=== PATIENT | female | born 1950 | race Caucasian/White ===

== ENCOUNTER 2017-07-12 10:33 | Inpatient (IN) | payer MEDICARE ==
[2017-07-12] MEDS ORDERED: Ondansetron INJ* 2 MG/ML VIAL IV ONE (11:09)
--- OUTSIDE RECORDS SUMMARY | 2017-07-12 11:32 | XMS REPORT ---
:1950 External Reference #:[id number] Author Organization [facility] Address [address] [place] [address] Phone [phone] Care Team Providers Name Role Phone Jake Dey MD Care Team Information Program Project Manager Unavailable Jake Dey MD Primary Care Physician Unavailable Payers Type Date Identification Numbers Payment Provider Subscriber Medicare Primary Effective: Policy Number: Medicare [place] 2013 [id number] Group Name: [facility] [address] PayID: [id number] [place] [address] Problems Date Description Provider Status Onset: 03/18/2017 Depressive disorder Jake Dey M.D. Active Onset: 03/29/2017 Anemia Jake Dey M.D. Active Onset: 05/04/2017 Arthralgia of the pelvic region Jake Dey M.D. Active and thigh Onset: 06/15/2017 Aortic valve disorder Jake Dey M.D. Active Onset: 06/29/2011 Acute conjunctivitis Flavio Box M.D. Inactive Inactive: 06/15/2017 Onset: 03/07/2012 Acute sinusitis Haider Poe M.D. Inactive Inactive: 06/15/2017 Onset: 03/07/2012 Acute upper respiratory infection Haider Poe M.D. Inactive Inactive: 06/15/2017 Onset: 08/13/2014 Allergic rhinitis Jake Dey M.D. Inactive Inactive: 06/15/2017 Onset: 08/13/2014 Cervical syndrome Jake Dey M.D. Inactive Inactive: 06/15/2017 Onset: 08/13/2014 Chest pain Jake Dey M.D. Inactive Inactive: 06/15/2017 Onset: 03/18/2017 Malaise and fatigue Jake Dey M.D. Inactive Inactive: 06/15/2017 Onset: 03/29/2017 Abnormal glucose level Jake Dey M.D. Inactive Inactive: 06/15/2017 Onset: 06/15/2017 Adult health examination Jake Dey M.D. Inactive Inactive: 06/15/2017 Family History Date Family Member(s) Problem(s) Comments Father Diabetes Mellitus, II Mother Gallstones Social History Type Date Description Comments Occupation Teacher [employer] Cigarette Use Former Cigarette Smoker quit 20 yrs ago Smoking Patient is a former smoker quit 20 yrs ago, 1ppd Allergies, Adverse Reactions, Alerts Date Description Reaction Status Severity Comments 03/18/2017 NKDA active Medications Medication Date Status Form Strength Qnty SIG Indications Ordering Provider Alendronate 06/15 Active Tablets 70mg 12tab 1 by mouth Jake F. Sodium s every week Agustín Dey Naproxen 04/15 Active Tablets 500mg 60tab 1 by mouth M25.552 Silvia s twice a Andrea, day with [employer] food Cyclobenzaprine 04/15 Active Tablets 10mg 60tab take 1 M25.552 Silvia HCL /2016 s tablet by Andrea, mouth two [employer] times daily as needed for pain Diphenhydramine 04/06 Active Capsules 25mg 2 by mouth Jake F. HCL at bedtime Yissel, as needed M.DFuentes Omeprazole 04/[address] 20mg 30cap 1 by mouth Jake F. /2016 s every day Agustín Dey Iron 04/06 Active Tablets 325(65Fe) 60tab 1 by mouth Jake F. /2016 mg s qd-bid Agustín Dey Proair HFA 11/14 Active Aerosol 108(90Bas 1unit 2 puffs J06.9 Carmella e) s every 4 Katie, mcg/Act hours as [employer] needed Alprazolam 12/19 Active Tablets 0.25mg 40tab 1/2-1 tabs Jake F. s by mouth Yissel, three M.D. times a day as needed anxiety Pseudoephedrine 04/06 Hx Tablets 30mg 14tab use twice Jake F. HCL /2016 s a day as Shallzeyad, - needed M.D. 06/15 congestion Escitalopram 03/18 Hx Tablets 10mg 30tab 1/2 by Jake F. Oxalate s mouth Shallish, - every day M.D. 06/15 Amoxicillin 03/13 Hx Tablets 875mg 20tab 1 by mouth J06.9 Flavio JFuentes /2016 s twice a Isauro, - day x 10 M.D. Doxycycline 01/20 Hx Tablets 100mg 2tabs take 2 Ricki A. Hyclate /2016 pills x 1 Darlow, - dose M.D. 01/21 Amoxicillin 11/14 Hx Tablets 875mg 20tab 1 by mouth J06.9 s twice a Katie, - day x 10 [employer] Doxycycline 01/23 Hx Capsules 100mg 14cap take 1 Marcia Hyclate s capsule Mauri [employer] - twice 01/30 daily by mouth for 7 days Alendronate 11/27 Hx Tablets 70mg 12tab 1 by mouth Jake F. Sodium /2014 s every week Yissel, - M.D. 02/07 Nitro-bid 11/27 Hx Ointment 2% 30gm apply to Jake F. /2014 [facility] 04/10 hours needed Anusol-HC 11/27 Hx Cream 2.5% 28.35 apply to Jake F. /2014 units affected Yissel, - area(s) M.D. 01/20 four times a day as needed Albuterol 11/14 Hx Inhaler 2 puffs Unknown Sulfate every 4 - hours as 03/13 needed Azithromycin 10/22 Hx Tablets 250mg 6tabs take 2 465.9 Carmella tablets by Katie, - mouth [employer] 11/27 today take 1 tablet daily for next 4 days Alendronate 09/01 Hx Tablets 70mg 12tab 1 by mouth Jake F. Sodium /2014 s every week Yissel, - M.D. 11/27 Zostavax 08/13 Hx Solution [id number]/ 1dose inject Jake F. /2014 Rec 0.65ML [facility], - M.D. 08/13 Fluticasone 08/13 Hx Suspension 50mcg/Act 16gm inhale 2 Jake F. sprays in [facility], - each M.D. 11/27 nostril /2014 daily Azithromycin 07/25 Hx Tablets 250mg 6tabs 2 by mouth 786.2 Marcia /2014 today and Mauri [employer] - 1 tab x 4 Amoxicillin 05/29 Hx Tablets 500mg 30tab 1 three 461.9 Lizbeth s times a Matteo, - day x 10 Afnp-C 06/08 days Azithromycin 10/18 Hx Tablets 250mg 6tabs 2 tabs 466.0 Lizbeth today; Matteo, - then one Afnp-C 10/23 tab qd x more days Ciprofloxacin 07/20 Hx Solution 0.3% 1bott two drops 372.00 Silvia HCL le in [facility], - affected [employer] 10/18 eye every three hours wa until symptoms resolve, then add'l 24 hrs Albenza 05/29 Hx Tablets 200mg 4tabs 2 po x 1 , 698.0 repeat in [facility], - 2 weeks Afnp-C 06/12 Azithromycin 05/17 Hx Tablets 250mg 6tabs 2 tabs Lizbeth today; Matteo, - then one Afnp-C 03/27 tab qd x more days Azithromycin 03/07 Hx Tablets 250mg 6tabs 2 po today Haider T. /2011 and 1 po x Midura, - 4 days M.D. 04/02 Tobrex 06/29 Hx Solution 0.3% 15cc 2 gtts Flavio J. /2010 affected Melydavidn, - eye(s) tid M.D. 12/25 x days Ciprofloxacin 04/21 Hx Tablets 250mg 14tab 1 po bid Haider T. HCL s Midura, - M.D. 06/29 Macrobid 04/10 Hx Capsules 100mg 14cap 1 po bid x Carmella /2010 s 7d Katie, - [employer] 06/29 Bactrim DS 04/08 Hx Tablets 800-160mg 20tab 1 po bid 599.0 Carmella s for 10 Katie, - days [employer] 04/10 Doxycycline 01/[address] 100mg 42cap 1 po bid 919.4 Carmella cl Part s x 21d Katie, - [employer] 04/08 Xanax 08/15 Hx Tablets 0.25mg 30tab 1 tab po 300.00 David Magana, /2010 s qd prn M.DFuentes - 08/13 Bactrim DS 05/14 Hx Tablets 800-160mg 10tab 1 po bid [facility]. /2009 s for 5 days Bia Rosado M.D. 08/25 Cyclobenzaprine 10/22 Hx Tablets 10mg 30tab 1 po tid [facility] s as needed Katie, - [employer] 08/13 Amoxicillin 08/13 Hx Tablets 500mg 21tab 1 po tid 381.4 [facility]. /2008 s for 7 days Bia Rosado M.D. 05/09 Auralgan 08/13 Hx Solution 1bott 2 to 4 381.4 Renée M. /[facility] [place].DFuentes 08/25 ears qid Doxycycline 05/[address] 100mg 2caps 2 tabs po E906.4 Goodwin A. Hyclate /2007 Part times one Bia Melissa M.D. 07/02 Flexeril 09/28 Hx Tablets 10mg 30tab 1 PO tid Lizbeth s prn Muscle Matteo, - Spasm Afnp-C 08/13 Skelaxin 09/27 Hx Tablets 800mg 8tabs One Tab PO 728.89 Lizbeth tid prn Matteo, - Afnp-C 09/28 Xanax 02/07 Hx Tablets 0.25mg 20tab 1 tab po 300.00 s qd prn Ita, - Afnp-C 05/09 Amoxicillin 10/17 Hx Tablets 500mg 30tab 1 tid x 10 s days Ita, - Afnp-C 07/08 Robitussin ac 07/25 Hx 2Oz 1-2 tsp po q4h prn Ita, - Afnp-C 10/17 Use At hs Pen VK 03/23 Hx Tablets 500mg 40tab 1 qid s Katie, - [employer] 10/17 Doxycycline 08/02 Hx 100mg 20uni 1 po bid ts [facility], - Afnp-C 07/12 Naproxen 10/09 Hx 375mg Tab 50uni 1 tid For Sampson One Week [place], - Then tid M.DFuentes 08/02 prn Multivitamins 00/00 Hx Tablets 1 po qd Unknown /0000 - 04/10 Sudafed D 00 Hx Tablets prn Unknown /0000 - 07/19 Loratadine 00/ Hx Tablets 10mg 1 po qd Unknown /0000 prn - 08/13 Calcium 600 High 00 Hx Tablets 600mg 1 by mouth Unknown Potency /0000 daily - 11/27 Calcium + D3 00/ Hx Unknown /0000 - 04/10 Raw Calcium 00/ Hx Unknown /0000 - 01/02 Coenzyme B 00/ Hx Unknown Complex / - 01/02 Vitamin K2 00/00 Hx Capsules 100mcg 1 po qod Unknown / - 11/14 Vitamin D3 00/00 Hx Capsules 5000Unit 1 by mouth Unknown Maximum Strength /0000 every - other day 11/14 Acp Beta 00 Hx Unknown Supplement / - 01/02 Women's Libido 00/ Hx Unknown /0000 - 01/02 Oomega 3 00/ Hx Unknown /0000 - 01/02 Loratadine 00/00 Hx Tablets 10mg 1 by mouth Unknown /0000 every day - prn 04/06 Young Jevity 00 Hx Powder 2 tbsps in Unknown /0000 water qd - 11/14 Drexel 3-6-9 Hx Capsules 400mg 2 po qd Unknown Complex /0000 - 11/14 Caltottie 00 Hx Liquid 1200mg qd Unknown /0000 - 11/14 Estrogen Cream 00/ Hx apply dime Unknown /0000 sized amt - to skin 11/14 and rub in Glucosamine 00 Hx Gel Caps 2 po qd Unknown /0000 - 10/15 Estragelis Hx 1 po qd Unknown /0000 - 04/06 Cordy Seps Hx 1 po qd Unknown /0000 - 04/06 Immunizations CPT Code Status Date Vaccine Lot # [id number] Given 04/15/2017 High-Dose, Influenza Virus Vacccine-fluzone 65 and [id number] older 90127 Given 04/08/2016 Tdap Tetanus, W Pertussis [id number] 59515 Given 04/08/2016 Pneumococcal Conjugate Vacc-13 [id number] 21576 Given 04/08/2016 High-Dose, Influenza Virus Vacccine-fluzone 65 and [id number] older 11845 Given 03/26/2015 High-Dose, Influenza Virus Vacccine-fluzone 65 and [id number] older 03749 Given 08/13/2014 Pneumococcal Immunization [id number] 00030 Given 08/13/2014 High-Dose, Influenza Virus Vacccine-fluzone 65 and [id number] older 28386 Given 04/27/2013 High-Dose, Influenza Virus Vacccine-fluzone 65 and [id number] older Vital Signs Date Vital Result Comment 06/15/2017 BP Systolic 128 mmHg BP Diastolic 72 mmHg Heart Rate 76 /min Body Temperature 97.9 F Respiratory Rate 16 /min Height 67.25 inches 5'7.25" Weight 170.50 lb BMI (Body Mass Index) 26.5 kg/m2 05/04/2017 BP Systolic 124 mmHg BP Diastolic 64 mmHg Heart Rate 72 /min Respiratory Rate 16 /min Height 67.25 inches 5'7.25" 04/15/2017 BP Systolic 126 mmHg BP Diastolic 64 mmHg Heart Rate 70 /min Body Temperature 98.1 F Height 67.25 inches 5'7.25" 04/06/2017 BP Systolic 128 mmHg BP Diastolic 72 mmHg Heart Rate 72 /min Body Temperature 98.2 F Respiratory Rate 16 /min Height 67.25 inches 5'7.25" Weight 168.38 lb BMI (Body Mass Index) 26.2 kg/m2 03/18/2017 BP Systolic 120 mmHg BP Diastolic 64 mmHg Heart Rate 78 /min Body Temperature 98.4 F Height 67.25 inches 5'7.25" Weight 172.25 lb BMI (Body Mass Index) 26.8 kg/m2 03/13/2017 BP Systolic 144 mmHg BP Diastolic 60 mmHg Heart Rate 78 /min Body Temperature 99.0 F Respiratory Rate 16 /min Weight 171.12 lb 01/20/2017 BP Systolic 120 mmHg BP Diastolic 70 mmHg Heart Rate 76 /min Body Temperature 98.2 F Respiratory Rate 16 /min Weight 172.00 lb 11/14/2016 BP Systolic 120 mmHg BP Diastolic 72 mmHg Heart Rate 66 /min Body Temperature 98.1 F Respiratory Rate 16 /min Weight 173.00 lb 01/03/2016 BP Systolic 118 mmHg BP Diastolic 66 mmHg Heart Rate 60 /min Body Temperature 97.9 F Respiratory Rate 16 /min Weight 183.50 lb 04/29/2015 BP Systolic 118 mmHg BP Diastolic 64 mmHg Heart Rate 60 /min Body Temperature 97.6 F Respiratory Rate 16 /min Weight 199.38 lb 04/10/2015 BP Systolic 110 mmHg BP Diastolic 60 mmHg Heart Rate 70 /min Body Temperature 97.9 F Respiratory Rate 16 /min Height 67.25 inches 5'7.25" Weight 167.00 lb BMI (Body Mass Index) 26.0 kg/m2 02/07/2015 BP Systolic 140 mmHg BP Diastolic 70 mmHg Heart Rate 76 /min Body Temperature 98.0 F Respiratory Rate 16 /min Height 67.25 inches 5'7.25" Weight 194.00 lb BMI (Body Mass Index) 30.2 kg/m2 11/27/2014 BP Systolic 108 mmHg BP Diastolic 64 mmHg Heart Rate 66 /min Body Temperature 97.5 F Respiratory Rate 16 /min Height 67.25 inches 5'7.25" Weight 198.00 lb BMI (Body Mass Index) 30.8 kg/m2 10/22/2014 BP Systolic 110 mmHg BP Diastolic 70 mmHg Heart Rate 68 /min Body Temperature 98.8 F Respiratory Rate 18 /min Height 67.25 inches 5'7.25" Weight 195.00 lb BMI (Body Mass Index) 30.3 kg/m2 09/20/2014 BP Systolic 138 mmHg BP Diastolic 78 mmHg Heart Rate 64 /min Body Temperature 98.3 F Respiratory Rate 16 /min Height 67.25 inches 5'7.25" Weight 195.00 lb BMI (Body Mass Index) 30.3 kg/m2 08/13/2014 BP Systolic 124 mmHg BP Diastolic 72 mmHg Heart Rate 68 /min Body Temperature 97.5 F Respiratory Rate 16 /min Height 67.25 inches 5'7.25" Weight 194.00 lb BMI (Body Mass Index) 30.2 kg/m2 07/25/2014 BP Systolic 120 mmHg BP Diastolic 72 mmHg Heart Rate 66 /min Body Temperature 97.7 F Respiratory Rate 16 /min Height 67.25 inches 5'7.25" Weight 193.50 lb BMI (Body Mass Index) 30.1 kg/m2 07/09/2014 BP Systolic 120 mmHg BP Diastolic 70 mmHg Heart Rate 60 /min Body Temperature 98.0 F Respiratory Rate 18 /min Height 67.25 inches 5'7.25" Weight 194.00 lb BMI (Body Mass Index) 30.2 kg/m2 05/29/2014 BP Systolic 166 mmHg BP Diastolic 92 mmHg Heart Rate 70 /min Body Temperature 99.0 F Respiratory Rate 18 /min O2 % BldC Oximetry 98 % Height 67.25 inches 5'7.25" Weight 191.50 lb BMI (Body Mass Index) 29.8 kg/m2 12/13/2013 BP Systolic 132 mmHg BP Diastolic 76 mmHg Heart Rate 60 /min Body Temperature 98.0 F Respiratory Rate 16 /min Height 67.25 inches 5'7.25" Weight 191.38 lb BMI (Body Mass Index) 29.7 kg/m2 10/18/2013 BP Systolic 120 mmHg BP Diastolic 72 mmHg Heart Rate 66 /min Body Temperature 99.5 F Respiratory Rate 16 /min O2 % BldC Oximetry 98 % Height 67.25 inches 5'7.25" Weight 190.38 lb BMI (Body Mass Index) 29.6 kg/m2 08/01/2013 BP Systolic 124 mmHg BP Diastolic 60 mmHg Heart Rate 60 /min Body Temperature 97.1 F Respiratory Rate 16 /min Height 67.25 inches 5'7.25" 07/20/2013 BP Systolic 130 mmHg BP Diastolic 80 mmHg Heart Rate 78 /min Body Temperature 97.3 F Height 67.25 inches 5'7.25" Weight 190.25 lb BMI (Body Mass Index) 29.6 kg/m2 05/29/2013 BP Systolic 120 mmHg BP Diastolic 76 mmHg Heart Rate 80 /min Body Temperature 98.7 F Respiratory Rate 16 /min Height 67.25 inches 5'7.25" Weight 186.00 lb BMI (Body Mass Index) 28.9 kg/m2 04/27/2013 BP Systolic 120 mmHg BP Diastolic 60 mmHg Heart Rate 60 /min Body Temperature 97.7 F Respiratory Rate 16 /min Height 67.25 inches 5'7.25" Weight 186.00 lb BMI (Body Mass Index) 28.9 kg/m2 03/27/2013 BP Systolic 110 mmHg BP Diastolic 64 mmHg Heart Rate 60 /min Body Temperature 97.7 F Respiratory Rate 16 /min Height 67.25 inches 5'7.25" Weight 185.00 lb BMI (Body Mass Index) 28.8 kg/m2 05/12/2012 BP Systolic 138 mmHg BP Diastolic 88 mmHg Heart Rate 88 /min Body Temperature 100.2 F Height 67.25 inches 5'7.25" Weight 180.00 lb BMI (Body Mass Index) 28.0 kg/m2 04/02/2012 BP Systolic 122 mmHg BP Diastolic 80 mmHg Heart Rate 60 /min Body Temperature 97.4 F Height 67.25 inches 5'7.25" Weight 180.00 lb BMI (Body Mass Index) 28.0 kg/m2 03/07/2012 BP Systolic 104 mmHg BP Diastolic 70 mmHg Heart Rate 64 /min Body Temperature 97.8 F Respiratory Rate 20 /min Height 67.25 inches 5'7.25" Weight 180.00 lb BMI (Body Mass Index) 28.0 kg/m2 12/26/2011 BP Systolic 106 mmHg BP Diastolic 70 mmHg Heart Rate 64 /min Body Temperature 97.7 F Height 67.25 inches 5'7.25" Weight 182.00 lb BMI (Body Mass Index) 28.3 kg/m2 06/29/2011 BP Systolic 106 mmHg BP Diastolic 70 mmHg Heart Rate 60 /min Body Temperature 96.4 F Height 67.25 inches 5'7.25" Weight 177.00 lb BMI (Body Mass Index) 27.5 kg/m2 04/08/2011 BP Systolic 100 mmHg BP Diastolic 64 mmHg Heart Rate 60 /min Body Temperature 98.0 F Respiratory Rate 20 /min Height 67.25 inches 5'7.25" Weight 168.00 lb BMI (Body Mass Index) 26.1 kg/m2 01/17/2011 BP Systolic 90 mmHg BP Diastolic 60 mmHg Heart Rate 60 /min Body Temperature 97.2 F Height 67.25 inches 5'7.25" Weight 169.00 lb BMI (Body Mass Index) 26.3 kg/m2 08/25/2010 BP Systolic 112 mmHg BP Diastolic 70 mmHg Heart Rate 68 /min Body Temperature 97.5 F Height 67.25 inches 5'7.25" Weight 167.00 lb BMI (Body Mass Index) 26.0 kg/m2 05/09/2010 BP Systolic 130 mmHg BP Diastolic 80 mmHg Heart Rate 64 /min Body Temperature 98.2 F Respiratory Rate 16 /min Height 68.5 inches 5'8.50" Weight 170.00 lb BMI (Body Mass Index) 25.5 kg/m2 08/13/2008 BP Systolic 118 mmHg BP Diastolic 70 mmHg Heart Rate 80 /min Body Temperature 99.5 F Weight 174.00 lb 07/02/2008 BP Systolic 120 mmHg BP Diastolic 62 mmHg Heart Rate 72 /min Body Temperature 98.4 F Height 68.5 inches 5'8.50" 05/03/2008 BP Systolic 104 mmHg BP Diastolic 60 mmHg Heart Rate 72 /min Height 68.5 inches 5'8.50" Weight 174.00 lb BMI (Body Mass Index) 26.1 kg/m2 09/28/2007 BP Systolic 100 mmHg BP Diastolic 60 mmHg Heart Rate 60 /min Body Temperature 98.3 F Height 68.5 inches 5'8.50" Weight 177.00 lb BMI (Body Mass Index) 26.5 kg/m2 06/28/2007 BP Systolic 120 mmHg BP Diastolic 80 mmHg Heart Rate 66 /min Body Temperature 98.4 F Respiratory Rate 14 /min Height 68.5 inches 5'8.50" 06/08/2007 BP Systolic 112 mmHg BP Diastolic 70 mmHg Body Temperature 98.1 F Height 68.5 inches 5'8.50" 02/07/2007 BP Systolic 104 mmHg BP Diastolic 60 mmHg Heart Rate 64 /min Body Temperature 98.0 F Height 68.5 inches 5'8.50" Weight 173.00 lb BMI (Body Mass Index) 25.9 kg/m2 10/17/2005 BP Systolic 112 mmHg BP Diastolic 70 mmHg Body Temperature 97.8 F Height 68.5 inches 5'8.50" Weight 176.00 lb BMI (Body Mass Index) 26.4 kg/m2 07/25/2003 BP Systolic 124 mmHg BP Diastolic 82 mmHg Heart Rate 78 /min Body Temperature 99.0 F Height 68.5 inches 5'8.50" Weight 158.00 lb BMI (Body Mass Index) 23.7 kg/m2 03/23/2002 BP Systolic 124 mmHg BP Diastolic 70 mmHg Heart Rate 64 /min Body Temperature 97.5 F Height 68.5 inches 5'8.50" Weight 179.00 lb BMI (Body Mass Index) 27.2 kg/m2 08/02/2000 BP Systolic 110 mmHg BP Diastolic 70 mmHg Heart Rate 88 /min Body Temperature 100.6 F Height 68.5 inches 5'8.50" Weight 181.00 lb BMI (Body Mass Index) 27.5 kg/m2 10/10/1999 BP Systolic 90 mmHg LA SM Cuff BP Diastolic 68 mmHg LA SM Cuff Height 68.5 inches 5'8.50" 08/15/1999 Body Temperature 98.0 F Height 68.5 inches 5'8.50" Weight 170.00 lb BMI (Body Mass Index) 25.8 kg/m2 Results Test Date Test Result H/L Range Note Laboratory test 06/15/2017 Cytology Thinprep <pending> finding w/rfx([facility]) CBC Electronic ([facility]) 06/15/2017 WBC 5.4 3.6-9.6 RBC 2.62 Low 3.90-5.70 Hemoglobin ([facility]/CMC/CTX) 9.4 g/dL Low 12.1 - 17.2 1 Hematocrit (Fma/CMC/CTX) 26.7 % Low 36.1 - 50.3 Platelets 178 10^3/ul 150-400 Lymph% 44.4 % 17.0-48.0 Mixed% 8.9 Neutrophils % 46.7 Mean Corpuscular Vol 102 High 82.2-97.4 Mean Corpuscular Hemoglobin 35.8 High 27.6-33.3 Mean Corpuscular Hemo Concen 35.2 32.0-36.0 RDW 13.3 11.6-13.7 Mean Platelet Volume 7.1 5.5-11.0 Ua - Micro (a) 06/15/2017 Appearance clear Color yellow Glucose, Urine (Fma/CMC/CTX) neg Bilirubin neg Ketones neg SP Grav 1.025 Blood trace-intact PH 5.5 Protein ssa 3+ Urobil 0.2 Nitrite neg Leukocytes (Fma/CMC/Centrex) neg Hyaline - /Lpf Granular - /Lpf WBC (Fma,Centrex) 0-1 RBC 0-1 Mucus (Fma/CBC/Centrex) - /Lpf Epith rare /Lpf Bacteria rare /Hpf Amorphous (Fma/CMC/Centrex) - /Lpf Crystals, Fluid (Fma/CMC/CTX) - Z#Comments - Laboratory test finding 06/15/2017 Iron <pending> 60-150 Laboratory test finding 06/15/2017 TSH <pending> 0.5-5.0 B12 <pending> 230-1050 Folate <pending> 3.00-16.00 Laboratory test finding 05/06/2017 Surgical Pathology SEE RESULT BELOW 2 Basic Metabolic Profile 05/04/2017 Sodium 138 mEq/L 134-149 Potassium 4.7 mEq/L 3.6-5.5 Chloride 105 mEq/L 94-112 Carbon Dioxide 25 mEq/L 21-32 Glucose 103 mg/dL 70-105 BUN 13 mg/dL 6-26 Creatinine 0.8 mg/dL 0.6-1.4 BUN/Creat Ratio 16.3 CALC 8.0-36.0 Calcium 9.1 mg/dL 8.6-10.2 GFR Non- >60 ml/min/1.73m^ >=60 GFR >60 ml/min/1.73m^ >=60 CBC Electronic ([facility]ma) 05/04/2017 WBC 5.5 3.6-9.6 RBC 2.69 Low 3.90-5.70 Hemoglobin (Fma/CMC/CTX) 9.6 g/dL Low 12.1 - 17.2 3 Hematocrit (Fma/CMC/CTX) 27.7 % Low 36.1 - 50.3 Platelets 194 10^3/ul 150-400 Lymph% 47.7 % 17.0-48.0 Mixed% 8.7 Neutrophils % 43.6 Mean Corpuscular Vol 103 High 82.2-97.4 4 Mean Corpuscular Hemoglobin 35.8 High 27.6-33.3 Mean Corpuscular Hemo Concen 34.8 32.0-36.0 RDW 13.9 High 11.6-13.7 Mean Platelet Volume 6.5 5.5-11.0 Comprehensive Metabolic Prof 04/20/2017 Sodium 134 mEq/L 134-149 Potassium 3.9 mEq/L 3.6-5.5 Chloride 100 mEq/L 94-112 Carbon Dioxide 21 mEq/L 21-32 Glucose 139 mg/dL High 70-105 BUN 16 mg/dL 6-26 Creatinine 0.7 mg/dL 0.6-1.4 BUN/Creat Ratio 22.9 CALC 8.0-36.0 Calcium 8.7 mg/dL 8.6-10.2 Total Protein 7.4 g/dL 6.4-8.3 Albumin 4.3 g/dL 3.8-5.5 Globulin 3.1 g/dL 2.0-4.8 A/G Ratio 1.4 CALC 0.6-2.3 Alk. Phosphatase 59 U/L 30-110 Alt (SGPT) 19 U/L 7-35 Ast (Sgot) 30 U/L 5-34 Total Bilirubin 0.6 mg/dL 0.2-1.3 GFR Non- >60 ml/min/1.73m^ >=60 GFR >60 ml/min/1.73m^ >=60 Laboratory test finding 04/20/2017 Ferritin 119 ng/mL 15-200 CBC Electronic (a) 04/20/2017 WBC 4.9 3.6-9.6 RBC 2.54 Low 3.90-5.70 Hemoglobin (Fma/CMC/CTX) 9.2 g/dL Low 12.1 - 17.2 Hematocrit (Fma/CMC/CTX) 25.8 % Low 36.1 - 50.3 Platelets 198 10^3/ul 150-400 Lymph% 39.2 % 17.0-48.0 Mixed% 7.2 Neutrophils % 53.6 Mean Corpuscular Vol 101 High 82.2-97.4 Mean Corpuscular Hemoglobin 36.2 High 27.6-33.3 Mean Corpuscular Hemo Concen 35.8 32.0-36.0 RDW 13.2 11.6-13.7 Mean Platelet Volume 6.8 5.5-11.0 Iron & Iron Binding Capacity 04/20/2017 Iron 111 g/dL 50-212 Unsaturated Iron Binding 233 g/dL Total Iron Binding Capacity 344 g/dL 250-450 % Iron Saturation 32 % 15-55 Ict Hemoccult ([facility]ma) 04/07/2017 Ict Hemoccult (1) 04/01/17 neg Ict Hemoccult-(2) 04/02/17 neg Ict-Hemoccult (3) 04/03/17 neg Laboratory test finding 03/30/2017 Hemoglobin A1c ([facility]ma) 5.5 % 4.1-5.7 Retic Count 03/30/2017 Retic Count 1.2 % 0.5-1.5 Corrected Retic Count 0.7 % 0.5-1.5 Maturation Factor Retic 2.0 Retic Index 0.40 Mean Retic Volume 127.3 Immature Retic Fraction 0.51 RBC Retic Count 2.77 10^6/uL Low 4.6-6.2 Hematocrit for Retic CNT 28 % Low 35-47 Complete Blood Count 03/30/2017 WBC 4.6 x10^3/UL 3.6-9.6 RBC 2.81 x10^6/UL Low 3.90-5.70 HGB 9.9 g/dL Low 12.1-17.2 5 HCT 28 % Low 36-50 6 MCV 101.0 fL High 82.2-97.4 MCH 35.4 pg High 27.6-33.3 MCHC 35.0 g/dL 33.0-35.5 RDW 13.1 % 11.6-13.7 PLT 259 x10^3/UL 150-400 MPV 6.9 fL Low 7.4-10.4 Gran # 2.3 x10^3/UL 1.5-7.2 Lymph# 2.0 x10^3/UL 0.7-4.9 [place]# 0.3 x10^3/UL 0.1-0.9 Gran % 46.1 % 42.2-75.2 Lymph % 45.7 % 20.5-51.1 [place]% 8.2 % 1.7-9.3 Laboratory test finding 03/30/2017 Serum Iron 95 g/dL 60-150 Vitamin B-12 930 pg/mL 230-1050 Folate Level >20.00 ng/mL High 3.00-16.00 Basic Metabolic Profile 03/30/2017 Sodium 139 mEq/L 134-149 Potassium 4.0 mEq/L 3.6-5.5 Chloride 106 mEq/L 94-112 Carbon Dioxide 21 mEq/L 21-32 Glucose 181 mg/dL High 70-105 7 BUN 14 mg/dL 6-26 Creatinine 0.7 mg/dL 0.6-1.4 BUN/Creat Ratio 20.0 CALC 8.0-36.0 Calcium 9.3 mg/dL 8.6-10.2 GFR Non- >60 ml/min/1.73m^ >=60 GFR >60 ml/min/1.73m^ >=60 CBC Electronic (a) 03/18/2017 WBC 5.4 3.6-9.6 RBC 2.91 Low 3.90-5.70 Hemoglobin (Fma/CMC/CTX) 10.2 g/dL Low 12.1 - 17.2 Hematocrit (Fma/CMC/CTX) 29.3 % Low 36.1 - 50.3 Platelets 231 10^3/ul 150-400 Lymph% 39.3 % 17.0-48.0 Mixed% 6.6 Neutrophils % 54.1 Mean Corpuscular Vol 101 High 82.2-97.4 Mean Corpuscular Hemoglobin 34.9 High 27.6-33.3 Mean Corpuscular Hemo Concen 34.7 32.0-36.0 RDW 13.5 11.6-13.7 Mean Platelet Volume 6.8 5.5-11.0 Ua - Non Micro (a) 03/18/2017 Appearance clear Color yellow Glucose, Urine (Fma/CMC/CTX) neg Bilirubin neg Ketones neg SP Grav 1.015 Blood neg PH 7.0 Protein ssa neg Urobil 0.2 Nitrite neg Leukocytes (a/CMC/Centrex) neg Lyme, Western Blot, Serum 03/18/2017 IgG P93 Ab. Absent 8 IgG P66 Ab. Absent 8 IgG P58 Ab. Absent 8 IgG P45 Ab. Absent 8 IgG P41 Ab. Absent 8 IgG P39 Ab. Absent 8 IgG P30 Ab. Absent 8 IgG P28 Ab. Absent 8 IgG P23 Ab. Absent 8 IgG P18 Ab. Absent 8 Lyme IgG WB Interp. Negative 8, 9 IgM P41 Ab. Absent 8 IgM P39 Ab. Absent 8 IgM P23 Ab. Absent 8 Lyme IgM WB Interp. Negative 8, 10 Laboratory test finding 03/18/2017 C-Reactive Protein, Quant 1.4 mg/L 0.0 -4.9 8 Laboratory test finding 03/18/2017 Free T4 0.95 ng/dL 0.75-1.54 TSH 2.37 mIU/L 0.50-6.00 Comprehensive Metabolic Prof 03/18/2017 Sodium 137 mEq/L 134-149 Potassium 4.3 mEq/L 3.6-5.5 Chloride 102 mEq/L 94-112 Carbon Dioxide 24 mEq/L 21-32 Glucose 169 mg/dL High 70-105 BUN 17 mg/dL 6-26 Creatinine 0.7 mg/dL 0.6-1.4 BUN/Creat Ratio 24.3 CALC 8.0-36.0 Calcium 9.0 mg/dL 8.6-10.2 Total Protein 7.3 g/dL 6.4-8.3 Albumin 4.4 g/dL 3.8-5.5 Globulin 2.9 g/dL 2.0-4.8 A/G Ratio 1.5 CALC 0.6-2.3 Alk. Phosphatase 63 U/L 30-110 Alt (SGPT) 20 U/L 7-35 Ast (Sgot) 28 U/L 5-34 Total Bilirubin 0.4 mg/dL 0.2-1.3 GFR Non- >60 ml/min/1.73m^ >=60 GFR >60 ml/min/1.73m^ >=60 Laboratory test finding 03/13/2017 Quickstrep negative Negative Laboratory test finding 04/10/2015 Vitamin B-12 1595 pg/mL 230-1050 11 TSH 3.59 mIU/L 0.50-6.00 Serum Iron 81 g/dL 60-150 Comprehensive Metabolic Prof 04/10/2015 Sodium 137 mEq/L 134-149 Potassium 3.7 mEq/L 3.6-5.5 Chloride 100 mEq/L 94-112 Carbon Dioxide 28 mEq/L 21-32 Glucose 118 mg/dL High 70-105 BUN 14 mg/dL 6-26 Creatinine 0.7 mg/dL 0.6-1.4 BUN/Creat Ratio 20.0 CALC 8.0-36.0 Calcium 10.0 mg/dL 8.6-10.2 Total Protein 7.9 g/dL 6.4-8.3 Albumin 5.2 g/dL 3.8-5.5 Globulin 2.7 g/dL 2.0-4.8 A/G Ratio 1.9 CALC 0.6-2.3 Alk. Phosphatase 53 U/L 30-110 Alt (SGPT) 43 U/L High 7-35 Ast (Sgot) 38 U/L High 5-34 Total Bilirubin 0.4 mg/dL 0.2-1.3 GFR Non- >60 ml/min/1.73m^ >=60 GFR >60 ml/min/1.73m^ >=60 Laboratory test finding 04/10/2015 Free T4 0.88 ng/dL 0.75-1.54 Free T3 2.69 pg/mL 2.00-4.90 CBC Electronic (Fma) 04/10/2015 WBC 5.7 3.6-9.6 RBC 4.10 3.90-5.70 Hemoglobin (Fma/CMC/CTX) 13.8 g/dL 12.1 - 17.2 Hematocrit (Fma/CMC/CTX) 39.9 % 36.1 - 50.3 Platelets 287 10^3/ul 150-400 Lymph% 43.8 % 17.0-48.0 Mixed% 6.8 Neutrophils % 49.4 Mean Corpuscular Vol 97 82.2-97.4 Mean Corpuscular Hemoglobin 33.5 High 27.6-33.3 Mean Corpuscular Hemo Concen 34.4 32.0-36.0 RDW 13.6 11.6-13.7 Mean Platelet Volume 6.4 5.5-11.0 Ehrlichiosis Panel 04/10/2015 E. chaffeensis (HME) IgG Negative Neg:<1 :64 12 Titer E. chaffeensis (HME) IgM Titer Negative Neg:<1:20 12, 13 Hge IgG Titer Negative Neg:<1:64 12, 14 Hge IgM Titer Negative Neg:<1:20 12, 15 Lyme, Western Blot, Serum 04/10/2015 IgG P93 Ab. Comment: 12, 16 IgG P66 Ab. DNR 12 IgG P58 Ab. DNR 12 IgG P45 Ab. DNR 12 IgG P41 Ab. DNR 12 IgG P39 Ab. DNR 12 IgG P30 Ab. DNR 12 IgG P28 Ab. DNR 12 IgG P23 Ab. DNR 12 IgG P18 Ab. DNR 12 Lyme IgG WB Interp. TNP 12, 17 IgM P41 Ab. DNR 12 IgM P39 Ab. DNR 12 IgM P23 Ab. DNR 12 Lyme IgM WB Interp. TNP 12, 18 Surgical Pathology 09/14/2014 S RUN DATE: 09/17/ <SEE NOTE> 19 Complete Blood Count 08/13/2014 WBC 8.1 x10^3/UL 3.6-9.6 RBC 4.32 x10^6/UL 3.90-5.70 HGB 14.2 g/dL 12.1-17.2 HCT 41 % 36-50 MCV 95.0 fL 82.2-97.4 MCH 32.9 pg 27.6-33.3 MCHC 34.8 g/dL 33.0-35.5 RDW 12.2 % 11.6-13.7 PLT 324 x10^3/UL 150-400 MPV 6.8 fL Low 7.4-10.4 Gran # 5.0 x10^3/UL 1.5-7.2 Lymph# 2.6 x10^3/UL 0.7-4.9 [place]# 0.5 x10^3/UL 0.1-0.9 Gran % 60.1 % 42.2-75.2 Lymph % 32.7 % 20.5-51.1 [place]% 7.2 % 1.7-9.3 Comprehensive Metabolic Prof 08/13/2014 Sodium 133 mEq/L Low 134-149 20 Potassium 4.1 mEq/L 3.6-5.5 Chloride 102 mEq/L 94-112 Carbon Dioxide 26 mEq/L 21-32 Glucose 107 mg/dL High 70-105 21 BUN 17 mg/dL 6-26 Creatinine 0.7 mg/dL 0.6-1.4 BUN/Creat Ratio 24.3 CALC 8.0-36.0 Calcium 9.6 mg/dL 8.6-10.2 Total Protein 8.2 g/dL 6.4-8.3 Albumin 4.5 g/dL 3.8-5.5 Globulin 4.0 g/dL 2.0-4.8 A/G Ratio 1.2 CALC 0.6-2.3 Alk. Phosphatase 69 U/L 30-110 Alt (SGPT) 45 U/L High 7-35 22 Ast (Sgot) 41 U/L High 5-34 23 Total Bilirubin 0.3 mg/dL 0.2-1.3 Lipid Profile 08/13/2014 Cholesterol 244 mg/dL High 120-200 Triglycerides 294 mg/dL High 30-200 HDL Cholesterol 54 mg/dL 30-85 LDL (Calculated) 131 CALC High 0-129 24 VLDL Cholesterol 59 mg/dL High 0-50 HDL Risk Factor 4.5 CALC High 0.0-4.4 Laboratory test finding 08/13/2014 TSH 3.68 mIU/L 0.50-6.00 LDL, Direct 145 mg/dL High 0-130 Ua - Micro (Fma) 08/13/2014 Appearance CLEAR Color YELLOW Glucose, Urine (Fma/CMC/CTX) NEG Bilirubin NEG Ketones NEG SP Grav 1.020 Blood NEG PH 5.5 Protein NEG Urobil 0.2 Nitrite NEG Leukocytes (Fma/CMC/Centrex) SMALL Hyaline - /Lpf Granular - /Lpf WBC (Fma,Centrex) 2-3 RBC - Mucus - /Lpf Epith RARE /Lpf Bacteria RARE /Hpf Amorphous - /Lpf Crystals, Fluid (Fma/CMC/CTX) - Z#Comments - Laboratory test finding 12/08/2013 Potassium Redraw 4.1 mmol/L 3.7-5.6 Ast Redraw 30 U/L 13-39 CBC Auto Diff 12/08/2013 White Blood Count 7.1 10^3/uL 4.8-10.8 Red Blood Count 4.24 10^6/uL 4.0-5.4 Hemoglobin 13.9 g/dL 12.0-16.0 Hematocrit 39 % 35-47 Mean Corpuscular Volume 93 fL 80-97 Mean Corpuscular Hemoglobin 33 pg High 27-31 Mean Corpuscular HGB Conc 35 g/dL 31-36 Red Cell Distribution Width 13 % 10.5-15 Platelet Count 272 10^3/uL 150-450 Mean Platelet Volume 8 um3 7.4-10.4 Abs Neutrophils 3.4 10^3/uL 1.5-7.7 Abs Lymphocytes 2.5 10^3/uL 1.0-4.8 Abs Monocytes 0.4 10^3/uL 0-0.8 Abs Eosinophils 0.7 10^3/uL High 0-0.6 Abs Basophils 0.1 10^3/uL 0-0.2 Abs Nucleated RBC 0.01 10^3/uL Granulocyte % 47.3 % 38-83 Lymphocyte % 35.7 % 25-47 Monocyte % 6.2 % 1-9 Eosinophil % 9.4 % High 0-6 Basophil % 1.4 % 0-2 Nucleated Red Blood Cells % 0.1 Laboratory test 12/08/2013 D Dimer Quantitative < 200 ng/mL Less Than 230 25 finding B Type Natriuretic Peptide 18 pg/mL 26 Comp Metabolic Panel 12/08/2013 Sodium 133 mmol/L 133-145 Potassium TNP mmol/L 3.7-5.6 27 Chloride 103 mmol/L 101-111 Co2 Carbon Dioxide 25 mmol/L 22-32 Anion Gap TNP mmol/L 2-11 Glucose 107 mg/dL High 70-100 Blood Urea Nitrogen 14 mg/dL 6-24 Creatinine 0.76 mg/dL 0.51-0.95 BUN/Creatinine Ratio 18.4 8-20 Calcium 10.0 mg/dL 8.6-10.3 Total Protein 7.7 g/dL 6.4-8.9 Albumin 4.6 g/dL 3.2-5.2 Globulin 3.1 g/dL 2-4 Albumin/Globulin Ratio 1.5 1-3 Total Bilirubin 0.40 mg/dL 0.2-1.0 Alkaline Phosphatase 64 U/L 34-104 Alt 26 U/L 7-52 Ast TNP U/L 13-39 28 Egfr Non- 76.4 >60 Egfr 98.2 >60 29 Laboratory test finding 12/08/2013 Troponin I 0.00 ng/mL <0.03 30 TSH (Thyroid Stimulating Horm) 2.71 IU/mL 0.34-5.60 C Reactive Protein < 1.00 mg/L < 5.00 31 Ua - Micro (Fma) 05/12/2012 Appearance clear Color yellow Glucose neg Bilirubin neg Ketones trace SP Grav 1.015 Blood trace-lysed PH 7.5 Protein neg Urobil 0.2 Nitrite neg Leukocytes (Fma/CMC/Centrex) neg Hyaline - /Lpf Granular - /Lpf WBC (Fma,Centrex) 0-1 RBC 2-3 Mucus - /Lpf Epith rare /Lpf Bacteria rare /Hpf Amorphous - /Lpf Crystals, Fluid (Fma/CMC/CTX) - Z#Comments - Influenza A&B 05/12/2012 Influenza A neg Influenza B neg Ua - Micro (Fma) 04/21/2011 Appearance clear Color yellow Glucose - Bilirubin - Ketones trace SP Grav 1.020 Blood - PH 5.5 Protein - Urobil 0.2 Nitrite - Leukocytes (a/CMC/Centrex) moderate Hyaline - /Lpf Granular - /Lpf WBC ([facility],Centrex) 15-20 RBC 0-1 Mucus sm amt /Lpf Epith few /Lpf Bacteria trace /Hpf Amorphous - /Lpf Crystals, Fluid (Fma/CMC/CTX) - Ua - Micro ([facility]) 04/08/2011 Appearance CLOUDY Color YELLOW Glucose NEG Bilirubin NEG Ketones TRACE SP Grav 1.015 Blood TRACE-LYSED PH 5.5 Protein NEG Urobil 0.2 Nitrite NEG Leukocytes (Fma/CMC/Centrex) LARGE Hyaline - /Lpf Granular - /Lpf WBC ([facility]rex) >100 RBC 2-3 Mucus - /Lpf Epith RARE /Lpf Bacteria 2+ /Hpf Amorphous - /Lpf Crystals, Fluid (a/CMC/CTX) - Z#Comments - Comprehensive Metabolic Prof 09/04/2010 Albumin 4.6 g/dL 3.8-5.5 Alk. Phos. 71 U/L 30-110 Alt (SGPT) 32 U/L 7-35 Ast (Sgot) 36 U/L High 5-34 32 BUN 16 mg/dL 6-26 Calcium 10.2 mg/dL 8.6-10.2 Chloride 101 mEq/L 94-112 Creatinine 0.8 mg/dL 0.6-1.4 Carbon Dioxide 28 mEq/L 21-32 Glucose 99 mg/dL 70-105 Sodium 138 mEq/L 134-149 Total Bilirubin 0.9 mg/dL 0.2-1.3 Total Protein 7.3 g/dL 6.3-8.1 Potassium 4.7 mEq/L 3.6-5.5 Globulin 2.7 g/dL 2.0-4.8 A/G Ratio 1.7 Calc 0.6-2.2 BUN/Creat Ratio 20.7 Calc 8.0-36.0 Laboratory test finding 09/04/2010 TSH 1.45 mIU/L 0.50-6.00 CBC Electronic ([facility]) 09/04/2010 WBC 5.3 3.6-9.6 RBC 4.37 3.90-5.70 Hemoglobin (Fma/CMC/CTX) 13.8 g/dL 12.1 - 17.2 Hematocrit (Fma/CMC/CTX) 40.1 % 36.1 - 50.3 Platelets 377 10^3/ul 150-400 Lymph% 35.7 20.5-51.1 Mixed% 7.9 Neutrophils % 56.4 Mean Corpuscular Vol 92 82.2-97.4 Mean Corpuscular Hemoglobin 31.6 27.6-33.3 Mean Corpuscular Hemo Concen 34.5 32.0-36.0 RDW 11.1 Low 11.6-13.7 Mean Platelet Volume 7.7 6.5-11.0 Ua - Micro (Fma) 08/25/2010 Appearance clear Color yellow Glucose neg Bilirubin neg Ketones trace SP Grav 1.020 Blood trace PH 5.5 Protein neg Urobil 0.2 Nitrite neg Leukocytes (Fma/CMC/Centrex) neg Hyaline - /Lpf Granular - /Lpf WBC (Fma,Centrex) 0-1 RBC 0-1 Mucus - /Lpf Epith rare /Lpf Bacteria rare /Hpf Amorphous - /Lpf Crystals, Fluid (Fma/CMC/CTX) - Z#Comments - Laboratory test 08/25/2010 Thin Prep SEE NOTE 33 finding W/HPV(Lsil/ANNA/Asc) Laboratory test 05/09/2010 Nasal Culture Corynebacterium 34 finding <SEE NOTE> 1 results trever'd 2 SEE RESULT BELOW Name: NONA NICOLE : [address]: Gabriel Farrar MD Acct: [id number] Unit: [id number] AGE: 67 Location: ENDO Re05/06/17 SEX: F Status: REG REF SPEC: [id number] PRESTON: 05/06/[address] [facility] [address]: Gabriel Farrar MD REQ: [id number] RECD: 05/06/17 STATUS: SHAWANDA HUTCHINSON DR: Jake Dey MD _ ORDERED: LEVEL 4 FINAL DIAGNOSIS Small bowel, duodenum, biopsy: -- Small bowel mucosa with normal villous architecture and no significant pathologic abnormality. CLINICAL HISTORY Anemia PRE-OPERATIVE DIAGNOSIS Rule out celiac POST-OPERATIVE DIAGNOSIS Normal EGD; random duodenal biopsies. Conclusions/Plan: Avoid NSAIDs if possible, check biopsy results; follow-up with primary medical doctor GROSS DESCRIPTION The specimen is received in formalin labeled, Biopsy Duodenum, and consists of a 0.5 x 0.4 x 0.1 cm aggregate of garcía-pink irregular soft tissue fragments which is submitted entirely in one cassette. Signed (signature on file) Sampson Bender MD 1244 END OF REPORT * ML=Testing performed at Main Lab DEPARTMENT OF PATHOLOGY, [address] [place] [address] Sampson Bender M.D. Director [facility] # [id number] 3 consistent 4 consistent 5 RESULTS VERIFIED BY REPEAT ANALYSIS 6 RESULTS VERIFIED BY REPEAT ANALYSIS 7 consistent w/ previous results 8 1 sst 9 Positive: 5 of the following Borrelia-specific bands: 18,23,28,30,39,41,45,58, 66, and 93. Negative: No bands or banding patterns which do not meet positive criteria. 10 Note: An equivocal or positive EIA result followed by a negative Western Blot result is considered NEGATIVE. An equivocal or positive EIA result followed by a positive Western Blot is considered POSITIVE by the CDC. Positive: 2 of the following bands: 23,39 or 41 Negative: No bands or banding patterns which do not meet positive criteria. Criteria for positivity are those recommended by CDC/ASTPHLD. p23=Osp C, v32=qakupsgqd Note: Sera from individuals with the following may cross react in the Lyme Western Blot assays: other spirochetal diseases (periodontal disease, leptospirosis, relapsing fever, yaws, and pinta); connective autoimmune (Rheumatoid Arthritis and Systemic Lupus Erythematosus and also individuals with Antinuclear Antibody); other infections ([place] Spotted Fever; Shabbir-Estrada Virus, and Cytomegalovirus). 11 PT TAKES B SUPPLEMENTS 12 2 sst 13 IgG titers if 1:64 or greater indicate exposure or acute and convalescent samples showing a four-fold increase, and/or the presence of IgM indicate recent or current infection. 14 HGE IgG levels are detectable 7 to 10 days post infection and persist approximately one year. 15 IgM levels usually rise 3 to 5 days post infection and fall to normal levels in approximately 30 to 60 days. 16 UNABLE TO OBTAIN VALID TEST RESULTS. PLEASE RESUBMIT. 17 Test not performed 18 Test not performed 19 RUN DATE: 09/17/14 [facility] LAB LIVE PAGE 1 RUN TIME: [address] [place] [address] Specimen Inquiry Name: NONA NICOLE : [address]: Zoran Vieyra MD Acct: [id number] Unit: [id number] AGE: 64 Location: [facility] Re09/14/14 SEX: F Status: REG REF SPEC: [id number] PRESTON: 09/14/[address] [facility] [address]: Zoran Vieyra MD REQ: [id number] RECD: 09/14/14 STATUS: SHAWANDA HUTCHINSON DR: Jake Dey MD _ ORDERED: LEVEL IV FINAL DIAGNOSIS Colon, rectal polyps, biopsies: -- Hyperplastic polyps. CLINICAL HISTORY Screening colonoscopy POST-OPERATIVE DIAGNOSIS Screening colonoscopy to terminal ileum, very good prep - mild pancolonic diverticulosis, 2 small distal rectal polyps snare cautery excised, otherwise negative colonoscopy. Rectal polypectomies, diverticulosis; recheck 5 years GROSS DESCRIPTION The specimen is received in formalin labeled, Rectal Polyps (2), and consists of two garcía-pink polypoid soft tissue fragments averaging 0.4 x 0.3 x 0.3 cm, which are submitted entirely in one cassette. Signed (signature on file) Sampson Bender MD 1306 END OF REPORT * ML=Testing performed at Main Lab DEPARTMENT OF PATHOLOGY, [address] [place] [address] Sampson Bender M.D. Director [facility] # [id number] 20 RESULTS VERIFIED BY REPEAT ANALYSIS 21 RESULTS VERIFIED BY REPEAT ANALYSIS 22 RESULTS VERIFIED BY REPEAT ANALYSIS 23 RESULTS VERIFIED BY REPEAT ANALYSIS 24 INVALID 25 Please note: The following may produce a false positive D Dimer test: - Rheumatoid factor greater than 60 IU/ml - Plasma hemoglobin greater than 0.05 gm/dl - Bilirubin greater than 50 mg/dl - Lipids greater than 1000 mg/dl - FDP greater than 20 ug/ml 26 >100 to <200 pg/mL: likely compensated congestive heart failure (CHF) 200 to 400 pg/mL: likely moderate CHF >400 pg/mL: likely moderate to severe CHF [place] [facility] 27 Unable to report test result due to hemolysis. 28 Unable to report test result due to hemolysis. 29 Because ethnic data is not always readily available, this report includes an eGFR for both -Americans and non- Americans. The National Kidney Disease Education Program (NKDEP) does not endorse the use of the MDRD equation for patients that are not between the ages of 18 and 70, are , have extremes of body size, muscle mass, or nutritional status, or are non- or non-. According to the National Kidney Foundation, irrespective of diagnosis, the stage of the disease is based on the level of kidney function: Stage Description GFR(mL/min/1.73 m(2)) 1 Kidney damage with normal or decreased GFR 90 2 Kidney damage with mild decrease in GFR 60-89 3 Moderate decrease in GFR 30-59 4 Severe decrease in GFR 15-29 5 Kidney failure <15 (or dialysis) 30 Reference Range and Interpretation: TnI (ng/mL) Interpretation Less Than 0.03 ng/mL Not supportive of diagnosis of HI 0.03 - 0.50 ng/mL Indeterminate: suggest serial studies if clinically indicated. Greater than 0.5 ng/mL Consistent with diagnosis of HI 31 Acute inflammation: >10.00 32 RESULT TREVER'D 33 [employer] DEPARTMENT OF PATHOLOGY or Extension 0302 [facility] REPORT PATIENT: NONA NICOLE : 1950 AGE: 60 Y SEX: F ACCT: [id number] PROCEDURE DATE: 08/25/2010 DATE RECEIVED: 08/27/2010 REQUESTING PHYSICIAN: JOANNE CHRISTIEF [place] [facility] [place] No. [id number] PATIENT DATA: [id number] SPECIMEN SUBMITTED: * * (HPVII) THIN PREP W/HPV (LSIL/ASC/ANNA) * * ENDOCERVICAL RELEVANT HISTORY: Prev.normal: 10 YEARS AGO SPECIMEN ADEQUACY SATISFACTORY FOR EVALUATION. THE PRESENCE OF TRANSFORMATION ZONE COMPONENT CANNOT BE DETERMINED DUE TO ATROPHIC CHANGES. GENERAL CATEGORIZATION NEGATIVE FOR INTRAEPITHELIAL LESIONS OR MALIGNANCY ADDITIONAL COPIES SENT TO: Screened/Rescreened Electronically Signed Sign Out Date/Time: by: by: Bertha WALSH, 08/28/2010 10:40 CT(ASCP) Thin Prep Pap tests are examined with an FDA-approved location-guidance system (93917). Performed @ [facility], [facility] [address] [place] [id number] 34 Corynebacterium species Predominating With mixed respiratory julio . NASAL CULTURE organism 1 Corynebacterium species Predominating Procedures Date CPT Code Description Status 06/15/2017 62321 Electrocardiogram Complete Completed 05/21/2017 Mammogram Completed 03/12/2017 Mammogram Completed 11/01/2015 46896 Dxa Bone Density Study One Or More Sites Axial Skeleton Completed 09/14/2014 Colonoscopy Completed 09/05/2014 Mammogram Completed 08/24/2014 97204 Dxa Bone Density Study One Or More Sites Axial Skeleton Completed 08/13/2014 68724 Electrocardiogram Complete Completed 08/12/2014 Bone Mineral Density Test Completed 05/29/2014 28015 Pulse Oximetry Completed 10/18/2013 53457 Pulse Oximetry Completed 03/27/2013 12175 Electrocardiogram Complete Completed Encounters Type Date Location Provider CPT E/M Dx Office Visit 05/04/2017 2:40p Main Office Jake Dey M.D. 33637 D64.9 R53.83 M25.552 Office Visit 04/15/2017 2:15p Main Office AB Escamilla 41407 M25.552 Z23 Office Visit 04/06/2017 2:40p Main Office Jake Dey M.D. 92687 D64.9 R53.83 F32.89 Office Visit 03/18/2017 2:00p Main Office Jake Dey M.D. 60761 R53.83 F32.89 Office Visit 03/13/2017 11:00a Main Office Flavio Box, 95088 R50.9 M.DFuentes Office Visit 01/20/2017 3:40p [facility] Office Ricki Luu M.D. 24777 S40.261A W57.xxxA Office Visit 11/14/2016 9:30a Main Office Carmella Wilson, [facility] 63982 J06.9 Office Visit 01/03/2016 2:45p [place] [address] K13.29 Office Visit 04/29/2015 7:15p Main Office Carmella Wilson, [facility] 43269 R20.8 Office Visit 04/10/2015 2:15p Main Office Carmella Wilson, [facility] 45102 780.79 R53.81 r53.81 Office Visit 02/07/2015 2:15p [place] [address] 729.5 Office Visit 11/27/2014 1:50p Main Office Jake Dey M.D. 25682 733.99 V72.83 366.9 Office Visit 10/22/2014 6:45p Main Office Carmella Wilson [employer] 14080 465.9 Office Visit 09/20/2014 3:00p Main Office Esteban Crzu-C 56898 719.47 Office Visit 08/13/2014 2:00p [facility] Office Jake Dey M.D. 22937 477.9 v03.82 723.8 v04.81 786.50 V70.0 791.7 272.1 V15.82 Office Visit 07/25/2014 10:45a [place] [address] 786.2 Office Visit 07/09/2014 9:30a Main Office Haven HilEsteban pham-C 73002 465.9 786.2 Office Visit 05/29/2014 5:00p Main Office Lizbeth Felipe Afnp-C 26810 461.9 Office Visit 12/13/2013 1:20p Main Office David Magana M.D. 61645 300.00 Office Visit 10/18/2013 3:45p [facility] Office Lizbeth Felipe Afnp-C 05179 466.0 Office Visit 08/01/2013 6:00p Main Office Silvia Mendez, [facility] 31263 379.90 Office Visit 07/20/2013 2:30p Main Office Silvia Mendez, [facility] 13210 372.00 Office Visit 05/29/2013 7:15p Main Office Haven Jean Baptiste, Montezgabriela-C 90281 698.0 Office Visit 04/27/2013 10:45a Main Office Ashrafnp-C 80412 v04.81 912.4 E906.4 Office Visit 03/27/2013 10:20a [facility] Office Jake Dey M.D. 31733 V72.83 V70.0 366.9 Office Visit 05/12/2012 11:00a Main Office Ashrafgabriela-C 05720 465.8 724.8 Office Visit 04/02/2012 9:30a Main Office Ashrafgabriela-C 71953 782.0 Office Visit 03/07/2012 11:10a Main Office Haider Poe M.D. 47594 461.8 465.9 Office Visit 12/26/2011 1:00p Main Office Jake Dey M.D. 90638 850.9 Office Visit 06/29/2011 9:10a Main Office Flavio Box M.D. 14081 372.00 Office Visit 04/08/2011 3:15p [facility] Office Carmella Katie, [facility] 62399 599.0 Office Visit 01/17/2011 11:15a Main Office Carmella Katie, [facility] 69656 919.4 E906.4 Office Visit 08/25/2010 4:15p Main Office Carmella Weinbergfabio [facility] 65771 V72.31 599.72 Office Visit 05/09/2010 10:40a Main Office Renée Rosado M.D. 49558 478.11 733.99 Office Visit 08/13/2008 2:00p [facility] Office Renée Rosado M.D. 52615 381.4 Office Visit 07/02/2008 9:45a Main Office Haven NoahEsteban molina-C 25032 466.0 Office Visit 05/03/2008 11:40a Main Office Buddy Melissa M.D. 16106 E906.4 Office Visit 09/28/2007 10:30a [facility] Office Esteban Cruz-C 19356 728.89 Office Visit 06/28/2007 1:30p [facility] Office Esteban Guerrero-C 36586 465.9 Office Visit 06/08/2007 7:15p Main Office Esteban Guerrero-C 90035 465.9 300.00 Office Visit 02/07/2007 11:30a Main Office Esteban Guerrero-C 42139 461.9 530.81 564.1 300.00 Office Visit 10/17/2005 10:30a Main Office Esteban Cruz-C 66557 461.9 Office Visit 07/25/2003 4:15p Main Office Esteban Guerrero-C 43701 462 490 Office Visit 03/23/2002 4:15p [facility] Office Carmella Katie [facility] 58456 Office Visit 08/02/2000 4:15p Main Office Haven Jean Baptiste, Esteban-C 52551 Plan of Care Future Appointment(s):10/14/2017 2:20 pm - Jake Dey M.D. at Main Cweolz5506/15/2017 - Jake Dey M.D.D64.9 Anemia, unspecifiedNew Labs:Ict Hemoccult (Fma)Comments:repeat lab work, await Dr Ford dqganziA58.8 Other nonrheumatic aortic valve disordersComments:get echo for systolic neeplnM44.89 Oth disrd of bone density and structure, multiple sitesComments:to restart alendronate and will recheck DEXA in one yearZ00.00 Encntr for general adult medical exam w/o abnormal findingsNew Labs:Ict Hemoccult (Fma)Comments:to return to office in 3 monthsFollow up:Followup:. (Follow up)R80.9 Proteinuria, unspecifiedComments:A urine dipstick was abnormal, and a urine microscopy was performed.AllNew Medication:Alendronate Sodium 70 mgComments:~B_~U_Medication Management~b_~u_ Patient Understands medications she's taking? Yes No Are there Barriers to Adherence? Yes No Has the patient been asked about herbal supplements and therapies, and OTC meds? Yes NoFollow up:3 months
[2017-07-12] MEDS: NS 0.9% 1000 ML* 2,000 ML IV ONE (12:09)
--- NOTE | 2017-07-12 12:18 | RAD ---
Indication: Pain and dizziness. Fall. Febrile illness. Comparison: No relevant prior exams available on the [facility] PACS for comparison. Technique: Noncontrast CT vertex of skull through foramen magnum. Report: The sulci, ventricles, and basal cisterns are normal for age with mild involutional change. Decreased density in the periventricular and subcortical white matter while non-specific is most likely due to chronic microangiopathy. Abbasi matter white matter differentiation is preserved without evidence for edema. No intra or extra axial hemorrhage, mass, or fluid collection detected. Unremarkable visualized orbital contents. Unremarkable calvarium and skull base. Unremarkable scalp. Clear paranasal sinuses and LEFT mastoid air spaces. RIGHT mastoid and middle ear effusions. No RIGHT temporal osteolysis evident. IMPRESSION: 1. No acute CT abnormality of the brain. Mild involutional change and stigmata of chronic small vessel ischemic disease. 2. RIGHT mastoid and middle ear effusions. No RIGHT temporal bone osteolysis evident.
--- NOTE | 2017-07-12 12:25 | RAD ---
Indication: RIGHT shoulder pain post fall. Weakness. Comparison: No relevant prior exams available on the [facility] PACS for comparison. Technique: Internal rotation AP, external rotation Grashey, scapular Y, axillary / or valpeaux views RIGHT shoulder Report: Normal acromioclavicular and glenohumeral joint alignment. Mild osteophytosis at the acromioclavicular and glenohumeral joints. Negative for fracture. Unremarkable soft tissue contours. IMPRESSION: 1. Negative for fracture or malalignment at the acromioclavicular or glenohumeral joints. 2. Mild osteoarthritis.
--- NOTE | 2017-07-12 12:32 | RAD ---
INDICATION: RIGHT neck pain post fall. COMPARISON: No relevant prior exams available on the [facility] PACS for comparison. TECHNIQUE: Multidetector CT images foramen magnum to lung apices without contrast. Multiplanar reformation. REPORT: Normal vertebral alignment accounting for exam positioning without spondylolisthesis or subluxation at any level. Negative for cervical vertebral body or posterior element fracture. Negative for paravertebral hematoma. Multilevel degenerative spondylosis and facet joint osteoarthritis. At C2-C3 there is severe disc space narrowing. Uncinate process spurring and facet joint osteoarthritis results in severe LEFT foraminal stenosis. At C4-C5 there is mild dorsal spondylitic ridging disc bulge complex without resulting spinal stenosis. At C5-C6 there is mild dorsal spondylitic ridging disc bulge complex without resulting central canal stenosis. Uncinate process spurring and facet joint osteoarthritis results in mild bilateral foraminal stenosis. At C6-C7 there is mild dorsal disc osteophyte complex. Uncinate process spurring and facet joint osteoarthritis results in only slight bilateral foraminal stenosis. IMPRESSION: No CT evidence for traumatic cervical spine injury.
--- NOTE | 2017-07-12 12:35 | RAD ---
Indication: RIGHT shoulder pain and generalized weakness post fall. Comparison: August 17, 2014 Technique: Upright AP 1140 hours Report: Elevated lung volumes and both diffuse mild prominence of the interstitial markings and patchy rarefaction of the mid to upper lung zone interstitial markings. No focal pulmonary lesion, compelling alveolar consolidation, pleural effusion, pneumothorax. The heart, pulmonary vasculature, and mediastinal contours are unremarkable. IMPRESSION: Stigmata of probable obstructive lung disease. No acute pulmonary or cardiac process evident. No radiographic evidence for traumatic injury.
[2017-07-12 12:37] LABS: EGFR Non-African American 9.4 (>60)
[2017-07-12 12:39] LABS: ABS Basophils 0 10^3/ul (0-0.2); ABS Eosinophils 0.1 10^3/ul (0-0.6); ABS Lymphocytes 0.5 10^3/ul (1.0-4.8); ABS Monocytes 0.4 10^3/ul (0-0.8); ABS Neutrophils 5.2 10^3/ul (1.5-7.7); ABS Nucleated RBC 0 10^3/ul; Eosinophil % 0.8 % (0-6); Hematocrit 26 % (35-47); Lymphocyte % 8.7 % (25-47); Mean Corpuscular HGB Conc 35 g/dl (31-36); Mean Corpuscular Hemoglobin 35 pg (27-31); Mean Corpuscular Volume 102 fL (80-97); Mean Platelet Volume 8 um3 (7.4-10.4); Nucleated Red Blood Cells % 0; Platelet Count 113 10^3/ul (150-450); Red Blood Count 2.55 10^6/ul (4.0-5.4); Red Cell Distribution Width 14 % (10.5-15); White Blood Count 6.2 10^3/ul (3.5-10.8)
[2017-07-12 12:44] LABS: INR 1.06 (0.77-1.02)
--- NOTE | 2017-07-12 13:23 | ED ---
Nicky Duran Julia, scribed for Pierre Elliott MD on 07/12/17 at 1123 . Syncope/Near Syncope - HPI Summary HPI Summary: This patient is a 67 year old F presenting to [facility] with a chief complaint of RUE pain since 07/10/17 when she fell due to dizziness, but did not lose consciousness. The patient rates the pain 8/10 in severity. Symptoms aggravated by movement. Symptoms alleviated by nothing. Patient reports cerumen build up in R ear, rib pain, decreased appetite, multiple sick contacts, dry mouth, body aches, L black eye (unrelated to fall), and a L knee abrasion due to fall. Patient denies difficulty moving R elbow or hand, denies bloody or dark stool, double vision, or eye pain. Patient has been ill with influenza related symptoms for the past 5 days, but reports that she has been feeling better. - History Of Current Complaint Chief Complaint: EDSyncope Time Seen by Provider: 07/12/17 10:54 Hx Obtained From: Patient Context: Unwitnessed Activity At Onset: Other Associated Head Trauma: No Aggravating Factor(s): Position Change - movement Alleviating Factor(s): Nothing Associated Signs And Symptoms: Other - cerumen build up in R ear, rib pain, decreased appetite, multiple sick contacts, dry mouth, body aches, L black eye (unrelated to fall), and a L knee abrasion due to fall - Allergies/Home Medications Allergies/Adverse Reactions: Allergies Allergy/AdvReac Type Severity Reaction Status Date / Time ENVIRONMENTAL Allergy RED EYES, Uncoded 12/05/14 10:07 SNEEZING MILK Allergy GI Upset Uncoded 12/05/14 10:07 WHEAT Allergy BLOATING Uncoded 12/05/14 10:07 PMH/Surg Hx/FS Hx/Imm Hx Cardiovascular History: Denies: Other Cardiovascular Problems/Disorders Respiratory History: Denies: Other Respiratory Problems/Disorders GI History: Reports: Hx Irritable Bowel - MILD FOR YEARS Denies: Other GI Disorders Musculoskeletal History: Reports: Other Musculoskeletal History - OSTEOPOROSIS Sensory History: Reports: Hx Cataracts - ANTHONY, RIGHT WORSE, Hx Contacts or Glasses - GLASSES AND CONTACTS Denies: Hx Hearing Aid Opthamlomology History: Reports: Hx Cataracts - ANTHONY, RIGHT WORSE, Hx Contacts or Glasses - GLASSES AND CONTACTS Neurological History: Denies: Other Neuro Impairments/Disorders Psychiatric History: Reports: Hx Anxiety - ON MEDS PRN, Hx Depression - YEARS AGO - Cancer History Hx Chemotherapy: No Hx Radiation Therapy: No - Surgical History Surgery Procedure, Year, and Place: Tonsilectomy, AGE 3, [facility]. endometriosis removal, 1985, [facility]. 09/28/14, D/C , [facility] Hx Anesthesia Reactions: No Infectious Disease History: No Infectious Disease History: Denies: Traveled Outside the [place] in Last 30 Days - Social History Alcohol Use: Daily Alcohol Amount: 1 PER DAY Hx Substance Use: No Substance Use Type: Reports: None Hx Tobacco Use: Yes Smoking Status (MU): Former Smoker Type: Cigarettes Amount Used/How Often: PACK A DAY Have You Smoked in the Last Year: No Review of Systems ENT: Other - L black eye Positive: Ear Ache - R cereumen build up, Other - dry mouth Positive: Other - decreased appetite Positive: Other - RUE pain, rib pain, L knee abrasion, and general body aches Positive: Syncope - near syncope secondary to dizziness All Other Systems Reviewed And Are Negative: Yes Physical Exam - Summary Physical Exam Summary: General: mild ill-appearing, no pain distress Skin: warm, color reflects adequate perfusion, dry Head: normal Eyes: EOMI, KENDY ENT: R TM erythema and debris in canal, oral mucosa dry Neck: supple, nontender Respiratory: CTA, breath sounds present Cardiovascular: RRR Abdomen: soft, mildly tender Bowel: present Musculoskeletal: strength/ROM intact, R shoulder tenderness with palpation. Neck is non-tender in midline but is tender to R lateral aspect. Neurological: normal, sensory/motor intact, A&O x3 Psychological: affect/mood appropriate Triage Information Reviewed: Yes Vital Signs On Initial Exam: Initial Vitals Temp Pulse Resp BP Pulse Ox 98.1 F 81 17 100/59 96 07/12/17 10:41 07/12/17 10:41 07/12/17 10:41 07/12/17 10:41 07/12/17 10:41 Vital Signs Reviewed: Yes Diagnostics - Vital Signs Vital Signs Temp Pulse Resp BP Pulse Ox 07/12/17 10:41 98.1 F 81 17 100/59 96 - Laboratory Lab Results: Lab Results 07/12/17 07/12/17 07/12/17 Range/Units 12:09 12:09 12:09 WBC 6.2 (3.5-10.8) 10^3/ul RBC 2.55 L (4.0-5.4) 10^6/ul Hgb 9.0 L (12.0-16.0) g/dl Hct 26 L (35-47) % MCV 102 H (80-97) fL MCH 35 H (27-31) pg MCHC 35 (31-36) g/dl RDW 14 (10.5-15) % Plt Count 113 L (150-450) 10^3/ul MPV 8 (7.4-10.4) um3 Neut % (Auto) 84.5 H (38-83) % Lymph % (Auto) 8.7 L (25-47) % Merrick % (Auto) 5.7 (1-9) % Eos % (Auto) 0.8 (0-6) % Baso % (Auto) 0.3 (0-2) % Absolute Neuts (auto) 5.2 (1.5-7.7) 10^3/ul Absolute Lymphs (auto) 0.5 L (1.0-4.8) 10^3/ul Absolute Monos (auto) 0.4 (0-0.8) 10^3/ul Absolute Eos (auto) 0.1 (0-0.6) 10^3/ul Absolute Basos (auto) 0 (0-0.2) 10^3/ul Absolute Nucleated RBC 0 10^3/ul Nucleated RBC % 0 INR (Anticoag Therapy) (0.77-1.02) Sodium 123 L (133-145) mmol/L Potassium 4.3 (3.5-5.0) mmol/L Chloride 90 L (101-111) mmol/L Carbon Dioxide 21 L (22-32) mmol/L Anion Gap 12 H (2-11) mmol/L BUN 67 H (6-24) mg/dL Creatinine 4.61 H (0.51-0.95) mg/dL Est GFR ( Amer) 12.1 (>60) Est GFR (Non-Af Amer) 9.4 (>60) BUN/Creatinine Ratio 14.5 (8-20) Glucose 136 H (70-100) mg/dL Lactic Acid (0.5-2.0) mmol/L Calcium 9.3 (8.6-10.3) mg/dL Magnesium 2.0 (1.9-2.7) mg/dL Total Bilirubin 0.30 (0.2-1.0) mg/dL AST 26 (13-39) U/L ALT 33 (7-52) U/L Alkaline Phosphatase 100 (34-104) U/L Troponin I 0.01 (<0.04) ng/mL C-Reactive Protein 248.46 H (< 5.00) mg/L B-Natriuretic Peptide 245 H ( - 100) pg/mL Total Protein 7.6 (6.4-8.9) g/dL Albumin 3.5 (3.2-5.2) g/dL Globulin 4.1 H (2-4) g/dL Albumin/Globulin Ratio 0.9 L (1-3) Lipase 51 (11.0-82.0) U/L TSH 1.68 (0.34-5.60) mcIU/mL 07/12/17 07/12/17 Range/Units 12:09 12:09 WBC (3.5-10.8) 10^3/ul RBC (4.0-5.4) 10^6/ul Hgb (12.0-16.0) g/dl Hct (35-47) % MCV (80-97) fL MCH (27-31) pg MCHC (31-36) g/dl RDW (10.5-15) % Plt Count (150-450) 10^3/ul MPV (7.4-10.4) um3 Neut % (Auto) (38-83) % Lymph % (Auto) (25-47) % Merrick % (Auto) (1-9) % Eos % (Auto) (0-6) % Baso % (Auto) (0-2) % Absolute Neuts (auto) (1.5-7.7) 10^3/ul Absolute Lymphs (auto) (1.0-4.8) 10^3/ul Absolute Monos (auto) (0-0.8) 10^3/ul Absolute Eos (auto) (0-0.6) 10^3/ul Absolute Basos (auto) (0-0.2) 10^3/ul Absolute Nucleated RBC 10^3/ul Nucleated RBC % INR (Anticoag Therapy) 1.06 H (0.77-1.02) Sodium (133-145) mmol/L Potassium (3.5-5.0) mmol/L Chloride (101-111) mmol/L Carbon Dioxide (22-32) mmol/L Anion Gap (2-11) mmol/L BUN (6-24) mg/dL Creatinine (0.51-0.95) mg/dL Est GFR ( Amer) (>60) Est GFR (Non-Af Amer) (>60) BUN/Creatinine Ratio (8-20) Glucose (70-100) mg/dL Lactic Acid 1.2 (0.5-2.0) mmol/L Calcium (8.6-10.3) mg/dL Magnesium (1.9-2.7) mg/dL Total Bilirubin (0.2-1.0) mg/dL AST (13-39) U/L ALT (7-52) U/L Alkaline Phosphatase (34-104) U/L Troponin I (<0.04) ng/mL C-Reactive Protein (< 5.00) mg/L B-Natriuretic Peptide ( - 100) pg/mL Total Protein (6.4-8.9) g/dL Albumin (3.2-5.2) g/dL Globulin (2-4) g/dL Albumin/Globulin Ratio (1-3) Lipase (11.0-82.0) U/L TSH (0.34-5.60) mcIU/mL Result Diagrams: 07/12/17 12:09 07/12/17 12:09 Lab Statement: Any lab studies that have been ordered have been reviewed, and results considered in the medical decision making process. - Radiology R Shoulder XR Radiology Interpretation Completed By: Radiologist - 1. Negative for fracture or malalignment at the acromioclavicular or glenohumeral joints. 2. Mild osteoarthritis. ED Physician has reviewed this report. CXR Radiology Interpretation Completed By: Radiologist - Stigmata of probable obstructive lung disease. No acute pulmonary or cardiac process evident. No radiographic evidence for traumatic injury. ED Physician has reviewed this report. - CT Cervical Spine CT Interpretation Completed By: Radiologist - No CT evidence for traumatic cervical spine injury. ED Physician has reviewed this report. Brain CT CT Interpretation Completed By: Radiologist - 1. No acute CT abnormality of the brain. Mild involutional change and stigmata of chronic small vessel ischemic disease. 2. RIGHT mastoid and middle ear effusions. No RIGHT temporal bone osteolysis evident. ED Physician has reviewed this report. - EKG 1348 Cardiac Rate: NL EKG Rhythm: Sinus Rhythm - At 85 BPM Ectopy: None EKG Interpretation: reveals ST depression in inferior leads Course/Dx Course Of Treatment: DISCUSSED RESULTS WITH PATIENT. ADMIT HOSPITALIST. CRITICAL CARE TIME LESS THAN 30 MINUTES. - Diagnoses Provider Diagnoses: Near syncope, Weakness, Hyponatremia, Dehydration, Shoulder pain, right, Neck pain, Acute renal failure - Physician Notifications Discussed Care of Patient With: Mindy Bowles - Patient care with Dr. Bolwes , hospitalist, who agreed to admit. Time Discussed With Above Provider: 13:44 Discharge - Discharge Plan Condition: Stable Disposition: ADMITTED TO [facility] Referrals: Jake Dey MD [Primary Care Provider] - The documentation as recorded by the Nicky zarate Julia accurately reflects the service I personally performed and the decisions made by , Pierre Elliott MD.
[2017-07-12] MEDS: NS 0.9% 1000 ML* 1,000 ML IV SCH (15:25)
[2017-07-12] MEDS: Lidocaine PATCH 5%* 1 PATCH TRANSDERM SCH (15:51)
[2017-07-12] MEDS ORDERED: ALPRAZolam TAB* 0.25 MG PO PRN (16:00)
[2017-07-12] MEDS: cefTRIAXone(*) 1 GM in NS 0.9% 50 ML* 50 ML IVPB SCH (18:47)
[2017-07-12] MEDS: Acetaminophen TAB* 325 MG PO PRN (20:38)
[2017-07-12] MEDS: Cyclobenzaprine TAB* 10 MG PO PRN (20:39)
[2017-07-12] MEDS ORDERED: traMADol TAB* 50 MG PO PRN (21:27)
--- NOTE | 2017-07-12 21:35 | HP ---
CC: Jake Dey MD * HISTORY AND PHYSICAL: DATE OF ADMISSION: 07/12/17 PRIMARY CARE PROVIDER: Jake Dey MD ATTENDING PHYSICIAN: Mindy Bowles DO * (dictated by Florencia Vallejo NP). CHIEF COMPLAINT: Generalized illness. HISTORY OF PRESENT ILLNESS: Ms. Kenney is a 67-year-old female with past medical history significant for IBS, osteoporosis, anxiety, depression, and COPD, who presents to the emergency room with complaints of influenza symptoms for the last 5 days. The patient reports cerumen build up in her right ear in addition to rib pain and right shoulder pain after a fall a few days ago when she felt as though she was going to pass out and tried to get out of her bed prior to passing out and fell. She denies any loss of consciousness during that episode. Just states that her arm pain is worse with movement. She reports a decreased appetite, a dry mouth, feeling thirsty in addition to body aches. She has a left knee abrasion from her fall. She reports fever, chills, cough, diarrhea. She denies any chest pain, shortness of breath, nausea, vomiting or urinary symptoms. It is to be noted that the patient had recently been traveling on an airplane where she reported drinking only coffee and not taking in much water. Due to her symptoms, she presented to the emergency room for further evaluation. While in the emergency room, the patient has labs significant for a mild anemia , but close to her baseline in addition to hyponatremia with a sodium of 123. Has acute renal failure with a creatinine of 4.61, CRP of 248.46. Due to her recent falls, she had imaging completed showing a negative brain CT, but it did show right mastoid and middle ear effusions. She had a C-spine CT showing no acute injury. Chest x-ray showing COPD, no active cardiopulmonary disease. She also had a right shoulder x-ray showing mild osteoarthritis. Due to her acute renal failure, the hospitalists were asked to evaluate the patient for admission. PAST MEDICAL HISTORY: 1. IBS. 2. Osteoporosis. 3. Anxiety. 4. Depression. 5. COPD. PAST SURGICAL HISTORY: Status post tonsillectomy. HOME MEDICATIONS: Include: 1. Treichlers-3, 1000 units oral daily. 2. Flonase nasal spray 2 sprays to both nares daily. 3. Vitamin B complex 1 capsule oral daily. 4. Flexeril 5 mg oral 3 times daily as needed for muscle spasms. 5. Albuterol inhaler 2 puffs inhalation every 4 hours as needed for shortness of breath or wheeze. 6. Xanax 0.125 to 0.25 mg 3 times daily as needed for anxiety. 7. Vitamin C 1 capsule oral daily. ALLERGIES: ENVIRONMENTAL, MILK and WHEAT. FAMILY HISTORY: The patient reports her father had a history of CAD and diabetes mellitus. The patient's brother had a history of lung cancer with metastasis to the brain and her sister has a history of breast cancer. SOCIAL HISTORY: The patient is a former smoker smoking a pack a day for 20 years. She occasionally drinks alcohol. Denies recreational drug use. The patient's friend, Huma Cortes, will be her surrogate decision maker in the event that she is unable to make decisions for herself. Huma can be reached at [phone]. REVIEW OF SYSTEMS: I performed a 14-point review of systems. All the pertinent positives and negatives are mentioned in the history of present illness. The remaining review of systems are negative. PHYSICAL EXAMINATION GENERAL APPEARANCE: The patient is alert, pleasant, appears to be in no acute distress. VITAL SIGNS: Temperature 97.9, heart rate 86, respiratory rate 16, O2 sat 96% on room air, blood pressure 131/69. HEENT: Normocephalic, atraumatic. Pupils are equal and reactive to light. Extraocular movements are intact. Dry mucous membranes. NECK: Supple. RESPIRATORY: There is no accessory muscle use. The lungs are clear to auscultation bilaterally. CARDIOVASCULAR: Regular rate and rhythm. S1, S2 present. There are no murmurs , rubs, or gallops. ABDOMEN: Soft, nontender, nondistended. There are bowel sounds present x4. EXTREMITIES: There is no lower extremity edema. DP and PT pulses are 2+ and symmetric. MUSCULOSKELETAL: There is no clubbing or cyanosis noted. NEUROLOGIC: The patient is alert and oriented x4. Cranial nerves II through XII are grossly intact. PSYCHOLOGICAL: The patient is calm and cooperative. SKIN: There are no rashes or abnormalities seen. DIAGNOSTIC STUDIES/LAB DATA: Sodium 123, potassium 4.3, chloride 90, CO2 of 21 , BUN 67, creatinine 4.61, glucose 136. White blood cell count 6.2, hemoglobin 9.0, hematocrit 26, platelet count 113,000. CRP 248.46. EKG from today shows a sinus rhythm and a rate of 85. There are no acute signs of ischemia. This EKG is similar to previous EKG from 12/08/13. 1. Brain CT from today. Radiologist's impression: No acute CT abnormality of the brain. Mild involutional change and stigmata of chronic small vessel ischemic disease. Right mastoid and middle ear effusions. No right temporal bone osteolysis evident. 2. Cervical spine CT from today. Radiologist's impression: No CT evidence for traumatic cervical spine injury. 3. Chest x-ray from today. Radiologist's impression: Stigmata of probable obstructive lung disease. No acute pulmonary or cardiac process evident. No radiographic evidence for traumatic injury. 4. Right shoulder x-ray from today. Radiologist's impression: Negative for fracture or malalignment at the acromioclavicular or glenohumeral joints. Mild osteoarthritis. IMPRESSION: Ms. Kenney is a 67-year-old female with past medical history significant for anxiety, depression, irritable bowel syndrome, osteoporosis, and chronic obstructive pulmonary disease who presents to the hospital with complaints of flu- like symptoms for approximately the last 5 days. She will be admitted as an inpatient for acute renal failure. ASSESSMENT/PLAN: 1. Acute renal failure: Unclear cause at this time. I suspect this maybe secondary to dehydration. We are going to give the patient IV hydration. Also check a renal ultrasound and get urinalysis and get urine sodium and creatinine to check FENa score. If the patient's creatinine function does not start improving, we will consider calling Dr. Bowen with Nephrology for a consultation. She will also be empirically started on IV ceftriaxone to cover a possible UTI. 2. Hyponatremia. Again, I suspect this is secondary to hypovolemia. We will give the patient IV fluids and recheck her labs in the morning. 3. Right ear and mastoid effusion. CT scan shows "Right mastoid and middle ear effusions. No right temporal bone osteolysis evident." Will place the patient on IV ceftriaxone for possible Alejandro Media and mastoiditis. Afebrile at this time , no leukocytosis but CRP is 248.46. 4. Anxiety and depression: The patient will be continued on her home Xanax. 5. Right shoulder pain: I suspect this is muscular. She had no evidence of a fracture on her x-ray. We will give her supportive care. Try lidocaine patches. I would like to avoid narcotic pain medication if possible. She can also have Tylenol as needed. 6. Fluids, electrolytes and nutrition: The patient will be on a regular diet. 7. Code status: Full code. 8. DVT prophylaxis: The patient is at high risk, and will have subcu heparin. 9. Disposition: Observation. TIME SPENT: Time for this admission was approximately 60 minutes, greater than half of that was spent with the patient discussing medications, past medical history, and the events leading up to her arrival today, performing a physical examination. The case has been reviewed with the attending, Dr. Bowles, who agrees with the plan of care. Reviewed by DARIUS ELMORE 07/13/172011 [id number]/CPS #: [id number] MTDD
[2017-07-12] MEDS ORDERED: traMADol TAB* 50 MG ONE (21:53)
[2017-07-12] MEDS: Heparin VIAL(*) 5000 UNITS/ML VIAL (FIVE THOUSAND) SUBCUT SCH (22:01)
[2017-07-12] MEDS: Lidocaine Patch REMOVE* 1 NOTE MISC SCH (22:03)
[2017-07-12 22:15] LABS: Urine Appearance Cloudy; Urine Blood Negative (Negative); Urine Color Yellow; Urine Ketones Negative (Negative); Urine Protein 2+(100 mg/dL) (Negative); Urine Specific Gravity 1.012 (1.010-1.030); Urine Urobilinogen Negative (Negative)
[2017-07-13] MEDS: NS 0.9% 1000 ML* 1,000 ML IV SCH ×2 (00:39→08:46)
[2017-07-13] MEDS: Heparin VIAL(*) 5000 UNITS/ML VIAL (FIVE THOUSAND) SUBCUT SCH ×3 (05:48→20:06)
[2017-07-13 06:58] LABS: ABS Basophils 0 10^3/ul (0-0.2); ABS Eosinophils 0 10^3/ul (0-0.6); ABS Lymphocytes 0.5 10^3/ul (1.0-4.8); ABS Monocytes 0.4 10^3/ul (0-0.8); ABS Neutrophils 5.4 10^3/ul (1.5-7.7); ABS Nucleated RBC 0.01 10^3/ul; Eosinophil % 0.7 % (0-6); Hematocrit 22 % (35-47); Hemoglobin 7.9 g/dl (12.0-16.0); Lymphocyte % 7.8 % (25-47); Mean Corpuscular HGB Conc 36 g/dl (31-36); Mean Corpuscular Hemoglobin 36 pg (27-31); Mean Corpuscular Volume 101 fL (80-97); Mean Platelet Volume 9 um3 (7.4-10.4); Nucleated Red Blood Cells % 0.1; Platelet Count 90 10^3/ul (150-450); Red Blood Count 2.18 10^6/ul (4.0-5.4); Red Cell Distribution Width 14 % (10.5-15); White Blood Count 6.4 10^3/ul (3.5-10.8)
[2017-07-13 07:25] LABS: EGFR Non-African American 7.6 (>60)
[2017-07-13] MEDS: Lidocaine PATCH 5%* 1 PATCH TRANSDERM SCH (08:48)
[2017-07-13] MEDS: traMADol TAB* 50 MG PO PRN ×2 (08:54→20:34)
--- NOTE | 2017-07-13 09:38 | RAD ---
HISTORY: Acute renal failure COMPARISONS: None relevant TECHNIQUE: Multiple transverse and longitudinal ultrasound images were obtained of the kidneys using grayscale and color Doppler imaging. FINDINGS: RIGHT KIDNEY: The right kidney is normal in shape, size, contour, and echogenicity. There is no hydronephrosis or nephrolithiasis. The right kidney measures 13.2 x 5 x 5.2 cm. LEFT KIDNEY: The left kidney is normal in shape, size, contour, and echogenicity. There is no hydronephrosis or nephrolithiasis. The left kidney measures 13.2 x 6.2 x 5.6 cm. BLADDER: No images are submitted of the bladder. AORTA AND IVC: No images are submitted of the vasculature. RETROPERITONEUM: Unremarkable. OTHER: There is a trace amount of free fluid along the lower pole of the right kidney. IMPRESSION: NO HYDRONEPHROSIS OR NEPHROLITHIASIS. TRACE ASCITES.
[2017-07-13] MEDS ORDERED: Loperamide CAP* 2 MG PO PRN (11:32)
--- NOTE | 2017-07-13 14:30 | RAD ---
Indication: Fall to RIGHT shoulder. Question multiple myeloma. Renal failure. Comparison: RIGHT shoulder and chest radiographs of the same date. Technique: AP and lateral axial skeleton skull through pelvis, supine chest, and AP humerus, forearms, femurs, and tibia/fibula obtained. Report: Diffuse degenerative spondylosis and facet joint osteoarthritis of the spine most prominent at the cervical spine and L4-L5 and L5-S1 levels of the lumbar sacral spine. Minimal anterior compression deformity of the superior endplate of the approximate T6 vertebral body without suggestion of acute fracture. Mild bilateral hip joint axial joint space narrowing and marginal osteophytic lipping. No suspicious lytic or blastic osseous lesions at the visualized axial or appendicular skeleton. Clear lungs and pleural spaces. Upper normal heart size. Unremarkable central pulmonary vasculature and mediastinal contours accounting for supine technique. IMPRESSION: Complete bone survey without findings suspicious for multiple myeloma lesions.
[2017-07-13] MEDS: cefTRIAXone(*) 1 GM in NS 0.9% 50 ML* 50 ML IVPB SCH (17:11)
--- NOTE | 2017-07-13 17:51 | PN ---
Subjective Date of Service: 07/13/17 Interval History: Patient complains of diffuse pain and malaise. Patient states her pain is worst in her shoulder but is diffuse. Patient states that she has not urinated much at all. Patient states that she has been having chills and loose bowel movements , but denies N/V, abdominal pain, dysuria, BARNARD, Changes in vision, numbness or tingling, or weakness. Family History: Unchanged from Admission Social History: Unchanged from Admission Past Medical History: Unchanged from Admission Objective Active Medications: Acetaminophen (Tylenol Tab*) 650 mg PO Q4H PRN PRN Reason: FEVER/PAIN Last Admin: 07/12/17 20:38 Dose: 650 mg Alprazolam (Xanax Tab*) 0.25 mg PO TID PRN PRN Reason: ANXIETY Cyclobenzaprine HCl (Flexeril Tab*) 5 mg PO TID PRN PRN Reason: PAIN Last Admin: 07/12/17 20:39 Dose: 5 mg Heparin Sodium (Porcine) (Heparin Vial(*)) 5,000 units SUBCUT Q8HR [facility] Last Admin: 07/13/17 14:53 Dose: 5,000 units Ceftriaxone Sodium 1 gm/ (Sodium Chloride) 50 mls @ 200 mls/hr IVPB Q24H [facility] Last Admin: 07/13/17 17:11 Dose: 200 mls/hr Lidocaine (Lidoderm 5% Patch*) 1 patch TRANSDERM DAILY [facility] Last Admin: 07/13/17 08:48 Dose: 1 patch Loperamide HCl (Imodium Cap*) 2 mg PO .SEE DIRECTIONS PRN PRN Reason: DIARRHEA Pharmacy Profile Note (Lidocaine Patch Remove*) 1 note N/A 2100 [facility] Last Admin: 07/12/17 22:03 Dose: 1 note Tramadol HCl (Ultram*) 50 mg PO Q12H PRN PRN Reason: PAIN - SEVERE Last Admin: 07/13/17 08:54 Dose: 50 mg Vital Signs - 8 hr 07/13/17 15:14 Temperature 97.4 F Pulse Rate 90 Respiratory 20 Rate Blood Pressure 148/62 (mmHg) O2 Sat by Pulse 99 Oximetry Oxygen Devices in Use Now: None Appearance: Patient is a 67yo pale female who appears stated age and is sitting in the bed in moderate distress. Eyes: No Scleral Icterus, PERRLA Ears/Nose/Mouth/Throat: NL Teeth, Lips, Gums, Clear Oropharnyx, Mucous Membranes Moist Neck: NL Appearance and Movements; NL JVP, Trachea Midline Respiratory: Symmetrical Chest Expansion and Respiratory Effort, Clear to Auscultation Cardiovascular: NL Sounds; No Murmurs; No JVD, RRR, No Edema Abdominal: NL Sounds; No Tenderness; No Distention, No Hepatosplenomegaly Lymphatic: No Cervical Adenopathy Extremities: No Edema, No Clubbing, Cyanosis, - - ROM limited in R shoulder. Patient is severely limited with any movement due to pain. Skin: No Rash or Ulcers, No Nodules or Sclerosis Neurological: Alert and Oriented x 3, NL Sensation, NL Muscle Strength and Tone Result Diagrams: 07/13/17 06:39 07/13/17 06:39 Additional Lab and Data: Lab Results Assess/Plan/Problems-Billing Assessment: Patient is a 67yo female with a PMH significant for anemia, osteoporosis, and COPD who presents with fall and JOSEPH with an increase in her M protein and probable Multiple Myeloma. - Patient Problems (1) JOSEPH (acute kidney injury) Current Visit: Yes Status: Acute Code(s): N17.9 - ACUTE KIDNEY FAILURE, UNSPECIFIED SNOMED Code(s): 93665958 Comment: Cret increase from 4.61 to 5.55. Appreciate Nephrology Consult. FeNa show intrinsic process. Patient had poor oral intake and diarrhea before presentation. Patient positive 4L and producing little urine. Likely due to Multiple Myeloma. Will stop fluids to avoid overload and monitor urine output. (2) Multiple myeloma Current Visit: Yes Status: Acute Code(s): C90.00 - MULTIPLE MYELOMA NOT HAVING ACHIEVED REMISSION SNOMED Code(s): 727017088 Comment: Appreciate Nephrology input. Patient recently had a workup for anemia which showed a spike in her kappa chain M protein. Was scheduled for bone marrow biopsy but patient states she wanted to postpone until after [place]. Will consult Heme/Oncology again and try to have this completed while in the hospital. Osseous survery negative for lytic lesions. (3) Anemia Current Visit: Yes Status: Acute Code(s): D64.9 - ANEMIA, UNSPECIFIED SNOMED Code(s): 073933799 Comment: Worsening, down to 7.9. Possibly partially dilutional. Also possibly due to pancytopenia from multiple myeloma. Patient asymptomatic at this time. Will monitor and transfuse as needed. (4) Thrombocytopenia Current Visit: Yes Status: Acute Code(s): D69.6 - THROMBOCYTOPENIA, UNSPECIFIED SNOMED Code(s): 421071064 Comment: Platelets at 90. Possibly due to pancytopenia from Multiple Myeloma. Will stop heparin and monitor. (5) COPD (chronic obstructive pulmonary disease) Current Visit: Yes Status: Acute Code(s): J44.9 - CHRONIC OBSTRUCTIVE PULMONARY DISEASE, UNSPECIFIED SNOMED Code(s): 97613291 Comment: No signs of exacerbation. Inhalers available PRN. (6) Osteoporosis Current Visit: Yes Status: Acute Code(s): M81.0 - AGE-RELATED OSTEOPOROSIS W /O CURRENT PATHOLOGICAL FRACTURE SNOMED Code(s): 85433095 Comment: Patient has osteoporosis with unknown T-score and is at high risk for pathologic fractures due to MM. Osseous survery negative. Will monitor. (7) Full code status Current Visit: Yes Status: Acute Code(s): Z78.9 - OTHER SPECIFIED HEALTH STATUS SNOMED Code(s): 585364257 (8) DVT prophylaxis Current Visit: Yes Status: Acute Code(s): OON4021 - SNOMED Code(s): 414481984 Comment: Heparin Held due to thrombocytopenia. Status and Disposition: Patient is admitted inpatient, will discharge when medically stable.
[2017-07-13] MEDS ORDERED: Albuterol 2.5 MG/3 ML NEB.SOL* (0.083%) INH PRN (18:00)
[2017-07-13] MEDS: Lidocaine Patch REMOVE* 1 NOTE MISC SCH (20:06)
--- NOTE | 2017-07-13 20:31 | CONS ---
CC: Dr. Dey * NEPHROLOGY CONSULTATION REPORT: DATE OF CONSULT: HISTORY OF PRESENT ILLNESS: Ms. Kenney is a 67-year-old female, who was having an episode of generalized malaise and arthralgias and myalgias along with nasal congestion for few days prior to admission. She felt that she had influenza. She had fallen and injured her right shoulder. She had orthostatic dizziness. She has had some anorexia. Her fluid and food intake has been down significantly. She felt quite thirsty. She denied fever, chills, nausea, vomiting, diarrhea, dysuria, frequency, or urgency. PAST MEDICAL HISTORY: Significant for irritable bowel syndrome, osteoporosis, anxiety, depression, and COPD. Of significance, she began anemia evaluation approximately 2 weeks ago. MEDICATIONS: Her medications at the time of admission included: 1. Aurora-3 1000 units daily. 2. Flonase 2 sprays each nostril daily. 3. Vitamin B complex 1 daily. 4. Flexeril 5 mg 3 times a day. 5. Albuterol metered dose inhaler 2 puffs every 4 hours p.r.n. 6. Xanax 0.125 mg 1 or 2 three times a day p.r.n. 7. Vitamin C 1 daily. ALLERGIES: She is allergic to MILK and WHEAT and ENVIRONMENTAL ALLERGENS. FAMILY HISTORY: Significant for her father having diabetes mellitus and coronary artery disease. She had a brother with lung cancer and a sister with breast cancer. SOCIAL HISTORY: She quit smoking a number of years ago. She does not use significant doses of alcohol. She does not use recreational drug. REVIEW OF SYSTEMS: Other than the previous and present medical illness, was negative on physical examination. PHYSICAL EXAM: She is a weak-appearing white female, who appears to be uncomfortable. Her temperature is 98.2, blood pressure 152/65, respiratory rate of 18. She has had 3.5 L of fluid in since yesterday and had only 300 cc of urine out. HEENT: She is normocephalic. There is no evidence of trauma, although there was an ecchymosis below her left eye. There is no jugular venous distention. Her mucous membranes are moist. The chest is clear. The heart revealed a regular rhythm without murmurs. The abdomen is soft and nontender. Bones, joints, and extremities: She is very uncomfortable trying to move her right shoulder. She has some nail bed discoloration suggestive of Orville's nails. LABORATORY DATA: A review of her laboratory studies reveals a white count of 6.4; hemoglobin of 7.9, her hemoglobin was 13.9 in September of 2014 and 9.6 on ; platelet count has been falling as well now 90,000 having been 168,000 in June of this year. Sodium of 123, potassium 4.5, total CO2 16, chloride 95, BUN 69, creatinine of 5.5 up from 4.6 on admission and 0.82 in June and calcium was 8.9. Erythropoietin level was 30 in June. Her iron studies are within normal limits. She had evidence of acute hepatic injury in June while her AST and ALT are normal now, they were in the mid 300 range then. Her LDH was elevated then at 556. She does have an M-spike in the gamma region on her serum protein electrophoresis and her immunofixation reveals IgG kappa plus small monoclonal kappa in the gamma region. IMPRESSION AND PLAN: Acute renal failure. This is likely to be on the basis of dehydration which can cause acute tubular necrosis. However, I am very suspicious that she has multiple myeloma. She had been scheduled for bone marrow biopsy, which was not accomplished as she wanted to travel. There are at least 7 different mechanisms that are producing acute renal failure. For multiple myeloma, a couple of them are clearly not operative at this time. She has not been hypercalcemic. She could have amyloidosis. She clearly had orthostatic changes associated with falls. Certainly the free light chains can be directly toxic to the kidneys. We do not have a uric acid level back, which probably should be looked at. Her kidneys were slightly on the large size being 13.2 cm bilaterally, so there is possibility of myeloma kidney. At the present time, in order just to be complete, we should see some antineutrophil cytoplasmic antibodies in the blood. I think the bone marrow should be accomplished. Because of her history of osteoporosis and her history of falls, I think a myeloma bone survey is in order to look for the potential __ ___ and might require radiation to prophylax against fracture. I would buffer her metabolic acidosis. That could be done orally either with Bicitra 30 cc t.i.d. or sodium bicarbonate tablets 650 mg 2 p.o. t.i.d. I have discussed the case with RON Blanco. [id number]/[facility] #: [id number] DALE
[2017-07-13] MEDS ORDERED: Sodium Bicarbonate (ANTACID)* 650 MG TAB ONE (22:45)
[2017-07-13] MEDS: Sodium Bicarbonate (ANTACID)* 650 MG TAB PO SCH (22:50)
[2017-07-13] MEDS: Cyclobenzaprine TAB* 10 MG PO PRN (22:50)
[2017-07-14] MEDS: Heparin VIAL(*) 5000 UNITS/ML VIAL (FIVE THOUSAND) SUBCUT SCH ×3 (04:11→22:10)
[2017-07-14] MEDS: Acetaminophen TAB* 325 MG PO PRN ×2 (05:28→22:07)
[2017-07-14] MEDS: Lidocaine PATCH 5%* 1 PATCH TRANSDERM SCH (08:47)
[2017-07-14] MEDS: Sodium Bicarbonate (ANTACID)* 650 MG TAB PO SCH ×3 (08:48→22:07)
[2017-07-14] MEDS: traMADol TAB* 50 MG PO PRN ×2 (08:55→22:07)
--- NOTE | 2017-07-14 10:57 | PN ---
Progress Note - Progress Note Date of Service: 07/14/17 SOAP: Subjective: []Stable today. She has fall and fatigue, was not eating. Seen by Dr. Francis several weeks ago and recommendation for bone marrow biopsy but she deferred at that time. She is not having focal bone pain. Has not been urinating. Feels very weak. Acetaminophen (Tylenol Tab*) 650 mg PO Q4H PRN PRN Reason: FEVER/PAIN Last Admin: 07/14/17 05:28 Dose: 650 mg Albuterol (Ventolin 2.5 Mg/3 Ml Neb.Dolores*) 2.5 mg INH Q4H PRN PRN Reason: SOB/WHEEZING Alprazolam (Xanax Tab*) 0.25 mg PO TID PRN PRN Reason: ANXIETY Cyclobenzaprine HCl (Flexeril Tab*) 5 mg PO TID PRN PRN Reason: PAIN Last Admin: 07/13/17 22:50 Dose: 5 mg Heparin Sodium (Porcine) (Heparin Vial(*)) 5,000 units SUBCUT Q8HR [facility] Last Admin: 07/14/17 04:11 Dose: Not Given Ceftriaxone Sodium 1 gm/ (Sodium Chloride) 50 mls @ 200 mls/hr IVPB Q24H [facility] Last Admin: 07/13/17 17:11 Dose: 200 mls/hr Lidocaine (Lidoderm 5% Patch*) 1 patch TRANSDERM DAILY [facility] Last Admin: 07/14/17 08:47 Dose: 1 patch Loperamide HCl (Imodium Cap*) 2 mg PO .SEE DIRECTIONS PRN PRN Reason: DIARRHEA Pharmacy Profile Note (Lidocaine Patch Remove*) 1 note N/A 2100 [facility] Last Admin: 07/13/17 20:06 Dose: 1 note Sodium Bicarbonate (Sodium Bicarbonate (Antacid)*) 1,300 mg PO TID [facility] Last Admin: 07/14/17 08:48 Dose: 1,300 mg Tramadol HCl (Ultram*) 50 mg PO Q12H PRN PRN Reason: PAIN - SEVERE Last Admin: 07/14/17 08:55 Dose: 50 mg Objective: [] Vital Signs Temp Pulse Resp BP Pulse Ox 97.4 F 88 18 138/61 95 07/14/17 07:44 07/14/17 07:44 07/14/17 08:55 07/14/17 07:44 07/14/17 07:44 HEENT - pale, echymosis. CTA, decreased BS RRR S1S2 Abd distended, BS, no spleen Ext with +1 edema Assessment: []67 year old who presents with monoclonal protein, lytic bone lesions and ARF. Very suspicions for progressive MM, possible overlay of acute dehydration. Plan: []1. Bone marrow bisopy today, send for FISH panel Myeloma 2. Send SFLC, Beta-2 microglobulin 3. Will start Dex 40 IV daily x 4 if aspirate with plasma cells. 4. Continue hydration, appreciate input from Dr. Bowen.
[2017-07-14 11:25] LABS: ABS Basophils 0.1 10^3/ul (0-0.2); ABS Eosinophils 0.1 10^3/ul (0-0.6); ABS Lymphocytes 0.6 10^3/ul (1.0-4.8); ABS Monocytes 0.7 10^3/ul (0-0.8); ABS Neutrophils 8.2 10^3/ul (1.5-7.7); ABS Nucleated RBC 0 10^3/ul; Eosinophil % 0.8 % (0-6); Hematocrit 26 % (35-47); Lymphocyte % 5.9 % (25-47); Mean Corpuscular HGB Conc 34 g/dl (31-36); Mean Corpuscular Hemoglobin 35 pg (27-31); Mean Corpuscular Volume 101 fL (80-97); Mean Platelet Volume 9 um3 (7.4-10.4); Nucleated Red Blood Cells % 0; Platelet Count 129 10^3/ul (150-450); Red Blood Count 2.61 10^6/ul (4.0-5.4); Red Cell Distribution Width 14 % (10.5-15); White Blood Count 9.6 10^3/ul (3.5-10.8)
[2017-07-14 12:04] LABS: Monocytes % 6 % (0-13)
--- NOTE | 2017-07-14 13:14 | PROCNOTE ---
Hematology/Oncology Procedure Hematology/Oncology Procedure Note: Bone marrow biopsy, usual technique. Aspirate and 5 cc sent for FISH panel. 3 mm core. No complications and she tolerated procedure well.
[2017-07-14 13:46] LABS: EGFR Non-African American 6.3 (>60)
[2017-07-14] MEDS ORDERED: NS 0.9% 1000 ML* 1,000 ML IV SCH (14:00)
--- NOTE | 2017-07-14 15:50 | PN ---
Subjective Date of Service: 07/14/17 Interval History: Patient much more alert and ambulatory today. Patient complains of continued pain, but decreased and responsive to medications. Patient continues to not make much urine, but denies dysuria. Patient states she feels like she needs to have a bowel movement. Patient denies F/C, N/V, abdominal pain, Chest Pain, SOB , Back pain, weakness, or other abnormality. Family History: Unchanged from Admission Social History: Unchanged from Admission Past Medical History: Unchanged from Admission Objective Active Medications: Acetaminophen (Tylenol Tab*) 650 mg PO Q4H PRN PRN Reason: FEVER/PAIN Last Admin: 07/14/17 05:28 Dose: 650 mg Albuterol (Ventolin 2.5 Mg/3 Ml Neb.Dolores*) 2.5 mg INH Q4H PRN PRN Reason: SOB/WHEEZING Alprazolam (Xanax Tab*) 0.25 mg PO TID PRN PRN Reason: ANXIETY Cyclobenzaprine HCl (Flexeril Tab*) 5 mg PO TID PRN PRN Reason: PAIN Last Admin: 07/13/17 22:50 Dose: 5 mg Heparin Sodium (Porcine) (Heparin Vial(*)) 5,000 units SUBCUT Q8HR [facility] Last Admin: 07/14/17 14:17 Dose: 5,000 units Ceftriaxone Sodium 1 gm/ (Sodium Chloride) 50 mls @ 200 mls/hr IVPB Q24H [facility] Last Admin: 07/13/17 17:11 Dose: 200 mls/hr Lidocaine (Lidoderm 5% Patch*) 1 patch TRANSDERM DAILY [facility] Last Admin: 07/14/17 08:47 Dose: 1 patch Loperamide HCl (Imodium Cap*) 2 mg PO .SEE DIRECTIONS PRN PRN Reason: DIARRHEA Pharmacy Profile Note (Lidocaine Patch Remove*) 1 note N/A 2100 [facility] Last Admin: 07/13/17 20:06 Dose: 1 note Sodium Bicarbonate (Sodium Bicarbonate (Antacid)*) 1,300 mg PO TID [facility] Last Admin: 07/14/17 14:13 Dose: 1,300 mg Tramadol HCl (Ultram*) 50 mg PO Q12H PRN PRN Reason: PAIN - SEVERE Last Admin: 07/14/17 08:55 Dose: 50 mg Vital Signs - 8 hr 07/14/17 07/14/17 07/14/17 08:00 08:55 14:46 Respiratory 18 Rate Oxygen Devices in Use Now: None Appearance: Patient is a 67yo female who appears stated age and is sitting in the chair in NAD. Eyes: No Scleral Icterus, PERRLA Ears/Nose/Mouth/Throat: NL Teeth, Lips, Gums, Clear Oropharnyx, - - Dry Mucous membranes. Neck: NL Appearance and Movements; NL JVP, Trachea Midline Respiratory: Symmetrical Chest Expansion and Respiratory Effort, Clear to Auscultation Cardiovascular: NL Sounds; No Murmurs; No JVD, RRR, No Edema Abdominal: NL Sounds; No Tenderness; No Distention, No Hepatosplenomegaly, - - Unable to palpate kidneys. Lymphatic: No Cervical Adenopathy Extremities: No Edema, No Clubbing, Cyanosis, - - Decreased ROM in right UE due to pain. Skin: No Rash or Ulcers, No Nodules or Sclerosis Neurological: Alert and Oriented x 3, NL Sensation, NL Muscle Strength and Tone , - - CN II-XII intact. No peripheral neuropathy. Result Diagrams: 07/14/17 10:59 07/14/17 10:59 Additional Lab and Data: Lab Results Assess/Plan/Problems-Billing Assessment: Patient is a 67yo female with a PMH significant for anemia, osteoporosis, and COPD who presents with fall and JOSEPH with an increase in her M protein and probable Multiple Myeloma. - Patient Problems (1) JOSEPH (acute kidney injury) Current Visit: Yes Status: Acute Code(s): N17.9 - ACUTE KIDNEY FAILURE, UNSPECIFIED SNOMED Code(s): 96709941 Comment: Cret increase from 5.55 to 6.54. Appreciate Nephrology Consult. FeNa show intrinsic process. Patient had poor oral intake and diarrhea before presentation. Patient positive 4L and producing little urine. Likely due to Multiple Myeloma. Will stop fluids to avoid overload and monitor urine output and weight. Surgery consulted for tunneled dialysis catheter. Plan for dialysis on Wednesday. (2) Multiple myeloma Current Visit: Yes Status: Acute Code(s): C90.00 - MULTIPLE MYELOMA NOT HAVING ACHIEVED REMISSION SNOMED Code(s): 679240794 Comment: Appreciate Nephrology input. Patient recently had a workup for anemia which showed a spike in her kappa chain M protein. Was scheduled for bone marrow biopsy but patient states she wanted to postpone until after [place]. Appreciate Heme/Onc consult, Bone Marrow Biposy performed and pending. Osseous survery negative for lytic lesions. (3) Hyponatremia Current Visit: Yes Status: Acute Code(s): E87.1 - HYPO-OSMOLALITY AND HYPONATREMIA SNOMED Code(s): 47935541 Comment: Critically low sodium at 118. Likely due to fluid overload from JOSEPH. 1L fluid restriction ordered. Patient educated. Asymptomatic. (4) Anemia Current Visit: Yes Status: Acute Code(s): D64.9 - ANEMIA, UNSPECIFIED SNOMED Code(s): 399989820 Comment: Improved, up to 9.0. Likely due to pancytopenia from multiple myeloma. Patient asymptomatic at this time. Will monitor and transfuse as needed. (5) Thrombocytopenia Current Visit: Yes Status: Acute Code(s): D69.6 - THROMBOCYTOPENIA, UNSPECIFIED SNOMED Code(s): 234646185 Comment: Platelets at 129. Possibly due to pancytopenia from Multiple Myeloma. Will stop heparin and monitor. (6) COPD (chronic obstructive pulmonary disease) Current Visit: Yes Status: Acute Code(s): J44.9 - CHRONIC OBSTRUCTIVE PULMONARY DISEASE, UNSPECIFIED SNOMED Code(s): 95163315 Comment: No signs of exacerbation. Inhalers available PRN. (7) Osteoporosis Current Visit: Yes Status: Acute Code(s): M81.0 - AGE-RELATED OSTEOPOROSIS W /O CURRENT PATHOLOGICAL FRACTURE SNOMED Code(s): 75233705 Comment: Patient has osteoporosis with unknown T-score and is at high risk for pathologic fractures due to MM. Osseous survery negative. Will monitor. (8) Full code status Current Visit: Yes Status: Acute Code(s): Z78.9 - OTHER SPECIFIED HEALTH STATUS SNOMED Code(s): 820590044 (9) DVT prophylaxis Current Visit: Yes Status: Acute Code(s): CCY3398 - SNOMED Code(s): 227844241 Comment: Heparin Held due to thrombocytopenia. Status and Disposition: Patient is admitted inpatient, will discharge when medically stable.
[2017-07-14] MEDS: cefTRIAXone(*) 1 GM in NS 0.9% 50 ML* 50 ML IVPB SCH (17:48)
[2017-07-14] MEDS: Lidocaine Patch REMOVE* 1 NOTE MISC SCH (22:10)
[2017-07-15] MEDS: Cyclobenzaprine TAB* 10 MG PO PRN (01:06)
[2017-07-15] MEDS ORDERED: oxyCODONE TAB* 5 MG TAB ONE (03:26)
[2017-07-15] MEDS: oxyCODONE TAB* 5 MG TAB PO PRN ×2 (03:30→08:37)
[2017-07-15] MEDS: Acetaminophen TAB* 325 MG PO PRN (04:53)
[2017-07-15] MEDS: Heparin VIAL(*) 5000 UNITS/ML VIAL (FIVE THOUSAND) SUBCUT SCH ×3 (04:55→23:28)
[2017-07-15] MEDS: Sodium Bicarbonate (ANTACID)* 650 MG TAB PO SCH ×4 (08:38→23:27)
[2017-07-15] MEDS: Lidocaine PATCH 5%* 1 PATCH TRANSDERM SCH (08:39)
[2017-07-15 09:36] LABS: Hematocrit 28 % (35-47); Hemoglobin 9.7 g/dl (12.0-16.0); Mean Corpuscular HGB Conc 35 g/dl (31-36); Mean Corpuscular Hemoglobin 35 pg (27-31); Mean Corpuscular Volume 101 fL (80-97); Mean Platelet Volume 9 um3 (7.4-10.4); Platelet Count 143 10^3/ul (150-450); Red Blood Count 2.78 10^6/ul (4.0-5.4); Red Cell Distribution Width 15 % (10.5-15); White Blood Count 12.6 10^3/ul (3.5-10.8)
[2017-07-15 09:56] LABS: EGFR Non-African American 5.3 (>60)
[2017-07-15] MEDS: Dexamethasone IV* 40 MG in NS 0.9% 50 ML* 50 ML IVPB SCH (09:59)
--- NOTE | 2017-07-15 10:07 | PN ---
Progress Note - Progress Note Date of Service: 07/15/17 SOAP: Subjective: sleepy now but got oxycodone 1.5 hrs ago. did not sleep last night well. pending dialysis catheter later today. +pain in right arm/swelling. very thirsty. admits that she did not follow up with me because she was afraid. Objective: Vital Signs Temp Pulse Resp BP Pulse Ox 97.6 F 98 16 148/72 94 07/15/17 03:33 07/15/17 08:33 07/15/17 08:37 07/15/17 03:33 07/15/17 08:33 lying flat, tired appearing but arousable perr eomi op very dry cta bl s1 s2 nl soft nt +bs no le edema right arm, mild erythema, +larger than left, tender on movement Laboratory Results - last 24 hr 07/13/17 07/13/17 07/14/17 15:55 15:55 10:59 WBC 9.6 RBC 2.61 L Hgb 9.0 L Hct 26 L MCV 101 H MCH 35 H MCHC 34 RDW 14 Plt Count 129 L MPV 9 Neut % (Auto) 85.2 H Lymph % (Auto) 5.9 L [place] % (Auto) 7.4 Eos % (Auto) 0.8 Baso % (Auto) 0.7 Absolute Neuts (auto) 8.2 H Absolute Lymphs (auto) 0.6 L Absolute Monos (auto) 0.7 Absolute Eos (auto) 0.1 Absolute Basos (auto) 0.1 Absolute Nucleated RBC 0 Immature Gran % 2 Neutrophils % 80 Band Neutrophils % 1 Lymphocytes % 10 L Monocytes % 6 Eosinophils % 2 Myelocytes % 1 Nucleated RBC % 0 Abs Neuts (Manual) 7.7 Normal RBC Morphology Not Reportable Hypochromasia 1+ Macrocytosis 1+ Sodium Potassium Chloride Carbon Dioxide Anion Gap BUN Creatinine Est GFR ( Amer) Est GFR (Non-Af Amer) BUN/Creatinine Ratio Glucose Uric Acid Calcium Magnesium Total Bilirubin AST ALT Alkaline Phosphatase Total Protein Albumin Globulin Albumin/Globulin Ratio IgG 1380 IgA 10 L IgM <5 L [place] Light Chain 314 H Lambda Light Chain 0.9410 [place]/Lambda Ratio 334 H Proteinase 3 (PR3) < 0.2 Myeloperoxidase Ab < 0.2 Complement C3 114 Complement C4 26 Tot Complement (CH50) 57 Flow Intrp 2-8 Markers Flow Intrp 16+ Markers 07/14/17 07/14/17 07/15/17 10:59 12:10 08:44 WBC 12.6 H RBC 2.78 L Hgb 9.7 L Hct 28 L MCV 101 H MCH 35 H MCHC 35 RDW 15 Plt Count 143 L MPV 9 Neut % (Auto) Lymph % (Auto) [place] % (Auto) Eos % (Auto) Baso % (Auto) Absolute Neuts (auto) Absolute Lymphs (auto) Absolute Monos (auto) Absolute Eos (auto) Absolute Basos (auto) Absolute Nucleated RBC Immature Gran % Neutrophils % Band Neutrophils % Lymphocytes % Monocytes % Eosinophils % Myelocytes % Nucleated RBC % Abs Neuts (Manual) Normal RBC Morphology Hypochromasia Macrocytosis Sodium 118 L* Potassium 4.8 Chloride 89 L Carbon Dioxide 15 L Anion Gap 14 H BUN 79 H Creatinine 6.54 H Est GFR ( Amer) 8.1 Est GFR (Non-Af Amer) 6.3 BUN/Creatinine Ratio 12.1 Glucose 155 H Uric Acid 9.9 H Calcium 9.8 Magnesium 1.9 Total Bilirubin AST ALT Alkaline Phosphatase Total Protein Albumin Globulin Albumin/Globulin Ratio IgG IgA IgM [place] Light Chain Lambda Light Chain [place]/Lambda Ratio Proteinase 3 (PR3) Myeloperoxidase Ab Complement C3 Complement C4 Tot Complement (CH50) Flow Intrp 2-8 Markers TNP Flow Intrp 16+ Markers TNP 07/15/17 08:44 WBC RBC Hgb Hct MCV MCH MCHC RDW Plt Count MPV Neut % (Auto) Lymph % (Auto) [place] % (Auto) Eos % (Auto) Baso % (Auto) Absolute Neuts (auto) Absolute Lymphs (auto) Absolute Monos (auto) Absolute Eos (auto) Absolute Basos (auto) Absolute Nucleated RBC Immature Gran % Neutrophils % Band Neutrophils % Lymphocytes % Monocytes % Eosinophils % Myelocytes % Nucleated RBC % Abs Neuts (Manual) Normal RBC Morphology Hypochromasia Macrocytosis Sodium 120 L Potassium 5.7 H Chloride 90 L Carbon Dioxide 16 L Anion Gap 14 H BUN 94 H Creatinine 7.61 H Est GFR ( Amer) 6.8 Est GFR (Non-Af Amer) 5.3 BUN/Creatinine Ratio 12.4 Glucose 109 H Uric Acid Calcium 10.0 Magnesium 2.4 Total Bilirubin 0.40 AST 29 ALT 46 Alkaline Phosphatase 270 H Total Protein 7.0 Albumin 2.8 L Globulin 4.2 H Albumin/Globulin Ratio 0.7 L IgG IgA IgM [place] Light Chain Lambda Light Chain [place]/Lambda Ratio Proteinase 3 (PR3) Myeloperoxidase Ab Complement C3 Complement C4 Tot Complement (CH50) Flow Intrp 2-8 Markers Flow Intrp 16+ Markers Assessment: 67 yo F initially seen by me 1 mth ago for progressive anemia and osteoporosis very concerning for multiple myeloma. serologic work up concerning for this as well but then she was lost to follow up. 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 marrow pending but with 2g monoclonal protein and elevated kappa light chains will start dexamethasone 40 mg iv daily x 4 days. she is pending a dialysis catheter but I am concerned about her enlarged RUE that she may need a clot. given this I would get a stat doppler. I have discussed this with her primary team. We will likely start her on velcade in the near future, though am awaiting final pathology. We will continue to follow with you.
[2017-07-15] MEDS ORDERED: Insulin REGULAR(*) 1 UNITS UNIT IV PUSH ONE (10:17)
[2017-07-15] MEDS ORDERED: Dextrose 50% Syringe 50 ML* 25 GM/50 ML SYRINGE IV PUSH ONE (10:19)
[2017-07-15 12:26] LABS: ABS Basophils 0 10^3/ul (0-0.2); ABS Eosinophils 0.3 10^3/ul (0-0.6); ABS Lymphocytes 0.9 10^3/ul (1.0-4.8); ABS Monocytes 1.3 10^3/ul (0-0.8); ABS Neutrophils 10.2 10^3/ul (1.5-7.7); ABS Nucleated RBC 0 10^3/ul; Eosinophil % 2.2 % (0-6); Nucleated Red Blood Cells % 0
--- NOTE | 2017-07-15 12:39 | RAD ---
HISTORY: Right arm swelling COMPARISONS: None relevant TECHNIQUE: Multiple transverse and longitudinal ultrasound images were obtained of the right upper extremity from the level of the internal jugular vein inferiorly through to the infra-cubital veins using grayscale, color Doppler, and spectral Doppler imaging with and without compression and with augmentation. Comparison images were obtained of the contralateral internal jugular vein and subclavian vein. FINDINGS: VEINS: The venous system of the right upper extremity is compressible throughout its course, with normal flow on color Doppler imaging and normal response to augmentation on spectral Doppler imaging. SOFT TISSUES: Unremarkable. OTHER FINDINGS: None. IMPRESSION: NO RIGHT UPPER EXTREMITY DEEP VEIN THROMBOSIS
[2017-07-15] MEDS ORDERED: HYDROmorphone INJ* 2 MG/ML CARPUJECT SYRINGE IV SLOW PU ONE (15:19)
--- NOTE | 2017-07-15 16:45 | RAD ---
INDICATION: Severe abdominal pain. COMPARISON: There are no prior studies available for comparison. TECHNIQUE: A CT scan of the abdomen and pelvis was performed without intravenous or oral contrast. Contiguous axial sections were obtained from the lung bases through the symphysis pubis. Images were reconstructed in the coronal and sagittal planes. FINDINGS: Images through the lung bases demonstrate small bilateral pleural effusions and dependent bilateral lower lobe infiltrates. The liver appears mildly enlarged without significant focal abnormality on this noncontrast study. No calcified gallstones are seen. The spleen and pancreas appear within normal limits on this noncontrast study. The adrenal glands and kidneys are normal in size. No renal calculi or hydronephrosis is seen. The aorta is normal in caliber with moderate calcific plaque present. There is a retroaortic left renal vein. No significant enlarged retroperitoneal lymph nodes are seen. The stomach, small and large bowel appear nondistended. The appendix is not well visualized. There are scattered diverticuli within the colon. There is no evidence for diverticulitis or colitis. The uterus is anteverted and normal in size. No free intraperitoneal air is seen. There is a small amount of free intraperitoneal fluid present dependently within the pelvis. No significant focal osseous abnormality is seen. IMPRESSION: 1. SMALL BILATERAL PLEURAL EFFUSIONS AND DEPENDENT BILATERAL LOWER LOBE INFILTRATES. 2. SMALL AMOUNT OF FREE INTRAPERITONEAL FLUID. 3. LIMITED NONCONTRAST STUDY.
[2017-07-15] MEDS ORDERED: Lidocaine 1% INJ* 10 MG/ML 30 ML SDV ONE (17:39)
[2017-07-15] MEDS ORDERED: Heparin VIAL(*) 5000 UNITS/ML VIAL (FIVE THOUSAND) ONE (17:40)
--- NOTE | 2017-07-15 17:43 | PN ---
Subjective Date of Service: 07/15/17 Interval History: Patient's pain well controlled when examined in early afternoon. Patient up to the bathroom and walking. Minimal urine today. Patient had sharp pain in her epigastric area yesterday evening which responds well to lidocaine patch on her abdomen and pain medication. Patient believes she hit this area when she fell. This pain became worse later in the day and patient was NPO and able to get PO pain medication. Response to IV dilaudid. Patient also had hyperkalemia at 5.7. Insulin and dextrose given. Now getting dialysis catheter in surgery. Family History: Unchanged from Admission Social History: Unchanged from Admission Past Medical History: Unchanged from Admission Objective Active Medications: Acetaminophen (Tylenol Tab*) 650 mg PO Q4H PRN PRN Reason: FEVER/PAIN Last Admin: 07/15/17 04:53 Dose: 650 mg Albuterol (Ventolin 2.5 Mg/3 Ml Neb.Dolores*) 2.5 mg INH Q4H PRN PRN Reason: SOB/WHEEZING Alprazolam (Xanax Tab*) 0.25 mg PO TID PRN PRN Reason: ANXIETY Cyclobenzaprine HCl (Flexeril Tab*) 5 mg PO TID PRN PRN Reason: PAIN Last Admin: 07/15/17 01:06 Dose: 5 mg Heparin Sodium (Porcine) (Heparin Vial(*)) 5,000 units SUBCUT Q8HR [facility] Last Admin: 07/15/17 12:27 Dose: Not Given Dexamethasone Sodium Phosphate (40 mg/ Sodium Chloride) 60 mls @ 208 mls/hr IVPB Q24H [facility] Stop: 07/19/17 08:59 Last Admin: 07/15/17 09:59 Dose: 208 mls/hr Lidocaine (Lidoderm 5% Patch*) 1 patch TRANSDERM DAILY [facility] Last Admin: 07/15/17 08:39 Dose: 1 patch Loperamide HCl (Imodium Cap*) 2 mg PO .SEE DIRECTIONS PRN PRN Reason: DIARRHEA Oxycodone HCl (Roxycodone Tab*) 2.5 mg PO Q4H PRN PRN Reason: PAIN Last Admin: 07/15/17 08:37 Dose: 2.5 mg Pharmacy Profile Note (Lidocaine Patch Remove*) 1 note N/A [facility]100 [facility] Last Admin: 07/14/17 22:10 Dose: 1 note Sodium Bicarbonate (Sodium Bicarbonate (Antacid)*) 1,300 mg PO TID GURMEET Last Admin: 07/15/17 13:00 Dose: Not Given Tramadol HCl (Ultram*) 50 mg PO Q12H PRN PRN Reason: PAIN - SEVERE Last Admin: 07/14/17 22:07 Dose: 50 mg Vital Signs - 8 hr 07/15/17 07/15/17 07/15/17 10:20 12:26 15:23 Temperature 98.2 F Pulse Rate 105 Respiratory 16 16 18 Rate Blood Pressure 187/72 (mmHg) O2 Sat by Pulse 92 Oximetry 07/15/17 07/15/17 15:25 16:33 Temperature Pulse Rate 91 Respiratory 30 Rate Blood Pressure 113/53 (mmHg) O2 Sat by Pulse 91 Oximetry Oxygen Devices in Use Now: None Appearance: Patient is a 67yo female who appears stated age and is sitting in the bed in NAD. Eyes: No Scleral Icterus, PERRLA Ears/Nose/Mouth/Throat: NL Teeth, Lips, Gums, Clear Oropharnyx, Mucous Membranes Moist Neck: NL Appearance and Movements; NL JVP, Trachea Midline Respiratory: Clear to Auscultation Cardiovascular: NL Sounds; No Murmurs; No JVD, RRR, No Edema Abdominal: No Hepatosplenomegaly, - - Significant epigatric tenderness without rebound or guarding. Negative Miller's sign. Lymphatic: No Cervical Adenopathy Extremities: No Edema, No Clubbing, Cyanosis, - - Redness and swelling of right arm. Tender to palpation. No palpable cords. Skin: No Rash or Ulcers, No Nodules or Sclerosis, - Neurological: Alert and Oriented x 3, NL Sensation Result Diagrams: 07/15/17 08:44 07/15/17 08:44 Additional Lab and Data: Lab Results Assess/Plan/Problems-Billing Assessment: Patient is a 67yo female with a PMH significant for anemia, osteoporosis, and COPD who presents with fall and JOSEPH with an increase in her M protein and probable Multiple Myeloma. - Patient Problems (1) JOSEPH (acute kidney injury) Current Visit: Yes Status: Acute Code(s): N17.9 - ACUTE KIDNEY FAILURE, UNSPECIFIED SNOMED Code(s): 87164905 Comment: Cret increase from 6.54 to 7.61. Appreciate Nephrology Consult. FeNa show intrinsic process. Patient had poor oral intake and diarrhea before presentation. Patient positive 4L and producing little urine. Likely due to Multiple Myeloma with superimposed dehydration. Will stop fluids to avoid overload and monitor urine output and weight. Currently getting tunneled dialysis catheter. Plan for dialysis on Wednesday. (2) Multiple myeloma Current Visit: Yes Status: Acute Code(s): C90.00 - MULTIPLE MYELOMA NOT HAVING ACHIEVED REMISSION SNOMED Code(s): 505938919 Comment: Appreciate Nephrology input. Patient recently had a workup for anemia which showed a spike in her kappa chain M protein. Was scheduled for bone marrow biopsy but patient states she wanted to postpone until after [place]. Appreciate Heme/Onc consult, Bone Marrow Biposy performed and pending. Osseous survery negative for lytic lesions. Started on Dexamethazone, plan for more specific treatment when diagnosis confirmed by biopsy. (3) Hyponatremia Current Visit: Yes Status: Acute Code(s): E87.1 - HYPO-OSMOLALITY AND HYPONATREMIA SNOMED Code(s): 68012449 Comment: Up to 120. Likely due to fluid overload from JOSEPH. 1L fluid restriction ordered. Patient educated. Asymptomatic. (4) Hyperkalemia Current Visit: Yes Status: Acute Code(s): E87.5 - HYPERKALEMIA SNOMED Code (s): 40649268 Comment: At 5.7 in AM. Given Insulin and dextrose. Repeat BMP after surgery. (5) Anemia Current Visit: Yes Status: Acute Code(s): D64.9 - ANEMIA, UNSPECIFIED SNOMED Code(s): 755172242 Comment: Improved, up to 9.7. Likely due to pancytopenia from multiple myeloma. Patient asymptomatic at this time. Will monitor and transfuse as needed. (6) Thrombocytopenia Current Visit: Yes Status: Acute Code(s): D69.6 - THROMBOCYTOPENIA, UNSPECIFIED SNOMED Code(s): 950105322 Comment: Platelets at 143. Possibly due to pancytopenia from Multiple Myeloma. Will stop heparin and monitor. (7) COPD (chronic obstructive pulmonary disease) Current Visit: Yes Status: Acute Code(s): J44.9 - CHRONIC OBSTRUCTIVE PULMONARY DISEASE, UNSPECIFIED SNOMED Code(s): 88554192 Comment: No signs of exacerbation. Inhalers available PRN. (8) Osteoporosis Current Visit: Yes Status: Acute Code(s): M81.0 - AGE-RELATED OSTEOPOROSIS W /O CURRENT PATHOLOGICAL FRACTURE SNOMED Code(s): 60153920 Comment: Patient has osteoporosis with unknown T-score and is at high risk for pathologic fractures due to MM. Osseous survery negative. Will monitor. (9) Full code status Current Visit: Yes Status: Acute Code(s): Z78.9 - OTHER SPECIFIED HEALTH STATUS SNOMED Code(s): 645019737 (10) DVT prophylaxis Current Visit: Yes Status: Acute Code(s): XPE2377 - SNOMED Code(s): 173953096 Comment: Heparin Held due to thrombocytopenia. Status and Disposition: Patient is admitted inpatient, will discharge when medically stable.
[2017-07-15] MEDS ORDERED: Midazolam* 1 MG/ML 2 ML VIAL (2 MG) ONE (17:55)
[2017-07-15] MEDS ORDERED: cefTRIAXone(*) 1 GM ADVAN/BAG ONE (18:09)
[2017-07-15] MEDS ORDERED: Naloxone* 0.4 MG/ML 1 ML VIAL IV PRN (18:37)
--- NOTE | 2017-07-15 20:17 | RAD ---
INDICATION: Tesio catheter placement. COMPARISON: No relevant prior exams available on the [facility] PACS for comparison. TECHNIQUE: 15.5 seconds fluoroscopy. FINDINGS: Spot images document the tips of the LEFT side dual-lumen tunneled central venous catheter at level of the superior vena cava RIGHT atrial junction. IMPRESSION: Procedural fluoroscopy. CPT II Codes: 6045F
--- NOTE | 2017-07-15 20:20 | RAD ---
Indication: Acute renal failure. Tesio catheter placement. Comparison: Intraoperative spot images of the same date, abdomen CT of the same date, July 13, 2017 chest radiograph. Technique: Upright AP 1933 hours Report: Tips of the LEFT side tunnel central venous catheter at level of the superior vena cava RIGHT atrial junction. Negative for pneumothorax. LEFT larger than RIGHT dependent pleural effusions with proportional basilar atelectasis. Negative for cardiomegaly. Unremarkable central pulmonary vasculature and mediastinal contours. IMPRESSION: Negative for pneumothorax post tunneled central venous catheter placement.
--- NOTE | 2017-07-15 21:28 | PN ---
PROGRESS NOTE: DATE OF SERVICE: 07/15/16 HISTORY: Ms. Kenney is feeling quite weak today. She continues to have pain to her right shoulder. She has some left upper quadrant abdominal discomfort on eating and drinking. PHYSICAL EXAMINATION: She is afebrile. Blood pressure is 148/72. Heart rate of 98. Her mucous membranes are moist. There is no jugular venous distention. Chest is clear. The heart revealed a regular rhythm without murmurs. The abdomen is soft and nontender. There is trace edema. LABORATORY DATA: White count is 9.6, hemoglobin 9, platelet count 129,000. Sodium 118, potassium 4.8, chloride 98, total CO2 of 15, BUN 79, creatinine 6.54. Her kappa light chains are back at 314 with a reference value of 0.3 to 0.19. DISCUSSION: This is likely kappa light chain myeloma as a cause for her renal injury. Ordinarily, the renal function will not recover until there is a good response to treatment for multiple myeloma. Her bone marrow is still pending. She is going to need to proceed on to dialysis at this point. I have reviewed the indications and the risks with her including bleeding, infection, cardiac rhythm disturbances, hypotension, etc. She is willing to proceed. I have discussed the case with Pierre Batres and Dr. Francis. [id number]/[facility] #: [id number] [place]
[2017-07-15] MEDS: Lidocaine Patch REMOVE* 1 NOTE MISC SCH (23:00)
[2017-07-15 23:50] LABS: EGFR Non-African American 4.9 (>60)
[2017-07-16] MEDS ORDERED: Calcium Gluconate INJ* 1 GM in NS 0.9% 50 ML* 50 ML IVPB ONE (00:05)
[2017-07-16] MEDS: traMADol TAB* 50 MG PO PRN ×2 (06:42→19:13)
[2017-07-16] MEDS: Acetaminophen TAB* 325 MG PO PRN (06:43)
[2017-07-16] MEDS: Heparin VIAL(*) 5000 UNITS/ML VIAL (FIVE THOUSAND) SUBCUT SCH ×3 (06:45→21:46)
[2017-07-16] MEDS: Sodium Bicarbonate (ANTACID)* 650 MG TAB PO SCH ×3 (08:09→21:46)
[2017-07-16] MEDS: Lidocaine PATCH 5%* 1 PATCH TRANSDERM SCH (08:10)
[2017-07-16] MEDS: oxyCODONE TAB* 5 MG TAB PO PRN ×3 (08:11→21:55)
[2017-07-16 08:47] LABS: EGFR Non-African American 4.7 (>60)
--- NOTE | 2017-07-16 09:41 | PN ---
Progress Note - Progress Note Date of Service: 07/16/17 SOAP: Subjective: []About to go to dialysis. States understanding of process and denies specific questions. Right arm still swollen, doppler yesterday negative. C/o LUQ pain when she moves, "It stretches." Pain meds help some. Medications: Acetaminophen (Tylenol Tab*) 650 mg PO Q4H PRN PRN Reason: FEVER/PAIN Last Admin: 07/16/17 06:43 Dose: 650 mg Albuterol (Ventolin 2.5 Mg/3 Ml Neb.Dolores*) 2.5 mg INH Q4H PRN PRN Reason: SOB/WHEEZING Alprazolam (Xanax Tab*) 0.25 mg PO TID PRN PRN Reason: ANXIETY Cyclobenzaprine HCl (Flexeril Tab*) 5 mg PO TID PRN PRN Reason: PAIN Last Admin: 07/15/17 01:06 Dose: 5 mg Heparin Sodium (Porcine) (Heparin Vial(*)) 5,000 units SUBCUT Q8HR [facility] Last Admin: 07/16/17 06:45 Dose: 5,000 units Dexamethasone Sodium Phosphate (40 mg/ Sodium Chloride) 60 mls @ 208 mls/hr IVPB Q24H [facility] Stop: 07/19/17 08:59 Last Admin: 07/15/17 09:59 Dose: 208 mls/hr Lidocaine (Lidoderm 5% Patch*) 1 patch TRANSDERM DAILY [facility] Last Admin: 07/16/17 08:10 Dose: 1 patch Loperamide HCl (Imodium Cap*) 2 mg PO .SEE DIRECTIONS PRN PRN Reason: DIARRHEA Naloxone HCl (Narcan*) 0.08 mg IV Q2M PRN PRN Reason: severe induced resp depression Stop: 07/16/17 11:00 Oxycodone HCl (Roxycodone Tab*) 2.5 mg PO Q4H PRN PRN Reason: PAIN Last Admin: 07/16/17 08:11 Dose: 2.5 mg Pharmacy Profile Note (Lidocaine Patch Remove*) 1 note N/A 2100 [facility] Last Admin: 07/15/17 23:00 Dose: 1 note Sodium Bicarbonate (Sodium Bicarbonate (Antacid)*) 1,300 mg PO TID [facility] Last Admin: 07/16/17 08:09 Dose: 1,300 mg Tramadol HCl (Ultram*) 50 mg PO Q12H PRN PRN Reason: PAIN - SEVERE Last Admin: 07/16/17 06:42 Dose: 50 mg Objective: [] Vital Signs Temp Pulse Resp BP Pulse Ox 97.5 F 95 22 139/71 93 07/16/17 07:24 07/16/17 07:24 07/16/17 08:11 07/16/17 07:24 07/16/17 07:24 A&Ox3, EOMI, neuro grossly non-focal HRR, S1S2, no murmur noted LS dim. bilat., tachypnea with accessory muscle use [place], Right arm +1 non-pitting edema Point tenderness elicited to left anterior lower rib -- CT A/P personally reviewed and lower ribs appear to have lytic lesions, though no mention in report -- multiple lytic lesions on bone survey, ribs are not mentioned in report however Laboratory Results - last 24 hr 07/14/17 07/15/17 07/15/17 10:59 08:44 08:44 WBC 12.6 H RBC 2.78 L Hgb 9.7 L Hct 28 L MCV 101 H MCH 35 H MCHC 35 RDW 15 Plt Count 143 L MPV 9 Neut % (Auto) 80.5 Lymph % (Auto) 7.0 L Bath % (Auto) 10.3 H Eos % (Auto) 2.2 Baso % (Auto) 0 Absolute Neuts (auto) 10.2 H Absolute Lymphs (auto) 0.9 L Absolute Monos (auto) 1.3 H Absolute Eos (auto) 0.3 Absolute Basos (auto) 0 Absolute Nucleated RBC 0 Nucleated RBC % 0 Sodium 120 L Potassium 5.7 H Chloride 90 L Carbon Dioxide 16 L Anion Gap 14 H BUN 94 H Creatinine 7.61 H Est GFR ( Amer) 6.8 Est GFR (Non-Af Amer) 5.3 BUN/Creatinine Ratio 12.4 Glucose 109 H POC Glucose (mg/dL) Calcium 10.0 Magnesium 2.4 Total Bilirubin 0.40 AST 29 ALT 46 Alkaline Phosphatase 270 H Total Protein 7.0 Albumin 2.8 L Globulin 4.2 H Albumin/Globulin Ratio 0.7 L IgG 1710 H IgA 15 L IgM <5 L [employer] Light Chain 298 H Lambda Light Chain 0.8130 [employer]/Lambda Ratio 367 H Hepatitis B Antibody Hep Bs Antigen Hep Bs Antibody, Quant HIV 1&2 Antibody 07/15/17 07/15/17 07/15/17 13:49 14:05 15:01 WBC RBC Hgb Hct MCV MCH MCHC RDW Plt Count MPV Neut % (Auto) Lymph % (Auto) Bath % (Auto) Eos % (Auto) Baso % (Auto) Absolute Neuts (auto) Absolute Lymphs (auto) Absolute Monos (auto) Absolute Eos (auto) Absolute Basos (auto) Absolute Nucleated RBC Nucleated RBC % Sodium Potassium Chloride Carbon Dioxide Anion Gap BUN Creatinine Est GFR ( Amer) Est GFR (Non-Af Amer) BUN/Creatinine Ratio Glucose POC Glucose (mg/dL) 258 H 219 H Calcium Magnesium Total Bilirubin AST ALT Alkaline Phosphatase Total Protein Albumin Globulin Albumin/Globulin Ratio IgG IgA IgM [employer] Light Chain Lambda Light Chain [employer]/Lambda Ratio Hepatitis B Antibody Nonreactive Hep Bs Antigen Nonreactive Hep Bs Antibody, Quant < 3.10 HIV 1&2 Antibody Nonreactive 07/15/17 07/15/17 07/15/17 15:54 16:48 21:42 WBC RBC Hgb Hct MCV MCH MCHC RDW Plt Count MPV Neut % (Auto) Lymph % (Auto) Bath % (Auto) Eos % (Auto) Baso % (Auto) Absolute Neuts (auto) Absolute Lymphs (auto) Absolute Monos (auto) Absolute Eos (auto) Absolute Basos (auto) Absolute Nucleated RBC Nucleated RBC % Sodium 119 L* Potassium 6.1 H* Chloride 92 L Carbon Dioxide 9 L* Anion Gap 18 H BUN 105 H Creatinine 8.02 H Est GFR ( Amer) 6.4 Est GFR (Non-Af Amer) 5.0 BUN/Creatinine Ratio 13.1 Glucose 166 H POC Glucose (mg/dL) 203 H 202 H Calcium 9.9 Magnesium Total Bilirubin AST ALT Alkaline Phosphatase Total Protein Albumin Globulin Albumin/Globulin Ratio IgG IgA IgM [employer] Light Chain Lambda Light Chain [employer]/Lambda Ratio Hepatitis B Antibody Hep Bs Antigen Hep Bs Antibody, Quant HIV 1&2 Antibody 07/15/17 07/16/17 23:30 07:52 WBC RBC Hgb Hct MCV MCH MCHC RDW Plt Count MPV Neut % (Auto) Lymph % (Auto) Bath % (Auto) Eos % (Auto) Baso % (Auto) Absolute Neuts (auto) Absolute Lymphs (auto) Absolute Monos (auto) Absolute Eos (auto) Absolute Basos (auto) Absolute Nucleated RBC Nucleated RBC % Sodium 119 L* 122 L Potassium 6.3 H* 6.5 H* Chloride 91 L 90 L Carbon Dioxide 12 L* 12 L* Anion Gap 16 H 20 H BUN 108 H 117 H Creatinine 8.19 H 8.38 H Est GFR ( Amer) 6.2 6.1 Est GFR (Non-Af Amer) 4.9 4.7 BUN/Creatinine Ratio 13.2 14.0 Glucose 156 H 142 H POC Glucose (mg/dL) Calcium 9.9 9.6 Magnesium 2.8 H Total Bilirubin 0.40 AST 26 ALT 41 Alkaline Phosphatase 252 H Total Protein 6.8 Albumin 2.9 L Globulin 3.9 Albumin/Globulin Ratio 0.7 L IgG IgA IgM [employer] Light Chain Lambda Light Chain [employer]/Lambda Ratio Hepatitis B Antibody Hep Bs Antigen Hep Bs Antibody, Quant HIV 1&2 Antibody Assessment: []67 yo female with acute renal failure felt secondary to presumed newly diagnosed multiple myeloma based on elevated IgG and kappa light chains, with bone marrow biopsy final path pending. Beta-2 microglobulin pending, though ultimately is more prognostic and at presentation she is already high risk. Plan: []1. Management as per Hospitalist team, Dialysis as per Dr. Bowen 2. Increased resp. effort likely r/t effusions and compensation for renal dysfunction, though with atelectasis high risk for pneumonia, will need to follow closely 4. High dose dex x4 days started yesterday 3. PRN pain meds encouraged, though with extensive lytic lesions may benefit from long acting meds to help improve ability to move 4. Follow labs, no transfusion at this time Hem/Onc to cont. to follow closely
[2017-07-16] MEDS: Dexamethasone IV* 40 MG in NS 0.9% 50 ML* 50 ML IVPB SCH (10:48)
[2017-07-16 11:20] LABS: Hematocrit 27 % (35-47); Hemoglobin 9.5 g/dl (12.0-16.0); Mean Corpuscular HGB Conc 35 g/dl (31-36); Mean Corpuscular Hemoglobin 35 pg (27-31); Mean Corpuscular Volume 99 fL (80-97); Mean Platelet Volume 9 um3 (7.4-10.4); Platelet Count 204 10^3/ul (150-450); Red Blood Count 2.74 10^6/ul (4.0-5.4); Red Cell Distribution Width 14 % (10.5-15)
[2017-07-16 12:00] LABS: ABS Basophils 0.1 10^3/ul (0-0.2); ABS Eosinophils 0 10^3/ul (0-0.6); ABS Lymphocytes 1.5 10^3/ul (1.0-4.8); ABS Monocytes 1.3 10^3/ul (0-0.8); ABS Neutrophils 16.1 10^3/ul (1.5-7.7); ABS Nucleated RBC 0 10^3/ul; Eosinophil % 0 % (0-6); Lymphocyte % 7.9 % (25-47); Nucleated Red Blood Cells % 0
[2017-07-16] MEDS ORDERED: Heparin DIALYSIS ONLY(*) 1,000 UNITS/ML VIAL DIALYSIS ONE (12:00)
--- NOTE | 2017-07-16 12:27 | OP ---
CC: Dr. Russell Forde; Dr. Jake Dey; Dr. Flavio Bowen OPERATIVE REPORT: DATE OF OPERATION: 07/15/17 DATE OF : 46 SURGEON: Russell Forde MD OUTSIDE SALES: None. ANESTHESIOLOGIST: Kade Dumont MD ANESTHESIA: LMAC anesthesia. PRE-OP DIAGNOSIS: Renal failure. POST-OP DIAGNOSIS: Renal failure. OPERATIVE PROCEDURE: Placement of left internal jugular Tesio hemodialysis catheter. DESCRIPTION OF PROCEDURE: The patient was supine on the operative table. After adequate intravenous sedation, compression stockings, and intravenous antibiotics, the left neck and chest region were pr epped with antiseptic and draped in a sterile fashion. Local infiltrative anesthesia was administere d in the neck and internal jugular venipuncture was carried out. Guidewire was passed under fluorosc opic guidance. Double wire technique was utilized and both catheters were passed through peel-away i ntroducer. These were then tunneled over the clavicle and out into the anterior chest. The position on fluoroscopy showed the tips of the catheters to be well situated in the distal SVC. There was ex cellent blood return. They were flushed with saline solution. The neck site was closed with 5-0 Vicr yl in layers and 4-0 Prolene was used to secure the catheters at the exit site. Steri- Strips at the neck and Tegaderm over the chest were placed. She tolerated this well, was brought to Recovery in g ood condition. No complications, no drains, no pathologic specimens. Estimated blood loss 100 mL. [id number]/[facility] #: [id number]
--- NOTE | 2017-07-16 13:32 | PN ---
Subjective Date of Service: 07/16/17 Interval History: Patient complains mainly of pain in upper abdomen which is stabbing, intense, got significantly worse with movement of her left arm, and is worse with movement and breathing. Patient denies N/V, diarrhea, constipation or other abdominal complaint. Patient had a K+ of 6.3, patient stated she felt weak, but denied palpitations or dizziness. Patient complains of continued but diminished pain in right arm. Patient takes small breaths which are aborted due to pain, but otherwise denies SOB. Family History: Unchanged from Admission Social History: Unchanged from Admission Past Medical History: Unchanged from Admission Objective Active Medications: Acetaminophen (Tylenol Tab*) 650 mg PO Q4H PRN PRN Reason: FEVER/PAIN Last Admin: 07/16/17 06:43 Dose: 650 mg Albuterol (Ventolin 2.5 Mg/3 Ml Neb.Dolores*) 2.5 mg INH Q4H PRN PRN Reason: SOB/WHEEZING Alprazolam (Xanax Tab*) 0.25 mg PO TID PRN PRN Reason: ANXIETY Cyclobenzaprine HCl (Flexeril Tab*) 5 mg PO TID PRN PRN Reason: PAIN Last Admin: 07/15/17 01:06 Dose: 5 mg Heparin Sodium (Porcine) (Heparin Vial(*)) 5,000 units SUBCUT Q8HR [facility] Last Admin: 07/16/17 06:45 Dose: 5,000 units Dexamethasone Sodium Phosphate (40 mg/ Sodium Chloride) 60 mls @ 208 mls/hr IVPB Q24H [facility] Stop: 07/19/17 08:59 Last Admin: 07/16/17 10:48 Dose: Not Given Lidocaine (Lidoderm 5% Patch*) 1 patch TRANSDERM DAILY [facility] Last Admin: 07/16/17 08:10 Dose: 1 patch Loperamide HCl (Imodium Cap*) 2 mg PO .SEE DIRECTIONS PRN PRN Reason: DIARRHEA Oxycodone HCl (Roxycodone Tab*) 2.5 mg PO Q4H PRN PRN Reason: PAIN Last Admin: 07/16/17 08:11 Dose: 2.5 mg Pharmacy Profile Note (Lidocaine Patch Remove*) 1 note N/A 2100 [facility] Last Admin: 07/15/17 23:00 Dose: 1 note Sodium Bicarbonate (Sodium Bicarbonate (Antacid)*) 1,300 mg PO TID [facility] Last Admin: 07/16/17 08:09 Dose: 1,300 mg Tramadol HCl (Ultram*) 50 mg PO Q12H PRN PRN Reason: PAIN - SEVERE Last Admin: 07/16/17 06:42 Dose: 50 mg Vital Signs - 8 hr 07/16/17 07/16/17 07/16/17 06:42 07:24 08:11 Temperature 97.5 F Pulse Rate 95 Respiratory 20 17 22 Rate Blood Pressure 139/71 (mmHg) O2 Sat by Pulse 93 Oximetry 07/16/17 11:20 Temperature Pulse Rate Respiratory 20 Rate Blood Pressure (mmHg) O2 Sat by Pulse Oximetry Oxygen Devices in Use Now: Nasal Cannula - 2L Appearance: Patient is a 67yo female who appears stated age and is sitting ni the bed in mild distress from pain and taking numerous shallow breaths. Eyes: No Scleral Icterus, PERRLA Ears/Nose/Mouth/Throat: NL Teeth, Lips, Gums, Clear Oropharnyx, Mucous Membranes Moist Neck: NL Appearance and Movements; NL JVP, Trachea Midline Respiratory: Symmetrical Chest Expansion and Respiratory Effort, Clear to Auscultation Cardiovascular: NL Sounds; No Murmurs; No JVD, RRR, No Edema Abdominal: NL Sounds; No Tenderness; No Distention, No Hepatosplenomegaly Lymphatic: No Cervical Adenopathy Extremities: No Edema, No Clubbing, Cyanosis Skin: No Rash or Ulcers, No Nodules or Sclerosis, - - CDI dressing above left clavicle and on left chest with dialysis catheter protruding. Neurological: Alert and Oriented x 3, NL Sensation, NL Muscle Strength and Tone , - - CN II-XII intact. AxOx3 Result Diagrams: 07/16/17 10:50 07/16/17 07:52 Additional Lab and Data: Lab Results Assess/Plan/Problems-Billing Assessment: Patient is a 67yo female with a PMH significant for anemia, osteoporosis, and COPD who presents with fall and JOSEPH with an increase in her M protein and probable Multiple Myeloma. - Patient Problems (1) JOSEPH (acute kidney injury) Current Visit: Yes Status: Acute Code(s): N17.9 - ACUTE KIDNEY FAILURE, UNSPECIFIED SNOMED Code(s): 81159283 Comment: Cret increase from 7.61 to 8.38. Appreciate Nephrology Consult. FeNa showed intrinsic process. Patient had poor oral intake and diarrhea before presentation. Patient positive 4L and producing little urine. Patient has gained several pounds likely from fluid. Likely due to Multiple Myeloma with superimposed dehydration. Patient was dialyzed today. Patient is acidotic, continue Sodium Bicarbonate. (2) Multiple myeloma Current Visit: Yes Status: Acute Code(s): C90.00 - MULTIPLE MYELOMA NOT HAVING ACHIEVED REMISSION SNOMED Code(s): 983784289 Comment: Appreciate Nephrology input. Patient recently had a workup for anemia which showed a spike in her kappa chain M protein. Was scheduled for bone marrow biopsy but patient states she wanted to postpone until after [place]. Appreciate Heme/Onc consult, Bone Marrow Biposy performed and pending. Osseous survery negative for lytic lesions. Started on Dexamethazone, plan for more specific treatment when diagnosis confirmed by biopsy. (3) Hyponatremia Current Visit: Yes Status: Acute Code(s): E87.1 - HYPO-OSMOLALITY AND HYPONATREMIA SNOMED Code(s): 31456291 Comment: Down to 119. Likely due to fluid overload from JOSEPH. 1L fluid restriction ordered. Patient educated. Asymptomatic. (4) Hyperkalemia Current Visit: Yes Status: Acute Code(s): E87.5 - HYPERKALEMIA SNOMED Code (s): 72502222 Comment: At 6.5 in AM. Patient gone for dialysis. Will repeat afterwards. (5) Anemia Current Visit: Yes Status: Acute Code(s): D64.9 - ANEMIA, UNSPECIFIED SNOMED Code(s): 473122121 Comment: Stable at 9.5. Likely due to pancytopenia from multiple myeloma. Patient asymptomatic at this time. Will monitor and transfuse as needed. (6) Thrombocytopenia Current Visit: Yes Status: Acute Code(s): D69.6 - THROMBOCYTOPENIA, UNSPECIFIED SNOMED Code(s): 360342606 Comment: Platelets at 204. Possibly due to pancytopenia from Multiple Myeloma. Will continue to hold heparin and monitor. (7) COPD (chronic obstructive pulmonary disease) Current Visit: Yes Status: Acute Code(s): J44.9 - CHRONIC OBSTRUCTIVE PULMONARY DISEASE, UNSPECIFIED SNOMED Code(s): 65401606 Comment: No signs of exacerbation. Inhalers available PRN. (8) Osteoporosis Current Visit: Yes Status: Acute Code(s): M81.0 - AGE-RELATED OSTEOPOROSIS W /O CURRENT PATHOLOGICAL FRACTURE SNOMED Code(s): 30770763 Comment: Patient has osteoporosis with unknown T-score and is at high risk for pathologic fractures due to MM. Osseous survery negative. Will monitor. (9) Full code status Current Visit: Yes Status: Acute Code(s): Z78.9 - OTHER SPECIFIED HEALTH STATUS SNOMED Code(s): 205921444 (10) DVT prophylaxis Current Visit: Yes Status: Acute Code(s): AJQ7867 - SNOMED Code(s): 779305974 Comment: Heparin Held due to thrombocytopenia. Status and Disposition: Patient is admitted inpatient, will discharge when medically stable.
[2017-07-16] MEDS: Lidocaine Patch REMOVE* 1 NOTE MISC SCH (22:00)
[2017-07-17] MEDS: Heparin VIAL(*) 5000 UNITS/ML VIAL (FIVE THOUSAND) SUBCUT SCH ×3 (06:19→21:30)
[2017-07-17] MEDS: Sodium Bicarbonate (ANTACID)* 650 MG TAB PO SCH ×3 (09:15→21:02)
[2017-07-17] MEDS: Lidocaine PATCH 5%* 1 PATCH TRANSDERM SCH (09:15)
[2017-07-17] MEDS: Dexamethasone IV* 40 MG in NS 0.9% 50 ML* 50 ML IVPB SCH (09:16)
--- NOTE | 2017-07-17 09:27 | PN ---
Subjective Date of Service: 07/17/17 Interval History: Patient seen and examined, no acute overnight events, pain is improved, SOB is improved since dialysis. Denies chest pain, no headache, some fatigue, no n/v. States she does have constipation. Otherwise feeling OK and slept well last night. Family History: Unchanged from Admission Social History: Unchanged from Admission Past Medical History: Unchanged from Admission Objective Active Medications: Acetaminophen (Tylenol Tab*) 650 mg PO Q4H PRN PRN Reason: FEVER/PAIN Last Admin: 07/16/17 06:43 Dose: 650 mg Albuterol (Ventolin 2.5 Mg/3 Ml Neb.Dolores*) 2.5 mg INH Q4H PRN PRN Reason: SOB/WHEEZING Alprazolam (Xanax Tab*) 0.25 mg PO TID PRN PRN Reason: ANXIETY Cyclobenzaprine HCl (Flexeril Tab*) 5 mg PO TID PRN PRN Reason: PAIN Last Admin: 07/15/17 01:06 Dose: 5 mg Heparin Sodium (Porcine) (Heparin Vial(*)) 5,000 units SUBCUT Q8HR [facility] Last Admin: 07/17/17 06:19 Dose: 5,000 units Dexamethasone Sodium Phosphate (40 mg/ Sodium Chloride) 60 mls @ 208 mls/hr IVPB Q24H [facility] Stop: 07/19/17 08:59 Last Admin: 07/17/17 09:16 Dose: 208 mls/hr Lidocaine (Lidoderm 5% Patch*) 1 patch TRANSDERM DAILY [facility] Last Admin: 07/17/17 09:15 Dose: Not Given Loperamide HCl (Imodium Cap*) 2 mg PO .SEE DIRECTIONS PRN PRN Reason: DIARRHEA Oxycodone HCl (Roxycodone Tab*) 2.5 mg PO Q4H PRN PRN Reason: PAIN Last Admin: 07/16/17 21:55 Dose: 2.5 mg Pharmacy Profile Note (Lidocaine Patch Remove*) 1 note N/A 2100 [facility] Last Admin: 07/16/17 22:00 Dose: 1 note Sodium Bicarbonate (Sodium Bicarbonate (Antacid)*) 1,300 mg PO TID [facility] Last Admin: 07/17/17 09:15 Dose: 1,300 mg Tramadol HCl (Ultram*) 50 mg PO Q12H PRN PRN Reason: PAIN - SEVERE Last Admin: 07/16/17 19:13 Dose: 50 mg Vital Signs - 8 hr 07/17/17 03:21 Temperature 97.4 F Pulse Rate 81 Respiratory 20 Rate Blood Pressure 142/66 (mmHg) O2 Sat by Pulse 91 Oximetry Oxygen Devices in Use Now: Nasal Cannula Appearance: Alert, NAD Eyes: No Scleral Icterus, PERRLA Ears/Nose/Mouth/Throat: NL Teeth, Lips, Gums, Mucous Membranes Moist Neck: NL Appearance and Movements; NL JVP, Trachea Midline Respiratory: Symmetrical Chest Expansion and Respiratory Effort, Clear to Auscultation Cardiovascular: NL Sounds; No Murmurs; No JVD, RRR Abdominal: - - diffuse tenderness Extremities: No Edema, No Clubbing, Cyanosis Skin: No Rash or Ulcers Neurological: Alert and Oriented x 3, NL Sensation, NL Muscle Strength and Tone Lines/Tubes/Other Access: Clean, Dry and Intact Other Access - Dialysis Port, dressing CDI Nutrition: Taking PO's Result Diagrams: 07/17/17 09:41 07/17/17 09:41 Additional Lab and Data: Lab Results Microbiology and Other Data: NICK NICOLE 1950 NICK NICOLE Page: 2 of 2 [place] [address] Ph.#: [phone] Fax#: [phone] IA # [id number] Sampson Bender M.D. Director of Laboratory SURGICAL PATHOLOGY REPORT NICK NICOLE Page: 1 of 2 Patient Name: BONNIENICK Rea Pathology Number: [id number] Med.Rec. #: [id number] Collection Date: 07/14/17 Acct. Number#: [id number] Received Date: 07/14/17 : 1950 Location: [facility] Gender: F Status: SOUT Submitting Physician: Rod Frias MD Other Physician: Mindy Bowles DO FINAL DIAGNOSIS 1. Bone marrow, left posterior iliac crest, aspirate smears and clot section: -- Hypercellular bone marrow (90%) involved by plasma cell myeloma (73% of total marrow cellularity). 2. Bone marrow, left posterior iliac crest, core needle biopsy: -- Hypercellular bone marrow (90%) involved by plasma cell myeloma (73% of total marrow cellularity). Electronically Signed by: Silvia Ordoñez MD Reported on: 07/16/17 1412 PRE-OPERATIVE DIAGNOSIS GROSS DESCRIPTION 2. The specimen is received in formalin labeled, LPIC, and consists of a 0.4 x 0.3 x 0.1 cm aggregate of garcía irregular bone fragments which is submitted entirely in one cassette following decalcification. MICROSCOPIC DESCRIPTION The aspirate smears are spicular and cellular. A 200 cell count aspirate smear differential is as follows: blasts 0%, promyelocytes 0%, myelocytes 1%, metamyelocytes 1%, neutrophils 17%, monocytes 0%, eosinophils 1%, basophils 0%, erythroid elements 3%, lymphocytes 4%, plasma cells 73%. Blasts are not increased. Plasma cells are markedly increased and demonstrate predominantly mature morphology. Erythroid maturation is hypoplastic. Myelocytic maturation is hypoplastic. The clot section demonstrates approximately 90% cellularity. There is diffuse infiltration by sheets of plasma cells. The iron-stained clot section, with appropriately reacting controls, shows increased storage iron. The core needle biopsy specimen demonstrates similar features to the clot section. Diagnostic Imaging: Patient Name: NICK NICOLE Medical Record#: [id number] Ordering Physician: Pierre VELASQUEZ Acct.#: [id number] : 1950 Age: 67 Sex: F Location: [address] [place] [address] MEDICAL Exam Date: 07/15/17 1525 ADM Status: ADM IN Order Information: CT ABD/PEL W/O Accession Number: [id number] CPT: 89321 INDICATION: Severe abdominal pain. COMPARISON: There are no prior studies available for comparison. TECHNIQUE: A CT scan of the abdomen and pelvis was performed without intravenous or oral contrast. Contiguous axial sections were obtained from the lung bases through the symphysis pubis. Images were reconstructed in the coronal and sagittal planes. FINDINGS: Images through the lung bases demonstrate small bilateral pleural effusions and dependent bilateral lower lobe infiltrates. The liver appears mildly enlarged without significant focal abnormality on this noncontrast study. No calcified gallstones are seen. The spleen and pancreas appear within normal limits on this noncontrast study. The adrenal glands and kidneys are normal in size. No renal calculi or hydronephrosis is seen. The aorta is normal in caliber with moderate calcific plaque present. There is a retroaortic left renal vein. No significant enlarged retroperitoneal lymph nodes are seen. The stomach, small and large bowel appear nondistended. The appendix is not well visualized. There are scattered diverticuli within the colon. There is no evidence for diverticulitis or colitis. The uterus is anteverted and normal in size. No free intraperitoneal air is seen. There is a small amount of free intraperitoneal fluid present dependently within the pelvis. No significant focal osseous abnormality is seen. IMPRESSION: 1. SMALL BILATERAL PLEURAL EFFUSIONS AND DEPENDENT BILATERAL LOWER LOBE INFILTRATES. 2. SMALL AMOUNT OF FREE INTRAPERITONEAL FLUID. 3. LIMITED NONCONTRAST STUDY. <Electronically signed by Kade Porter MD in [place]> 07/15/17 1642 Dictated By: Kade Porter MD Dictated Date/Time: 07/15/17 1642 Transcribed Date/Time: 07/15/17 1628 Copy to: CC:Mindy Bowles DO; Martin Humphreys MD; Alvaro Barrera MD; Norris Pino MD; Jake Dey MD; Flavio Bowen MD; Pierre VELASQUEZ 1 of 2 Assess/Plan/Problems-Billing Assessment: This is a 67 year old female with acute renal failure now on HD and new diagnosis of multiple myeloma. - Patient Problems (1) JOSEPH (acute kidney injury) Code(s): N17.9 - ACUTE KIDNEY FAILURE, UNSPECIFIED SNOMED Code(s): 69738582 Comment: - Likely 2/2 to multiple etiologies with intrinsic process; dehydration, newly diagnosed MM - Nephrology consult appreciated - HD started - Monitor I&O and daily weights - Creat 6.14 today (2) COPD (chronic obstructive pulmonary disease) Current Visit: Yes Status: Acute Code(s): J44.9 - CHRONIC OBSTRUCTIVE PULMONARY DISEASE, UNSPECIFIED SNOMED Code(s): 72835694 Comment: - At baseline, stable (3) DVT prophylaxis Current Visit: Yes Status: Acute Code(s): IKT3482 - SNOMED Code(s): 985481062 Comment: - SCDs while in bed - NO HEPARIN, high risk for bleeding 2/2 thrombocytopenia (4) Full code status Code(s): Z78.9 - OTHER SPECIFIED HEALTH STATUS SNOMED Code(s): 489085215 (5) Hyperkalemia Current Visit: Yes Status: Acute Code(s): E87.5 - HYPERKALEMIA SNOMED Code (s): 69117215 Comment: - K=5.0 today - dialysis as per nephrology (6) Hyponatremia Code(s): E87.1 - HYPO-OSMOLALITY AND HYPONATREMIA SNOMED Code(s): 84766828 Comment: - Likely 2/2 fluid overload - Na 127 today - Continue fluid restriction (7) Multiple myeloma Code(s): C90.00 - MULTIPLE MYELOMA NOT HAVING ACHIEVED REMISSION SNOMED Code(s ): 842269073 Comment: - Heme-onc consult appreciated - Pathology with plasma cell myeloma - Per heme-onc note, appears to have lytic lesions on ribs which would account for LUQ pain - On high dose decadron x 4 day tx - Pending further recs from heme-onc for tx options - Pain control, currently on short acting narcotic and lidocaine patches which are not helping and patient is not moving much 2/2 pain, recommend low dose long acting with oxycontin Q12h, with short acting for break through - cannot utilize fentanyl patch as lowest dose would be too high given renal function. (8) Osteoporosis Code(s): M81.0 - AGE-RELATED OSTEOPOROSIS W/O CURRENT PATHOLOGICAL FRACTURE SNOMED Code(s): 20289400 Comment: - OP with unknown T-score - High risk for pathologic fracture - PT consult and eval (9) Thrombocytopenia Code(s): D69.6 - THROMBOCYTOPENIA, UNSPECIFIED SNOMED Code(s): 501759362 Comment: - 2/2 MM - PLTS 150 today - no heparin, SCDs while in bed Status and Disposition: Remain inpatient. Counseling and/or Coordination of Care Minutes: coordinated with patient, staff , pharmacist and Dr. Bowen
--- NOTE | 2017-07-17 09:34 | PN ---
Progress Note - Progress Note Date of Service: 07/17/17 SOAP: Subjective: []Had HD yesterday and not feeling well. Breathing is fine, not as much pain in abd, lost 12 lbs. Feels a little shaky. Mouth dry and not eating much. No fevers. Acetaminophen (Tylenol Tab*) 650 mg PO Q4H PRN PRN Reason: FEVER/PAIN Last Admin: 07/16/17 06:43 Dose: 650 mg Albuterol (Ventolin 2.5 Mg/3 Ml Neb.Dolores*) 2.5 mg INH Q4H PRN PRN Reason: SOB/WHEEZING Alprazolam (Xanax Tab*) 0.25 mg PO TID PRN PRN Reason: ANXIETY Cyclobenzaprine HCl (Flexeril Tab*) 5 mg PO TID PRN PRN Reason: PAIN Last Admin: 07/15/17 01:06 Dose: 5 mg Heparin Sodium (Porcine) (Heparin Vial(*)) 5,000 units SUBCUT Q8HR [facility] Last Admin: 07/17/17 06:19 Dose: 5,000 units Dexamethasone Sodium Phosphate (40 mg/ Sodium Chloride) 60 mls @ 208 mls/hr IVPB Q24H [facility] Stop: 07/19/17 08:59 Last Admin: 07/17/17 09:16 Dose: 208 mls/hr Lidocaine (Lidoderm 5% Patch*) 1 patch TRANSDERM DAILY [facility] Last Admin: 07/17/17 09:15 Dose: Not Given Loperamide HCl (Imodium Cap*) 2 mg PO .SEE DIRECTIONS PRN PRN Reason: DIARRHEA Oxycodone HCl (Roxycodone Tab*) 2.5 mg PO Q4H PRN PRN Reason: PAIN Last Admin: 07/16/17 21:55 Dose: 2.5 mg Pharmacy Profile Note (Lidocaine Patch Remove*) 1 note N/A 2100 [facility] Last Admin: 07/16/17 22:00 Dose: 1 note Sodium Bicarbonate (Sodium Bicarbonate (Antacid)*) 1,300 mg PO TID [facility] Last Admin: 07/17/17 09:15 Dose: 1,300 mg Tramadol HCl (Ultram*) 50 mg PO Q12H PRN PRN Reason: PAIN - SEVERE Last Admin: 07/16/17 19:13 Dose: 50 mg Objective: [] Vital Signs Temp Pulse Resp BP Pulse Ox 97.4 F 81 20 142/66 91 07/17/17 03:21 07/17/17 03:21 07/17/17 03:21 07/17/17 03:21 07/17/17 03:21 A&Ox3, EOMI, neuro grossly non-focal HRR, S1S2, no murmur noted She is breathing fine, CTA, no distress Edema LE +2 Some tenderness lower ribs, seems better then yesterday per pt. BmBx: 90% plasma cells. Increased iron Assessment: []67 yo female with acute renal failure and multiple myeloma she has poor prognosis disease based on presentation with renal failure. Plan: []1. Management as per Hospitalist team, Dialysis as per Dr. Bowen 2. Breathing seems better after HD. 4. High dose dex x4 days started yesterday. Would generally hold MM therapy until out patient. Will see if we can give Bortizumab on Wednesday (sq weekly). Hold Zometa given renal failure and normal calcium. 3. PRN pain meds encouraged, may need long acting in future. 4. Add PPI for HD steroids.
[2017-07-17 10:02] LABS: ABS Basophils 0.1 10^3/ul (0-0.2); ABS Eosinophils 0 10^3/ul (0-0.6); ABS Lymphocytes 0.9 10^3/ul (1.0-4.8); ABS Monocytes 0.7 10^3/ul (0-0.8); ABS Neutrophils 10.3 10^3/ul (1.5-7.7); ABS Nucleated RBC 0 10^3/ul; Eosinophil % 0.1 % (0-6); Hematocrit 33 % (35-47); Hemoglobin 11.1 g/dl (12.0-16.0); Lymphocyte % 7.7 % (25-47); Mean Corpuscular HGB Conc 33 g/dl (31-36); Mean Corpuscular Hemoglobin 33 pg (27-31); Mean Corpuscular Volume 100 fL (80-97); Mean Platelet Volume 9 um3 (7.4-10.4); Nucleated Red Blood Cells % 0.2; Platelet Count 150 10^3/ul (150-450); Red Blood Count 3.33 10^6/ul (4.0-5.4); Red Cell Distribution Width 15 % (10.5-15)
[2017-07-17 10:07] LABS: EGFR Non-African American 6.8 (>60)
[2017-07-17] MEDS: Pantoprazole IV* 40 MG IV SCH (10:48)
[2017-07-17] MEDS: oxyCODONE SR TAB(*) 10 MG TAB.SR PO SCH ×2 (11:46→21:02)
[2017-07-17] MEDS: Polyethylene Glycol 3350* 17 GM PACKET PO SCH (16:04)
[2017-07-17] MEDS: Lidocaine Patch REMOVE* 1 NOTE MISC SCH (20:51)
[2017-07-17] MEDS: Docusate CAP* 100 MG PO SCH (21:01)
[2017-07-18] MEDS: Heparin VIAL(*) 5000 UNITS/ML VIAL (FIVE THOUSAND) SUBCUT SCH ×3 (05:51→21:36)
[2017-07-18] MEDS: Sodium Bicarbonate (ANTACID)* 650 MG TAB PO SCH ×3 (08:32→21:34)
[2017-07-18] MEDS: Dexamethasone IV* 40 MG in NS 0.9% 50 ML* 50 ML IVPB SCH (08:32)
[2017-07-18] MEDS: Docusate CAP* 100 MG PO SCH ×2 (08:32→21:35)
[2017-07-18] MEDS: oxyCODONE SR TAB(*) 10 MG TAB.SR PO SCH ×2 (08:33→21:34)
[2017-07-18] MEDS: Lidocaine PATCH 5%* 1 PATCH TRANSDERM SCH (08:38)
[2017-07-18] MEDS: Polyethylene Glycol 3350* 17 GM PACKET PO SCH ×2 (08:45→15:04)
[2017-07-18] MEDS: Pantoprazole IV* 40 MG IV SCH (08:47)
--- NOTE | 2017-07-18 11:35 | PN ---
Subjective Date of Service: 07/18/17 Interval History: Patient seen and examined. Feeling better overall, states pain medication helped overnight and she slept well. Denies any fever or chills, no n/v, no SO, no chest pain. Abdominal and shoulder pain improved. States they had trouble getting blood work this am. No further complaints. Family History: Unchanged from Admission Social History: Unchanged from Admission Past Medical History: Unchanged from Admission Objective Active Medications: Acetaminophen (Tylenol Tab*) 650 mg PO Q4H PRN PRN Reason: FEVER/PAIN Last Admin: 07/16/17 06:43 Dose: 650 mg Albuterol (Ventolin 2.5 Mg/3 Ml Neb.Dolores*) 2.5 mg INH Q4H PRN PRN Reason: SOB/WHEEZING Alprazolam (Xanax Tab*) 0.25 mg PO TID PRN PRN Reason: ANXIETY Cyclobenzaprine HCl (Flexeril Tab*) 5 mg PO TID PRN PRN Reason: PAIN Last Admin: 07/15/17 01:06 Dose: 5 mg Docusate Sodium (Colace Cap*) 100 mg PO BID [facility] Last Admin: 07/18/17 08:32 Dose: 100 mg Heparin Sodium (Porcine) (Heparin Vial(*)) 5,000 units SUBCUT Q8HR [facility] Last Admin: 07/18/17 05:51 Dose: 5,000 units Dexamethasone Sodium Phosphate (40 mg/ Sodium Chloride) 60 mls @ 208 mls/hr IVPB Q24H [facility] Stop: 07/19/17 08:59 Last Admin: 07/18/17 08:32 Dose: 208 mls/hr Lidocaine (Lidoderm 5% Patch*) 1 patch TRANSDERM DAILY [facility] Last Admin: 07/18/17 08:38 Dose: Not Given Loperamide HCl (Imodium Cap*) 2 mg PO .SEE DIRECTIONS PRN PRN Reason: DIARRHEA Oxycodone HCl (Roxycodone Tab*) 2.5 mg PO Q4H PRN PRN Reason: PAIN Last Admin: 07/16/17 21:55 Dose: 2.5 mg Oxycodone HCl (Oxycontin(*)) 10 mg PO Q12HR [facility] Last Admin: 07/18/17 08:33 Dose: 10 mg Pantoprazole Sodium (Protonix Iv*) 40 mg IV DAILY [facility] Last Admin: 07/18/17 08:47 Dose: 40 mg Pharmacy Profile Note (Lidocaine Patch Remove*) 1 note N/A 2100 [facility] Last Admin: 07/17/17 20:51 Dose: Not Given Polyethylene Glycol/Electrolytes (Miralax*) 17 gm PO DAILY [facility] Last Admin: 07/18/17 08:45 Dose: 17 gm Sodium Bicarbonate (Sodium Bicarbonate (Antacid)*) 1,300 mg PO TID [facility] Last Admin: 07/18/17 08:32 Dose: 1,300 mg Vital Signs - 8 hr 07/18/17 07/18/17 07/18/17 07:38 08:00 08:11 Temperature 97.5 F Pulse Rate 72 70 Respiratory 17 15 18 Rate Blood Pressure 144/58 (mmHg) O2 Sat by Pulse 92 93 93 Oximetry 07/18/17 07/18/17 08:12 08:33 Temperature Pulse Rate Respiratory 15 Rate Blood Pressure (mmHg) O2 Sat by Pulse 93 Oximetry Oxygen Devices in Use Now: None Appearance: Alert, NAD Ears/Nose/Mouth/Throat: NL Teeth, Lips, Gums, Mucous Membranes Moist Neck: NL Appearance and Movements; NL JVP, Trachea Midline Respiratory: Symmetrical Chest Expansion and Respiratory Effort, Clear to Auscultation Cardiovascular: NL Sounds; No Murmurs; No JVD, RRR Abdominal: NL Sounds; No Tenderness; No Distention, No Hepatosplenomegaly Extremities: No Edema, No Clubbing, Cyanosis Skin: No Rash or Ulcers Neurological: Alert and Oriented x 3, NL Sensation, NL Muscle Strength and Tone Nutrition: Taking PO's Result Diagrams: 07/17/17 09:41 07/17/17 09:41 Additional Lab and Data: Lab Results Microbiology and Other Data: NICK NICOLE 1950 NICK NICOLE Page: 2 of 2 [place] [address] Ph.#: [phone] Fax#: [phone] IA # [id number] Sampson Bender M.D. Director of Laboratory SURGICAL PATHOLOGY REPORT NICK NICOLE Page: 1 of 2 Patient Name: NICK NICOLE Pathology Number: [id number] Med.Rec. #: [id number] Collection Date: 07/14/17 Acct. Number#: [id number] Received Date: 07/14/17 : 1950 Location: [facility] Gender: F Status: [facility] Submitting Physician: Rod Frias MD Other Physician: Mindy Bowles DO FINAL DIAGNOSIS 1. Bone marrow, left posterior iliac crest, aspirate smears and clot section: -- Hypercellular bone marrow (90%) involved by plasma cell myeloma (73% of total marrow cellularity). 2. Bone marrow, left posterior iliac crest, core needle biopsy: -- Hypercellular bone marrow (90%) involved by plasma cell myeloma (73% of total marrow cellularity). Electronically Signed by: Silvia Ordoñez MD Reported on: 07/16/17 1412 PRE-OPERATIVE DIAGNOSIS GROSS DESCRIPTION 2. The specimen is received in formalin labeled, [facility], and consists of a 0.4 x 0.3 x 0.1 cm aggregate of garcía irregular bone fragments which is submitted entirely in one cassette following decalcification. MICROSCOPIC DESCRIPTION The aspirate smears are spicular and cellular. A 200 cell count aspirate smear differential is as follows: blasts 0%, promyelocytes 0%, myelocytes 1%, metamyelocytes 1%, neutrophils 17%, monocytes 0%, eosinophils 1%, basophils 0%, erythroid elements 3%, lymphocytes 4%, plasma cells 73%. Blasts are not increased. Plasma cells are markedly increased and demonstrate predominantly mature morphology. Erythroid maturation is hypoplastic. Myelocytic maturation is hypoplastic. The clot section demonstrates approximately 90% cellularity. There is diffuse infiltration by sheets of plasma cells. The iron-stained clot section, with appropriately reacting controls, shows increased storage iron. The core needle biopsy specimen demonstrates similar features to the clot section. Diagnostic Imaging: Patient Name: NICK NICOLE Medical Record#: [id number] Ordering Physician: Pierre VELASQUEZ Acct.#: [id number] : 1950 Age: 67 Sex: F Location: [address] [place] [address] MEDICAL Exam Date: 07/15/17 1525 ADM Status: ADM IN Order Information: CT ABD/PEL W/O Accession Number: [id number] CPT: 33238 INDICATION: Severe abdominal pain. COMPARISON: There are no prior studies available for comparison. TECHNIQUE: A CT scan of the abdomen and pelvis was performed without intravenous or oral contrast. Contiguous axial sections were obtained from the lung bases through the symphysis pubis. Images were reconstructed in the coronal and sagittal planes. FINDINGS: Images through the lung bases demonstrate small bilateral pleural effusions and dependent bilateral lower lobe infiltrates. The liver appears mildly enlarged without significant focal abnormality on this noncontrast study. No calcified gallstones are seen. The spleen and pancreas appear within normal limits on this noncontrast study. The adrenal glands and kidneys are normal in size. No renal calculi or hydronephrosis is seen. The aorta is normal in caliber with moderate calcific plaque present. There is a retroaortic left renal vein. No significant enlarged retroperitoneal lymph nodes are seen. The stomach, small and large bowel appear nondistended. The appendix is not well visualized. There are scattered diverticuli within the colon. There is no evidence for diverticulitis or colitis. The uterus is anteverted and normal in size. No free intraperitoneal air is seen. There is a small amount of free intraperitoneal fluid present dependently within the pelvis. No significant focal osseous abnormality is seen. IMPRESSION: 1. SMALL BILATERAL PLEURAL EFFUSIONS AND DEPENDENT BILATERAL LOWER LOBE INFILTRATES. 2. SMALL AMOUNT OF FREE INTRAPERITONEAL FLUID. 3. LIMITED NONCONTRAST STUDY. <Electronically signed by Kade Porter MD in OV> 07/15/17 1642 Dictated By: Kade Porter MD Dictated Date/Time: 07/15/17 1642 Transcribed Date/Time: 07/15/17 1628 Copy to: CC:Mindy Bowles DO; Martin Humphreys MD; Alvaro Barrera MD; Norris Pino MD; Jake Dey MD; Flavio Bowen MD; Pierre VELASQUEZ 1 of 2 Assess/Plan/Problems-Billing Assessment: This is a 67 year old female with acute renal failure now on HD and new diagnosis of multiple myeloma. - Patient Problems (1) JOSEPH (acute kidney injury) Code(s): N17.9 - ACUTE KIDNEY FAILURE, UNSPECIFIED SNOMED Code(s): 46256620 Comment: - Likely 2/2 to multiple etiologies with intrinsic process; dehydration, newly diagnosed MM - Nephrology consult appreciated - HD started 07/16 - Appreciate futher recs from nephrology regarding additional dialysis regimen - Follow renal function today when labs available - Monitor I&O and daily weights - Creat 6.14 today (2) COPD (chronic obstructive pulmonary disease) Current Visit: Yes Status: Acute Code(s): J44.9 - CHRONIC OBSTRUCTIVE PULMONARY DISEASE, UNSPECIFIED SNOMED Code(s): 41656219 Comment: - At baseline, stable (3) DVT prophylaxis Current Visit: Yes Status: Acute Code(s): JYJ0425 - SNOMED Code(s): 751050401 Comment: - SCDs while in bed - NO HEPARIN, high risk for bleeding 2/2 thrombocytopenia (4) Full code status Code(s): Z78.9 - OTHER SPECIFIED HEALTH STATUS SNOMED Code(s): 761901053 (5) Hyperkalemia Current Visit: Yes Status: Acute Code(s): E87.5 - HYPERKALEMIA SNOMED Code (s): 19475946 Comment: - Follow K level today when labs available - dialysis as per nephrology (6) Hyponatremia Code(s): E87.1 - HYPO-OSMOLALITY AND HYPONATREMIA SNOMED Code(s): 10765470 Comment: - Likely 2/2 fluid overload - Continue fluid restriction and follow labs (7) Multiple myeloma Code(s): C90.00 - MULTIPLE MYELOMA NOT HAVING ACHIEVED REMISSION SNOMED Code(s ): 494353183 Comment: - Heme-onc consult appreciated - Pathology with plasma cell myeloma - Per heme-onc note, appears to have lytic lesions on ribs which may account for LUQ pain - Potential for Bortizumab as an outpatient per onco note - Continue high dose decadron protocol per onco - Continue long acting oxycontin BID (8) Osteoporosis Code(s): M81.0 - AGE-RELATED OSTEOPOROSIS W/O CURRENT PATHOLOGICAL FRACTURE SNOMED Code(s): 82428984 Comment: - OP with unknown T-score - High risk for pathologic fracture - PT consult and eval (9) Thrombocytopenia Code(s): D69.6 - THROMBOCYTOPENIA, UNSPECIFIED SNOMED Code(s): 143074893 Comment: - 2/2 MM - Follow PLTS today - no heparin, SCDs while in bed Status and Disposition: Remain inpatient. Counseling and/or Coordination of Care Minutes: coordinated with patient and staff
[2017-07-18] MEDS ORDERED: Glycerin ADULT SUPP PR PRN (12:23)
[2017-07-18 12:31] LABS: ABS Basophils 0 10^3/ul (0-0.2); ABS Eosinophils 0 10^3/ul (0-0.6); ABS Lymphocytes 0.4 10^3/ul (1.0-4.8); ABS Monocytes 0.6 10^3/ul (0-0.8); ABS Neutrophils 11.2 10^3/ul (1.5-7.7); ABS Nucleated RBC 0 10^3/ul; Eosinophil % 0 % (0-6); Hematocrit 21 % (35-47); Hemoglobin 7.3 g/dl (12.0-16.0); Lymphocyte % 3.6 % (25-47); Mean Corpuscular HGB Conc 35 g/dl (31-36); Mean Corpuscular Hemoglobin 34 pg (27-31); Mean Corpuscular Volume 98 fL (80-97); Mean Platelet Volume 8 um3 (7.4-10.4); Nucleated Red Blood Cells % 0; Platelet Count 189 10^3/ul (150-450); Red Blood Count 2.13 10^6/ul (4.0-5.4); Red Cell Distribution Width 14 % (10.5-15); White Blood Count 12.3 10^3/ul (3.5-10.8)
[2017-07-18 12:43] LABS: EGFR Non-African American 5.7 (>60)
[2017-07-18] MEDS ORDERED: Sodium Polystyrene ORAL.SOL* 15 GM/60 ML BTL PO ONE (13:18)
[2017-07-18] MEDS: Lidocaine Patch REMOVE* 1 NOTE MISC SCH (21:29)
[2017-07-18] MEDS: Cyclobenzaprine TAB* 10 MG PO PRN (23:40)
[2017-07-19] MEDS: Heparin VIAL(*) 5000 UNITS/ML VIAL (FIVE THOUSAND) SUBCUT SCH ×3 (05:45→21:19)
[2017-07-19 08:03] LABS: ABS Basophils 0 10^3/ul (0-0.2); ABS Eosinophils 0 10^3/ul (0-0.6); ABS Lymphocytes 0.5 10^3/ul (1.0-4.8); ABS Monocytes 0.7 10^3/ul (0-0.8); ABS Neutrophils 7.5 10^3/ul (1.5-7.7); ABS Nucleated RBC 0 10^3/ul; Eosinophil % 0 % (0-6); Hematocrit 19 % (35-47); Hemoglobin 6.9 g/dl (12.0-16.0); Mean Corpuscular HGB Conc 37 g/dl (31-36); Mean Corpuscular Hemoglobin 36 pg (27-31); Mean Corpuscular Volume 98 fL (80-97); Mean Platelet Volume 8 um3 (7.4-10.4); Nucleated Red Blood Cells % 0; Platelet Count 195 10^3/ul (150-450); Red Blood Count 1.92 10^6/ul (4.0-5.4); Red Cell Distribution Width 14 % (10.5-15); White Blood Count 8.7 10^3/ul (3.5-10.8)
[2017-07-19 08:21] LABS: EGFR Non-African American 5.1 (>60)
[2017-07-19] MEDS: Lidocaine PATCH 5%* 1 PATCH TRANSDERM SCH (09:49)
[2017-07-19] MEDS: oxyCODONE SR TAB(*) 10 MG TAB.SR PO SCH ×2 (10:13→21:18)
[2017-07-19] MEDS: Sodium Bicarbonate (ANTACID)* 650 MG TAB PO SCH ×3 (10:13→21:18)
[2017-07-19] MEDS: Docusate CAP* 100 MG PO SCH ×2 (10:13→21:17)
[2017-07-19] MEDS: Pantoprazole IV* 40 MG IV SCH (10:21)
--- NOTE | 2017-07-19 10:29 | PN ---
Progress Note - Progress Note Date of Service: 07/19/17 SOAP: Subjective: []Feeling OK overall. Still lots of right shoulder pain (following fall), ginger. with movement and pressure. Left ribs painful. Breathing is OK, using O2 PRN. Really hasn't been getting up a lot, though PT evaluated last week. Understands roll of dialysis, but doesn't fully understand diagnosis and plan for myeloma. Medications: Acetaminophen (Tylenol Tab*) 650 mg PO Q4H PRN PRN Reason: FEVER/PAIN Last Admin: 07/16/17 06:43 Dose: 650 mg Albuterol (Ventolin 2.5 Mg/3 Ml Neb.Dolores*) 2.5 mg INH Q4H PRN PRN Reason: SOB/WHEEZING Alprazolam (Xanax Tab*) 0.25 mg PO TID PRN PRN Reason: ANXIETY Cyclobenzaprine HCl (Flexeril Tab*) 5 mg PO TID PRN PRN Reason: PAIN Last Admin: 07/18/17 23:40 Dose: 5 mg Docusate Sodium (Colace Cap*) 100 mg PO BID [facility] Last Admin: 07/19/17 10:13 Dose: 100 mg Glycerin (Glycerin Adult Supp*) 1 supp [place] DAILY PRN PRN Reason: CONSTIPATION Heparin Sodium (Porcine) (Heparin Vial(*)) 5,000 units SUBCUT Q8HR [facility] Last Admin: 07/19/17 05:45 Dose: 5,000 units Lidocaine (Lidoderm 5% Patch*) 1 patch TRANSDERM DAILY [facility] Last Admin: 07/19/17 09:49 Dose: Not Given Loperamide HCl (Imodium Cap*) 2 mg PO .SEE DIRECTIONS PRN PRN Reason: DIARRHEA Oxycodone HCl (Roxycodone Tab*) 2.5 mg PO Q4H PRN PRN Reason: PAIN Last Admin: 07/16/17 21:55 Dose: 2.5 mg Oxycodone HCl (Oxycontin(*)) 10 mg PO Q12HR [facility] Last Admin: 07/19/17 10:13 Dose: 10 mg Pantoprazole Sodium (Protonix Iv*) 40 mg IV DAILY [facility] Last Admin: 07/19/17 10:21 Dose: 40 mg Pharmacy Profile Note (Lidocaine Patch Remove*) 1 note N/A 2100 [facility] Last Admin: 07/18/17 21:29 Dose: Not Given Polyethylene Glycol/Electrolytes (Miralax*) 17 gm PO DAILY [facility] Last Admin: 07/18/17 08:45 Dose: 17 gm Polyethylene Glycol/Electrolytes (Miralax*) 17 gm PO DAILY [facility] Last Admin: 07/18/17 15:04 Dose: 17 gm Sodium Bicarbonate (Sodium Bicarbonate (Antacid)*) 1,300 mg PO TID [facility] Last Admin: 07/19/17 10:13 Dose: 1,300 mg Objective: [] Vital Signs Temp Pulse Resp BP Pulse Ox 97.8 F 68 19 132/54 93 07/19/17 07:27 07/19/17 07:27 07/19/17 10:13 07/19/17 07:27 07/19/17 07:27 A&Ox3, involved in discussion, EOMI, NEVILLE HRR, S1S2 LS dim. to bases, left lower ribs tender +BS, abd. soft and non-tender +PP=bilat., no LE edema Right arm still swollen Laboratory Results - last 24 hr 07/18/17 07/18/17 07/19/17 12:20 12:20 07:26 WBC 12.3 H 8.7 RBC 2.13 L 1.92 L Hgb 7.3 L 6.9 L Hct 21 L 19 L MCV 98 H 98 H MCH 34 H 36 H MCHC 35 37 H RDW 14 14 Plt Count 189 195 MPV 8 8 Neut % (Auto) 91.2 H 86.0 H Lymph % (Auto) 3.6 L 6.0 L [place] % (Auto) 5.1 7.7 Eos % (Auto) 0 0 Baso % (Auto) 0.1 0.3 Absolute Neuts (auto) 11.2 H 7.5 Absolute Lymphs (auto) 0.4 L 0.5 L Absolute Monos (auto) 0.6 0.7 Absolute Eos (auto) 0 0 Absolute Basos (auto) 0 0 Absolute Nucleated RBC 0 0 Nucleated RBC % 0 0 Sodium 123 L Potassium 5.7 H Chloride 84 L Carbon Dioxide 22 Anion Gap 17 H BUN 155 H Creatinine 7.12 H Est GFR ( Amer) 7.3 Est GFR (Non-Af Amer) 5.7 BUN/Creatinine Ratio 21.8 H Glucose 198 H Calcium 8.8 Total Bilirubin 0.40 AST 41 H ALT 57 H Alkaline Phosphatase 181 H Total Protein 6.0 L Albumin 2.7 L Globulin 3.3 Albumin/Globulin Ratio 0.8 L 07/19/17 07:26 WBC RBC Hgb Hct MCV MCH MCHC RDW Plt Count MPV Neut % (Auto) Lymph % (Auto) [place] % (Auto) Eos % (Auto) Baso % (Auto) Absolute Neuts (auto) Absolute Lymphs (auto) Absolute Monos (auto) Absolute Eos (auto) Absolute Basos (auto) Absolute Nucleated RBC Nucleated RBC % Sodium 125 L Potassium 6.1 H* Chloride 85 L Carbon Dioxide 23 Anion Gap 17 H BUN 181 H Creatinine 7.88 H Est GFR ( Amer) 6.5 Est GFR (Non-Af Amer) 5.1 BUN/Creatinine Ratio 23.0 H Glucose 150 H Calcium 8.5 L Total Bilirubin 0.40 AST 31 ALT 49 Alkaline Phosphatase 154 H Total Protein 5.3 L Albumin 2.6 L Globulin 2.7 Albumin/Globulin Ratio 1.0 Assessment: []67 yo female with ESRD secondary to multiple myeloma, light chains disease, 90 % plasma cells on bone marrow, with poor prognosis based on markedly elevated Beta-2 and presentation with renal failure. Plan: 1. Dialysis as per Dr. Bowen, Dr. Davies has asked for a change in fluid to help pull off more K+ 2. Recommend 2 units PRBCs today 3. Completed high dose dex., no chemo for now, though per Dr. Francis's prior notes considering weekly Bortezomib -- discharge planning as generally will start therapy as outpatient -- suggest OSW involvement 4. PRN pain meds encouraged, may need long acting in future. 5. Reviewed diagnosis and high risk presentation, printed information provided
[2017-07-19] MEDS ORDERED: Heparin DIALYSIS ONLY(*) 1,000 UNITS/ML VIAL DIALYSIS ONE (12:00)
[2017-07-19] MEDS: Polyethylene Glycol 3350* 17 GM PACKET PO SCH ×2 (15:26→16:20)
--- NOTE | 2017-07-19 18:34 | PN ---
Subjective Date of Service: 07/19/17 Interval History: Seen after dialysis. Reported lightheaded during dialysis. Had not yet received blood prior to HD. Currently pain free denies SOB/CP, N/V, LH No recent BM No h/o melena or BRBPR Family History: Unchanged from Admission Social History: Unchanged from Admission Past Medical History: Unchanged from Admission Objective Active Medications: Acetaminophen (Tylenol Tab*) 650 mg PO Q4H PRN PRN Reason: FEVER/PAIN Last Admin: 07/16/17 06:43 Dose: 650 mg Albuterol (Ventolin 2.5 Mg/3 Ml Neb.Dolores*) 2.5 mg INH Q4H PRN PRN Reason: SOB/WHEEZING Cyclobenzaprine HCl (Flexeril Tab*) 5 mg PO TID PRN PRN Reason: PAIN Last Admin: 07/18/17 23:40 Dose: 5 mg Docusate Sodium (Colace Cap*) 100 mg PO BID [facility] Last Admin: 07/19/17 10:13 Dose: 100 mg Glycerin (Glycerin Adult Supp*) 1 supp [place] DAILY PRN PRN Reason: CONSTIPATION Heparin Sodium (Porcine) (Heparin Vial(*)) 5,000 units SUBCUT Q8HR [facility] Last Admin: 07/19/17 15:26 Dose: 5,000 units Lidocaine (Lidoderm 5% Patch*) 1 patch TRANSDERM DAILY [facility] Last Admin: 07/19/17 09:49 Dose: Not Given Loperamide HCl (Imodium Cap*) 2 mg PO .SEE DIRECTIONS PRN PRN Reason: DIARRHEA Oxycodone HCl (Roxycodone Tab*) 2.5 mg PO Q4H PRN PRN Reason: PAIN Last Admin: 07/16/17 21:55 Dose: 2.5 mg Oxycodone HCl (Oxycontin(*)) 10 mg PO Q12HR [facility] Last Admin: 07/19/17 10:13 Dose: 10 mg Pantoprazole Sodium (Protonix Iv*) 40 mg IV DAILY [facility] Last Admin: 07/19/17 10:21 Dose: 40 mg Pharmacy Profile Note (Lidocaine Patch Remove*) 1 note N/A 2100 [facility] Last Admin: 07/18/17 21:29 Dose: Not Given Polyethylene Glycol/Electrolytes (Miralax*) 17 gm PO DAILY [facility] Last Admin: 07/19/17 15:26 Dose: 17 gm Sodium Bicarbonate (Sodium Bicarbonate (Antacid)*) 1,300 mg PO TID [facility] Last Admin: 07/19/17 15:26 Dose: 1,300 mg Vital Signs - 8 hr 07/19/17 07/19/17 07/19/17 12:00 15:36 16:00 Temperature 97.8 F Pulse Rate 72 Respiratory 19 17 Rate Blood Pressure 159/64 (mmHg) O2 Sat by Pulse 91 91 Oximetry Oxygen Devices in Use Now: None Appearance: sitting up in bed, NAD Eyes: No Scleral Icterus, PERRLA Ears/Nose/Mouth/Throat: Clear Oropharnyx, Mucous Membranes Moist Neck: NL Appearance and Movements; NL JVP, Trachea Midline Respiratory: Symmetrical Chest Expansion and Respiratory Effort, Clear to Auscultation Cardiovascular: RRR Abdominal: NL Sounds; No Tenderness; No Distention, No Hepatosplenomegaly Lymphatic: No Cervical Adenopathy Extremities: - - right arm edema to ankle Skin: No Rash or Ulcers Neurological: Alert and Oriented x 3 Result Diagrams: 07/19/17 07:26 07/19/17 07:26 Additional Lab and Data: Lab Results Microbiology and Other Data: NICK NICOLE 1950 NICK NICOLE Page: 2 of 2 [place] [address] Ph.#: [phone] Fax#: [phone] IA # [id number] Sampson Bender M.D. Director of Laboratory SURGICAL PATHOLOGY REPORT NICK NICOLE Page: 1 of 2 Patient Name: NICK NICOLE Pathology Number: [id number] Med.Rec. #: [id number] Collection Date: 07/14/17 Acct. Number#: [id number] Received Date: 07/14/17 : 1950 Location: [facility] Gender: F Status: SOUT Submitting Physician: Rod Frias MD Other Physician: Mindy Bowles DO FINAL DIAGNOSIS 1. Bone marrow, left posterior iliac crest, aspirate smears and clot section: -- Hypercellular bone marrow (90%) involved by plasma cell myeloma (73% of total marrow cellularity). 2. Bone marrow, left posterior iliac crest, core needle biopsy: -- Hypercellular bone marrow (90%) involved by plasma cell myeloma (73% of total marrow cellularity). Electronically Signed by: Silvia Ordoñez MD Reported on: 07/16/17 1412 PRE-OPERATIVE DIAGNOSIS GROSS DESCRIPTION 2. The specimen is received in formalin labeled, [facility], and consists of a 0.4 x 0.3 x 0.1 cm aggregate of garcía irregular bone fragments which is submitted entirely in one cassette following decalcification. MICROSCOPIC DESCRIPTION The aspirate smears are spicular and cellular. A 200 cell count aspirate smear differential is as follows: blasts 0%, promyelocytes 0%, myelocytes 1%, metamyelocytes 1%, neutrophils 17%, monocytes 0%, eosinophils 1%, basophils 0%, erythroid elements 3%, lymphocytes 4%, plasma cells 73%. Blasts are not increased. Plasma cells are markedly increased and demonstrate predominantly mature morphology. Erythroid maturation is hypoplastic. Myelocytic maturation is hypoplastic. The clot section demonstrates approximately 90% cellularity. There is diffuse infiltration by sheets of plasma cells. The iron-stained clot section, with appropriately reacting controls, shows increased storage iron. The core needle biopsy specimen demonstrates similar features to the clot section. Diagnostic Imaging: Patient Name: NICK NICOLE Medical Record#: [id number] Ordering Physician: Pierre VELASQUEZ Acct.#: [id number] : 1950 Age: 67 Sex: F Location: [address] [place] [address] MEDICAL Exam Date: 07/15/17 1525 ADM Status: ADM IN Order Information: CT ABD/PEL W/O Accession Number: [id number] CPT: 05557 INDICATION: Severe abdominal pain. COMPARISON: There are no prior studies available for comparison. TECHNIQUE: A CT scan of the abdomen and pelvis was performed without intravenous or oral contrast. Contiguous axial sections were obtained from the lung bases through the symphysis pubis. Images were reconstructed in the coronal and sagittal planes. FINDINGS: Images through the lung bases demonstrate small bilateral pleural effusions and dependent bilateral lower lobe infiltrates. The liver appears mildly enlarged without significant focal abnormality on this noncontrast study. No calcified gallstones are seen. The spleen and pancreas appear within normal limits on this noncontrast study. The adrenal glands and kidneys are normal in size. No renal calculi or hydronephrosis is seen. The aorta is normal in caliber with moderate calcific plaque present. There is a retroaortic left renal vein. No significant enlarged retroperitoneal lymph nodes are seen. The stomach, small and large bowel appear nondistended. The appendix is not well visualized. There are scattered diverticuli within the colon. There is no evidence for diverticulitis or colitis. The uterus is anteverted and normal in size. No free intraperitoneal air is seen. There is a small amount of free intraperitoneal fluid present dependently within the pelvis. No significant focal osseous abnormality is seen. IMPRESSION: 1. SMALL BILATERAL PLEURAL EFFUSIONS AND DEPENDENT BILATERAL LOWER LOBE INFILTRATES. 2. SMALL AMOUNT OF FREE INTRAPERITONEAL FLUID. 3. LIMITED NONCONTRAST STUDY. <Electronically signed by Kade Porter MD in OV> 07/15/17 1642 Dictated By: Kade Porter MD Dictated Date/Time: 07/15/17 1642 Transcribed Date/Time: 07/15/17 1628 Copy to: CC:Mindy Bowles DO; Martin Humphreys MD; Alvaro Barrera MD; Norris Pino MD; Jake Dey MD; Flavio Bowen MD; Pierre VELASQUEZ 1 of 2 Assess/Plan/Problems-Billing Assessment: This is a 67 year old female with acute renal failure now on HD and new diagnosis of multiple myeloma. - Patient Problems (1) Hyperkalemia Comment: In setting of ESRD HD today recheck tomorrow (2) JOSEPH (acute kidney injury) Comment: In setting of multiplemyeloma Nephrology consult appreciated HD started 07/16, last 07/19 (3) Multiple myeloma Status: Acute Comment: Heme-onc consult appreciated Pathology with plasma cell myeloma lytic lesions on ribs which may account for LUQ pain (now resolved) Potential for Bortizumab in patient depending on disposition timing Pain control S/p decadron (4) DVT prophylaxis Comment: heparin Status and Disposition: Remain inpatient/HD/possible chemo
[2017-07-19] MEDS: Lidocaine Patch REMOVE* 1 NOTE MISC SCH (21:18)
[2017-07-19] MEDS: Cyclobenzaprine TAB* 10 MG PO PRN (23:26)
[2017-07-19] MEDS: oxyCODONE TAB* 5 MG TAB PO PRN (23:26)
[2017-07-20 05:15] LABS: ABS Basophils 0 10^3/ul (0-0.2); ABS Eosinophils 0.1 10^3/ul (0-0.6); ABS Lymphocytes 0.7 10^3/ul (1.0-4.8); ABS Neutrophils 5.1 10^3/ul (1.5-7.7); ABS Nucleated RBC 0 10^3/ul; Eosinophil % 0.8 % (0-6); Hematocrit 21 % (35-47); Hemoglobin 7.3 g/dl (12.0-16.0); Lymphocyte % 9.7 % (25-47); Mean Corpuscular HGB Conc 35 g/dl (31-36); Mean Corpuscular Hemoglobin 33 pg (27-31); Mean Corpuscular Volume 94 fL (80-97); Mean Platelet Volume 8 um3 (7.4-10.4); Nucleated Red Blood Cells % 0; Platelet Count 152 10^3/ul (150-450); Red Cell Distribution Width 16 % (10.5-15); White Blood Count 6.9 10^3/ul (3.5-10.8)
[2017-07-20] MEDS: Heparin VIAL(*) 5000 UNITS/ML VIAL (FIVE THOUSAND) SUBCUT SCH ×3 (05:42→20:50)
[2017-07-20 05:51] LABS: EGFR Non-African American 7.8 (>60)
[2017-07-20] MEDS: Docusate CAP* 100 MG PO SCH ×2 (08:47→20:48)
[2017-07-20] MEDS: oxyCODONE SR TAB(*) 10 MG TAB.SR PO SCH ×2 (08:47→20:48)
[2017-07-20] MEDS: Sodium Bicarbonate (ANTACID)* 650 MG TAB PO SCH ×3 (08:49→20:48)
[2017-07-20] MEDS: Lidocaine PATCH 5%* 1 PATCH TRANSDERM SCH (08:50)
[2017-07-20] MEDS: Pantoprazole IV* 40 MG IV SCH (08:50)
[2017-07-20] MEDS: Polyethylene Glycol 3350* 17 GM PACKET PO SCH (10:26)
[2017-07-20] MEDS ORDERED: Magnesium CITRATE* 300 ML BTL PO ONE (15:57)
--- NOTE | 2017-07-20 16:03 | PN ---
Subjective Date of Service: 07/20/17 Interval History: Up and out of bed to bathroom today Feels stronger but not near baseline Denies N/V, LH, SOB Pain in right lower chest wall that is worse with using her right arm Family History: Unchanged from Admission Social History: Unchanged from Admission Past Medical History: Unchanged from Admission Objective Active Medications: Acetaminophen (Tylenol Tab*) 650 mg PO Q4H PRN PRN Reason: FEVER/PAIN Last Admin: 07/16/17 06:43 Dose: 650 mg Albuterol (Ventolin 2.5 Mg/3 Ml Neb.Dolores*) 2.5 mg INH Q4H PRN PRN Reason: SOB/WHEEZING Cyclobenzaprine HCl (Flexeril Tab*) 5 mg PO TID PRN PRN Reason: PAIN Last Admin: 07/19/17 23:26 Dose: 5 mg Docusate Sodium (Colace Cap*) 100 mg PO BID [facility] Last Admin: 07/20/17 08:47 Dose: 100 mg Glycerin (Glycerin Adult Supp*) 1 supp [place] DAILY PRN PRN Reason: CONSTIPATION Heparin Sodium (Porcine) (Heparin Vial(*)) 5,000 units SUBCUT Q8HR [facility] Last Admin: 07/20/17 12:37 Dose: 5,000 units Lidocaine (Lidoderm 5% Patch*) 1 patch TRANSDERM DAILY [facility] Last Admin: 07/20/17 08:50 Dose: Not Given Magnesium Citrate (Citrate Of Magnesia*) 150 ml PO ONCE ONE Stop: 07/20/17 15:58 Oxycodone HCl (Roxycodone Tab*) 2.5 mg PO Q4H PRN PRN Reason: PAIN Last Admin: 07/19/17 23:26 Dose: 2.5 mg Oxycodone HCl (Oxycontin(*)) 10 mg PO Q12HR [facility] Last Admin: 07/20/17 08:47 Dose: 10 mg Pantoprazole Sodium (Protonix Iv*) 40 mg IV DAILY [facility] Last Admin: 07/20/17 08:50 Dose: 40 mg Pharmacy Profile Note (Lidocaine Patch Remove*) 1 note N/A 2100 [facility] Last Admin: 07/19/17 21:18 Dose: Not Given Polyethylene Glycol/Electrolytes (Miralax*) 17 gm PO DAILY [facility] Last Admin: 07/20/17 10:26 Dose: Not Given Sodium Bicarbonate (Sodium Bicarbonate (Antacid)*) 1,300 mg PO TID [facility] Last Admin: 07/20/17 12:37 Dose: 1,300 mg Vital Signs - 8 hr 07/20/17 07/20/17 07/20/17 08:00 08:47 11:50 Temperature Pulse Rate Respiratory 20 18 16 Rate Blood Pressure (mmHg) O2 Sat by Pulse 96 Oximetry 07/20/17 07/20/17 15:41 15:49 Temperature 98.2 F Pulse Rate 77 Respiratory 18 Rate Blood Pressure 138/60 (mmHg) O2 Sat by Pulse 100 100 Oximetry Oxygen Devices in Use Now: Nasal Cannula Appearance: sitting in chair, NAD Eyes: No Scleral Icterus, PERRLA Ears/Nose/Mouth/Throat: Clear Oropharnyx, Mucous Membranes Moist Neck: NL Appearance and Movements; NL JVP, Trachea Midline Respiratory: Symmetrical Chest Expansion and Respiratory Effort, Clear to Auscultation Cardiovascular: NL Sounds; No Murmurs; No JVD, RRR Abdominal: NL Sounds; No Tenderness; No Distention Lymphatic: No Cervical Adenopathy Extremities: - - right arm swollen greater than left Skin: No Rash or Ulcers Neurological: Alert and Oriented x 3 Result Diagrams: 07/20/17 05:00 07/20/17 05:00 Additional Lab and Data: Lab Results Microbiology and Other Data: NICK NICOLE 1950 NICK NICOLE Page: 2 of 2 [place] [address] Ph.#: [phone] Fax#: [phone] [facility] # [id number] Sampson Bender M.D. Director of Laboratory SURGICAL PATHOLOGY REPORT NICK NICOLE Page: 1 of 2 Patient Name: BONNIENICK Rea Pathology Number: [id number] Med.Rec. #: [id number] Collection Date: 07/14/17 Acct. Number#: [id number] Received Date: 07/14/17 : 1950 Location: [facility] Gender: F Status: SOUT Submitting Physician: Rod Frias MD Other Physician: Mindy Bowles DO FINAL DIAGNOSIS 1. Bone marrow, left posterior iliac crest, aspirate smears and clot section: -- Hypercellular bone marrow (90%) involved by plasma cell myeloma (73% of total marrow cellularity). 2. Bone marrow, left posterior iliac crest, core needle biopsy: -- Hypercellular bone marrow (90%) involved by plasma cell myeloma (73% of total marrow cellularity). Electronically Signed by: Silvia Ordoñez MD Reported on: 07/16/17 1412 PRE-OPERATIVE DIAGNOSIS GROSS DESCRIPTION 2. The specimen is received in formalin labeled, LPIC, and consists of a 0.4 x 0.3 x 0.1 cm aggregate of garcía irregular bone fragments which is submitted entirely in one cassette following decalcification. MICROSCOPIC DESCRIPTION The aspirate smears are spicular and cellular. A 200 cell count aspirate smear differential is as follows: blasts 0%, promyelocytes 0%, myelocytes 1%, metamyelocytes 1%, neutrophils 17%, monocytes 0%, eosinophils 1%, basophils 0%, erythroid elements 3%, lymphocytes 4%, plasma cells 73%. Blasts are not increased. Plasma cells are markedly increased and demonstrate predominantly mature morphology. Erythroid maturation is hypoplastic. Myelocytic maturation is hypoplastic. The clot section demonstrates approximately 90% cellularity. There is diffuse infiltration by sheets of plasma cells. The iron-stained clot section, with appropriately reacting controls, shows increased storage iron. The core needle biopsy specimen demonstrates similar features to the clot section. Diagnostic Imaging: Patient Name: NICK NICOLE Medical Record#: [id number] Ordering Physician: Pierre VELASQUEZ Acct.#: [id number] : 1950 Age: 67 Sex: F Location: [address] [place] [address] MEDICAL Exam Date: 07/15/17 152 ADM Status: ADM IN Order Information: CT ABD/PEL W/O Accession Number: [id number] CPT: 11045 INDICATION: Severe abdominal pain. COMPARISON: There are no prior studies available for comparison. TECHNIQUE: A CT scan of the abdomen and pelvis was performed without intravenous or oral contrast. Contiguous axial sections were obtained from the lung bases through the symphysis pubis. Images were reconstructed in the coronal and sagittal planes. FINDINGS: Images through the lung bases demonstrate small bilateral pleural effusions and dependent bilateral lower lobe infiltrates. The liver appears mildly enlarged without significant focal abnormality on this noncontrast study. No calcified gallstones are seen. The spleen and pancreas appear within normal limits on this noncontrast study. The adrenal glands and kidneys are normal in size. No renal calculi or hydronephrosis is seen. The aorta is normal in caliber with moderate calcific plaque present. There is a retroaortic left renal vein. No significant enlarged retroperitoneal lymph nodes are seen. The stomach, small and large bowel appear nondistended. The appendix is not well visualized. There are scattered diverticuli within the colon. There is no evidence for diverticulitis or colitis. The uterus is anteverted and normal in size. No free intraperitoneal air is seen. There is a small amount of free intraperitoneal fluid present dependently within the pelvis. No significant focal osseous abnormality is seen. IMPRESSION: 1. SMALL BILATERAL PLEURAL EFFUSIONS AND DEPENDENT BILATERAL LOWER LOBE INFILTRATES. 2. SMALL AMOUNT OF FREE INTRAPERITONEAL FLUID. 3. LIMITED NONCONTRAST STUDY. <Electronically signed by Kade Porter MD in [place]> 07/15/17 1642 Dictated By: Kade Porter MD Dictated Date/Time: 07/15/17 1642 Transcribed Date/Time: 07/15/17 1628 Copy to: CC:Mindy Bowles DO; Martin Humphreys MD; Alvaro Barrera MD; Norris Pino MD; Jake Dey MD; Flavio Bowen MD; Pierre VELASQUEZ 1 of 2 Assess/Plan/Problems-Billing Assessment: This is a 67 year old female newly diagnosed multiple myeloma complicated by anemia and renal failure now requiring HD and intermittent PRBC transfusions - Patient Problems (1) JOSEPH (acute kidney injury) Comment: In setting of multiplemyeloma Nephrology consult appreciated HD started 07/16, last 07/19 Check phosphorous 07/21, not on binders currently c/w bicarb PO check uric acid and free light chains 07/21 (2) Multiple myeloma Status: Acute Comment: Heme-onc consult appreciated Pathology with plasma cell myeloma lytic lesions on ribs which may account for left chest wall pain Likely Bortizumab but timing to and location of administration to depend on timing of disposition and guided by oncology service Pain control S/p 4day course decadron (3) Anemia Comment: In setting of multiple myeloma. Last unit 07/19 Transfuse Hb<7 trend CBC (4) Hyperkalemia Comment: In setting of ESRD c/w HD Trend BMP (5) Hyponatremia Status: Resolved Comment: In setting of fluid overload 2/2 JOSEPH resolved (6) DVT prophylaxis Comment: heparin Status and Disposition: Remain inpatient/HD/possible chemo
[2017-07-20] MEDS: Lidocaine Patch REMOVE* 1 NOTE MISC SCH (20:50)
[2017-07-21] MEDS: Heparin VIAL(*) 5000 UNITS/ML VIAL (FIVE THOUSAND) SUBCUT SCH ×3 (05:18→21:57)
[2017-07-21 06:57] LABS: ABS Basophils 0.1 10^3/ul (0-0.2); ABS Eosinophils 0.2 10^3/ul (0-0.6); ABS Lymphocytes 0.8 10^3/ul (1.0-4.8); ABS Monocytes 0.4 10^3/ul (0-0.8); ABS Neutrophils 5.9 10^3/ul (1.5-7.7); ABS Nucleated RBC 0 10^3/ul; Eosinophil % 2.3 % (0-6); Hematocrit 19 % (35-47); Hemoglobin 6.9 g/dl (12.0-16.0); Lymphocyte % 10.6 % (25-47); Mean Corpuscular HGB Conc 36 g/dl (31-36); Mean Corpuscular Hemoglobin 34 pg (27-31); Mean Corpuscular Volume 95 fL (80-97); Mean Platelet Volume 8 um3 (7.4-10.4); Nucleated Red Blood Cells % 0; Platelet Count 160 10^3/ul (150-450); Red Blood Count 2.04 10^6/ul (4.0-5.4); Red Cell Distribution Width 17 % (10.5-15); White Blood Count 7.3 10^3/ul (3.5-10.8)
[2017-07-21 07:11] LABS: EGFR Non-African American 6.1 (>60)
[2017-07-21] MEDS: Lidocaine PATCH 5%* 1 PATCH TRANSDERM SCH (08:54)
[2017-07-21] MEDS: Sodium Bicarbonate (ANTACID)* 650 MG TAB PO SCH ×3 (08:54→20:24)
[2017-07-21] MEDS: Docusate CAP* 100 MG PO SCH ×2 (08:55→20:24)
[2017-07-21] MEDS: oxyCODONE SR TAB(*) 10 MG TAB.SR PO SCH ×2 (08:55→20:24)
[2017-07-21] MEDS: Pantoprazole IV* 40 MG IV SCH (08:56)
[2017-07-21] MEDS ORDERED: Rasburicase 1.5 MG VIAL(NF) IVPB ONE (11:04)
[2017-07-21] MEDS: Polyethylene Glycol 3350* 17 GM PACKET PO SCH (11:52)
[2017-07-21] MEDS ORDERED: Heparin DIALYSIS ONLY(*) 1,000 UNITS/ML VIAL DIALYSIS ONE (12:00)
[2017-07-21] MEDS ORDERED: Epoetin Alfa* 10,000 UNITS/ML VIAL IV ONE (12:00)
[2017-07-21] MEDS ORDERED: RASBURICASE IVPB ONE (14:30)
[2017-07-21] MEDS ORDERED: NS 0.9% IVPB ONE (14:30)
--- NOTE | 2017-07-21 15:07 | PN ---
Subjective Date of Service: 07/21/17 Interval History: No events since yesterday Small BM without use of mag citrate Pain in right shoulder but does not want to adjust medications Family History: Unchanged from Admission Social History: Unchanged from Admission Past Medical History: Unchanged from Admission Objective Active Medications: Acetaminophen (Tylenol Tab*) 650 mg PO Q4H PRN PRN Reason: FEVER/PAIN Last Admin: 07/16/17 06:43 Dose: 650 mg Albuterol (Ventolin 2.5 Mg/3 Ml Neb.Dolores*) 2.5 mg INH Q4H PRN PRN Reason: SOB/WHEEZING Cyclobenzaprine HCl (Flexeril Tab*) 5 mg PO TID PRN PRN Reason: PAIN Last Admin: 07/19/17 23:26 Dose: 5 mg Docusate Sodium (Colace Cap*) 100 mg PO BID [facility] Last Admin: 07/21/17 08:55 Dose: Not Given Glycerin (Glycerin Adult Supp*) 1 supp [place] DAILY PRN PRN Reason: CONSTIPATION Heparin Sodium (Porcine) (Heparin Vial(*)) 5,000 units SUBCUT Q8HR [facility] Last Admin: 07/21/17 05:18 Dose: 5,000 units Lidocaine (Lidoderm 5% Patch*) 1 patch TRANSDERM DAILY [facility] Last Admin: 07/21/17 08:54 Dose: Not Given Oxycodone HCl (Roxycodone Tab*) 2.5 mg PO Q4H PRN PRN Reason: PAIN Last Admin: 07/19/17 23:26 Dose: 2.5 mg Oxycodone HCl (Oxycontin(*)) 10 mg PO Q12HR [facility] Last Admin: 07/21/17 08:55 Dose: 10 mg Pantoprazole Sodium (Protonix Iv*) 40 mg IV DAILY [facility] Last Admin: 07/21/17 08:56 Dose: 40 mg Pharmacy Profile Note (Lidocaine Patch Remove*) 1 note N/A 2100 [facility] Last Admin: 07/20/17 20:50 Dose: Not Given Polyethylene Glycol/Electrolytes (Miralax*) 17 gm PO DAILY [facility] Last Admin: 07/21/17 11:52 Dose: Not Given Sevelamer Carbonate (Renvela Tab*) 800 mg PO TID [facility] Sodium Bicarbonate (Sodium Bicarbonate (Antacid)*) 1,300 mg PO TID [facility] Last Admin: 07/21/17 08:54 Dose: 1,300 mg Vital Signs - 8 hr 07/21/17 07/21/17 07/21/17 07:38 08:00 08:15 Temperature 98.0 F Pulse Rate 71 Respiratory 20 16 Rate Blood Pressure 143/58 (mmHg) O2 Sat by Pulse 97 96 Oximetry 07/21/17 08:55 Temperature Pulse Rate Respiratory 18 Rate Blood Pressure (mmHg) O2 Sat by Pulse Oximetry Oxygen Devices in Use Now: None Appearance: sitting in chair, interactive, NAD Eyes: No Scleral Icterus, PERRLA Ears/Nose/Mouth/Throat: Clear Oropharnyx, Mucous Membranes Moist Neck: NL Appearance and Movements; NL JVP Respiratory: Symmetrical Chest Expansion and Respiratory Effort, Clear to Auscultation Cardiovascular: RRR Abdominal: NL Sounds; No Tenderness; No Distention, No Hepatosplenomegaly Lymphatic: No Cervical Adenopathy Extremities: - - swelling in right arm to wrist, no pain at shoulder with passive ROM but pain with active abduction at 60 degrees Neurological: Alert and Oriented x 3 Result Diagrams: 07/21/17 06:48 07/21/17 06:47 Additional Lab and Data: Lab Results Microbiology and Other Data: NICK NICOLE 1950 NICK NICOLE Page: 2 of 2 [place] [address] Ph.#: [phone] Fax#: [phone] CLIA # [id number] Sampson Bender M.D. Director of Laboratory SURGICAL PATHOLOGY REPORT NICK NICOLE Page: 1 of 2 Patient Name: EHSAN NICOLEHARPAL Rea Pathology Number: [id number] Med.Rec. #: [id number] Collection Date: 07/14/17 Acct. Number#: [id number] Received Date: 07/14/17 : 1950 Location: [facility] Gender: F Status: SOUT Submitting Physician: Rod Frias MD Other Physician: Mindy Bowles DO FINAL DIAGNOSIS 1. Bone marrow, left posterior iliac crest, aspirate smears and clot section: -- Hypercellular bone marrow (90%) involved by plasma cell myeloma (73% of total marrow cellularity). 2. Bone marrow, left posterior iliac crest, core needle biopsy: -- Hypercellular bone marrow (90%) involved by plasma cell myeloma (73% of total marrow cellularity). Electronically Signed by: Silvia Ordoñez MD Reported on: 07/16/17 1412 PRE-OPERATIVE DIAGNOSIS GROSS DESCRIPTION 2. The specimen is received in formalin labeled, LPIC, and consists of a 0.4 x 0.3 x 0.1 cm aggregate of garcía irregular bone fragments which is submitted entirely in one cassette following decalcification. MICROSCOPIC DESCRIPTION The aspirate smears are spicular and cellular. A 200 cell count aspirate smear differential is as follows: blasts 0%, promyelocytes 0%, myelocytes 1%, metamyelocytes 1%, neutrophils 17%, monocytes 0%, eosinophils 1%, basophils 0%, erythroid elements 3%, lymphocytes 4%, plasma cells 73%. Blasts are not increased. Plasma cells are markedly increased and demonstrate predominantly mature morphology. Erythroid maturation is hypoplastic. Myelocytic maturation is hypoplastic. The clot section demonstrates approximately 90% cellularity. There is diffuse infiltration by sheets of plasma cells. The iron-stained clot section, with appropriately reacting controls, shows increased storage iron. The core needle biopsy specimen demonstrates similar features to the clot section. Diagnostic Imaging: Patient Name: NICK NICOLE Medical Record#: [id number] Ordering Physician: Pierre VELASQUEZ Acct.#: [id number] : 1950 Age: 67 Sex: F Location: [address] [place] [address] - MEDICAL Exam Date: 07/15/17 1525 ADM Status: ADM IN Order Information: CT ABD/PEL W/O Accession Number: [id number] CPT: 09225 INDICATION: Severe abdominal pain. COMPARISON: There are no prior studies available for comparison. TECHNIQUE: A CT scan of the abdomen and pelvis was performed without intravenous or oral contrast. Contiguous axial sections were obtained from the lung bases through the symphysis pubis. Images were reconstructed in the coronal and sagittal planes. FINDINGS: Images through the lung bases demonstrate small bilateral pleural effusions and dependent bilateral lower lobe infiltrates. The liver appears mildly enlarged without significant focal abnormality on this noncontrast study. No calcified gallstones are seen. The spleen and pancreas appear within normal limits on this noncontrast study. The adrenal glands and kidneys are normal in size. No renal calculi or hydronephrosis is seen. The aorta is normal in caliber with moderate calcific plaque present. There is a retroaortic left renal vein. No significant enlarged retroperitoneal lymph nodes are seen. The stomach, small and large bowel appear nondistended. The appendix is not well visualized. There are scattered diverticuli within the colon. There is no evidence for diverticulitis or colitis. The uterus is anteverted and normal in size. No free intraperitoneal air is seen. There is a small amount of free intraperitoneal fluid present dependently within the pelvis. No significant focal osseous abnormality is seen. IMPRESSION: 1. SMALL BILATERAL PLEURAL EFFUSIONS AND DEPENDENT BILATERAL LOWER LOBE INFILTRATES. 2. SMALL AMOUNT OF FREE INTRAPERITONEAL FLUID. 3. LIMITED NONCONTRAST STUDY. <Electronically signed by Kade Porter MD in [place]> 07/15/17 1642 Dictated By: Kade Porter MD Dictated Date/Time: 07/15/17 1642 Transcribed Date/Time: 07/15/17 1628 Copy to: CC:Mindy Bowles DO; Martin Humphreys MD; Alvaro Barrera MD; Norris Pino MD; Jake Dey MD; Flavio Bowen MD; Pierre VELASQUEZ 1 of 2 Assess/Plan/Problems-Billing Assessment: This is a 67 year old female newly diagnosed multiple myeloma complicated by anemia and renal failure now requiring HD and intermittent PRBC transfusions - Patient Problems (1) JOSEPH (acute kidney injury) Comment: In setting of multiplemyeloma Nephrology consult appreciated HD started 07/16, last 07/19, 07/21 start sevelemer c/w bicarb PO (2) Multiple myeloma Status: Acute Comment: Heme-onc consult appreciated Pathology with plasma cell myeloma lytic lesions on ribs which may account for left chest wall pain Plan Bortizumab and decadron Pain control S/p 4 day course decadron (3) Anemia Comment: In setting of multiple myeloma. Transfuse 1U PRBC 07/21 Transfuse Hb<7 trend CBC (4) Hyperkalemia Comment: In setting of ESRD c/w HD Trend BMP (5) Hyponatremia Status: Resolved Comment: In setting of fluid overload 2/2 JOSEPH resolved (6) Tumor lysis syndrome Comment: after discussion with oncology service will tx rasburicase at 0.15 mg/ kg once today repeat uric acid, potassium, and phosphorous tomorrow (7) DVT prophylaxis Comment: heparin
[2017-07-21] MEDS: Sevelamer TAB* 800 MG PO SCH ×2 (15:10→20:24)
[2017-07-21] MEDS: oxyCODONE TAB* 5 MG TAB PO PRN (15:18)
[2017-07-21] MEDS: Lidocaine Patch REMOVE* 1 NOTE MISC SCH (20:28)
[2017-07-21] MEDS: Cyclobenzaprine TAB* 10 MG PO PRN (23:37)
[2017-07-22] MEDS: Heparin VIAL(*) 5000 UNITS/ML VIAL (FIVE THOUSAND) SUBCUT SCH ×3 (05:56→21:42)
[2017-07-22] MEDS: Docusate CAP* 100 MG PO SCH ×2 (08:13→20:54)
[2017-07-22 08:14] LABS: ABS Basophils 0 10^3/ul (0-0.2); ABS Eosinophils 0.3 10^3/ul (0-0.6); ABS Lymphocytes 0.7 10^3/ul (1.0-4.8); ABS Monocytes 0.5 10^3/ul (0-0.8); ABS Neutrophils 6.6 10^3/ul (1.5-7.7); ABS Nucleated RBC 0 10^3/ul; Eosinophil % 3.6 % (0-6); Hematocrit 22 % (35-47); Hemoglobin 7.7 g/dl (12.0-16.0); Lymphocyte % 8.8 % (25-47); Mean Corpuscular HGB Conc 35 g/dl (31-36); Mean Corpuscular Hemoglobin 33 pg (27-31); Mean Corpuscular Volume 93 fL (80-97); Mean Platelet Volume 8 um3 (7.4-10.4); Nucleated Red Blood Cells % 0; Platelet Count 180 10^3/ul (150-450); Red Blood Count 2.37 10^6/ul (4.0-5.4); Red Cell Distribution Width 18 % (10.5-15); White Blood Count 8.2 10^3/ul (3.5-10.8)
[2017-07-22] MEDS: Sevelamer TAB* 800 MG PO SCH ×2 (08:14→13:33)
[2017-07-22] MEDS: oxyCODONE SR TAB(*) 10 MG TAB.SR PO SCH ×2 (08:15→20:53)
[2017-07-22] MEDS: Sodium Bicarbonate (ANTACID)* 650 MG TAB PO SCH ×3 (08:15→20:54)
[2017-07-22] MEDS: Lidocaine PATCH 5%* 1 PATCH TRANSDERM SCH (08:16)
[2017-07-22] MEDS: Pantoprazole IV* 40 MG IV SCH (08:16)
[2017-07-22] MEDS: Polyethylene Glycol 3350* 17 GM PACKET PO SCH (08:17)
[2017-07-22 08:33] LABS: EGFR Non-African American 8.4 (>60)
--- NOTE | 2017-07-22 09:48 | PN ---
Progress Note - Progress Note Date of Service: 07/22/17 SOAP: Subjective: sitting up in a chair. biggest complaint is lower back pain, controlled w meds. motivated to try to get back to independent living. Last seen by PT 07/20. not getting out of room with walker but can ambulate to bathroom. Objective: Vital Signs Temp Pulse Resp BP Pulse Ox 99.1 F 76 17 145/63 96 07/21/17 23:42 07/21/17 23:18 07/22/17 08:15 07/21/17 23:18 07/21/17 23:18 sitting up in nad perr eomi op dry cta bl s1 s2 nl dialysis cath left chest wall clean soft nt +bs trace le edema globally weak but nonofocal, 4/5 strength bl le A+O x 3 Acetaminophen (Tylenol Tab*) 650 mg PO Q4H PRN PRN Reason: FEVER/PAIN Last Admin: 07/16/17 06:43 Dose: 650 mg Albuterol (Ventolin 2.5 Mg/3 Ml Neb.Dolores*) 2.5 mg INH Q4H PRN PRN Reason: SOB/WHEEZING Cyclobenzaprine HCl (Flexeril Tab*) 5 mg PO TID PRN PRN Reason: PAIN Last Admin: 07/21/17 23:37 Dose: 5 mg Docusate Sodium (Colace Cap*) 100 mg PO BID [facility] Last Admin: 07/22/17 08:13 Dose: 100 mg Glycerin (Glycerin Adult Supp*) 1 supp [place] DAILY PRN PRN Reason: CONSTIPATION Heparin Sodium (Porcine) (Heparin Vial(*)) 5,000 units SUBCUT Q8HR [facility] Last Admin: 07/22/17 05:56 Dose: 5,000 units Lidocaine (Lidoderm 5% Patch*) 1 patch TRANSDERM DAILY [facility] Last Admin: 07/22/17 08:16 Dose: Not Given Oxycodone HCl (Roxycodone Tab*) 2.5 mg PO Q4H PRN PRN Reason: PAIN Last Admin: 07/21/17 15:18 Dose: 2.5 mg Oxycodone HCl (Oxycontin(*)) 10 mg PO Q12HR [facility] Last Admin: 07/22/17 08:15 Dose: 10 mg Pantoprazole Sodium (Protonix Iv*) 40 mg IV DAILY [facility] Last Admin: 07/22/17 08:16 Dose: 40 mg Pharmacy Profile Note (Lidocaine Patch Remove*) 1 note N/A 2100 [facility] Last Admin: 07/21/17 20:28 Dose: Not Given Polyethylene Glycol/Electrolytes (Miralax*) 17 gm PO DAILY [facility] Last Admin: 07/22/17 08:17 Dose: Not Given Sevelamer Carbonate (Renvela Tab*) 800 mg PO TID [facility] Last Admin: 07/22/17 08:14 Dose: 800 mg Sodium Bicarbonate (Sodium Bicarbonate (Antacid)*) 1,300 mg PO TID [facility] Last Admin: 07/22/17 08:15 Dose: 1,300 mg Laboratory Last Values WBC 8.2 10^3/ul (3.5-10.8) 07/22/17 07:51 RBC 2.37 10^6/ul (4.0-5.4) L 07/22/17 07:51 Hgb 7.7 g/dl (12.0-16.0) L 07/22/17 07:51 Hct 22 % (35-47) L 07/22/17 07:51 MCV 93 fL (80-97) 07/22/17 07:51 MCH 33 pg (27-31) H 07/22/17 07:51 MCHC 35 g/dl (31-36) 07/22/17 07:51 RDW 18 % (10.5-15) H 07/22/17 07:51 Plt Count 180 10^3/ul (150-450) 07/22/17 07:51 MPV 8 um3 (7.4-10.4) 07/22/17 07:51 Neut % (Auto) 81.3 % (38-83) 07/22/17 07:51 Lymph % (Auto) 8.8 % (25-47) L 07/22/17 07:51 [place] % (Auto) 6.0 % (1-9) 07/22/17 07:51 Eos % (Auto) 3.6 % (0-6) 07/22/17 07:51 Baso % (Auto) 0.3 % (0-2) 07/22/17 07:51 Absolute Neuts (auto) 6.6 10^3/ul (1.5-7.7) 07/22/17 07:51 Absolute Lymphs (auto) 0.7 10^3/ul (1.0-4.8) L 07/22/17 07:51 Absolute Monos (auto) 0.5 10^3/ul (0-0.8) 07/22/17 07:51 Absolute Eos (auto) 0.3 10^3/ul (0-0.6) 07/22/17 07:51 Absolute Basos (auto) 0 10^3/ul (0-0.2) 07/22/17 07:51 Absolute Nucleated RBC 0 10^3/ul 07/22/17 07:51 Immature Gran % 2 % (0-9) 07/14/17 10:59 Neutrophils % 80 % (38-83) 07/14/17 10:59 Band Neutrophils % 1 % (0-8) 07/14/17 10:59 Lymphocytes % 10 % (25-47) L 07/14/17 10:59 Monocytes % 6 % (0-13) 07/14/17 10:59 Eosinophils % 2 % (0-6) 07/14/17 10:59 Myelocytes % 1 % (0-1) 07/14/17 10:59 Nucleated RBC % 0 07/22/17 07:51 Abs Neuts (Manual) 7.7 10^3/ul (1.5-7.7) 07/14/17 10:59 Normal RBC Morphology Not Reportable 07/14/17 10:59 Hypochromasia 1+ 07/14/17 10:59 Macrocytosis 1+ 07/14/17 10:59 Hem Pathologist Commnt 07/13/17 06:39 INR (Anticoag Therapy) 1.06 (0.77-1.02) H 07/12/17 12:09 Sodium 132 mmol/L (133-145) L 07/22/17 07:51 Potassium 4.3 mmol/L (3.5-5.0) 07/22/17 07:51 Chloride 91 mmol/L (101-111) L 07/22/17 07:51 Carbon Dioxide 33 mmol/L (22-32) H 07/22/17 07:51 Anion Gap 8 mmol/L (2-11) 07/22/17 07:51 BUN 74 mg/dL (6-24) H 07/22/17 07:51 Creatinine 5.11 mg/dL (0.51-0.95) H 07/22/17 07:51 Est GFR ( Amer) 10.8 (>60) 07/22/17 07:51 Est GFR (Non-Af Amer) 8.4 (>60) 07/22/17 07:51 BUN/Creatinine Ratio 14.5 (8-20) 07/22/17 07:51 Glucose 90 mg/dL (70-100) 07/22/17 07:51 POC Glucose (mg/dL) 147 mg/dL (70-100) H 07/17/17 11:20 Lactic Acid 1.2 mmol/L (0.5-2.0) 07/12/17 12:09 Uric Acid < 1.5 mg/dL (2.3-6.6) L 07/22/17 07:51 Calcium 8.5 mg/dL (8.6-10.3) L 07/22/17 07:51 Phosphorus 7.1 mg/dL (2.5-5.0) H 07/22/17 07:51 Magnesium 2.6 mg/dL (1.9-2.7) 07/17/17 09:41 Total Bilirubin 0.60 mg/dL (0.2-1.0) 07/21/17 06:47 AST 18 U/L (13-39) 07/21/17 06:47 ALT 25 U/L (7-52) 07/21/17 06:47 Alkaline Phosphatase 110 U/L (34-104) H 07/21/17 06:47 Total Creatine Kinase 55 U/L (10-223) 07/13/17 06:39 Troponin I 0.01 ng/mL (<0.04) 07/12/17 12:09 C-Reactive Protein 248.46 mg/L (< 5.00) H 07/12/17 12:09 B-Natriuretic Peptide 245 pg/mL (-100) H 07/12/17 12:09 Total Protein 5.0 g/dL (6.4-8.9) L 07/21/17 06:47 Albumin 2.4 g/dL (3.2-5.2) L 07/21/17 06:47 Globulin 2.6 g/dL (2-4) 07/21/17 06:47 Albumin/Globulin Ratio 0.9 (1-3) L 07/21/17 06:47 [id number]-[id number] 20.60 mcg/mL H 07/14/17 10:59 Lipase 51 U/L (11.0-82.0) 07/12/17 12:09 TSH 1.68 mcIU/mL (0.34-5.60) 07/12/17 12:09 Urine Color Yellow 07/12/17 20:40 Urine Appearance Cloudy 07/12/17 20:40 Urine pH 5.0 (5-9) 07/12/17 20:40 Ur Specific [place] 1.012 (1.010-1.030) 07/12/17 20:40 Urine Protein 2+(100 mg/dl) (Negative) H 07/12/17 20:40 Urine Ketones Negative (Negative) 07/12/17 20:40 Urine Blood Negative (Negative) 07/12/17 20:40 Urine Nitrate Negative (Negative) 07/12/17 20:40 Urine Bilirubin Negative (Negative) 07/12/17 20:40 Urine Urobilinogen Negative (Negative) 07/12/17 20:40 Ur Leukocyte Esterase 1+ (Negative) H 07/12/17 20:40 Urine WBC (Auto) 2+(11-20/hpf) (Absent) H 07/12/17 20:40 Urine RBC (Auto) Absent (Absent) 07/12/17 20:40 Ur Squamous Epith Cells Present (Absent) H 07/12/17 20:40 Urine Bacteria Absent (Absent) 07/12/17 20:40 Ur Random Creatinine 103.92 mg/dL 07/12/17 20:40 Ur Random Sodium 36 mmol/L 07/12/17 20:40 Urine Glucose 1+(50 mg/dl) (Negative) H 07/12/17 20:40 IgG 1710 mg/dL (767 - 1590) H 07/14/17 10:59 IgA 15 mg/dL (61 - 356) L 07/14/17 10:59 IgM <5 mg/dL (37 - 286) L 07/14/17 10:59 [place] Light Chain 298 mg/dL H 07/14/17 10:59 Lambda Light Chain 0.8130 mg/dL 07/14/17 10:59 [place]/Lambda Ratio 367 H 07/14/17 10:59 Proteinase 3 (PR3) < 0.2 U 07/13/17 15:55 Myeloperoxidase Ab < 0.2 U 07/13/17 15:55 Complement C3 114 mg/dL (75 - 175) 07/13/17 15:55 Complement C4 26 mg/dL (14 - 40) 07/13/17 15:55 Tot Complement (CH50) 57 U/mL (30 - 75) 07/13/17 15:55 Hepatitis B Antibody Nonreactive (Nonreactive) 07/15/17 13:49 Hep Bs Antigen Nonreactive (Nonreactive) 07/15/17 13:49 Hep Bs Antibody, Quant < 3.10 mIU/mL (<12) 07/15/17 13:49 Hep B Core Total Ab Negative (Negative) 07/15/17 13:49 Hepatitis C Antibody Nonreactive (Nonreactive) 07/15/17 13:49 HIV 1&2 Antibody Nonreactive (Nonreactive) 07/15/17 13:49 TB Test (QFT) Nil 0.03 IU/mL 07/15/17 13:49 TB Test Mitogen - Nil 5.67 IU/mL 07/15/17 13:49 TB Test Antigen - Nil -0.01 IU/mL 07/15/17 13:49 TB Test (QFT) Negative (Negative) 07/15/17 13:49 BM Chromosome Specimen Bone marrow 07/14/17 12:10 BM Chromo Refer Reason See comment 07/14/17 12:10 BM Chromosome Source See comment 07/14/17 12:10 BM Chromosome Method See comment 07/14/17 12:10 Banding Technique See comment 07/14/17 12:10 BM Chromosome Analysis 46,xx[20] 07/14/17 12:10 BM Chromosome Res Sum Normal 07/14/17 12:10 BM Chromosome Interp See comment 07/14/17 12:10 BM Chromo Add Info Not Reportable 07/14/17 12:10 BM Chromo Release By See comment 07/14/17 12:10 Flow Intrp 2-8 Markers TNP 07/14/17 12:10 Flow Intrp 9-15 Marker 07/14/17 12:10 Flow Intrp 16+ Markers TNP 07/14/17 12:10 Blood Type O Positive 07/19/17 07:26 Antibody Screen Negative 07/19/17 07:26 Crossmatch See Detail 07/19/17 07:26 Assessment: 67 yo F w IgG kappa MM presenting with acute renal failure, now on dialysis. She is sp 4 doses of high dose dexamethasone IV and rasburicase yesterday for likely tumor lysis syndrome on top of acute renal failure. I discuss her case at length with her. It is not clear to me that her kidneys will recover from this insult, and she may be dialysis dependant. That clearly changes the management of her MM (likely not a transplant candidate). We will need to see how she does over time. I would like to strt her on velcade/dexamethasone for her MM. We discussed this in detail, and she will have chemotherapy teaching today. Ideally we can get her back to independent living, where she came from. For this she will need more intensive rehab, and I have asked PT to try to see her more frequently. I have encouraged walking around the floor more with assistance as well. I do wonder if she would be a candidate for acute inpatient rehab. In terms of her back pain, I suspect it is related to deconditioning and sitting, but want to get a CT scan of her thoracic and lumbar spines to rule out a lytic lesion (not seen on skeletal survey) or compression fracture. Plan: MM: -velcade 1.3 mg/m2 sc weekly starting today -dexamethasone 40 mg po weekly today -start acyclovir 200 mg po q12 hrs -CT scan as above Renal failure: currently dialysis dependent -cont management per Dr. Bowen -trend uric acid and phosphorous -cont fluid restriction full code
--- NOTE | 2017-07-22 10:49 | RAD ---
INDICATION: Back pain, multiple myeloma. COMPARISON: Comparison is made with a prior renal bone survey from July 13, 2017. TECHNIQUE: Contiguous axial sections were obtained beginning above the C7 vertebra and scanning through the L1 vertebra. Images were reconstructed in the sagittal and coronal planes. FINDINGS: There is a mild dorsal scoliosis convex toward the left side. The vertebra are otherwise in normal alignment. There is a mild chronic compression fracture of the superior endplate of the T5 vertebral body. No other fractures are seen. No significant focal osseous abnormalities are noted. There is mild diffuse degenerative disc disease present. There is no evidence for spinal canal narrowing. Neural foramen appear patent bilaterally at all levels. There are small bilateral pleural effusions and dependent bilateral lower lobe infiltrates. IMPRESSION: 1. THERE IS A MILD CHRONIC COMPRESSION FRACTURE OF THE T5 VERTEBRAL BODY. NO OTHER FOCAL OSSEOUS ABNORMALITIES ARE SEEN. 2. SMALL BILATERAL PLEURAL EFFUSIONS AND DEPENDENT BILATERAL LOWER LOBE INFILTRATES.
--- NOTE | 2017-07-22 10:50 | RAD ---
Indication: Back pain, myeloma. CT of the lumbar spine was obtained in the axial plane. Sagittal and coronal reconstructed images were obtained. There is osteopenia however no gross lytic lesions are noted. No compression fracture is noted. Vertebral bodies appear normal in height. At L5-S1 degenerative disc disease is noted. Spondylitic ridge flattens the thecal sac. No foraminal stenosis is noted. At L4-L5 degenerative disc disease with broad-based protrusion flattens the thecal sac. No definite foraminal stenosis is identified. At L3-L4, L2-L3 and L1-L2 no focal protrusion is identified. IMPRESSION: No definite lytic lesions are identified. Diffuse osteopenia is noted. Degenerative disc disease at L4-L5 and L5-S1. No fracture is noted.
[2017-07-22] MEDS: oxyCODONE TAB* 5 MG TAB PO PRN (11:50)
[2017-07-22] MEDS ORDERED: Dexamethasone TAB* 4 MG PO ONE (14:00)
[2017-07-22] MEDS ORDERED: BORTEZOMIB SUBCUT ONE ×3 (14:30→15:00)
[2017-07-22] MEDS ORDERED: Bortezomib* 2.5 MG/ML **FOR SQ USE** (3.5 MG VIAL) SUBCUT ONE (14:30)
[2017-07-22] MEDS: Lidocaine Patch REMOVE* 1 NOTE MISC SCH (19:20)
[2017-07-22] MEDS: Acyclovir* 200 MG CAP PO SCH (20:54)
[2017-07-23] MEDS: Heparin VIAL(*) 5000 UNITS/ML VIAL (FIVE THOUSAND) SUBCUT SCH ×3 (06:25→21:36)
[2017-07-23] MEDS: Lidocaine PATCH 5%* 1 PATCH TRANSDERM SCH (08:57)
[2017-07-23] MEDS: Sevelamer TAB* 800 MG PO SCH ×3 (09:17→17:24)
[2017-07-23] MEDS: oxyCODONE TAB* 5 MG TAB PO PRN (09:17)
[2017-07-23] MEDS: Pantoprazole IV* 40 MG IV SCH (09:18)
[2017-07-23] MEDS: Polyethylene Glycol 3350* 17 GM PACKET PO SCH (09:25)
[2017-07-23] MEDS: Docusate CAP* 100 MG PO SCH ×2 (09:25→21:35)
[2017-07-23] MEDS ORDERED: Heparin DIALYSIS ONLY(*) 1,000 UNITS/ML VIAL DIALYSIS ONE (10:30)
[2017-07-23] MEDS ORDERED: Epoetin Alfa* 10,000 UNITS/ML VIAL IV ONE (10:30)
--- NOTE | 2017-07-23 11:39 | PN ---
Progress Note - Progress Note Date of Service: 07/23/17 SOAP: Subjective: []Doing well overall. Tolerating food. Very worried about BMs. Feels like back pain got better immediately after first chemo injection. Wants to go home and doesn't want to go to friends house. Doesn't feel mentally ready for d/c. Medications: Acetaminophen (Tylenol Tab*) 650 mg PO Q4H PRN PRN Reason: FEVER/PAIN Last Admin: 07/16/17 06:43 Dose: 650 mg Acyclovir (Zovirax Cap*) 200 mg PO Q12H [facility] Last Admin: 07/22/17 20:54 Dose: 200 mg Albuterol (Ventolin 2.5 Mg/3 Ml Neb.Dolores*) 2.5 mg INH Q4H PRN PRN Reason: SOB/WHEEZING Cyclobenzaprine HCl (Flexeril Tab*) 5 mg PO TID PRN PRN Reason: PAIN Last Admin: 07/21/17 23:37 Dose: 5 mg Docusate Sodium (Colace Cap*) 100 mg PO BID [facility] Last Admin: 07/23/17 09:25 Dose: 100 mg Glycerin (Glycerin Adult Supp*) 1 supp [place] DAILY PRN PRN Reason: CONSTIPATION Heparin Sodium (Porcine) (Heparin Vial(*)) 5,000 units SUBCUT Q8HR [facility] Last Admin: 07/23/17 06:25 Dose: 5,000 units Lidocaine (Lidoderm 5% Patch*) 1 patch TRANSDERM DAILY [facility] Last Admin: 07/23/17 08:57 Dose: Not Given Oxycodone HCl (Roxycodone Tab*) 2.5 mg PO Q4H PRN PRN Reason: PAIN Last Admin: 07/23/17 09:17 Dose: 2.5 mg Oxycodone HCl (Oxycontin(*)) 10 mg PO Q12HR [facility] Last Admin: 07/22/17 20:53 Dose: 10 mg Pantoprazole Sodium (Protonix Iv*) 40 mg IV DAILY [facility] Last Admin: 07/23/17 09:18 Dose: 40 mg Pharmacy Profile Note (Lidocaine Patch Remove*) 1 note N/A 2100 [facility] Last Admin: 07/22/17 19:20 Dose: Not Given Polyethylene Glycol/Electrolytes (Miralax*) 17 gm PO DAILY [facility] Last Admin: 07/23/17 09:25 Dose: 17 gm Sevelamer Carbonate (Renvela Tab*) 800 mg PO TID WITH MEALS [facility] Last Admin: 07/23/17 09:17 Dose: 800 mg Sodium Bicarbonate (Sodium Bicarbonate (Antacid)*) 1,300 mg PO TID [facility] Last Admin: 07/22/17 20:54 Dose: 1,300 mg Objective: [] Vital Signs Temp Pulse Resp BP Pulse Ox 97.3 F 71 18 131/61 93 07/23/17 07:24 07/23/17 07:24 07/23/17 09:17 07/23/17 07:24 07/23/17 08:00 A&Ox3, however will make statements that do not quite fit the scenario HRR, S1S2 LS clear bilat with mildly dim. base, no cough noted +BS, abd. soft and non-tender Laboratory Results - last 24 hr 07/19/17 07:26 [place] Light Chain 40.0 H Lambda Light Chain 0.9520 [place]/Lambda Ratio 42.0 H Assessment: []67 yo female with chronic renal failure secondary to newly diagnosed multiple myeloma requiring hemodialysis with slo improvement. A this time she clinically stable for d/c, however I have concerns for cont.'d encephalopathy from elevated creatinine and do not feel she is safe for d/c home. Discussed at length with case management and social work as she will need a safe d/c plan prior to leaving the hospital. Plan: []1. Dialysis as per Dr. Bowen 2. Cont. daily labs 3. Miralax PRN 4. Enc. ambulation to help regain strength D/C planning, goal of Wednesday if possible
[2017-07-23] MEDS: Sodium Bicarbonate (ANTACID)* 650 MG TAB PO SCH ×3 (12:39→21:35)
[2017-07-23] MEDS: Acyclovir* 200 MG CAP PO SCH ×2 (13:18→21:35)
[2017-07-23] MEDS: oxyCODONE SR TAB(*) 10 MG TAB.SR PO SCH ×2 (13:19→21:35)
[2017-07-23] MEDS: Lidocaine Patch REMOVE* 1 NOTE MISC SCH (19:25)
[2017-07-24] MEDS: Heparin VIAL(*) 5000 UNITS/ML VIAL (FIVE THOUSAND) SUBCUT SCH ×3 (05:25→20:22)
[2017-07-24 06:56] LABS: Hematocrit 21 % (35-47); Hemoglobin 7.5 g/dl (12.0-16.0); Mean Corpuscular HGB Conc 35 g/dl (31-36); Mean Corpuscular Hemoglobin 33 pg (27-31); Mean Corpuscular Volume 95 fL (80-97); Mean Platelet Volume 8 um3 (7.4-10.4); Platelet Count 270 10^3/ul (150-450); Red Blood Count 2.26 10^6/ul (4.0-5.4); Red Cell Distribution Width 18 % (10.5-15); White Blood Count 10.4 10^3/ul (3.5-10.8)
[2017-07-24 07:11] LABS: EGFR Non-African American 9.2 (>60)
[2017-07-24] MEDS: Lidocaine PATCH 5%* 1 PATCH TRANSDERM SCH (08:55)
[2017-07-24] MEDS: oxyCODONE SR TAB(*) 10 MG TAB.SR PO SCH (08:56)
[2017-07-24] MEDS: Sodium Bicarbonate (ANTACID)* 650 MG TAB PO SCH ×3 (08:56→20:22)
[2017-07-24] MEDS: Sevelamer TAB* 800 MG PO SCH ×3 (08:56→18:09)
[2017-07-24] MEDS: Docusate CAP* 100 MG PO SCH ×2 (08:57→20:21)
[2017-07-24] MEDS: Polyethylene Glycol 3350* 17 GM PACKET PO SCH (08:57)
[2017-07-24] MEDS: Acyclovir* 200 MG CAP PO SCH ×2 (08:57→20:21)
[2017-07-24] MEDS: Pantoprazole IV* 40 MG IV SCH (08:57)
[2017-07-24] MEDS: Lidocaine Patch REMOVE* 1 NOTE MISC SCH (20:10)
[2017-07-24] MEDS: oxyCODONE TAB* 5 MG TAB PO PRN (20:25)
[2017-07-25] MEDS: Heparin VIAL(*) 5000 UNITS/ML VIAL (FIVE THOUSAND) SUBCUT SCH ×3 (05:53→21:17)
[2017-07-25 06:31] LABS: Hematocrit 21 % (35-47); Hemoglobin 7.1 g/dl (12.0-16.0); Mean Corpuscular HGB Conc 34 g/dl (31-36); Mean Corpuscular Hemoglobin 33 pg (27-31); Mean Corpuscular Volume 99 fL (80-97); Mean Platelet Volume 7 um3 (7.4-10.4); Platelet Count 162 10^3/ul (150-450); Red Blood Count 2.14 10^6/ul (4.0-5.4); Red Cell Distribution Width 18 % (10.5-15); White Blood Count 10.8 10^3/ul (3.5-10.8)
[2017-07-25 06:42] LABS: EGFR Non-African American 7.5 (>60)
[2017-07-25] MEDS: Sevelamer TAB* 800 MG PO SCH ×3 (08:23→17:30)
[2017-07-25] MEDS: Pantoprazole IV* 40 MG IV SCH (08:23)
[2017-07-25] MEDS: Polyethylene Glycol 3350* 17 GM PACKET PO SCH (08:24)
[2017-07-25] MEDS: Acyclovir* 200 MG CAP PO SCH ×2 (08:24→21:16)
[2017-07-25] MEDS: Docusate CAP* 100 MG PO SCH ×2 (08:24→21:16)
[2017-07-25] MEDS: Sodium Bicarbonate (ANTACID)* 650 MG TAB PO SCH ×3 (08:24→21:16)
[2017-07-25] MEDS: Lidocaine PATCH 5%* 1 PATCH TRANSDERM SCH (08:27)
[2017-07-25] MEDS: Acetaminophen TAB* 325 MG PO PRN ×2 (08:56→21:23)
[2017-07-25] MEDS: oxyCODONE TAB* 5 MG TAB PO PRN ×2 (08:57→21:23)
[2017-07-25] MEDS: Lidocaine Patch REMOVE* 1 NOTE MISC SCH (20:18)
[2017-07-26] MEDS: Heparin VIAL(*) 5000 UNITS/ML VIAL (FIVE THOUSAND) SUBCUT SCH ×2 (04:37→16:53)
[2017-07-26 06:25] LABS: Hematocrit 19 % (35-47); Hemoglobin 6.6 g/dl (12.0-16.0); Mean Corpuscular HGB Conc 35 g/dl (31-36); Mean Corpuscular Hemoglobin 33 pg (27-31); Mean Corpuscular Volume 95 fL (80-97); Mean Platelet Volume 7 um3 (7.4-10.4); Platelet Count 252 10^3/ul (150-450); Red Blood Count 2.02 10^6/ul (4.0-5.4); Red Cell Distribution Width 17 % (10.5-15); White Blood Count 10.7 10^3/ul (3.5-10.8)
[2017-07-26 06:38] LABS: EGFR Non-African American 6.6 (>60)
[2017-07-26] MEDS: Sevelamer TAB* 800 MG PO SCH ×2 (08:27→11:42)
[2017-07-26] MEDS ORDERED: Epoetin Alfa* 10,000 UNITS/ML VIAL IV ONE (09:00)
[2017-07-26] MEDS ORDERED: Heparin DIALYSIS ONLY(*) 1,000 UNITS/ML VIAL DIALYSIS ONE (09:00)
[2017-07-26] MEDS: Pantoprazole IV* 40 MG IV SCH (11:41)
[2017-07-26] MEDS: Acyclovir* 200 MG CAP PO SCH (11:42)
[2017-07-26] MEDS: Docusate CAP* 100 MG PO SCH (11:43)
[2017-07-26] MEDS: Sodium Bicarbonate (ANTACID)* 650 MG TAB PO SCH ×2 (11:43→16:27)
[2017-07-26] MEDS: Lidocaine PATCH 5%* 1 PATCH TRANSDERM SCH (11:43)
[2017-07-26] MEDS: Polyethylene Glycol 3350* 17 GM PACKET PO SCH (11:45)
--- NOTE | 2017-07-26 12:32 | DS ---
- Discharge Summary Admission Date: 07/12/17 Discharge Date: 07/26/17 Discharge Diagnosis: 1. End stage Renal Disease: on dialysis, secondary to newly diagnosed multiple myeloma 2. Multiple Myeloma: newly diagnosed on Velcade weekly (Day 5) 3. Anemia: secondary to myeloma, transfuse PRN Discharge Medications: 1. Acetaminophen 650 mg PO q4hrs PRN pain 2. Acyclovir 200 mg PO q12 hours 3. Lidocaine 5% patch transdermal daily 4. Oxycodone SR 10 mg PO q12 hrs 5. Oxycodone 2.5 mg PO q4hrs PRN pain 6. Sevelamer 800 mg PO TID with meals 7. Docusate 100 mg PO BID PRN constipation 8. Miralax 17 gm PO daily PRN constipation 9. Sodium Bicarbonate 1,300 mg PO TID 10. Albuterol HFA 2 puffs inh. q4hrs PRN SOB/Wheeze 11. Alprazolam 0.125-0.25 mg PO TID PRN anxiety 12. Flexeril 5 mg PO TID PRN pain Hospital Course: Please see admission not for full H&P, however, briefly Ms. Kenney was first seen by our oncology practice on 06/25/[address] Francis for evaluation of anemia. At that time a bone marrow biopsy was recommended, however due to Ms. Kenney's desire to travel she deferred full work-up. She presented to the ER on 07/12/17 with severe weakness and flu like symptoms. In the ER she was noted to be anemic and have a Cr of 4.61. She was admitted for hydration and further work- up. Dr. Bowen was consulted the following day and a skeletal survery was ordered (negative for lytic lesions). She was seen by our team on 07/14 at which time a bone marrow biopsy was obtained by Dr. Frias. Bone marrow revealed plasma cells and she was started on Dex 40 mg IV daily x4 days. On 07/15 she had a tunnel dialysis catheter placed and on 07/16 she had her first round of dialysis. Dr. Francis recommended starting therapy on 07/22 and she received her first dose of Bortezomib sub q (plan for weekly treatments). On 07/23 she was felt to be clinically ready for d/c, however there was not a safe plan in place and therefore this was deferred until today at which time she is agreeable to d/c to subacute rehab. She is receiving dialysis today followed by one unit PRBCs and will go to [facility] [place] this afternoon. While inpatient she received one unit PRBCs on 07/19 and 07/21. She has been working with PT and is slowly getting stronger. She will receive dialysis , , and Wednesday and will cont. weekly chemo inj. on . Labs will be monitored at least weekly. She will follow-up with Dr. Bowen as an outpatient and with Dr. Francis in approx. 2 weeks. Plan of care was discussed at length with all questions answered. >40 min spent with >50% face to face counseling
[2017-07-26 16:02] VITALS: BP 150/69
[2017-07-26] MEDS: oxyCODONE TAB* 5 MG TAB PO PRN (16:28)
== END 2017-07-26 16:35 | DRG 840 ==
LOC: ED 10:33 → MED 13:26 → OBSVTOIN 07-13 15:00 → MED 07-22 14:06
PROVIDERS: ADMIT Hospitalist; ATTEND Internal Medicine Hematology & Oncology
PROC: 07DR3ZX Extraction of Iliac Bone Marrow, Percutaneous Approach, Diagnostic (ICD-10-PCS; 2017-07-14)
PROC: B514ZZA Fluoroscopy of Left Jugular Veins, Guidance (ICD-10-PCS; 2017-07-15)
PROC: 05HN33Z Insertion of Infusion Device into Left Internal Jugular Vein, Percutaneous Approach (ICD-10-PCS; principal; 2017-07-15 17:45)
PROC: 5A1D70Z Performance of Urinary Filtration, Intermittent, Less than 6 Hours Per Day (ICD-10-PCS; 2017-07-16)
PROC: 30233N1 Transfusion of Nonautologous Red Blood Cells into Peripheral Vein, Percutaneous Approach (ICD-10-PCS; 2017-07-19)
PROC: 5A1D70Z Performance of Urinary Filtration, Intermittent, Less than 6 Hours Per Day (ICD-10-PCS; 2017-07-19)
PROC: 5A1D70Z Performance of Urinary Filtration, Intermittent, Less than 6 Hours Per Day (ICD-10-PCS; 2017-07-21)
PROC: 5A1D70Z Performance of Urinary Filtration, Intermittent, Less than 6 Hours Per Day (ICD-10-PCS; 2017-07-23)
PROC: 5A1D70Z Performance of Urinary Filtration, Intermittent, Less than 6 Hours Per Day (ICD-10-PCS; 2017-07-26)
DX: C90.00 Multiple myeloma not having achieved remission (principal); N18.6 End stage renal disease; E88.3 Tumor lysis syndrome; D69.6 Thrombocytopenia, unspecified; E87.1 Hypo-osmolality and hyponatremia; E86.0 Dehydration; E87.5 Hyperkalemia; J44.9 Chronic obstructive pulmonary disease, unspecified; N17.9 Acute kidney failure, unspecified; H61.21 Impacted cerumen, right ear; F32.9 Major depressive disorder, single episode, unspecified; F41.9 Anxiety disorder, unspecified; H26.9 Unspecified cataract; M81.0 Age-related osteoporosis without current pathological fracture; K58.9 Irritable bowel syndrome, unspecified; D64.9 Anemia, unspecified; M19.011 Primary osteoarthritis, right shoulder; Z82.49 Family history of ischemic heart disease and other diseases of the circulatory system; Z83.3 Family history of diabetes mellitus; Z91.018 Allergy to other foods; Z91.048 Other nonmedicinal substance allergy status; Z87.891 Personal history of nicotine dependence; Z72.89 Other problems related to lifestyle; Z80.3 Family history of malignant neoplasm of breast; Z80.1 Family history of malignant neoplasm of trachea, bronchus and lung
CPT/HCPCS: 36415; 38220; 38221; 70450; 71010; 71045; 72125; 72128; 72131; 74176; 76000; 76775; 77075; 80048; 80053; 81003; 81015; 81479; 82232; 82550; 82570; 82784; 83516; 83605; 83690; 83735; 83880; 83883; 84100; 84300; 84443; 84484; 84550; 85025; 85027; 85060; 85097; 85610; 86140; 86160; 86162; 86480; 86703; 86704; 86706; 86803; 86850; 86900; 86901; 86922; 87086; 87340; 88184; 88185; 88188; 88237; 88264; 88271; 88274; 88305; 88311; 88313; 90935; 93005; 94760; 99231; 99232; 99233; 99239; 99284; A9270-GY; C1750; G0257; J0610; J0696; J0885; J1100; J1170; J1642; J1644; J2250; J2405; J2783; J8540; J9041; P9040

== ENCOUNTER 2019-08-05 09:30 | Observation (INO) | payer MEDICARE, OTHER ==
[2019-08-05] MEDS ORDERED: Albuterol/Ipratropium NEB.SOL* Albuterol 2.5 MG/Ipratropium 0.5 MG 3 ML INH ONE ×2 (09:49→12:07)
--- OUTSIDE RECORDS SUMMARY | 2019-08-05 10:00 | XMS REPORT | Continuity of Care Document ---
:1950 External Reference #:[id number] Author Name Flavio Barahona M.D. Address [address] [place] [address] Care Team Providers Name Role Phone Jake Dey M.D. - Internal Care Team Information [employer] Medicine Problems Active Problems Provider Date Seasonal allergy Onset: Pseudophakia Flavio Barahona M.D. Onset: 12/06/2014 Nuclear senile cataract Flavio Barahona M.D. Onset: 12/06/2014 Myopia Steffany Franklin O.D. Onset: 01/02/2015 Osteoporosis Onset: Internal hordeolum Steffany Franklin O.D. Onset: 01/01/2016 Regular astigmatism Steffany Franklin O.D. Onset: 02/07/2016 Presbyopia Steffany Franklin O.D. Onset: 02/07/2016 Multiple myeloma Onset: Vitreous degeneration Flavio Barahona M.D. Onset: 06/15/2019 Social History Type Date Description Comments Sex Unknown ETOH Use Occasionally consumes alcohol Tobacco Use Start: Unknown End: Unknown Patient is a former smoker Smoking Status Reviewed: 06/15/19 Patient is a former smoker Allergies, Adverse Reactions, Alerts Active Allergies Reaction Severity Comments Date Seasonal 02/08/2018 Medications Active Medications SIG Qnty Indications Ordering Date Provider [place] 3 Flavio Barahona, 2000mg Capsules M.D. Xanax as needed Unknown 0.25mg Tablets Magnesium-Oxide as needed Unknown 350mg Tablets Aspirin Ec 1 pill daily for Unknown 81mg Tablets heart disease DR prevention B Complex Unknown Tablets Vitamin D Unknown 1000Unit Tablets Pomalyst Unknown 2mg Capsules Darzalex Unknown 400mg/20ML Solution Milk Thistle Unknown 140mg Capsules Probiotic Unknown Capsules Dexamethasone Unknown 1mg Tablets Acyclovir Unknown 400mg Tablets Immunizations Description No Information Available Vital Signs Description No Information Available Results Description No Information Available Procedures Date Code Description Status 04/28/2019 33805 Determination Of Refractive State Completed 04/28/2019 18559 Est Patient Comprehensive Exam Completed 04/28/2019 101 Level 1 SCL Fit/Refit Completed Medical Devices Description No Information Available Encounters Description No Information Available Assessments Date Code Description Provider 06/15/2019 H25.12 Age-related nuclear cataract, left eye Flavio Barahona M.D. 06/15/2019 Z96.1 Presence of intraocular lens Flavio Barahona M.D. 06/15/2019 H43.813 Vitreous degeneration, bilateral Flavio Barahona M.D. 04/28/2019 H25.12 Age-related nuclear cataract, left eye Steffany Franklin O.D. 04/28/2019 H52.4 Presbyopia Steffany Franklin O.D. 04/28/2019 H52.13 Myopia, bilateral Steffany Franklin O.D. Plan of Treatment 06/15/2019 - Flavio Barahona M.D.H25.12 Age-related nuclear cataract, left eyeComments:Smoking can increase the risk of developing or worsening any eye related disease, as well as affect your overall health. If you are a smoker, we strongly recommend that you quit.If you are not a smoker, we strongly recommend that you do not start. You have been diagnosed with a cataract in your lefteye. It is limiting your vision, and I am unable to improve you with new glasses. Our next step is to schedule Cataract surgery and all necessary appointments, which Seema will do for you. We recommend that you write down any questions you may have and bring them to your preoperative appointment sothat Dr. Arleo can answer them for you. If you have any questions or concerns , you can reach Seema Reed at .Follow up:For preop exam before surgery.Z96.1 Presence of intraocular lensComments:The artificial lens implant in your right eye appears to be stable at this time.H43.813 Vitreous degeneration, bilateralComments:You have a Posterior Vitreous Detachment. If you have any changes in your floaters or flashing lights, please contact this office. Functional Status Description No Information Available Mental Status Description No Information Available Referrals Description No Information Available
[2019-08-05 10:33] LABS: ABS Basophils 0.1 10^3/ul (0-0.2); ABS Eosinophils 0.2 10^3/ul (0-0.6); ABS Monocytes 0.4 10^3/ul (0-0.8); ABS Neutrophils 6.8 10^3/ul (1.5-7.7); Eosinophil % 2.7 %; Hematocrit 38 % (35-47); Hemoglobin 13.5 g/dL (12.0-16.0); Lymphocyte % 12.1 %; Mean Corpuscular HGB Conc 35 g/dL (31-36); Mean Corpuscular Hemoglobin 34 pg (27-31); Mean Corpuscular Volume 97 fL (80-97); Mean Platelet Volume 8.2 fL (7.4-10.4); Platelet Count 271 10^3/uL (150-450); Red Blood Count 3.95 10^6 /uL (3.70-4.87); Red Cell Distribution Width 15 % (10-15); White Blood Count 8.6 10^3/uL (3.5-10.8)
[2019-08-05 10:39] LABS: INR 1.02 (0.82-1.09)
[2019-08-05 10:50] LABS: Albumin 4.1 g/dL (3.2-5.2); Albumin/Globulin Ratio 1.5 (1-3); C Reactive Protein 48.91 mg/L (<8.01); Calcium 9.2 mg/dL (8.6-10.3); EGFR African American 85.6 (>60); EGFR Non-African American 70.7 (>60); Globulin 2.7 g/dL (2-4); Total Protein 6.8 g/dL (6.4-8.9)
[2019-08-05 10:52] LABS: Troponin I 0.01 ng/mL (<0.03)
[2019-08-05 10:55] LABS: Influenza A Molecular POSITIVE (Negative)
[2019-08-05] MEDS ORDERED: NS 0.9% 1000 ML** 1,000 ML IV ONE ×2 (10:57→12:54)
[2019-08-05] MEDS ORDERED: Oseltamivir SUSP 75 MG dose* 75 MG/12.5 ML ORAL.SYRIN PO ONE (12:54)
[2019-08-05] MEDS ORDERED: Albuterol 2.5 MG/3 ML NEB.SOL* (0.083%) INH PRN (13:00)
[2019-08-05] MEDS ORDERED: Acetaminophen TAB* 325 MG PO PRN (13:00)
[2019-08-05] MEDS ORDERED: Ondansetron INJ* 2 MG/ML VIAL IV PRN (13:00)
[2019-08-05] MEDS ORDERED: Magnesium Hydroxide LIQ* 30 ML UDC PO PRN (13:00)
[2019-08-05] MEDS ORDERED: Oseltamivir CAP* 75 MG CAP PO ONE (13:05)
[2019-08-05] MEDS ORDERED: oxyCODONE TAB* 5 MG TAB PO PRN (13:09)
[2019-08-05] MEDS ORDERED: Cyclobenzaprine TAB* 10 MG PO PRN (13:09)
[2019-08-05] MEDS ORDERED: ALPRAZolam TAB* 0.25 MG PO PRN (13:09)
[2019-08-05] MEDS ORDERED: guaiFENesin/CODIENE 100mg/10mg 5 ML UDC PO PRN (13:13)
--- NOTE | 2019-08-05 13:23 | ED ---
Shortness of Breath - HPI Summary HPI Summary: Pt is a 69yo F with a hx of multiple myeloma and COPD presenting to the ED with a friend with SOB x 2 days. Denies acute onset. States she had had a cough x 4 weeks, worse x 2 days and now developed SOB. Denies subjective fevers, but has been having mild chills. Denies appetite change, back pain, BARNARD, abd pain, or weakness. Did not receive the flu vaccine this year. Currently on a regime of chemo for MM and steroids every 2 weeks. - History of Current Complaint Chief Complaint: EDShortnessOfBreath Time Seen by Provider: 08/05/19 09:36 Hx Obtained From: Patient Onset/Duration: Sudden Onset Timing: Constant Current Severity: Severe Dyspnea At: Rest Aggravating Factors: Deep Breaths, Recumbent Position Alleviating Factors: Bronchodilators, Oxygen - Risk Factors Pulmonary Embolism: Negative Cardiac: Negative Pseudomonas: Negative Tuberculosis: Negative - Allergy/Home Medications Allergies/Adverse Reactions: Allergies Allergy/AdvReac Type Severity Reaction Status Date / Time lactose AdvReac GI Upset Verified 08/05/19 09:35 wheat AdvReac See Comment Verified 08/05/19 09:35 Home Medications: Home Medications Aspirin 81 mg CHEW TAB* [Aspirin Low Dose TAB*] 81 mg PO DAILY 08/05/19 [ History Confirmed 08/05/19] Cholecalciferol CAP/TAB(NF) [Vitamin D3 CAP/TAB (NF)] 5,000 unit PO DAILY [History Confirmed 08/05/19] Cyanocobalamin (Vitamin B-12) [Vitamin B12] 2,500 mcg PO DAILY 08/05/19 [ History Confirmed 08/05/19] Dexamethasone TAB* [Decadron TAB*] 40 mg PO SEE INSTRUCTIONS 08/05/19 [History Confirmed 08/05/19] [place]-3 Fatty Acids/Fish Oil [[place] 3] 1 cap PO DAILY 08/05/19 [History Confirmed 08/05/19] Pomalidomide [Pomalyst] 4 mg PO 21 08/05/19 [History Confirmed 08/05/19] PMH/Surg Hx/FS Hx/Imm Hx Previously Healthy: Yes Endocrine/Hematology History: Denies: Hx Diabetes Cardiovascular History: Denies: Hx Hypertension, Hx Pacemaker/ICD, Other Cardiovascular Problems/ Disorders Respiratory History: Reports: Hx Chronic Obstructive Pulmonary Disease (COPD) Denies: Hx Asthma, Other Respiratory Problems/Disorders GI History: Reports: Hx Irritable Bowel - MILD FOR YEARS Denies: Other GI Disorders History: Denies: Hx Dialysis, Hx Renal Disease Musculoskeletal History: Reports: Other Musculoskeletal History - OSTEOPOROSIS Sensory History: Reports: Hx Cataracts - ANTHONY, RIGHT WORSE, Hx Contacts or Glasses Denies: Hx Hearing Aid Opthamlomology History: Reports: Hx Cataracts - ANTHONY, RIGHT WORSE, Hx Contacts or Glasses Neurological History: Denies: Other Neuro Impairments/Disorders Psychiatric History: Reports: Hx Anxiety - ON MEDS PRN, Hx Depression - YEARS AGO Denies: Hx Panic Disorder - Cancer History Cancer Type, Location and Year: MULTIPLE MYELOMA Hx Chemotherapy: Yes - MULTIPLE MYELOMA Hx Radiation Therapy: No - Surgical History Surgery Procedure, Year, and Place: TONSILLECTOMY - AGE 3 - [facility];. ENDOMETRIOSIS REMOVAL 1985 - [place];. D&C 2014 - [facility] – [place];. CATARACT RIGHT EYE; . BONE BXs (SEVERAL). 04/2019 LEEP PROCEDURES Hx Anesthesia Reactions: No - Immunization History Hx Pertussis Vaccination: No Immunizations Up to Date: Yes Infectious Disease History: No Infectious Disease History: Denies: Traveled Outside the in Last 30 Days - Social History Occupation: Unemployed Lives: With Family Alcohol Use: None Alcohol Amount: 1 PER DAY Hx Substance Use: No Substance Use Type: Reports: None Hx Tobacco Use: Yes Smoking Status (MU): Former Smoker Type: Cigarettes Amount Used/How Often: PACK A DAY Have You Smoked in the Last Year: No Review of Systems Negative: Fever, Chills, Fatigue, Skin Diaphoresis Negative: Chest Pain Positive: Shortness Of Breath, Cough Negative: Abdominal Pain, Vomiting, Diarrhea, Nausea Genitourinary: Negative Positive: no symptoms reported, see HPI Negative: Arthralgia, Myalgia Skin: Negative All Other Systems Reviewed And Are Negative: Yes Physical Exam Triage Information Reviewed: Yes Vital Signs On Initial Exam: Initial Vitals Temp Pulse Resp BP Pulse Ox 98.9 F 86 22 195/105 89 08/05/19 09:32 08/05/19 09:32 08/05/19 09:32 08/05/19 09:32 08/05/19 09:32 Vital Signs Reviewed: Yes Appearance: Positive: Well-Appearing, Well-Nourished Skin: Positive: Warm, Skin Color Reflects Adequate Perfusion Head/Face: Positive: Normal Head/Face Inspection Eyes: Positive: EOMI, Conjunctiva Clear Neck: Positive: Supple, No Lymphadenopathy Respiratory/Lung Sounds: Positive: Rhonchi, Wheezes Cardiovascular: Positive: Pulses are Symmetrical in both Upper and Lower Extremities Musculoskeletal: Positive: Normal, Strength/ROM Intact Neurological: Positive: Speech Normal Psychiatric: Positive: Affect/Mood Appropriate AVPU Assessment: Alert Procedures - Sedation Patient Received Moderate/Deep Sedation with Procedure: No Diagnostics - Vital Signs Vital Signs Temp Pulse Resp BP Pulse Ox 08/05/19 12:32 100 16 97 08/05/19 10:15 102 16 162/76 94 08/05/19 10:02 97 17 95 08/05/19 10:00 93 32 94 08/05/19 09:45 93 20 177/94 93 08/05/19 09:32 98.9 F 86 22 195/105 89 - Laboratory Lab Results: Lab Results 08/05/19 08/05/19 08/05/19 Range/Units 09:46 10:17 10:17 WBC 8.6 (3.5-10.8) 10^3/uL RBC 3.95 (3.70-4.87) 10^6 /uL Hgb 13.5 (12.0-16.0) g/dL Hct 38 (35-47) % MCV 97 (80-97) fL MCH 34 H (27-31) pg MCHC 35 (31-36) g/dL RDW 15 (10-15) % Plt Count 271 (150-450) 10^3/uL MPV 8.2 (7.4-10.4) fL Neut % (Auto) 79.9 % Lymph % (Auto) 12.1 % Hand % (Auto) 4.6 % Eos % (Auto) 2.7 % Baso % (Auto) 0.7 % Absolute Neuts (auto) 6.8 (1.5-7.7) 10^3/ul Absolute Lymphs (auto) 1.0 (1.0-4.8) 10^3/ul Absolute Monos (auto) 0.4 (0-0.8) 10^3/ul Absolute Eos (auto) 0.2 (0-0.6) 10^3/ul Absolute Basos (auto) 0.1 (0-0.2) 10^3/ul Absolute Nucleated RBC 0.0 10^3/ul Nucleated RBC % 0.0 INR (Anticoag Therapy) (0.82-1.09) Sodium 131 L (135-145) mmol/L Potassium 4.0 (3.5-5.0) mmol/L Chloride 100 L (101-111) mmol/L Carbon Dioxide 23 (22-32) mmol/L Anion Gap 8 (2-11) mmol/L BUN 12 (6-24) mg/dL Creatinine 0.80 (0.51-0.95) mg/dL Est GFR ( Amer) 85.6 (>60) Est GFR (Non-Af Amer) 70.7 (>60) BUN/Creatinine Ratio 15.0 (8-20) Glucose 119 H (70-100) mg/dL Lactic Acid (0.5-2.0) mmol/L Calcium 9.2 (8.6-10.3) mg/dL Magnesium Pending Total Bilirubin 1.00 (0.2-1.0) mg/dL AST 14 (13-39) U/L ALT 16 (7-52) U/L Alkaline Phosphatase 54 (34-104) U/L Troponin I 0.01 (<0.03) ng/mL C-Reactive Protein 48.91 H (<8.01) mg/L Total Protein 6.8 (6.4-8.9) g/dL Albumin 4.1 (3.2-5.2) g/dL Globulin 2.7 (2-4) g/dL Albumin/Globulin Ratio 1.5 (1-3) Influenza A (Rapid) Positive A (Negative) Influenza B (Rapid) Not Reportable 08/05/19 08/05/19 Range/Units 10:17 10:17 WBC (3.5-10.8) 10^3/uL RBC (3.70-4.87) 10^6 /uL Hgb (12.0-16.0) g/dL Hct (35-47) % MCV (80-97) fL MCH (27-31) pg MCHC (31-36) g/dL RDW (10-15) % Plt Count (150-450) 10^3/uL MPV (7.4-10.4) fL Neut % (Auto) % Lymph % (Auto) % Hand % (Auto) % Eos % (Auto) % Baso % (Auto) % Absolute Neuts (auto) (1.5-7.7) 10^3/ul Absolute Lymphs (auto) (1.0-4.8) 10^3/ul Absolute Monos (auto) (0-0.8) 10^3/ul Absolute Eos (auto) (0-0.6) 10^3/ul Absolute Basos (auto) (0-0.2) 10^3/ul Absolute Nucleated RBC 10^3/ul Nucleated RBC % INR (Anticoag Therapy) 1.02 (0.82-1.09) Sodium (135-145) mmol/L Potassium (3.5-5.0) mmol/L Chloride (101-111) mmol/L Carbon Dioxide (22-32) mmol/L Anion Gap (2-11) mmol/L BUN (6-24) mg/dL Creatinine (0.51-0.95) mg/dL Est GFR ( Amer) (>60) Est GFR (Non-Af Amer) (>60) BUN/Creatinine Ratio (8-20) Glucose (70-100) mg/dL Lactic Acid 0.9 (0.5-2.0) mmol/L Calcium (8.6-10.3) mg/dL Magnesium Total Bilirubin (0.2-1.0) mg/dL AST (13-39) U/L ALT (7-52) U/L Alkaline Phosphatase (34-104) U/L Troponin I (<0.03) ng/mL C-Reactive Protein (<8.01) mg/L Total Protein (6.4-8.9) g/dL Albumin (3.2-5.2) g/dL Globulin (2-4) g/dL Albumin/Globulin Ratio (1-3) Influenza A (Rapid) (Negative) Influenza B (Rapid) Result Diagrams: 08/05/19 10:17 08/05/19 10:17 Lab Statement: Any lab studies that have been ordered have been reviewed, and results considered in the medical decision making process. Course/Dx - Course Course Of Treatment: This patient was evaluated for shortness of breath 2 days. She arrives in moderate respiratory distress. Patient is wheezing and states she feels as though there is fluid in her lungs. She does have a history of COPD. Does not use O2 at home. She is placed on 3 L on arrival and remains at a 92%. Influenza positive. Duo neb given with improvement. Pt also given 1L NS. She currently has a HR of 97. Titrated O2 down to 2 then 1L and patient dropped to 87% while at rest. Dr Ryder called and recommended admission. Tamiflu and other 1L fluids given. Dr. Bhatti will admit. - Diagnoses Differential Diagnosis/HQI/PQRI: Positive: Asthma, COPD Exacerbation Provider Diagnoses: Shortness of breath, Hypoxia, Influenza A - Physician Notifications Discussed Care of Patient With: Blaire Ryder Instructed by Provider To: Admit As Inpatient Discharge ED - Sign-Out/Discharge Documenting (check all that apply): Patient Departure - Discharge Plan Condition: Fair Disposition: ADMITTED TO [facility] Referrals: Jake Dey MD [Primary Care Provider] - - Billing Disposition and Condition Condition: FAIR Disposition: Admitted to [facility]
--- NOTE | 2019-08-05 15:42 | HP ---
CC: Dr. Jake Dey; Dr. Blaire Ryder * HISTORY AND PHYSICAL: DATE OF ADMISSION: 08/05/19 PRIMARY CARE PHYSICIAN: Dr. Jake Dey. ONCOLOGIST: Dr. Blaire Ryder. HEALTHCARE PROXY: Huma, her friend, phone number [phone]. CODE STATUS: Full. CHIEF COMPLAINT: Two days of productive cough, shortness of breath. HISTORY OF PRESENT ILLNESS: Ms. Kenney is a 69-year-old woman with multiple myeloma, COPD, and anxiety who is presenting with subacute productive cough. She reports approximately 1 week ago experiencing an upper respiratory infection mostly with runny nose and congestion, which resolved by 4 days prior to this presentation. During that time, she did not experience shortness of breath, myalgias, fevers, or GI symptoms. Her symptoms resolved and she felt well for 2 days up until 2 days prior to presentation when she began experiencing a cough productive of clear mucus. She was coughing so much especially if she tried to lie flat at night, that she also began to experience rib aching, but only when coughing and not at rest. She reports mild shortness of breath, but no chest pain. No pain with deep breathing or exertion. She denies muscle aches, fevers, nausea, vomiting, diarrhea, headache. She reports taking Mucinex DM, which helps her cough somewhat. On morning of presentation, she called her oncologist who recommended that she present to the emergency room for a flu swab given her immunocompromised state. Of note, 4 days prior to admission, the patient underwent chemotherapy treatment with daratumumab and she also takes Pomalyst. Also of note, 4 days prior to presentation, she received 40 mg of oral dexamethasone, which she gets weekly for chemotherapy. PAST MEDICAL HISTORY: 1. Multiple myeloma diagnosed during admission in 2018 and at that time, complicated by end-stage renal disease, which briefly required dialysis as well as significant anemia and hyponatremia. Now, the patient is on daratumumab and pomalidomide weekly with dexamethasone. 2. COPD, not on home daily inhaler. 3. Generalized anxiety disorder, rarely takes Xanax. MEDICATIONS: 1. Pomalyst 4 mg orally daily for 21 days. 2. Acyclovir 200 mg twice a day. 3. Aspirin 81 mg daily. 4. Alprazolam 0.125 mg nightly as needed for anxiety. 5. Cyclobenzaprine 5 mg up to 3 times a day as needed for muscle spasm. 6. Dexamethasone 40 mg on Wednesday with chemo. 7. Vitamin B12 2500 mcg daily. 8. Vitamin D3 5000 units daily. 9. [place]-3 fatty acid 1 capsule daily. 10. Albuterol 2 puffs every 4 hours as needed for shortness of breath. 11. Tylenol 650 every 4 hours as needed for fever or pain. 12. MiraLAX 17 g daily as needed for constipation. ALLERGIES: Denies drug allergies. States that LACTOSE and WHEAT cause GI upset and bloating. SOCIAL HISTORY: The patient lives alone. 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 Her healthcare proxy is her friend, Huma. The patient has a 30-pack year smoking history and quit in 1987. She drinks 1 glass of red wine with dinner and denies recreational drug use. FAMILY HISTORY: Father with CAD and diabetes. Brother with lung cancer and mets to brain. Sister with history of breast cancer. REVIEW OF SYSTEMS: A complete 10-point review of systems was performed and pertinent positives and negatives are listed in the HPI. PHYSICAL EXAMINATION GENERAL: She is a well-appearing woman in no acute distress, who is alert and interactive, speaking in full sentences. VITAL SIGNS: Afebrile, heart rate low 100s, blood pressure 162/76, respiratory rate 16, oxygen saturation 93% on 1.5 L. HEENT: With moist mucous membranes. OP clear. NECK: No cervical lymphadenopathy. LUNGS: Diffuse rhonchi with expiratory wheeze. HEART: Tachycardic. Regular rhythm. No murmurs, gallops, or rubs. ABDOMEN: Soft, nontender, nondistended. EXTREMITIES: Warm and well perfused without edema. NEURO: A and O x3 without focal deficits. DIAGNOSTIC STUDIES/LAB DATA: CBC and LFTs unremarkable. BMP notable for sodium of 131. CRP 49. Influenza A rapid swab positive. Chest x-ray with hyperinflation consistent with COPD, no active cardiopulmonary disease, diffuse osteopenia. EKG with normal sinus rhythm, rate 96, Q waves anteriorly. ASSESSMENT AND PLAN: Ms. Kenney is a 69-year-old woman with multiple myeloma, on chemo and steroids, chronic obstructive pulmonary disease, and anxiety who is presenting with subacute productive cough associated with chills. She was found hypoxic on room air with influenza A swab positive. 1. Influenza. The patient is immunocompromised. She will be admitted for closer observation and she has been started on oseltamivir for a 5-day course. We will gently hydrate the patient. She is tachycardic in the ER likely from albuterol, but she does report significant thirst. 2. Chronic obstructive pulmonary disease with exacerbation. The patient has had increased cough, shortness of breath, and sputum production due to influenza. She will be started on a steroid burst with nebs as needed. Her SiO2 goal is 90% to 92% and we will wean oxygen as able. 3. Multiple myeloma. After discussion with the patient's oncologist, we will hold Pomalyst while admitted and acutely infected. She can continue her home acyclovir twice a day. 4. Anxiety disorder. We will continue the patient's home alprazolam 0.125 mg nightly as needed for anxiety. 5. DVT prophylaxis. Initiate enoxaparin 40 mg subcutaneous daily. 6. Code status. Full code. TIME SPENT: Approximately 60 minutes was spent on admission of this patient, more than half of which was spent in care and coordination at bedside for interview and exam. [id number]/[facility] #: [id number] [place]
[2019-08-05] MEDS: Enoxaparin(*) 40 MG/0.4 ML SYR SUBCUT SCH (16:11)
[2019-08-05] MEDS: Acyclovir* 200 MG CAP PO SCH (16:41)
[2019-08-05] MEDS: Albuterol 2.5 MG/3 ML NEB.SOL* (0.083%) INH SCH ×2 (19:27→23:10)
[2019-08-05] MEDS: Oseltamivir CAP* 75 MG CAP PO SCH (22:21)
[2019-08-05 23:44] LABS: Urine Appearance Clear; Urine Bilirubin Negative (Negative); Urine Blood Negative (Negative); Urine Color Straw; Urine Glucose 3+(>=500 mg/dL) (Negative); Urine Ketones 1+ (Negative); Urine Nitrite Negative (Negative); Urine Protein Negative (Negative); Urine Specific Gravity 1.003 (1.010-1.030); Urine Urobilinogen Negative (Negative)
[2019-08-06] MEDS: Albuterol 2.5 MG/3 ML NEB.SOL* (0.083%) INH SCH ×2 (03:10→07:31)
[2019-08-06] MEDS: Acyclovir* 200 MG CAP PO SCH (06:13)
--- NOTE | 2019-08-06 07:53 | PN ---
Subjective Date of Service: 08/06/19 Interval History: Admitted yesterday for influenza and COPD exacerbation. Stated on steroids, Tamiflu, and given IVF. Required supplemental O2 but able to be titrated off this morning. No acute events overnight. Pt reports feeling significantly better. Slept well last night. Cough and SOB improved. No longer experiencing wheezing. Denies fevers, chills, CP. States she still had low UOP after 2 L IVF. Still feels a bit thirsty. Objective Active Medications: Acetaminophen (Tylenol Tab*) 975 mg PO Q8H PRN PRN Reason: Fever/Pain-Mild Last Admin: 08/05/19 22:23 Dose: 650 mg Acyclovir (Zovirax Cap*) 200 mg PO Q12H [facility] Last Admin: 08/06/19 06:13 Dose: 200 mg Albuterol (Ventolin 2.5 Mg/3 Ml Neb.Dolores*) 2.5 mg INH [id number] AWAKE PRN PRN Reason: sob/wheezing Last Admin: 08/05/19 16:43 Dose: 2.5 mg Albuterol (Ventolin 2.5 Mg/3 Ml Neb.Dolores*) 2.5 mg INH [id number] AWAKE [facility] Last Admin: 08/06/19 07:31 Dose: 2.5 mg Alprazolam (Xanax Tab*) 0.125 mg PO TID PRN PRN Reason: ANXIETY Aspirin (Aspirin 81 Mg Chew Tab*) 81 mg PO DAILY [facility] Cholecalciferol (Vitamin D Tab*) 5,000 units PO DAILY [facility] Cyanocobalamin (Vitamin B12 Tab*) 2,500 mcg PO DAILY [facility] Cyclobenzaprine HCl (Flexeril Tab*) 5 mg PO TID PRN PRN Reason: PAIN Enoxaparin Sodium (Lovenox(*)) 40 mg SUBCUT Q24H [facility] Last Admin: 08/05/19 16:11 Dose: 40 mg Fish Oil (Fish Oil (Nf)) 1,000 mg PO DAILY [facility] Guaifenesin/Codeine Phosphate (Robitussin Ac 100mg/10mg In 5 Ml) 5 ml PO Q6H PRN PRN Reason: COUGH Magnesium Hydroxide (Milk Of Magnesia Liq*) 30 ml PO Q4H PRN PRN Reason: CONSTIPATION Ondansetron HCl (Zofran Inj*) 4 mg IV Q4H PRN PRN Reason: NAUSEA/VOMITING Oseltamivir Phosphate (Tamiflu Cap*) 75 mg PO BID [facility] Stop: 08/09/19 21:01 Last Admin: 08/05/19 22:21 Dose: 75 mg Oxycodone HCl (Roxycodone Tab*) 2.5 mg PO Q4H PRN PRN Reason: Pain - Mod to Severe Prednisone (Deltasone 20 Mg Tab) 40 mg PO DAILY [facility] Stop: 08/08/19 09:01 Last Admin: 08/05/19 16:11 Dose: 40 mg Vital Signs - 8 hr 08/06/19 08/06/19 03:24 07:21 Temperature 97.8 F Pulse Rate 72 Respiratory 19 19 Rate Blood Pressure 156/72 (mmHg) Oxygen Devices in Use Now: Nasal Cannula Appearance: well appearing pleasant woman in NAD Eyes: No Scleral Icterus Ears/Nose/Mouth/Throat: Clear Oropharnyx, Mucous Membranes Moist Neck: NL Appearance and Movements; NL JVP, Trachea Midline Respiratory: - - mild diffuse rhonchi, no longer with wheeze Abdominal: NL Sounds; No Tenderness; No Distention, No Hepatosplenomegaly Extremities: No Edema Skin: No Rash or Ulcers Neurological: Alert and Oriented x 3 Result Diagrams: 08/05/19 10:17 08/06/19 07:42 Additional Lab and Data: Lab Results 08/05/19 08/05/19 08/05/19 Range/Units 09:46 10:17 10:17 WBC 8.6 (3.5-10.8) 10^3/uL RBC 3.95 (3.70-4.87) 10^6 /uL Hgb 13.5 (12.0-16.0) g/dL Hct 38 (35-47) % MCV 97 (80-97) fL MCH 34 H (27-31) pg MCHC 35 (31-36) g/dL RDW 15 (10-15) % Plt Count 271 (150-450) 10^3/uL MPV 8.2 (7.4-10.4) fL Neut % (Auto) 79.9 % Lymph % (Auto) 12.1 % [place] % (Auto) 4.6 % Eos % (Auto) 2.7 % Baso % (Auto) 0.7 % Absolute Neuts (auto) 6.8 (1.5-7.7) 10^3/ul Absolute Lymphs (auto) 1.0 (1.0-4.8) 10^3/ul Absolute Monos (auto) 0.4 (0-0.8) 10^3/ul Absolute Eos (auto) 0.2 (0-0.6) 10^3/ul Absolute Basos (auto) 0.1 (0-0.2) 10^3/ul Absolute Nucleated RBC 0.0 10^3/ul Nucleated RBC % 0.0 INR (Anticoag Therapy) (0.82-1.09) Sodium 131 L (135-145) mmol/L Potassium 4.0 (3.5-5.0) mmol/L Chloride 100 L (101-111) mmol/L Carbon Dioxide 23 (22-32) mmol/L Anion Gap 8 (2-11) mmol/L BUN 12 (6-24) mg/dL Creatinine 0.80 (0.51-0.95) mg/dL Est GFR ( Amer) 85.6 (>60) Est GFR (Non-Af Amer) 70.7 (>60) BUN/Creatinine Ratio 15.0 (8-20) Glucose 119 H (70-100) mg/dL Lactic Acid (0.5-2.0) mmol/L Calcium 9.2 (8.6-10.3) mg/dL Magnesium Pending Total Bilirubin 1.00 (0.2-1.0) mg/dL AST 14 (13-39) U/L ALT 16 (7-52) U/L Alkaline Phosphatase 54 (34-104) U/L Troponin I 0.01 (<0.03) ng/mL C-Reactive Protein 48.91 H (<8.01) mg/L Total Protein 6.8 (6.4-8.9) g/dL Albumin 4.1 (3.2-5.2) g/dL Globulin 2.7 (2-4) g/dL Albumin/Globulin Ratio 1.5 (1-3) Influenza A (Rapid) Positive A (Negative) Influenza B (Rapid) Not Reportable 08/05/19 08/05/19 Range/Units 10:17 10:17 WBC (3.5-10.8) 10^3/uL RBC (3.70-4.87) 10^6 /uL Hgb (12.0-16.0) g/dL Hct (35-47) % MCV (80-97) fL MCH (27-31) pg MCHC (31-36) g/dL RDW (10-15) % Plt Count (150-450) 10^3/uL MPV (7.4-10.4) fL Neut % (Auto) % Lymph % (Auto) % [place] % (Auto) % Eos % (Auto) % Baso % (Auto) % Absolute Neuts (auto) (1.5-7.7) 10^3/ul Absolute Lymphs (auto) (1.0-4.8) 10^3/ul Absolute Monos (auto) (0-0.8) 10^3/ul Absolute Eos (auto) (0-0.6) 10^3/ul Absolute Basos (auto) (0-0.2) 10^3/ul Absolute Nucleated RBC 10^3/ul Nucleated RBC % INR (Anticoag Therapy) 1.02 (0.82-1.09) Sodium (135-145) mmol/L Potassium (3.5-5.0) mmol/L Chloride (101-111) mmol/L Carbon Dioxide (22-32) mmol/L Anion Gap (2-11) mmol/L BUN (6-24) mg/dL Creatinine (0.51-0.95) mg/dL Est GFR ( Amer) (>60) Est GFR (Non-Af Amer) (>60) BUN/Creatinine Ratio (8-20) Glucose (70-100) mg/dL Lactic Acid 0.9 (0.5-2.0) mmol/L Calcium (8.6-10.3) mg/dL Magnesium Total Bilirubin (0.2-1.0) mg/dL AST (13-39) U/L ALT (7-52) U/L Alkaline Phosphatase (34-104) U/L Troponin I (<0.03) ng/mL C-Reactive Protein (<8.01) mg/L Total Protein (6.4-8.9) g/dL Albumin (3.2-5.2) g/dL Globulin (2-4) g/dL Albumin/Globulin Ratio (1-3) Influenza A (Rapid) (Negative) Influenza B (Rapid) Assess/Plan/Problems-Billing Assessment: 69W with multiple myeloma, on chemo and steroids, COPD, and anxiety who is presenting with subacute productive cough associated with chills. She was found hypoxic on room air with influenza A swab positive. - Patient Problems (1) Influenza A Comment: now off O2 - cont Tamiflu (2) COPD (chronic obstructive pulmonary disease) Comment: Exacerbated by flu. Now off O2. - cont pred burst - cont nebs prn; doesn't use daily inhaler - cough syrup prn (3) Multiple myeloma Comment: On active chemo each Wednesday, with dexamethasone. - holding home pomalidomide, per Onc (4) DVT prophylaxis Comment: - SCDs while in bed - NO HEPARIN, high risk for bleeding 2/2 thrombocytopenia
[2019-08-06] MEDS ORDERED: Albuterol/Ipratropium NEB.SOL* Albuterol 2.5 MG/Ipratropium 0.5 MG 3 ML INH PRN (08:00)
[2019-08-06] MEDS ORDERED: Benzocaine/Menthol LOZ* 1 LOZENGE PO PRN (08:01)
[2019-08-06] MEDS: Oseltamivir CAP* 75 MG CAP PO SCH (08:04)
[2019-08-06 08:10] LABS: BUN/Creatinine Ratio 13.4 (8-20); Calcium 9.1 mg/dL (8.6-10.3); EGFR Non-African American 86.8 (>60); Potassium 4.6 mmol/L (3.5-5.0)
[2019-08-06] MEDS ORDERED: Cholecalciferol TAB* 1000 UNITS PO SCH (09:00)
[2019-08-06] MEDS ORDERED: Aspirin 81 mg CHEW TAB* 81 MG TAB.CHEW PO SCH (09:00)
[2019-08-06] MEDS ORDERED: OMEGA-3 FATTY ACIDS (NF) 1,000 MG CAP PO SCH (09:00)
[2019-08-06] MEDS ORDERED: Cyanocobalamin TAB* 500 MCG PO SCH (09:00)
[2019-08-06] MEDS ORDERED: Lactated Ringers 1000 ML Bag* 1,000 ML IV SCH (11:00)
[2019-08-06] MEDS: Enoxaparin(*) 40 MG/0.4 ML SYR SUBCUT SCH (11:46)
[2019-08-06 12:32] VITALS: BP 143/73
--- NOTE | 2019-08-06 21:38 | DS ---
CC: Jake Dey MD; Blaire Ryder MD * DISCHARGE SUMMARY: DATE OF ADMISSION: 08/05/19 DATE OF DISCHARGE: 08/06/19 PRIMARY CARE PHYSICIAN: Dr. Jake Dey. ONCOLOGIST: Dr. Blaire Ryder. PRIMARY DIAGNOSES: 1. Influenza A. 2. Chronic obstructive pulmonary disease exacerbation. SECONDARY DIAGNOSES: 1. Multiple myeloma, on active chemotherapy and steroids. 2. Generalized anxiety disorder. DISCHARGE MEDICATIONS: 1. Oseltamivir 75 mg twice a day for 4 more days. 2. Prednisone 40 mg daily for 2 more days. 3. Acyclovir 200 mg twice a day. 4. Aspirin 81 mg daily. 5. Alprazolam 0.125 mg at bedtime as needed for sleep. 6. Cyclobenzaprine 5 mg 3 times a day as needed for muscle spasm. 7. Vitamin B12 2500 mcg daily. 8. Vitamin D3 5000 units daily. 9. [place]-3 fatty acids 1 capsule daily. 10. Dexamethasone 40 mg to be taken on Tuesdays with chemo. 11. Pomalidomide 4 mg orally for 21 days, although this is being held in the setting of acute illness. 12. MiraLAX 17 g daily as needed for constipation. 13. Tylenol 650 every 4 hours as needed for pain. 14. Albuterol 2 puffs every 4 hours as needed for shortness of breath. HISTORY OF PRESENT ILLNESS: Ms. Kenney is a 69-year-old woman with multiple myeloma, on chemo; COPD; anxiety, who is presenting with subacute productive cough. She reports approximately 1 week ago experiencing an upper respiratory tract infection, which was mostly runny nose with congestion. These symptoms resolved approximately 4 days prior to this presentation. During that time, she has not experienced shortness of breath, myalgias, fevers, or GI symptoms. She felt well for 2 days until approximately 2 days prior to this presentation when she began experiencing a cough productive of clear mucus. She was coughing much more than when she had a URI and this cough was worse when she tried to lie flat. She began to experience intercostal muscle aching from coughing so much but denied chest pain or pain at rest. She reports mild shortness of breath. She denies muscle aches, fevers, nausea, vomiting, diarrhea, or headache. She reports taking Mucinex DM, which helped her cough somewhat. On the morning of presentation, she called her oncologist who recommended that she present to the emergency room for a flu swab given her immunocompromised state. Four days prior to this presentation, the patient received chemotherapy treatment with daratumumab and Pomalyst with 40 mg of oral dexamethasone. HOSPITAL COURSE: In the emergency room, the patient was rapid swab positive for influenza A. She was noted to have hypoxia to the 80s on room air and was initiated on supplemental oxygen with neb treatment. She was asked to be admitted to the medical service for further care given significant wheeze on exam with reportedly increased feelings of dyspnea and mucus production. She was initiated on COPD exacerbation treatment as well with prednisone and DuoNebs. Her oncologist was okay with her starting a short burst of steroids as well as holding her Pomalyst. The patient reported significant thirst and she was given 3 L throughout admission and eventually had good urine output. She was without significant lab abnormalities and had negative lactate. By next morning, the patient felt well with symptomatic treatment, COPD exacerbation treatment, and she felt ready to return home. She was able to be titrated off supplemental oxygen. She slept well through the night. Her wheeze had resolved on exam. She was deemed safe for discharge with continued treatment for COPD exacerbation and influenza. PERTINENT DIAGNOSTIC STUDIES: CBC and LFTs within normal limits. Sodium 131 improved to 134 by date of discharge. Creatinine and lactic acid normal. CRP 49. UA with ketones. Influenza A positive. Chest x-ray with hyperinflation consistent with COPD. No active cardiopulmonary disease. DISCHARGE PLAN: The patient will be discharged to follow up with primary care physician as well as her outpatient oncologist. She was educated to continue 3 more days of Tamiflu and 2 more days of her prednisone burst. She was educated to maintain adequate hydration and use her albuterol inhaler as needed for shortness of breath but if she is frequently using this inhaler, to seek care or if she experiences new symptoms of fever or chills, also seek care, she may be experiencing bacterial pneumonia. No other changes were made to her home medications. DIET: Healthy diet, low in processed foods. ACTIVITY: As tolerated. DISPOSITION: To home. CONDITION: Good. TIME SPENT: Approximately 60 minutes was spent on discharge of this patient, more than half of which was spent in care coordination at bedside for interview and exam. [id number]/[facility] #: [id number] [facility]
== END 2019-08-06 13:17 | disposition home or self-care (01) ==
LOC: ED 09:30 → MEDTELE 13:00
PROVIDERS: ADMIT Internal Medicine; ATTEND Internal Medicine
DX: J11.1 Influenza due to unidentified influenza virus with other respiratory manifestations (principal); J44.1 Chronic obstructive pulmonary disease with (acute) exacerbation; C90.00 Multiple myeloma not having achieved remission; Z92.21 Personal history of antineoplastic chemotherapy; Z79.899 Other long term (current) drug therapy; Z79.82 Long term (current) use of aspirin; Z87.891 Personal history of nicotine dependence; R06.02 Shortness of breath
CPT/HCPCS: 36415; 71046; 80048; 80053; 81003; 83605; 83735; 84484; 85025; 85610; 86140; 87040; 93005; 94640; 96372; 99284; A9270-GY; G0378; J1650; J7512

== ENCOUNTER 2020-08-10 08:59 | Inpatient (IN) ==
[2020-08-10] MEDS ORDERED: Morphine 4 MG/ML VIAL (1 ml) IV ONE ×2 (09:13→11:04)
[2020-08-10 10:02] LABS: Hematocrit 29 % (35-47); Hemoglobin 9.6 g/dL (12.0-16.0); Mean Corpuscular HGB Conc 34 g/dL (31-36); Mean Corpuscular Hemoglobin 35 pg (27-31); Mean Corpuscular Volume 104 fL (80-97); Red Blood Count 2.75 10^6 /uL (3.70-4.87); Red Cell Distribution Width 15 % (10-15)
[2020-08-10 10:25] LABS: White Blood Count 5.7 10^3/uL (3.5-10.8)
[2020-08-10 10:26] LABS: Mean Platelet Volume 8.2 fL (7.4-10.4); Platelet Count 195 10^3/uL (150-450)
[2020-08-10 10:29] LABS: ABS Eosinophils 0.2 10^3/ul (0-0.6); ABS Lymphocytes 1.2 10^3/ul (1.0-4.8); ABS Monocytes 0.8 10^3/ul (0-0.8); ABS Neutrophils 3.4 10^3/ul (1.5-7.7); Eosinophil % 3.8 %; Lymphocyte % 21.4 %; Microcytosis 1+; Nucleated Red Blood Cells % 0.2
[2020-08-10 11:17] LABS: ALT 32 U/L (7-52); Albumin 3.8 g/dL (3.2-5.2); Albumin/Globulin Ratio 1.6 (1-3); Alkaline Phosphatase 67 U/L (34-104); BUN/Creatinine Ratio 24.1 (8-20); Blood Urea Nitrogen 19 mg/dL (6-24); CO2 Carbon Dioxide 23 mmol/L (22-32); Calcium 9.9 mg/dL (8.6-10.3); Chloride 103 mmol/L (101-111); EGFR African American 86.6 (>60); EGFR Non-African American 71.5 (>60); Globulin 2.4 g/dL (2-4); Glucose 99 mg/dL (70-100); Sodium 133 mmol/L (135-145); Total Protein 6.2 g/dL (6.4-8.9)
[2020-08-10 12:02] LABS: Anion Gap 7 mmol/L (2-11)
[2020-08-10] MEDS ORDERED: Albuterol HFA INHALER 8 gm MDI INH PRN (12:03)
[2020-08-10] MEDS ORDERED: Morphine 4 MG/ML VIAL (1 ml) IV PRN (12:13)
[2020-08-10] MEDS ORDERED: NS 0.9% 1000 ml BAG 1,000 ML IV SCH (12:15)
[2020-08-10] MEDS ORDERED: Senna TAB 8.6 mg TAB PO PRN (12:31)
[2020-08-10] MEDS ORDERED: Polyethylene Glycol 3350 17 GM PACKET PO PRN (12:31)
[2020-08-10] MEDS ORDERED: Magnesium Hydroxide LIQ 30 ML UDC PO PRN (12:31)
[2020-08-10] MEDS: oxyCODONE/Acetamin 5/325 mg TAB PO PRN ×2 (12:53→21:13)
[2020-08-10] MEDS: Heparin 5000 UNITS/ML 1 mL VIAL SUBCUT SCH ×2 (17:21→21:17)
[2020-08-10] MEDS: Magnesium Hydroxide LIQ 30 ML UDC PO SCH (21:20)
[2020-08-11 01:03] LABS: Urine Appearance Clear; Urine Bilirubin Negative (Negative); Urine Blood Negative (Negative); Urine Color Straw; Urine Glucose Negative (Negative); Urine Ketones Negative (Negative); Urine Nitrite Negative (Negative); Urine Protein Negative (Negative); Urine Specific Gravity 1.006 (1.010-1.030); Urine Urobilinogen Negative (Negative)
[2020-08-11] MEDS: oxyCODONE/Acetamin 5/325 mg TAB PO PRN ×4 (03:18→21:57)
[2020-08-11] MEDS: Heparin 5000 UNITS/ML 1 mL VIAL SUBCUT SCH ×3 (05:34→21:56)
[2020-08-11 07:12] LABS: Hematocrit 27 % (35-47); Hemoglobin 9.1 g/dL (12.0-16.0); Mean Corpuscular HGB Conc 34 g/dL (31-36); Mean Corpuscular Hemoglobin 35 pg (27-31); Mean Corpuscular Volume 103 fL (80-97); Platelet Count 153 10^3/uL (150-450); Red Blood Count 2.65 10^6 /uL (3.70-4.87); Red Cell Distribution Width 15 % (10-15); White Blood Count 3.7 10^3/uL (3.5-10.8)
[2020-08-11 07:34] LABS: Anion Gap 4 mmol/L (2-11); BUN/Creatinine Ratio 15.9 (8-20); Blood Urea Nitrogen 11 mg/dL (6-24); CO2 Carbon Dioxide 27 mmol/L (22-32); Calcium 9.5 mg/dL (8.6-10.3); Chloride 103 mmol/L (101-111); EGFR African American 101.2 (>60); EGFR Non-African American 83.6 (>60); Glucose 99 mg/dL (70-100); Sodium 134 mmol/L (135-145)
[2020-08-11 09:29] LABS: ABS Eosinophils 0.2 10^3/ul (0-0.6); ABS Lymphocytes 1.2 10^3/ul (1.0-4.8); ABS Monocytes 0.7 10^3/ul (0-0.8); ABS Neutrophils 1.5 10^3/ul (1.5-7.7); Eosinophil % 6.7 %; Lymphocyte % 32.9 %
[2020-08-11] MEDS: Magnesium Hydroxide LIQ 30 ML UDC PO SCH ×2 (09:48→21:56)
[2020-08-11] MEDS: Cholecalciferol (VIT D3) 1,000 unit TAB PO SCH (09:49)
[2020-08-12] MEDS: oxyCODONE/Acetamin 5/325 mg TAB PO PRN ×4 (04:39→23:49)
[2020-08-12] MEDS: Heparin 5000 UNITS/ML 1 mL VIAL SUBCUT SCH ×3 (05:52→22:47)
[2020-08-12] MEDS: Cholecalciferol (VIT D3) 1,000 unit TAB PO SCH (11:00)
[2020-08-12] MEDS: Magnesium Hydroxide LIQ 30 ML UDC PO SCH ×2 (11:01→20:00)
[2020-08-13] MEDS: Heparin 5000 UNITS/ML 1 mL VIAL SUBCUT SCH ×3 (05:32→22:46)
[2020-08-13] MEDS: Magnesium Hydroxide LIQ 30 ML UDC PO SCH ×2 (09:36→21:12)
[2020-08-13] MEDS: oxyCODONE/Acetamin 5/325 mg TAB PO PRN ×3 (09:45→21:24)
[2020-08-13] MEDS: Cholecalciferol (VIT D3) 1,000 unit TAB PO SCH (09:46)
[2020-08-13 14:08] LABS: % Iron Saturation 10 % (15-55); Iron 34 ug/dL (50-212); Total Iron Binding Capacity 347 mcg/dL (250-450); Transferrin 248 mg/dL (203-362); Unsaturated Iron Binding < 332 ug/dL
[2020-08-13 14:29] LABS: Ferritin 348.6 ng/mL (11-307)
[2020-08-13 14:34] LABS: Vitamin B12 561 pg/mL (180-914)
[2020-08-14 05:48] LABS: ABS Eosinophils 0.1 10^3/ul (0-0.6); ABS Lymphocytes 1.5 10^3/ul (1.0-4.8); ABS Monocytes 0.8 10^3/ul (0-0.8); ABS Neutrophils 1.9 10^3/ul (1.5-7.7); Eosinophil % 1.9 %; Hematocrit 29 % (35-47); Lymphocyte % 34.9 %; Mean Corpuscular HGB Conc 35 g/dL (31-36); Mean Corpuscular Hemoglobin 35 pg (27-31); Mean Corpuscular Volume 102 fL (80-97); Mean Platelet Volume 7.3 fL (7.4-10.4); Platelet Count 236 10^3/uL (150-450); Red Blood Count 2.81 10^6 /uL (3.70-4.87); Red Cell Distribution Width 15 % (10-15); White Blood Count 4.3 10^3/uL (3.5-10.8)
[2020-08-14 06:02] LABS: BUN/Creatinine Ratio 16.7 (8-20); Calcium 10.3 mg/dL (8.6-10.3); EGFR African American 69.1 (>60); EGFR Non-African American 57.1 (>60); Potassium 4.2 mmol/L (3.5-5.0)
[2020-08-14] MEDS: Heparin 5000 UNITS/ML 1 mL VIAL SUBCUT SCH ×3 (06:33→21:14)
[2020-08-14] MEDS: Magnesium Hydroxide LIQ 30 ML UDC PO SCH ×2 (08:21→21:08)
[2020-08-14] MEDS: Cholecalciferol (VIT D3) 1,000 unit TAB PO SCH (08:21)
[2020-08-14] MEDS: oxyCODONE/Acetamin 5/325 mg TAB PO PRN (08:25)
[2020-08-14] MEDS ORDERED: Ondansetron ODT 4 mg TAB 4 MG TAB SL PRN (14:25)
[2020-08-14] MEDS ORDERED: NS 0.9% 1000 ml BAG 1,000 ML IV SCH (16:00)
[2020-08-14] MEDS ORDERED: Metoclopramide 5 MG/ML VIAL (10 mg) IV SLOW PU PRN (21:40)
[2020-08-15] MEDS: Heparin 5000 UNITS/ML 1 mL VIAL SUBCUT SCH ×2 (06:11→13:38)
[2020-08-15 08:04] LABS: ABS Basophils 0.1 10^3/ul (0-0.2); ABS Lymphocytes 1.7 10^3/ul (1.0-4.8); ABS Monocytes 0.9 10^3/ul (0-0.8); ABS Neutrophils 1.3 10^3/ul (1.5-7.7); Hematocrit 30 % (35-47); Hemoglobin 10.2 g/dL (12.0-16.0); Lymphocyte % 43.2 %; Mean Corpuscular HGB Conc 35 g/dL (31-36); Mean Corpuscular Hemoglobin 35 pg (27-31); Mean Corpuscular Volume 101 fL (80-97); Mean Platelet Volume 7.4 fL (7.4-10.4); Platelet Count 300 10^3/uL (150-450); Red Blood Count 2.92 10^6 /uL (3.70-4.87); Red Cell Distribution Width 15 % (10-15)
[2020-08-15 08:20] LABS: Calcium 10.4 mg/dL (8.6-10.3); EGFR African American 61.7 (>60); Potassium 3.7 mmol/L (3.5-5.0)
[2020-08-15] MEDS: Cholecalciferol (VIT D3) 1,000 unit TAB PO SCH (08:52)
[2020-08-15] MEDS: Magnesium Hydroxide LIQ 30 ML UDC PO SCH (08:52)
[2020-08-15 11:27] VITALS: BP 115/61
== END 2020-08-15 14:52 | disposition home health service (06) | DRG 543 ==
LOC: ED 08:59 → SSU 12:14
PROVIDERS: ADMIT Internal Medicine; ATTEND Hospitalist

== ENCOUNTER 2020-09-21 19:20 | Inpatient (IN) ==
[2020-09-21] MEDS ORDERED: NS 0.9% 1000 ml BAG 1,000 ML IV ONE (20:03)
[2020-09-21] MEDS ORDERED: fentaNYL 100 mcg/2 ml 50 MCG/ML VIAL IV SLOW PU ONE ×2 (20:05→20:07)
[2020-09-21 21:08] LABS: Hematocrit 25 % (35-47); Hemoglobin 8.2 g/dL (12.0-16.0); Mean Corpuscular HGB Conc 33 g/dL (31-36); Mean Corpuscular Hemoglobin 34 pg (27-31); Mean Corpuscular Volume 103 fL (80-97); Platelet Count 157 10^3/uL (150-450); Red Blood Count 2.39 10^6 /uL (3.70-4.87); Red Cell Distribution Width 15 % (10-15); White Blood Count 2.8 10^3/uL (3.5-10.8)
[2020-09-21 21:20] LABS: INR 1.04 (0.82-1.09)
[2020-09-21 21:24] LABS: Albumin 3.6 g/dL (3.2-5.2); Albumin/Globulin Ratio 1.6 (1-3); BUN/Creatinine Ratio 28.4 (8-20); Calcium 8.5 mg/dL (8.6-10.3); EGFR African American 104.7 (>60); EGFR Non-African American 86.5 (>60); Globulin 2.3 g/dL (2-4); Potassium 3.9 mmol/L (3.5-5.0); Total Bilirubin 0.7 mg/dL (0.2-1.0); Total Protein 5.9 g/dL (6.4-8.9)
[2020-09-21 22:06] LABS: ABS Eosinophils 0.5 10^3/ul (0-0.6); ABS Lymphocytes 1.2 10^3/ul (1.0-4.8); ABS Monocytes 0.6 10^3/ul (0-0.8); ABS Neutrophils 0.6 10^3/ul (1.5-7.7); Eosinophil % 16.5 %; Lymphocyte % 42.7 %; Nucleated Red Blood Cells % 0.2
[2020-09-21 22:21] LABS: Urine Appearance Clear; Urine Bilirubin Negative (Negative); Urine Blood Negative (Negative); Urine Color Straw; Urine Glucose Negative (Negative); Urine Ketones Negative (Negative); Urine Nitrite Negative (Negative); Urine Protein Negative (Negative); Urine Specific Gravity 1.005 (1.010-1.030); Urine Urobilinogen Negative (Negative)
[2020-09-21 22:32] LABS: Urine Bacteria Absent (Absent); Urine Red Blood Cell Trace(0-2/hpf) (Absent); Urine Squamous Epithelial Cell Present (Absent); Urine White Blood Cell 1+(6-10/hpf) (Absent)
[2020-09-21] MEDS ORDERED: Magnesium Hydroxide LIQ 30 ML UDC PO PRN (22:34)
[2020-09-21] MEDS ORDERED: Ondansetron 4 mg VIAL 2 MG/ML 2 ml VIAL IV PRN (22:34)
[2020-09-21] MEDS ORDERED: Polyethylene Glycol 3350 17 GM PACKET PO PRN (22:34)
[2020-09-21 23:28] LABS: Vitamin D Total 25(OH) 60.4 ng/mL (20-50)
[2020-09-22] MEDS ORDERED: Albuterol HFA INHALER 8 gm MDI INH PRN (00:24)
[2020-09-22] MEDS: Enoxaparin 40 MG/0.4 ML SYR SUBCUT SCH ×2 (01:33→21:04)
[2020-09-22] MEDS: Calcitonin (Salmon) INJ 200 UNITS/ML 2 ML VIAL (400 units) SUBCUT SCH (01:33)
[2020-09-22] MEDS: Senna TAB 8.6 mg TAB PO PRN (01:43)
[2020-09-22] MEDS: Morphine 2 MG/ML SYRINGE IV PRN ×2 (01:43→08:09)
[2020-09-22 06:51] LABS: Hematocrit 25 % (35-47); Hemoglobin 8.5 g/dL (12.0-16.0); Mean Corpuscular HGB Conc 34 g/dL (31-36); Mean Corpuscular Hemoglobin 35 pg (27-31); Mean Corpuscular Volume 103 fL (80-97); Mean Platelet Volume 8.3 fL (7.4-10.4); Platelet Count 172 10^3/uL (150-450); Red Blood Count 2.45 10^6 /uL (3.70-4.87); Red Cell Distribution Width 15 % (10-15)
[2020-09-22 06:58] LABS: ABS Eosinophils 0.5 10^3/ul (0-0.6); ABS Lymphocytes 1.3 10^3/ul (1.0-4.8); ABS Monocytes 0.6 10^3/ul (0-0.8); ABS Neutrophils 0.5 10^3/ul (1.5-7.7); Eosinophil % 18.1 %; Lymphocyte % 44.1 %; Nucleated Red Blood Cells % 0.1
[2020-09-22 07:11] LABS: BUN/Creatinine Ratio 23.6 (8-20); Calcium 8.5 mg/dL (8.6-10.3); EGFR African American 131.5 (>60); EGFR Non-African American 108.6 (>60); Magnesium 1.9 mg/dL (1.9-2.7); Potassium 3.9 mmol/L (3.5-5.0)
[2020-09-22] MEDS: Magnesium Hydroxide LIQ 30 ML UDC PO SCH ×2 (08:09→23:23)
[2020-09-22] MEDS: Aspirin EC 81 mg TAB.EC (enteric coated) PO SCH (08:10)
[2020-09-22] MEDS: Cholecalciferol (VIT D3) 1,000 unit TAB PO SCH (08:10)
[2020-09-22] MEDS ORDERED: Lidocaine PATCH 5% PATCH TRANSDERM ONE (10:39)
[2020-09-22] MEDS: Lidocaine Patch REMOVE PATCH PATCH OFF SCH (23:23)
[2020-09-23 06:36] LABS: Hematocrit 26 % (35-47); Mean Corpuscular HGB Conc 35 g/dL (31-36); Mean Corpuscular Hemoglobin 35 pg (27-31); Mean Corpuscular Volume 101 fL (80-97); Platelet Count 194 10^3/uL (150-450); Red Blood Count 2.59 10^6 /uL (3.70-4.87); Red Cell Distribution Width 15 % (10-15)
[2020-09-23 07:01] LABS: ABS Eosinophils 0.4 10^3/ul (0-0.6); ABS Lymphocytes 1.4 10^3/ul (1.0-4.8); ABS Monocytes 0.6 10^3/ul (0-0.8); ABS Neutrophils 0.6 10^3/ul (1.5-7.7); Eosinophil % 12.9 %; Lymphocyte % 46.5 %; Nucleated Red Blood Cells % 0.2
[2020-09-23] MEDS ORDERED: Gadoteridol (CONTRAST) 279.3 MG/ML 10 ML IV ONE (09:42)
[2020-09-23] MEDS: Cholecalciferol (VIT D3) 1,000 unit TAB PO SCH (10:35)
[2020-09-23] MEDS: Aspirin EC 81 mg TAB.EC (enteric coated) PO SCH (10:35)
[2020-09-23] MEDS: Magnesium Hydroxide LIQ 30 ML UDC PO SCH ×2 (10:37→19:51)
[2020-09-23] MEDS: Senna TAB 8.6 mg TAB PO PRN ×2 (10:44→19:50)
[2020-09-23] MEDS: Calcitonin (Salmon) INJ 200 UNITS/ML 2 ML VIAL (400 units) SUBCUT SCH (10:46)
[2020-09-23] MEDS: Enoxaparin 40 MG/0.4 ML SYR SUBCUT SCH (19:50)
[2020-09-24] MEDS: Lidocaine Patch REMOVE PATCH PATCH OFF SCH (02:58)
[2020-09-24] MEDS: Calcitonin (Salmon) INJ 200 UNITS/ML 2 ML VIAL (400 units) SUBCUT SCH (09:29)
[2020-09-24] MEDS: Aspirin EC 81 mg TAB.EC (enteric coated) PO SCH (09:32)
[2020-09-24] MEDS: Cholecalciferol (VIT D3) 1,000 unit TAB PO SCH (09:33)
[2020-09-24] MEDS: Magnesium Hydroxide LIQ 30 ML UDC PO SCH (09:35)
[2020-09-24 11:23] VITALS: BP 118/54
== END 2020-09-24 13:45 | disposition home or self-care (01) | DRG 543 ==
LOC: ED 19:20 → MED 22:34
PROVIDERS: ADMIT Internal Medicine; ATTEND Internal Medicine

== ENCOUNTER 2021-01-17 06:58 | Inpatient (IN) ==
[2021-01-17] MEDS ORDERED: ceFOXitin 1 GM in NS 0.9% 50 ML 50 ML IVPB ONE (07:57)
[2021-01-17] MEDS ORDERED: NORMOSOL-R pH 7.4 1000 mL BAG 1,000 ML IV ONE (08:05)
[2021-01-17] MEDS ORDERED: Lactated Ringers 1000 ml BAG 1,000 ML IV ONE (08:50)
[2021-01-17] MEDS ORDERED: NS 0.9% 50 ML 50 ML ONE (08:57)
[2021-01-17 08:58] LABS: Albumin 3.8 g/dL (3.2-5.2); Albumin/Globulin Ratio 1.4 (1-3); C Reactive Protein 132.25 mg/L (<8.01); Calcium 9.1 mg/dL (8.6-10.3); EGFR African American 89.2 (>60); EGFR Non-African American 73.7 (>60); Globulin 2.8 g/dL (2-4); Potassium 3.9 mmol/L (3.5-5.0); Total Bilirubin 1.4 mg/dL (0.2-1.0); Total Protein 6.6 g/dL (6.4-8.9)
[2021-01-17 09:17] LABS: ABS Eosinophils 0.3 10^3/ul (0-0.6); ABS Lymphocytes 0.9 10^3/ul (1.0-4.8); ABS Monocytes 0.2 10^3/ul (0-0.8); ABS Neutrophils 2.8 10^3/ul (1.5-7.7); Hematocrit 30 % (35-47); Hemoglobin 10.2 g/dL (12.0-16.0); Lymphocyte % 21.2 %; Mean Corpuscular HGB Conc 34 g/dL (31-36); Mean Corpuscular Hemoglobin 34 pg (27-31); Mean Corpuscular Volume 100 fL (80-97); Nucleated Red Blood Cells % 0.1; Red Blood Count 2.99 10^6 /uL (3.70-4.87); Red Cell Distribution Width 16 % (10-15); White Blood Count 4.3 10^3/uL (3.5-10.8)
[2021-01-17 10:09] LABS: Platelet Count 56 10^3/uL (150-450)
[2021-01-17 10:26] LABS: Urine Appearance Cloudy; Urine Bilirubin Negative (Negative); Urine Blood Negative (Negative); Urine Color Yellow; Urine Glucose Negative (Negative); Urine Ketones Negative (Negative); Urine Nitrite Negative (Negative); Urine Protein Negative (Negative); Urine Specific Gravity 1.005 (1.002-1.030); Urine Urobilinogen Negative (Negative)
[2021-01-17 10:46] LABS: Urine Bacteria Absent (Absent); Urine Red Blood Cell Trace(0-2/hpf) (Absent); Urine Squamous Epithelial Cell Present (Absent); Urine White Blood Cell 1+(6-10/hpf) (Absent)
[2021-01-17] MEDS ORDERED: diPHENhydraMINE 25 mg TAB PO PRN (11:29)
[2021-01-17] MEDS ORDERED: oxyCODONE/Acetamin 5/325 mg TAB PO PRN (11:29)
[2021-01-17] MEDS ORDERED: cefTRIAXone 1 gm/50 mL NS BAG 1 GM/50 ML BAG IVPB SCH (12:45)
[2021-01-17] MEDS: DOXYcycline 100 MG in NS 0.9% 250 ml 250 ML IVPB SCH (14:55)
[2021-01-17 15:23] LABS: RBC Parasite Smear No Parasites Seen (No Parasite)
[2021-01-17] MEDS: POMALIDOMIDE 4 MG PO SCH (21:12)
[2021-01-18] MEDS: DOXYcycline 100 MG in NS 0.9% 250 ml 250 ML IVPB SCH ×2 (03:21→15:05)
[2021-01-18 06:31] LABS: ABS Eosinophils 0.4 10^3/ul (0-0.6); ABS Lymphocytes 0.7 10^3/ul (1.0-4.8); ABS Monocytes 0.3 10^3/ul (0-0.8); ABS Neutrophils 1.9 10^3/ul (1.5-7.7); Eosinophil % 12.6 %; Hematocrit 29 % (35-47); Hemoglobin 10.1 g/dL (12.0-16.0); Lymphocyte % 20.3 %; Mean Corpuscular HGB Conc 35 g/dL (31-36); Mean Corpuscular Hemoglobin 35 pg (27-31); Mean Corpuscular Volume 100 fL (80-97); Mean Platelet Volume 9.8 fL (7.4-10.4); Platelet Count 60 10^3/uL (150-450); Red Blood Count 2.91 10^6 /uL (3.70-4.87); Red Cell Distribution Width 16 % (10-15); White Blood Count 3.3 10^3/uL (3.5-10.8)
[2021-01-18 06:51] LABS: Albumin 3.3 g/dL (3.2-5.2); Albumin/Globulin Ratio 1.4 (1-3); Calcium 8.5 mg/dL (8.6-10.3); EGFR African American 108.4 (>60); EGFR Non-African American 89.6 (>60); Globulin 2.4 g/dL (2-4); Magnesium 1.7 mg/dL (1.9-2.7); Potassium 3.8 mmol/L (3.5-5.0); Total Bilirubin 0.9 mg/dL (0.2-1.0); Total Protein 5.7 g/dL (6.4-8.9)
[2021-01-18] MEDS: Aspirin EC 81 mg TAB.EC (enteric coated) PO SCH (09:04)
[2021-01-18] MEDS: Cholecalciferol (VIT D3) 1,000 unit TAB PO SCH (09:05)
[2021-01-18] MEDS: cefTRIAXone 1 gm/50 mL NS BAG 1 GM/50 ML BAG IVPB SCH ×2 (09:05→20:01)
[2021-01-18] MEDS ORDERED: Iodixanol (CONTRAST) 320 MG/ML 100 ML SDV IV ONE (09:22)
[2021-01-18] MEDS: metroNIDAZOLE IV 500 MG/100ML 500 MG/100 ML BAG IVPB SCH ×2 (10:54→18:28)
[2021-01-18] MEDS: POMALIDOMIDE 4 MG PO SCH (19:51)
[2021-01-19] MEDS: DOXYcycline 100 MG in NS 0.9% 250 ml 250 ML IVPB SCH ×2 (01:10→14:23)
[2021-01-19] MEDS: metroNIDAZOLE IV 500 MG/100ML 500 MG/100 ML BAG IVPB SCH ×3 (02:24→19:50)
[2021-01-19 06:49] LABS: ABS Eosinophils 0.4 10^3/ul (0-0.6); ABS Lymphocytes 0.6 10^3/ul (1.0-4.8); ABS Monocytes 0.3 10^3/ul (0-0.8); ABS Neutrophils 1.6 10^3/ul (1.5-7.7); Eosinophil % 13.7 %; Hematocrit 31 % (35-47); Hemoglobin 10.6 g/dL (12.0-16.0); Lymphocyte % 21.1 %; Mean Corpuscular HGB Conc 34 g/dL (31-36); Mean Corpuscular Hemoglobin 35 pg (27-31); Mean Corpuscular Volume 101 fL (80-97); Mean Platelet Volume 8.9 fL (7.4-10.4); Nucleated Red Blood Cells % 0.1; Platelet Count 92 10^3/uL (150-450); Red Blood Count 3.07 10^6 /uL (3.70-4.87); Red Cell Distribution Width 16 % (10-15); White Blood Count 2.9 10^3/uL (3.5-10.8)
[2021-01-19 07:00] LABS: Albumin 3.4 g/dL (3.2-5.2); Albumin/Globulin Ratio 1.2 (1-3); Calcium 8.6 mg/dL (8.6-10.3); EGFR African American 99.5 (>60); EGFR Non-African American 82.3 (>60); Globulin 2.8 g/dL (2-4); Potassium 4.1 mmol/L (3.5-5.0); Total Bilirubin 0.6 mg/dL (0.2-1.0); Total Protein 6.2 g/dL (6.4-8.9)
[2021-01-19] MEDS: Aspirin EC 81 mg TAB.EC (enteric coated) PO SCH (08:23)
[2021-01-19] MEDS: Cholecalciferol (VIT D3) 1,000 unit TAB PO SCH (08:23)
[2021-01-19] MEDS: cefTRIAXone 1 gm/50 mL NS BAG 1 GM/50 ML BAG IVPB SCH ×2 (08:24→20:49)
[2021-01-19] MEDS: POMALIDOMIDE 4 MG PO SCH (20:57)
[2021-01-20] MEDS: DOXYcycline 100 MG in NS 0.9% 250 ml 250 ML IVPB SCH (01:30)
[2021-01-20] MEDS: metroNIDAZOLE IV 500 MG/100ML 500 MG/100 ML BAG IVPB SCH ×3 (02:50→21:00)
[2021-01-20 06:49] LABS: ABS Eosinophils 0.5 10^3/ul (0-0.6); ABS Lymphocytes 1.1 10^3/ul (1.0-4.8); ABS Monocytes 0.8 10^3/ul (0-0.8); ABS Neutrophils 1.9 10^3/ul (1.5-7.7); Eosinophil % 10.5 %; Hematocrit 32 % (35-47); Hemoglobin 11.2 g/dL (12.0-16.0); Lymphocyte % 25.5 %; Mean Corpuscular HGB Conc 35 g/dL (31-36); Mean Corpuscular Hemoglobin 35 pg (27-31); Mean Corpuscular Volume 100 fL (80-97); Mean Platelet Volume 8.4 fL (7.4-10.4); Platelet Count 161 10^3/uL (150-450); Red Blood Count 3.22 10^6 /uL (3.70-4.87); Red Cell Distribution Width 16 % (10-15); White Blood Count 4.3 10^3/uL (3.5-10.8)
[2021-01-20] MEDS: Enoxaparin 40 MG/0.4 ML SYR SUBCUT SCH (07:26)
[2021-01-20] MEDS: cefTRIAXone 1 gm/50 mL NS BAG 1 GM/50 ML BAG IVPB SCH (07:26)
[2021-01-20] MEDS: Cholecalciferol (VIT D3) 1,000 unit TAB PO SCH (07:27)
[2021-01-20] MEDS: Aspirin EC 81 mg TAB.EC (enteric coated) PO SCH (07:28)
[2021-01-20] MEDS ORDERED: Tetan/Diph/Pertus SYR(Tdap) 0.5 ML SYR(BOOSTRIX) use SYR contains LATEX IM ONE (13:00)
[2021-01-20 17:41] LABS: Anaplasma phagocytophilum Negative (Negative); B. miyamotoi PCR, B Negative (Negative); Babesia divergens/MO-1 Negative (Negative); Babesia ducani Negative (Negative); Ehrlichia chaffeensis Negative (Negative); Ehrlichia ewingii/canis Negative (Negative); Ehrlichia muris eauclairensis Negative (Negative)
[2021-01-21 05:52] LABS: ABS Eosinophils 0.3 10^3/ul (0-0.6); ABS Monocytes 1.1 10^3/ul (0-0.8); ABS Neutrophils 2.1 10^3/ul (1.5-7.7); Eosinophil % 6.3 %; Hematocrit 30 % (35-47); Hemoglobin 10.2 g/dL (12.0-16.0); Lymphocyte % 22.9 %; Mean Corpuscular HGB Conc 34 g/dL (31-36); Mean Corpuscular Hemoglobin 34 pg (27-31); Mean Corpuscular Volume 100 fL (80-97); Mean Platelet Volume 7.8 fL (7.4-10.4); Nucleated Red Blood Cells % 0.1; Platelet Count 176 10^3/uL (150-450); Red Blood Count 2.98 10^6 /uL (3.70-4.87); Red Cell Distribution Width 16 % (10-15); White Blood Count 4.5 10^3/uL (3.5-10.8)
[2021-01-21 06:13] LABS: Albumin 3.2 g/dL (3.2-5.2); Albumin/Globulin Ratio 1.2 (1-3); Calcium 8.7 mg/dL (8.6-10.3); EGFR African American 112.4 (>60); EGFR Non-African American 92.9 (>60); Globulin 2.6 g/dL (2-4); Potassium 3.8 mmol/L (3.5-5.0); Total Bilirubin 0.5 mg/dL (0.2-1.0); Total Protein 5.8 g/dL (6.4-8.9)
[2021-01-21] MEDS ORDERED: cefTRIAXone 1 gm/50 mL NS BAG 1 GM/50 ML BAG IVPB SCH (08:00)
[2021-01-21] MEDS: Aspirin EC 81 mg TAB.EC (enteric coated) PO SCH (08:51)
[2021-01-21] MEDS: Cholecalciferol (VIT D3) 1,000 unit TAB PO SCH (08:52)
[2021-01-21] MEDS: Enoxaparin 40 MG/0.4 ML SYR SUBCUT SCH (08:52)
[2021-01-21] MEDS: metroNIDAZOLE IV 500 MG/100ML 500 MG/100 ML BAG IVPB SCH (10:33)
[2021-01-21 14:02] VITALS: BP 109/60
== END 2021-01-21 14:45 | disposition home or self-care (01) | DRG 603 ==
LOC: ED 06:58 → MED 11:31
PROVIDERS: ADMIT Internal Medicine; ATTEND Internal Medicine

== ENCOUNTER 2021-03-03 12:42 | Inpatient (IN) ==
[2021-03-03 13:04] LABS: ABS Lymphocytes 0.3 10^3/ul (1.0-4.8); ABS Monocytes 0.1 10^3/ul (0-0.8); ABS Neutrophils 0.1 10^3/ul (1.5-7.7); Eosinophil % 0.4 %; Hematocrit 29 % (35-47); Hemoglobin 9.9 g/dL (12.0-16.0); Lymphocyte % 57.6 %; Mean Corpuscular HGB Conc 34 g/dL (31-36); Mean Corpuscular Hemoglobin 34 pg (27-31); Mean Corpuscular Volume 101 fL (80-97); Mean Platelet Volume 8.8 fL (7.4-10.4); Platelet Count 120 10^3/uL (150-450); Red Blood Count 2.88 10^6 /uL (3.70-4.87); Red Cell Distribution Width 16 % (10-15); White Blood Count 0.5 10^3/uL (3.5-10.8)
[2021-03-03 13:19] LABS: Albumin 4.1 g/dL (3.2-5.2); Albumin/Globulin Ratio 1.5 (1-3); Calcium 8.8 mg/dL (8.6-10.3); EGFR African American 93.1 (>60); EGFR Non-African American 76.9 (>60); Globulin 2.8 g/dL (2-4); Potassium 3.8 mmol/L (3.5-5.0); Total Bilirubin 0.9 mg/dL (0.2-1.0); Total Protein 6.9 g/dL (6.4-8.9)
[2021-03-03] MEDS ORDERED: Ondansetron 4 mg VIAL 2 MG/ML 2 ml VIAL IV PRN (14:23)
[2021-03-03] MEDS ORDERED: oxyCODONE/Acetamin 5/325 mg TAB PO PRN (14:32)
[2021-03-03] MEDS ORDERED: diPHENhydraMINE 25 mg TAB PO PRN (14:32)
[2021-03-03 14:45] LABS: Urine Appearance Clear; Urine Bacteria Absent (Absent); Urine Bilirubin Negative (Negative); Urine Blood Negative (Negative); Urine Color Yellow; Urine Glucose Negative (Negative); Urine Ketones Negative (Negative); Urine Nitrite Negative (Negative); Urine Protein 1+(30 mg/dL) (Negative); Urine Red Blood Cell Trace(0-2/hpf) (Absent); Urine Specific Gravity 1.014 (1.002-1.030); Urine Squamous Epithelial Cell Present (Absent); Urine Urobilinogen Negative (Negative); Urine White Blood Cell Trace(0-5/hpf) (Absent)
[2021-03-03] MEDS ORDERED: Enoxaparin 40 MG/0.4 ML SYR SUBCUT SCH (15:00)
[2021-03-03] MEDS: NS 0.9% 1000 ml BAG 1,000 ML IV SCH (16:54)
[2021-03-03] MEDS: Cefepime 2 GM in Dextrose 2 GM/50 ML BAG IV SCH ×2 (17:26→23:02)
[2021-03-03] MEDS: Enoxaparin 40 MG/0.4 ML SYR SUBCUT SCH (18:17)
[2021-03-04] MEDS: NS 0.9% 1000 ml BAG 1,000 ML IV SCH (03:46)
[2021-03-04] MEDS: Cefepime 2 GM in Dextrose 2 GM/50 ML BAG IV SCH ×3 (06:28→23:03)
[2021-03-04 06:33] LABS: Hematocrit 25 % (35-47); Hemoglobin 8.8 g/dL (12.0-16.0); Mean Corpuscular HGB Conc 35 g/dL (31-36); Mean Corpuscular Hemoglobin 35 pg (27-31); Mean Corpuscular Volume 101 fL (80-97); Mean Platelet Volume 9.9 fL (7.4-10.4); Platelet Count 81 10^3/uL (150-450); Red Blood Count 2.52 10^6 /uL (3.70-4.87); Red Cell Distribution Width 16 % (10-15); White Blood Count 0.7 10^3/uL (3.5-10.8)
[2021-03-04 06:36] LABS: Albumin 3.3 g/dL (3.2-5.2); Albumin/Globulin Ratio 1.4 (1-3); Calcium 7.9 mg/dL (8.6-10.3); EGFR African American 112.1 (>60); EGFR Non-African American 92.6 (>60); Globulin 2.4 g/dL (2-4); Potassium 3.7 mmol/L (3.5-5.0); Total Bilirubin 0.5 mg/dL (0.2-1.0); Total Protein 5.7 g/dL (6.4-8.9)
[2021-03-04] MEDS: LACTOBACILLUS ACIDOPHILUS PO SCH (07:53)
[2021-03-04] MEDS: BILLION CELL PO SCH (07:53)
[2021-03-04 08:49] LABS: ABS Lymphocytes 0.5 10^3/ul (1.0-4.8); ABS Monocytes 0.1 10^3/ul (0-0.8); ABS Neutrophils 0.1 10^3/ul (1.5-7.7); Eosinophil % 0.3 %; Lymphocyte % 70.5 %; Nucleated Red Blood Cells % 0.2
[2021-03-04] MEDS: Enoxaparin 40 MG/0.4 ML SYR SUBCUT SCH (17:18)
[2021-03-05] MEDS: Cefepime 2 GM in Dextrose 2 GM/50 ML BAG IV SCH ×3 (06:25→22:22)
[2021-03-05] MEDS: LACTOBACILLUS ACIDOPHILUS PO SCH (07:23)
[2021-03-05] MEDS: BILLION CELL PO SCH (07:23)
[2021-03-05 09:09] LABS: Hematocrit 32 % (35-47); Hemoglobin 10.7 g/dL (12.0-16.0); Mean Corpuscular HGB Conc 33 g/dL (31-36); Mean Corpuscular Hemoglobin 34 pg (27-31); Mean Corpuscular Volume 103 fL (80-97); Mean Platelet Volume 9.3 fL (7.4-10.4); Platelet Count 89 10^3/uL (150-450); Red Blood Count 3.12 10^6 /uL (3.70-4.87); Red Cell Distribution Width 17 % (10-15); White Blood Count 1.9 10^3/uL (3.5-10.8)
[2021-03-05 09:23] LABS: Albumin 3.9 g/dL (3.2-5.2); Albumin/Globulin Ratio 1.5 (1-3); Calcium 8.8 mg/dL (8.6-10.3); EGFR African American 110.1 (>60); Globulin 2.6 g/dL (2-4); Potassium 4.6 mmol/L (3.5-5.0); Total Bilirubin 0.5 mg/dL (0.2-1.0); Total Protein 6.5 g/dL (6.4-8.9)
[2021-03-05 10:07] LABS: Anisocytosis 1+; Macrocytosis 1+
[2021-03-05 10:08] LABS: ABS Eosinophils 0.1 10^3/ul (0-0.6); ABS Lymphocytes 1.4 10^3/ul (1.0-4.8); ABS Monocytes 0.2 10^3/ul (0-0.8); ABS Neutrophils 0.2 10^3/ul (1.5-7.7); Eosinophil % 3.6 %; Lymphocyte % 72.3 %; Nucleated Red Blood Cells % 0.2
[2021-03-05] MEDS: Enoxaparin 40 MG/0.4 ML SYR SUBCUT SCH (17:10)
[2021-03-06] MEDS: Cefepime 2 GM in Dextrose 2 GM/50 ML BAG IV SCH (07:19)
[2021-03-06 09:56] LABS: ABS Eosinophils 0.1 10^3/ul (0-0.6); ABS Lymphocytes 1.4 10^3/ul (1.0-4.8); ABS Monocytes 0.1 10^3/ul (0-0.8); ABS Neutrophils 0.3 10^3/ul (1.5-7.7); Eosinophil % 5.8 %; Hematocrit 31 % (35-47); Hemoglobin 10.6 g/dL (12.0-16.0); Lymphocyte % 73.7 %; Mean Corpuscular HGB Conc 34 g/dL (31-36); Mean Corpuscular Hemoglobin 35 pg (27-31); Mean Corpuscular Volume 102 fL (80-97); Mean Platelet Volume 9.5 fL (7.4-10.4); Nucleated Red Blood Cells % 0.2; Platelet Count 91 10^3/uL (150-450); Red Blood Count 3.05 10^6 /uL (3.70-4.87); Red Cell Distribution Width 16 % (10-15); White Blood Count 1.9 10^3/uL (3.5-10.8)
[2021-03-06 10:35] LABS: Anisocytosis 1+; Macrocytosis 1+
[2021-03-06 11:40] VITALS: BP 114/62
== END 2021-03-06 13:19 | disposition home or self-care (01) | DRG 809 ==
LOC: CHOA 12:42 → SSU 16:25
PROVIDERS: ADMIT Internal Medicine Hematology & Oncology; ATTEND Internal Medicine Hematology & Oncology

== ENCOUNTER 2022-03-01 01:38 | Inpatient (IN) ==
[2022-03-01] MEDS ORDERED: Cefepime 2 GM in Dextrose 2 GM/50 ML BAG IV ONE (01:45)
[2022-03-01] MEDS ORDERED: metroNIDAZOLE IV 500 MG/100ML 500 MG/100 ML BAG IVPB ONE (01:45)
[2022-03-01] MEDS ORDERED: Morphine 10 MG/ML VIAL (1 ml) IV ONE (01:49)
[2022-03-01] MEDS ORDERED: Vancomycin 1,500 MG in NS 0.9% 250 ml 250 ML IVPB SCH (02:00)
[2022-03-01 02:25] LABS: Activated Partial Thrombo Time 26.4 seconds (26.0-38.0); INR 1.07 (0.89-1.11)
[2022-03-01] MEDS ORDERED: NS 0.9% 1000 ml BAG 2,000 ML IV ONE (02:37)
[2022-03-01 02:40] LABS: Albumin 4.3 g/dL (3.2-5.2); Albumin/Globulin Ratio 1.7 (1-3); C Reactive Protein 77.41 mg/L (<8.01); Calcium 8.9 mg/dL (8.6-10.3); Globulin 2.6 g/dL (2-4); Potassium 4.7 mmol/L (3.5-5.0); Total Bilirubin 0.8 mg/dL (0.2-1.0); Total Protein 6.9 g/dL (6.4-8.9); eGFR CKD-EPI 68.9 (>60)
[2022-03-01 02:47] LABS: ABS Lymphocytes 0.1 10^3/ul (1.0-4.8); ABS Monocytes 0.1 10^3/ul (0-0.8); Eosinophil % 0.2 %; Hematocrit 36 % (35-47); Hemoglobin 11.9 g/dL (12.0-16.0); Lymphocyte % 21.7 %; Mean Corpuscular HGB Conc 33 g/dL (31-36); Mean Corpuscular Hemoglobin 32 pg (27-31); Mean Corpuscular Volume 97 fL (80-97); Mean Platelet Volume 8.2 fL (7.4-10.4); Nucleated Red Blood Cells % 0.3; Platelet Count 110 10^3/uL (150-450); Red Blood Count 3.74 10^6 /uL (3.70-4.87); Red Cell Distribution Width 16 % (10-15); White Blood Count 0.6 10^3/uL (3.5-10.8)
[2022-03-01 02:50] LABS: ABS Neutrophils 0.3 10^3/ul (1.5-7.7)
[2022-03-01] MEDS ORDERED: Acetaminophen IV 1 GM/100ML 1,000 MG/100 ML BAG IV ONE (03:57)
[2022-03-01 04:19] LABS: Urine Appearance Clear; Urine Bilirubin Negative (Negative); Urine Blood Negative (Negative); Urine Color Yellow; Urine Glucose Negative (Negative); Urine Ketones Negative (Negative); Urine Nitrite Negative (Negative); Urine Protein 1+ (30 mg/dL) (Negative); Urine Urobilinogen 0.2 (Negative) (Negative); Urine pH 5.5 (5.0-9.0)
[2022-03-01] MEDS ORDERED: Iohexol 350 (CONTRAST) 500 ML MDV IV ONE (04:49)
[2022-03-01 04:50] LABS: Urine Bacteria 1+ (Absent); Urine Red Blood Cell Trace(0-2/hpf) (Absent); Urine Squamous Epithelial Cell Present (Absent); Urine White Blood Cell Trace(0-5/hpf) (Absent)
[2022-03-01 05:52] LABS: High Sensitivity Troponin 1 Hr 13 pg/mL (<15)
[2022-03-01] MEDS ORDERED: Lactated Ringers 1000 ml BAG 1,000 ML IV ONE (06:02)
[2022-03-01] MEDS: Norepinephrine 16MCG/ML BAG NS 4,000 MCG/250 ML BAG IV SCH ×2 (06:58→11:56)
[2022-03-01] MEDS ORDERED: Zosyn 3.375 GM IV - ED ONCE IV ONE (10:00)
[2022-03-01] MEDS ORDERED: Zosyn per Pharmacy NOTE FOLLOW UP SCH (10:00)
[2022-03-01] MEDS ORDERED: Albumin Human 5% 12.5 GM/250 ML BTL IV ONE (10:45)
[2022-03-01] MEDS: Hydrocortisone INJ 100 MG/2ML 2 ML VIAL IV SCH (14:47)
[2022-03-01] MEDS: ZOSYN 3.375 GM Q8H per EXTENDED INFUSION IV SCH ×2 (15:00→22:55)
[2022-03-01] MEDS ORDERED: Norepinephrine 16MCG/ML BAG NS 4,000 MCG/250 ML BAG IV SCH ×2 (15:02→15:41)
[2022-03-01] MEDS: Polyethylene Glycol 3350 17 GM PACKET PO SCH (17:18)
[2022-03-01] MEDS: Senna TAB 8.6 mg TAB PO PRN (17:18)
[2022-03-01] MEDS ORDERED: Glycerin ADULT 2.4 gm SUPP PR PRN (22:00)
[2022-03-02] MEDS: Hydrocortisone INJ 100 MG/2ML 2 ML VIAL IV SCH ×2 (01:09→13:44)
[2022-03-02 05:09] LABS: ABS Neutrophils 0.7 10^3/ul (1.5-7.7); Hematocrit 31 % (35-47); Hemoglobin 10.1 g/dL (12.0-16.0); Mean Corpuscular HGB Conc 33 g/dL (31-36); Mean Corpuscular Hemoglobin 32 pg (27-31); Mean Corpuscular Volume 97 fL (80-97); Red Blood Count 3.16 10^6 /uL (3.70-4.87); Red Cell Distribution Width 17 % (10-15); White Blood Count 1.3 10^3/uL (3.5-10.8)
[2022-03-02 05:46] LABS: Calcium 7.2 mg/dL (8.6-10.3); eGFR CKD-EPI 55.1 (>60)
[2022-03-02] MEDS ORDERED: Lactated Ringers 500 ml BAG 500 ML IV SCH (06:00)
[2022-03-02 07:01] LABS: Burr Cells 1+; Toxic Granulation 1+
[2022-03-02 07:02] LABS: ABS Eosinophils 0.1 10^3/ul (0-0.6); ABS Lymphocytes 0.2 10^3/ul (1.0-4.8); ABS Monocytes 0.2 10^3/ul (0-0.8); Lymphocyte % 12.9 %; Mean Platelet Volume 10.1 fL (7.4-10.4); Nucleated Red Blood Cells % 0.3; Platelet Count 24 10^3/uL (150-450)
[2022-03-02] MEDS: ZOSYN 3.375 GM Q8H per EXTENDED INFUSION IV SCH (07:28)
[2022-03-02] MEDS: Morphine 2 MG/ML SYRINGE IV PRN (07:48)
[2022-03-02] MEDS ORDERED: Enoxaparin 40 MG/0.4 ML SYR SUBCUT SCH (09:00)
[2022-03-02] MEDS ORDERED: Dextrose 50% Syringe 50 ml 25 GM/50 ML SYRINGE IV PUSH PRN (09:00)
[2022-03-02] MEDS: Polyethylene Glycol 3350 17 GM PACKET PO SCH (09:15)
[2022-03-02] MEDS: Aspirin EC 81 mg TAB.EC (enteric coated) PO SCH (09:15)
[2022-03-02 10:05] LABS: Hematocrit 30 % (35-47); Hemoglobin 9.9 g/dL (12.0-16.0); Mean Corpuscular HGB Conc 33 g/dL (31-36); Mean Corpuscular Hemoglobin 32 pg (27-31); Mean Corpuscular Volume 98 fL (80-97); Mean Platelet Volume 8.7 fL (7.4-10.4); Platelet Count 17 10^3/uL (150-450); Red Blood Count 3.09 10^6 /uL (3.70-4.87); Red Cell Distribution Width 17 % (10-15); White Blood Count 1.5 10^3/uL (3.5-10.8)
[2022-03-02 10:29] LABS: ABS Eosinophils 0.2 10^3/ul (0-0.6); ABS Lymphocytes 0.2 10^3/ul (1.0-4.8); ABS Monocytes 0.1 10^3/ul (0-0.8); Eosinophil % 16.3 %; Lymphocyte % 12.2 %
[2022-03-02 10:33] LABS: ABS Neutrophils 0.9 10^3/ul (1.5-7.7)
[2022-03-02 12:02] LABS: LDH 402 U/L (140-271)
[2022-03-02 12:32] LABS: Schistocytes ABSENT
[2022-03-02 12:38] LABS: Activated Partial Thrombo Time 40.2 seconds (26.0-38.0); Fibrinogen 330.4 mg/dL (110.8-404.3)
[2022-03-02 12:41] LABS: INR 5.34 (0.89-1.11)
[2022-03-02 12:48] LABS: Platelet Count 18 10^3/ul (150-450)
[2022-03-02 14:56] LABS: Total Iron Binding Capacity 204 mcg/dL (250-450); Transferrin 146 mg/dL (203-362)
[2022-03-02 14:57] LABS: % Iron Saturation 10 % (15-55); Iron < 20 ug/dL (50-212); Unsaturated Iron Binding 184 ug/dL
[2022-03-02] MEDS: Silver Sulfadiazine 1% 20 gm TUBE TOPICAL SCH ×2 (17:34→22:28)
[2022-03-02] MEDS: D5W 1/2 NS 1000 ml BAG 1,000 ML IV SCH (23:13)
[2022-03-03] MEDS: Hydrocortisone INJ 100 MG/2ML 2 ML VIAL IV SCH (01:41)
[2022-03-03 05:46] LABS: Activated Partial Thrombo Time 40.9 seconds (26.0-38.0); Fibrinogen 269.4 mg/dL (110.8-404.3)
[2022-03-03 05:50] LABS: Hematocrit 28 % (35-47); Hemoglobin 9.5 g/dL (12.0-16.0); Mean Corpuscular HGB Conc 34 g/dL (31-36); Mean Corpuscular Hemoglobin 33 pg (27-31); Mean Corpuscular Volume 96 fL (80-97); Mean Platelet Volume 9.4 fL (7.4-10.4); Platelet Count 10 10^3/uL (150-450); Platelet Count 10 10^3/ul (150-450); Red Cell Distribution Width 17 % (10-15); White Blood Count 1.9 10^3/uL (3.5-10.8)
[2022-03-03 06:14] LABS: Anion Gap 8 mmol/L (2-11); Blood Urea Nitrogen 26 mg/dL (6-24); CO2 Carbon Dioxide 19 mmol/L (22-32); Calcium 6.6 mg/dL (8.6-10.3); Chloride 103 mmol/L (101-111); Glucose 175 mg/dL (70-100); Magnesium 1.9 mg/dL (1.9-2.7); Phosphorus 1.2 mg/dL (2.5-5.0); Potassium 4.2 mmol/L (3.5-5.0); Sodium 130 mmol/L (135-145); eGFR CKD-EPI 87.7 (>60)
[2022-03-03] MEDS ORDERED: SODIUM PHOSPHATE IV ONE (06:19)
[2022-03-03] MEDS ORDERED: NS IV ONE (06:19)
[2022-03-03 06:27] LABS: Schistocytes ABSENT
[2022-03-03 06:40] LABS: Toxic Granulation 1+
[2022-03-03 06:41] LABS: ABS Eosinophils 0.1 10^3/ul (0-0.6); ABS Lymphocytes 0.2 10^3/ul (1.0-4.8); ABS Monocytes 0.3 10^3/ul (0-0.8); ABS Neutrophils 1.3 10^3/ul (1.5-7.7); Eosinophil % 6.9 %; Lymphocyte % 8.6 %; Nucleated Red Blood Cells % 0.2
[2022-03-03] MEDS: Aspirin EC 81 mg TAB.EC (enteric coated) PO SCH (09:26)
[2022-03-03] MEDS: Polyethylene Glycol 3350 17 GM PACKET PO SCH (09:33)
[2022-03-03] MEDS ORDERED: Metoprolol Tartrate 5 mg VIAL 5 ml VIAL (1 mg/ml) ONE (10:08)
[2022-03-03] MEDS: methylPREDNISolone SOD SUCC 125 mg 2 ML VIAL IV SCH (10:21)
[2022-03-03] MEDS: Silver Sulfadiazine 1% 20 gm TUBE TOPICAL SCH ×2 (11:26→23:54)
[2022-03-03] MEDS: D5W 1/2 NS 1000 ml BAG 1,000 ML IV SCH (11:58)
[2022-03-03 12:31] LABS: AST 811 U/L (13-39); Alkaline Phosphatase 57 U/L (35-149); Indirect Bilirubin 1.7 mg/dL (0.3-1.0)
[2022-03-03 12:54] LABS: ALT 683 U/L (7-52)
[2022-03-03] MEDS ORDERED: diazePAM INJ CARPUJECT 5 MG/ML SYRINGE IV ONE (13:00)
[2022-03-03 13:23] LABS: Ferritin > 1500.0 ng/mL (11-307)
[2022-03-03 21:48] LABS: HIT ELISA < 0.050 OD (<0.400); Heparin PF4 Antibody Interp Negative (Negative)
[2022-03-04] MEDS: D5W 1/2 NS 1000 ml BAG 1,000 ML IV SCH ×2 (01:55→14:49)
[2022-03-04] MEDS: Ondansetron 4 mg VIAL 2 MG/ML 2 ml VIAL IV PRN ×2 (05:42→16:34)
[2022-03-04 06:18] LABS: Immature Retic Fraction 0.32; RBC Retic Count 3.46 10^6/uL (3.70-4.87); Red Blood Count 3.46 10^6 /uL (3.70-4.87)
[2022-03-04 06:28] LABS: Corrected Retic Count 0.4 % (0.5-1.5); Hematocrit 33 % (35-47); Hematocrit for Retic CNT 33 % (35-47); Hemoglobin 11.2 g/dL (12.0-16.0); Mean Corpuscular HGB Conc 34 g/dL (31-36); Mean Corpuscular Hemoglobin 32 pg (27-31); Mean Corpuscular Volume 95 fL (80-97); Mean Platelet Volume 10.7 fL (7.4-10.4); Platelet Count 9 10^3/uL (150-450); Red Cell Distribution Width 17 % (10-15); White Blood Count 3.3 10^3/uL (3.5-10.8)
[2022-03-04 06:36] LABS: Albumin 2.5 g/dL (3.2-5.2); Albumin/Globulin Ratio 1.9 (1-3); Calcium 6.6 mg/dL (8.6-10.3); Globulin 1.3 g/dL (2-4); Magnesium 1.8 mg/dL (1.9-2.7); Potassium 3.2 mmol/L (3.5-5.0); Total Bilirubin 7.4 mg/dL (0.2-1.0); Total Protein 3.8 g/dL (6.4-8.9); eGFR CKD-EPI 92.3 (>60)
[2022-03-04 07:02] LABS: Platelet Count 9 10^3/ul (150-450)
[2022-03-04] MEDS ORDERED: Magnesium Sulfate 2 gm BAG 2 GM/50 ML BAG IVPB ONE (07:29)
[2022-03-04 07:30] LABS: ABS Eosinophils 0.3 10^3/ul (0-0.6); ABS Lymphocytes 0.3 10^3/ul (1.0-4.8); ABS Monocytes 0.4 10^3/ul (0-0.8); ABS Neutrophils 2.3 10^3/ul (1.5-7.7); Eosinophil % 8.8 %; Lymphocyte % 8.3 %; Nucleated Red Blood Cells % 0.2; Toxic Granulation 1+
[2022-03-04 07:30] LABS: Schistocytes ABSENT
[2022-03-04] MEDS ORDERED: Potassium Phosphate IV 15 MMOLE in NS 0.9% 250 ml 250 ML IVPB ONE (07:30)
[2022-03-04 07:45] LABS: Activated Partial Thrombo Time 41.2 seconds (26.0-38.0); INR 3.11 (0.89-1.11)
[2022-03-04] MEDS: methylPREDNISolone SOD SUCC 125 mg 2 ML VIAL IV SCH (08:08)
[2022-03-04] MEDS ORDERED: Potassium Chlor 20 meq TAB.ER PO ONE (08:28)
[2022-03-04] MEDS: Polyethylene Glycol 3350 17 GM PACKET PO SCH (08:46)
[2022-03-04] MEDS: Silver Sulfadiazine 1% 20 gm TUBE TOPICAL SCH ×2 (11:18→19:41)
[2022-03-04] MEDS ORDERED: Prochlorperazine 5 mg/ml 2 ml VIAL (10 mg) IV ONE (18:28)
[2022-03-04] MEDS ORDERED: Prochlorperazine 5 mg/ml 2 ml VIAL (10 mg) ONE (18:30)
[2022-03-04] MEDS ORDERED: Selenium 200 mcg TAB (NF) PO SCH (19:00)
[2022-03-04] MEDS ORDERED: Acetylcysteine 600mgCAP(RENAL) PO SCH (21:00)
[2022-03-05 04:06] LABS: ABS Lymphocytes 0.5 10^3/ul (1.0-4.8); ABS Monocytes 1.1 10^3/ul (0-0.8); ABS Neutrophils 6.1 10^3/ul (1.5-7.7); Albumin 2.4 g/dL (3.2-5.2); Calcium 6.5 mg/dL (8.6-10.3); Eosinophil % 0.2 %; Globulin 1.2 g/dL (2-4); Hematocrit 31 % (35-47); Hemoglobin 10.5 g/dL (12.0-16.0); Lymphocyte % 6.7 %; Magnesium 2.1 mg/dL (1.9-2.7); Mean Corpuscular HGB Conc 34 g/dL (31-36); Mean Corpuscular Hemoglobin 32 pg (27-31); Mean Corpuscular Volume 95 fL (80-97); Mean Platelet Volume 11.1 fL (7.4-10.4); Platelet Count 27 10^3/uL (150-450); Potassium 3.8 mmol/L (3.5-5.0); Red Blood Count 3.24 10^6 /uL (3.70-4.87); Red Cell Distribution Width 17 % (10-15); Total Bilirubin 8.1 mg/dL (0.2-1.0); Total Protein 3.6 g/dL (6.4-8.9); White Blood Count 7.7 10^3/uL (3.5-10.8); eGFR CKD-EPI 82.2 (>60)
[2022-03-05 04:08] LABS: Activated Partial Thrombo Time 32.9 seconds (26.0-38.0); Fibrinogen 302.1 mg/dL (110.8-404.3)
[2022-03-05 04:09] LABS: Platelet Count 27 10^3/ul (150-450)
[2022-03-05] MEDS ORDERED: NS IV ONE (04:23)
[2022-03-05] MEDS ORDERED: SODIUM PHOSPHATE IV ONE (04:23)
[2022-03-05 05:01] LABS: Schistocytes ABSENT
[2022-03-05] MEDS ORDERED: Potassium Phosphate IV 15 MMOLE in NS 0.9% 250 ml 250 ML IVPB ONE (05:30)
[2022-03-05] MEDS: Ondansetron 4 mg VIAL 2 MG/ML 2 ml VIAL IV PRN (06:41)
[2022-03-05] MEDS: methylPREDNISolone SOD SUCC 40 mg/ml 1 ml VIAL IV SCH (08:17)
[2022-03-05] MEDS ORDERED: Ondansetron 4 mg VIAL 2 MG/ML 2 ml VIAL IV ONE (08:29)
[2022-03-05] MEDS: Polyethylene Glycol 3350 17 GM PACKET PO SCH (08:39)
[2022-03-05] MEDS ORDERED: Pantoprazole VIAL 40 MG VIAL IV SCH (09:00)
[2022-03-05] MEDS: Silver Sulfadiazine 1% 20 gm TUBE TOPICAL SCH ×2 (10:28→20:44)
[2022-03-05] MEDS: Famotidine IV 10 MG/ML 2 ml VIAL (20 mg) IV SLOW PU SCH (20:36)
[2022-03-06] MEDS: Magic MouthWash2-BEN/MAAL/LIDO/NYST 240 ML BTL (alt formulation) SWISH SPIT SCH ×5 (02:51→23:25)
[2022-03-06 03:28] LABS: INR 1.28 (0.89-1.11)
[2022-03-06 03:33] LABS: Hematocrit 32 % (35-47); Hemoglobin 10.8 g/dL (12.0-16.0); Mean Corpuscular HGB Conc 34 g/dL (31-36); Mean Corpuscular Hemoglobin 32 pg (27-31); Mean Corpuscular Volume 94 fL (80-97); Mean Platelet Volume 10.4 fL (7.4-10.4); Platelet Count 49 10^3/uL (150-450); Red Cell Distribution Width 17 % (10-15); White Blood Count 11.6 10^3/uL (3.5-10.8)
[2022-03-06 03:49] LABS: Albumin 2.5 g/dL (3.2-5.2); Albumin/Globulin Ratio 1.5 (1-3); Calcium 6.6 mg/dL (8.6-10.3); Globulin 1.7 g/dL (2-4); Magnesium 2.2 mg/dL (1.9-2.7); Phosphorus 2.6 mg/dL (2.5-5.0); Potassium 4.4 mmol/L (3.5-5.0); Total Bilirubin 10.7 mg/dL (0.2-1.0); Total Protein 4.2 g/dL (6.4-8.9); eGFR CKD-EPI 62.1 (>60)
[2022-03-06 06:24] LABS: Acanthocytes 1+; Anisocytosis 1+
[2022-03-06 06:25] LABS: ABS Basophils 0.2 10^3/ul (0-0.2); ABS Lymphocytes 0.6 10^3/ul (1.0-4.8); ABS Monocytes 1.7 10^3/ul (0-0.8); ABS Neutrophils 9.2 10^3/ul (1.5-7.7); Lymphocyte % 4.8 %; Nucleated Red Blood Cells % 0.1; Toxic Granulation 2+
[2022-03-06] MEDS: Ondansetron 4 mg VIAL 2 MG/ML 2 ml VIAL IV PRN (08:39)
[2022-03-06] MEDS ORDERED: Vancomycin 1,500 MG in NS 0.9% 250 ml 250 ML IVPB ONE (09:00)
[2022-03-06] MEDS ORDERED: Vancomycin per Pharmacy 1 EA NOTE FOLLOW UP SCH (09:00)
[2022-03-06] MEDS: Famotidine IV 10 MG/ML 2 ml VIAL (20 mg) IV SLOW PU SCH ×2 (09:18→21:26)
[2022-03-06] MEDS: methylPREDNISolone SOD SUCC 40 mg/ml 1 ml VIAL IV SCH (09:18)
[2022-03-06] MEDS: Silver Sulfadiazine 1% 20 gm TUBE TOPICAL SCH ×2 (09:19→23:24)
[2022-03-06] MEDS: Polyethylene Glycol 3350 17 GM PACKET PO SCH ×2 (09:19→10:59)
[2022-03-06] MEDS: Morphine 2 MG/ML SYRINGE IV PRN (10:59)
[2022-03-06] MEDS: Vancomycin 1000 MG in NS 0.9% 250 ML IVPB SCH (21:26)
[2022-03-06] MEDS: Heparin 5000 UNITS/ML 1 mL VIAL SUBCUT SCH (23:01)
[2022-03-06] MEDS ORDERED: Dextrose 50% Syringe 50 ml 25 GM/50 ML SYRINGE IV PUSH PRN (23:04)
[2022-03-07 05:24] LABS: INR 1.11 (0.89-1.11)
[2022-03-07 05:30] LABS: ABS Basophils 0.1 10^3/ul (0-0.2); ABS Lymphocytes 0.4 10^3/ul (1.0-4.8); ABS Monocytes 1.2 10^3/ul (0-0.8); ABS Neutrophils 11.4 10^3/ul (1.5-7.7); Eosinophil % 0.2 %; Hematocrit 29 % (35-47); Hemoglobin 9.7 g/dL (12.0-16.0); Lymphocyte % 3.1 %; Mean Corpuscular HGB Conc 33 g/dL (31-36); Mean Corpuscular Hemoglobin 31 pg (27-31); Mean Corpuscular Volume 94 fL (80-97); Mean Platelet Volume 10.3 fL (7.4-10.4); Nucleated Red Blood Cells % 0.1; Platelet Count 76 10^3/uL (150-450); Red Blood Count 3.12 10^6 /uL (3.70-4.87); Red Cell Distribution Width 17 % (10-15); White Blood Count 13.1 10^3/uL (3.5-10.8)
[2022-03-07 05:45] LABS: Albumin 2.5 g/dL (3.2-5.2); Albumin/Globulin Ratio 1.6 (1-3); Globulin 1.6 g/dL (2-4); Magnesium 2.1 mg/dL (1.9-2.7); Phosphorus 1.9 mg/dL (2.5-5.0); Potassium 4.3 mmol/L (3.5-5.0); Total Bilirubin 8.2 mg/dL (0.2-1.0); Total Protein 4.1 g/dL (6.4-8.9); eGFR CKD-EPI 78.4 (>60)
[2022-03-07 06:05] LABS: Calcium 6.2 mg/dL (8.6-10.3)
[2022-03-07] MEDS ORDERED: CALCIUM GLUCONATE 1GM/50ML NS 1 GM/50 ML BAG IV ONE (06:17)
[2022-03-07] MEDS ORDERED: Sodium Phosphate IV 15 MMOLE in NS 0.9% 250 ml 250 ML IV ONE (07:45)
[2022-03-07] MEDS: methylPREDNISolone SOD SUCC 40 mg/ml 1 ml VIAL IV SCH (08:45)
[2022-03-07] MEDS: Polyethylene Glycol 3350 17 GM PACKET PO SCH (08:45)
[2022-03-07] MEDS: Heparin 5000 UNITS/ML 1 mL VIAL SUBCUT SCH ×2 (08:46→21:54)
[2022-03-07] MEDS: Magic MouthWash2-BEN/MAAL/LIDO/NYST 240 ML BTL (alt formulation) SWISH SPIT SCH ×4 (08:47→23:52)
[2022-03-07] MEDS: Famotidine IV 10 MG/ML 2 ml VIAL (20 mg) IV SLOW PU SCH ×2 (08:47→21:54)
[2022-03-07] MEDS: Vancomycin 1000 MG in NS 0.9% 250 ML IVPB SCH ×2 (08:47→21:52)
[2022-03-07] MEDS: Ondansetron 4 mg VIAL 2 MG/ML 2 ml VIAL IV PRN (09:02)
[2022-03-07] MEDS: metroNIDAZOLE IV 500 MG/100ML 500 MG/100 ML BAG IVPB SCH ×2 (10:11→18:09)
[2022-03-07] MEDS: Senna TAB 8.6 mg TAB PO PRN (10:51)
[2022-03-07] MEDS: Silver Sulfadiazine 1% 20 gm TUBE TOPICAL SCH ×2 (11:37→23:52)
[2022-03-07] MEDS: Morphine 2 MG/ML SYRINGE IV PRN (21:53)
[2022-03-08] MEDS: metroNIDAZOLE IV 500 MG/100ML 500 MG/100 ML BAG IVPB SCH ×3 (01:01→17:09)
[2022-03-08] MEDS: Morphine 2 MG/ML SYRINGE IV PRN ×2 (02:47→23:12)
[2022-03-08 05:30] LABS: Hematocrit 25 % (35-47); Hemoglobin 8.4 g/dL (12.0-16.0); Mean Corpuscular HGB Conc 33 g/dL (31-36); Mean Corpuscular Hemoglobin 32 pg (27-31); Mean Corpuscular Volume 94 fL (80-97); Mean Platelet Volume 9.9 fL (7.4-10.4); Platelet Count 111 10^3/uL (150-450); Red Blood Count 2.68 10^6 /uL (3.70-4.87); Red Cell Distribution Width 17 % (10-15); White Blood Count 11.3 10^3/uL (3.5-10.8)
[2022-03-08 05:38] LABS: INR 1.06 (0.89-1.11)
[2022-03-08 05:53] LABS: Anisocytosis 1+; Polychromasia 1+; Toxic Granulation 2+
[2022-03-08 05:54] LABS: ABS Eosinophils 0.1 10^3/ul (0-0.6); ABS Lymphocytes 0.4 10^3/ul (1.0-4.8); ABS Monocytes 0.9 10^3/ul (0-0.8); ABS Neutrophils 9.9 10^3/ul (1.5-7.7); Eosinophil % 0.8 %; Lymphocyte % 3.6 %; Nucleated Red Blood Cells % 0.1
[2022-03-08 06:01] LABS: Potassium 3.9 mmol/L (3.5-5.0)
[2022-03-08 06:02] LABS: Albumin 2.3 g/dL (3.2-5.2); Albumin/Globulin Ratio 1.4 (1-3); Calcium 6.5 mg/dL (8.6-10.3); Globulin 1.7 g/dL (2-4); Magnesium 1.8 mg/dL (1.9-2.7); Phosphorus 2.3 mg/dL (2.5-5.0); Total Bilirubin 3.9 mg/dL (0.2-1.0); eGFR CKD-EPI 87.7 (>60)
[2022-03-08] MEDS ORDERED: Magnesium Sulfate 2 gm BAG 2 GM/50 ML BAG IVPB ONE (08:22)
[2022-03-08] MEDS ORDERED: Vancomycin Trough Check NOTE FOLLOW UP ONE (08:30)
[2022-03-08] MEDS: methylPREDNISolone SOD SUCC 40 mg/ml 1 ml VIAL IV SCH (10:03)
[2022-03-08] MEDS: Famotidine IV 10 MG/ML 2 ml VIAL (20 mg) IV SLOW PU SCH ×2 (10:03→21:16)
[2022-03-08] MEDS: Heparin 5000 UNITS/ML 1 mL VIAL SUBCUT SCH ×2 (10:04→21:16)
[2022-03-08] MEDS: Magic MouthWash2-BEN/MAAL/LIDO/NYST 240 ML BTL (alt formulation) SWISH SPIT SCH ×4 (10:15→21:16)
[2022-03-08] MEDS: Polyethylene Glycol 3350 17 GM PACKET PO SCH (10:25)
[2022-03-08] MEDS: Vancomycin 1000 MG in NS 0.9% 250 ML IVPB SCH (12:13)
[2022-03-08] MEDS: Vancomycin 1,250 MG in NS 0.9% 250 ml 250 ML IVPB SCH ×2 (13:14→23:30)
[2022-03-08] MEDS: Silver Sulfadiazine 1% 20 gm TUBE TOPICAL SCH ×2 (13:20→23:11)
[2022-03-09] MEDS: metroNIDAZOLE IV 500 MG/100ML 500 MG/100 ML BAG IVPB SCH ×3 (01:30→17:15)
[2022-03-09 05:48] LABS: ABS Eosinophils 0.1 10^3/ul (0-0.6); ABS Lymphocytes 0.8 10^3/ul (1.0-4.8); ABS Monocytes 0.6 10^3/ul (0-0.8); ABS Neutrophils 9.4 10^3/ul (1.5-7.7); Eosinophil % 0.9 %; Hematocrit 23 % (35-47); Hemoglobin 8.2 g/dL (12.0-16.0); Mean Corpuscular HGB Conc 35 g/dL (31-36); Mean Corpuscular Hemoglobin 34 pg (27-31); Mean Corpuscular Volume 95 fL (80-97); Mean Platelet Volume 9.5 fL (7.4-10.4); Platelet Count 161 10^3/uL (150-450); Red Blood Count 2.45 10^6 /uL (3.70-4.87); Red Cell Distribution Width 17 % (10-15); White Blood Count 10.9 10^3/uL (3.5-10.8)
[2022-03-09 06:55] LABS: Albumin 2.3 g/dL (3.2-5.2); Albumin/Globulin Ratio 1.4 (1-3); Calcium 6.7 mg/dL (8.6-10.3); Globulin 1.7 g/dL (2-4); Magnesium 1.9 mg/dL (1.9-2.7); Potassium 3.9 mmol/L (3.5-5.0); Total Bilirubin 2.4 mg/dL (0.2-1.0); eGFR CKD-EPI 92.7 (>60)
[2022-03-09] MEDS: Famotidine IV 10 MG/ML 2 ml VIAL (20 mg) IV SLOW PU SCH ×2 (08:31→20:02)
[2022-03-09] MEDS: Heparin 5000 UNITS/ML 1 mL VIAL SUBCUT SCH ×2 (08:31→20:03)
[2022-03-09] MEDS: Magic MouthWash2-BEN/MAAL/LIDO/NYST 240 ML BTL (alt formulation) SWISH SPIT SCH ×4 (08:32→20:01)
[2022-03-09] MEDS: Silver Sulfadiazine 1% 20 gm TUBE TOPICAL SCH ×2 (08:33→22:56)
[2022-03-09] MEDS: methylPREDNISolone SOD SUCC 40 mg/ml 1 ml VIAL IV SCH (08:36)
[2022-03-09] MEDS: Polyethylene Glycol 3350 17 GM PACKET PO SCH (08:46)
[2022-03-09] MEDS: Vancomycin 1,250 MG in NS 0.9% 250 ml 250 ML IVPB SCH (11:35)
[2022-03-09 18:11] LABS: C Reactive Protein 26.25 mg/L (<8.01)
[2022-03-09] MEDS: Morphine 2 MG/ML SYRINGE IV PRN (21:03)
[2022-03-10] MEDS: Vancomycin 1,250 MG in NS 0.9% 250 ml 250 ML IVPB SCH ×2 (00:19→14:53)
[2022-03-10] MEDS: metroNIDAZOLE IV 500 MG/100ML 500 MG/100 ML BAG IVPB SCH ×2 (02:31→09:57)
[2022-03-10 05:39] LABS: ABS Eosinophils 0.1 10^3/ul (0-0.6); ABS Lymphocytes 0.7 10^3/ul (1.0-4.8); ABS Monocytes 0.6 10^3/ul (0-0.8); ABS Neutrophils 7.5 10^3/ul (1.5-7.7); Eosinophil % 1.6 %; Hematocrit 24 % (35-47); Lymphocyte % 7.4 %; Mean Corpuscular HGB Conc 33 g/dL (31-36); Mean Corpuscular Hemoglobin 32 pg (27-31); Mean Corpuscular Volume 96 fL (80-97); Mean Platelet Volume 9.1 fL (7.4-10.4); Platelet Count 238 10^3/uL (150-450); Red Blood Count 2.52 10^6 /uL (3.70-4.87); Red Cell Distribution Width 18 % (10-15)
[2022-03-10 06:21] LABS: Calcium 7.2 mg/dL (8.6-10.3); Magnesium 1.6 mg/dL (1.9-2.7); Potassium 4.1 mmol/L (3.5-5.0); eGFR CKD-EPI 102.6 (>60)
[2022-03-10 07:53] LABS: Albumin 2.3 g/dL (3.2-5.2); Albumin/Globulin Ratio 1.3 (1-3); Direct Bilirubin 0.9 mg/dL (0.03-0.18); Globulin 1.8 g/dL (2-4); Indirect Bilirubin 1.1 mg/dL (0.3-1.0); Total Protein 4.1 g/dL (6.4-8.9)
[2022-03-10] MEDS ORDERED: Magnesium Sulfate IV 3 GM in NS 0.9% 100 ml BAG 100 ML IVPB ONE (08:00)
[2022-03-10] MEDS: methylPREDNISolone SOD SUCC 40 mg/ml 1 ml VIAL IV SCH (08:38)
[2022-03-10] MEDS: Famotidine IV 10 MG/ML 2 ml VIAL (20 mg) IV SLOW PU SCH ×2 (08:38→22:08)
[2022-03-10] MEDS: Morphine 2 MG/ML SYRINGE IV PRN ×2 (08:39→22:22)
[2022-03-10] MEDS: Heparin 5000 UNITS/ML 1 mL VIAL SUBCUT SCH ×2 (08:39→22:08)
[2022-03-10] MEDS: Magic MouthWash2-BEN/MAAL/LIDO/NYST 240 ML BTL (alt formulation) SWISH SPIT SCH ×4 (09:58→22:04)
[2022-03-10] MEDS: Polyethylene Glycol 3350 17 GM PACKET PO SCH (10:08)
[2022-03-10] MEDS: Silver Sulfadiazine 1% 20 gm TUBE TOPICAL SCH ×2 (11:39→22:22)
[2022-03-10] MEDS ORDERED: Vancomycin Trough Check NOTE FOLLOW UP ONE (12:00)
[2022-03-11 05:45] LABS: ABS Eosinophils 0.1 10^3/ul (0-0.6); ABS Lymphocytes 0.6 10^3/ul (1.0-4.8); ABS Monocytes 0.5 10^3/ul (0-0.8); ABS Neutrophils 6.1 10^3/ul (1.5-7.7); Eosinophil % 0.8 %; Hematocrit 24 % (35-47); Lymphocyte % 8.2 %; Mean Corpuscular HGB Conc 33 g/dL (31-36); Mean Corpuscular Hemoglobin 32 pg (27-31); Mean Corpuscular Volume 96 fL (80-97); Mean Platelet Volume 8.9 fL (7.4-10.4); Platelet Count 276 10^3/uL (150-450); Red Blood Count 2.47 10^6 /uL (3.70-4.87); Red Cell Distribution Width 18 % (10-15); White Blood Count 7.3 10^3/uL (3.5-10.8)
[2022-03-11 06:12] LABS: Albumin 2.4 g/dL (3.2-5.2); Albumin/Globulin Ratio 1.3 (1-3); Calcium 7.8 mg/dL (8.6-10.3); Direct Bilirubin 0.8 mg/dL (0.03-0.18); Globulin 1.9 g/dL (2-4); Indirect Bilirubin 0.9 mg/dL (0.3-1.0); Magnesium 1.7 mg/dL (1.9-2.7); Potassium 4.6 mmol/L (3.5-5.0); Total Bilirubin 1.7 mg/dL (0.2-1.0); Total Protein 4.3 g/dL (6.4-8.9); eGFR CKD-EPI 98.8 (>60)
[2022-03-11] MEDS ORDERED: Magnesium Sulfate 2 gm BAG 2 GM/50 ML BAG IVPB ONE (07:07)
[2022-03-11] MEDS: methylPREDNISolone SOD SUCC 40 mg/ml 1 ml VIAL IV SCH (09:14)
[2022-03-11] MEDS: Heparin 5000 UNITS/ML 1 mL VIAL SUBCUT SCH ×2 (09:14→20:57)
[2022-03-11] MEDS: Polyethylene Glycol 3350 17 GM PACKET PO SCH (09:15)
[2022-03-11] MEDS: Famotidine IV 10 MG/ML 2 ml VIAL (20 mg) IV SLOW PU SCH ×2 (09:15→20:56)
[2022-03-11] MEDS: Magic MouthWash2-BEN/MAAL/LIDO/NYST 240 ML BTL (alt formulation) SWISH SPIT SCH ×4 (09:16→21:10)
[2022-03-11] MEDS: Silver Sulfadiazine 1% 20 gm TUBE TOPICAL SCH ×2 (12:02→21:10)
[2022-03-11 12:41] LABS: Rapid COVID-19 Molecular Undetected (Undetected)
[2022-03-11] MEDS: Morphine 2 MG/ML SYRINGE IV PRN (16:59)
[2022-03-12 05:40] LABS: ABS Lymphocytes 0.7 10^3/ul (1.0-4.8); ABS Monocytes 0.5 10^3/ul (0-0.8); ABS Neutrophils 5.1 10^3/ul (1.5-7.7); Eosinophil % 0.7 %; Hematocrit 25 % (35-47); Hemoglobin 8.7 g/dL (12.0-16.0); Lymphocyte % 10.5 %; Mean Corpuscular HGB Conc 35 g/dL (31-36); Mean Corpuscular Hemoglobin 34 pg (27-31); Mean Corpuscular Volume 97 fL (80-97); Mean Platelet Volume 8.9 fL (7.4-10.4); Platelet Count 305 10^3/uL (150-450); Red Blood Count 2.54 10^6 /uL (3.70-4.87); Red Cell Distribution Width 18 % (10-15); White Blood Count 6.4 10^3/uL (3.5-10.8)
[2022-03-12 07:12] LABS: Albumin 2.5 g/dL (3.2-5.2); Albumin/Globulin Ratio 1.3 (1-3); Calcium 7.9 mg/dL (8.6-10.3); Direct Bilirubin 0.6 mg/dL (0.03-0.18); Magnesium 1.6 mg/dL (1.9-2.7); Potassium 4.3 mmol/L (3.5-5.0); Total Bilirubin 1.6 mg/dL (0.2-1.0); Total Protein 4.5 g/dL (6.4-8.9); eGFR CKD-EPI 101.4 (>60)
[2022-03-12] MEDS ORDERED: Magnesium Sulfate IV 3 GM in NS 0.9% 100 ml BAG 100 ML IVPB ONE (08:20)
[2022-03-12] MEDS: Famotidine IV 10 MG/ML 2 ml VIAL (20 mg) IV SLOW PU SCH (09:44)
[2022-03-12] MEDS: Heparin 5000 UNITS/ML 1 mL VIAL SUBCUT SCH (09:44)
[2022-03-12] MEDS: Polyethylene Glycol 3350 17 GM PACKET PO SCH (09:57)
[2022-03-12 11:14] VITALS: BP 132/59
[2022-03-12] MEDS: Magic MouthWash2-BEN/MAAL/LIDO/NYST 240 ML BTL (alt formulation) SWISH SPIT SCH ×2 (11:37→12:32)
[2022-03-12] MEDS: Silver Sulfadiazine 1% 20 gm TUBE TOPICAL SCH (12:18)
[2022-03-12 14:41] LABS: Hepatitis B Surface Antigen Nonreactive (Nonreactive)
[2022-03-12 14:46] LABS: Hepatitis A Ab IgM Negative (Negative); Hepatitis B Core IgM Nonreactive (Nonreactive)
[2022-03-12 14:58] LABS: Hepatitis C Antibody Negative (Negative)
== END 2022-03-12 14:50 | DRG 871 ==
LOC: ED 01:38 → EDHOLD 04:11 → SUATTDRO 04:11 → ICU 08:48 → MED 03-07 16:48
PROVIDERS: ADMIT Internal Medicine; ATTEND Internal Medicine

== ENCOUNTER 2022-06-12 20:25 | Inpatient (IN) ==
[2022-06-12 20:55] LABS: Hematocrit 22 % (35-47); Hemoglobin 7.2 g/dL (12.0-16.0); Mean Corpuscular HGB Conc 33 g/dL (31-36); Mean Corpuscular Hemoglobin 33 pg (27-31); Mean Corpuscular Volume 100 fL (80-97); Mean Platelet Volume 9.4 fL (7.4-10.4); Platelet Count 120 10^3/uL (150-450); Red Blood Count 2.21 10^6 /uL (3.70-4.87); Red Cell Distribution Width 18 % (10-15); White Blood Count 2.3 10^3/uL (3.5-10.8)
[2022-06-12 21:06] LABS: Activated Partial Thrombo Time 33.2 seconds (26.0-38.0); INR 0.98 (0.89-1.11)
[2022-06-12 21:31] LABS: Albumin 3.5 g/dL (3.2-5.2); Albumin/Globulin Ratio 1.2 (1-3); C Reactive Protein 58.99 mg/L (<8.01); Calcium 9.6 mg/dL (8.6-10.3); Potassium 4.2 mmol/L (3.5-5.0); Total Bilirubin 0.6 mg/dL (0.2-1.0); Total Protein 6.5 g/dL (6.4-8.9); eGFR CKD-EPI 52.7 (>60)
[2022-06-12] MEDS ORDERED: Cefepime 1 GM in Dextrose 1 GM/50 ML BAG IV ONE (21:49)
[2022-06-12] MEDS ORDERED: NS 0.9% 500 ml BAG 500 ML IV ONE (21:50)
[2022-06-12 21:52] LABS: ABS Lymphocytes 0.3 10^3/ul (1.0-4.8); ABS Monocytes 0.1 10^3/ul (0-0.8); ABS Neutrophils 1.8 10^3/ul (1.5-7.7); Eosinophil % 0.3 %; Lymphocyte % 13.8 %; Nucleated Red Blood Cells % 0.1
[2022-06-12] MEDS: Lactated Ringers 1000 ml BAG 1,000 ML IV SCH (23:06)
[2022-06-12] MEDS: Enoxaparin 40 MG/0.4 ML SYR SUBCUT SCH (23:07)
[2022-06-12 23:31] LABS: Folate 11.21 ng/mL (5.90-24.80)
[2022-06-13] MEDS: HYDROmorphone 0.5 MG/0.5 ML SYRINGE IV PRN ×4 (02:54→22:16)
[2022-06-13] MEDS ORDERED: Albuterol HFA INHALER 8 gm MDI INH SCH (06:00)
[2022-06-13 08:31] LABS: Hematocrit 23 % (35-47); Hemoglobin 7.2 g/dL (12.0-16.0); Mean Corpuscular HGB Conc 32 g/dL (31-36); Mean Corpuscular Hemoglobin 32 pg (27-31); Mean Corpuscular Volume 100 fL (80-97); Mean Platelet Volume 9.5 fL (7.4-10.4); Platelet Count 112 10^3/uL (150-450); Red Blood Count 2.29 10^6 /uL (3.70-4.87); Red Cell Distribution Width 19 % (10-15); White Blood Count 0.9 10^3/uL (3.5-10.8)
[2022-06-13] MEDS: Lactated Ringers 1000 ml BAG 1,000 ML IV SCH (08:46)
[2022-06-13] MEDS: Cefepime 2 GM in Dextrose 2 GM/50 ML BAG IV SCH ×2 (08:48→22:09)
[2022-06-13 08:56] LABS: ABS Lymphocytes 0.2 10^3/ul (1.0-4.8); ABS Neutrophils 0.6 10^3/ul (1.5-7.7); Eosinophil % 0.3 %; Lymphocyte % 27.5 %; Nucleated Red Blood Cells % 0.5
[2022-06-13 09:03] LABS: Calcium 9.3 mg/dL (8.6-10.3); Potassium 3.9 mmol/L (3.5-5.0); eGFR CKD-EPI 63.7 (>60)
[2022-06-13] MEDS ORDERED: Vancomycin 1,500 MG in NS 0.9% 250 ml 250 ML IVPB ONE (10:00)
[2022-06-13] MEDS ORDERED: Vancomycin per Pharmacy 1 EA NOTE FOLLOW UP SCH (10:00)
[2022-06-13] MEDS: Albuterol HFA INHALER 8 gm MDI INH SCH ×2 (13:11→19:41)
[2022-06-13] MEDS ORDERED: Magnesium Hydroxide LIQ 30 ML UDC PO PRN (15:52)
[2022-06-13 17:52] LABS: Urine Appearance Clear; Urine Bilirubin Negative (Negative); Urine Blood Negative (Negative); Urine Color Yellow; Urine Glucose Negative (Negative); Urine Ketones Negative (Negative); Urine Nitrite Negative (Negative); Urine Protein 1+(30 mg/dL) (Negative); Urine Specific Gravity 1.013 (1.002-1.030); Urine Urobilinogen Negative (Negative)
[2022-06-13 18:00] LABS: Urine Bacteria Absent (Absent); Urine Red Blood Cell Absent (Absent); Urine White Blood Cell Absent (Absent)
[2022-06-13] MEDS: Polyethylene Glycol 3350 17 GM PACKET PO SCH (22:08)
[2022-06-13] MEDS: Enoxaparin 40 MG/0.4 ML SYR SUBCUT SCH (22:23)
[2022-06-13] MEDS: Vancomycin 750 MG in NS 0.9% 250 ML IVPB SCH (23:13)
[2022-06-14] MEDS: Lactated Ringers 1000 ml BAG 1,000 ML IV SCH ×2 (01:26→12:25)
[2022-06-14] MEDS: Albuterol HFA INHALER 8 gm MDI INH SCH ×2 (01:32→08:16)
[2022-06-14] MEDS: HYDROmorphone 0.5 MG/0.5 ML SYRINGE IV PRN ×3 (03:12→19:41)
[2022-06-14 07:59] LABS: Hematocrit 21 % (35-47); Hemoglobin 6.9 g/dL (12.0-16.0); Mean Corpuscular HGB Conc 34 g/dL (31-36); Mean Corpuscular Hemoglobin 33 pg (27-31); Mean Corpuscular Volume 99 fL (80-97); Mean Platelet Volume 9.2 fL (7.4-10.4); Platelet Count 89 10^3/uL (150-450); Red Blood Count 2.08 10^6 /uL (3.70-4.87); Red Cell Distribution Width 18 % (10-15); White Blood Count 0.9 10^3/uL (3.5-10.8)
[2022-06-14 08:00] LABS: ABS Neutrophils 0.4 10^3/ul (1.5-7.7)
[2022-06-14 08:25] LABS: ABS Lymphocytes 0.4 10^3/ul (1.0-4.8); ABS Monocytes 0.1 10^3/ul (0-0.8); Eosinophil % 0.1 %; Lymphocyte % 46.1 %; Nucleated Red Blood Cells % 0.2
[2022-06-14 08:33] LABS: Calcium 8.2 mg/dL (8.6-10.3); Magnesium 1.6 mg/dL (1.9-2.7); Potassium 3.7 mmol/L (3.5-5.0); eGFR CKD-EPI 90.7 (>60)
[2022-06-14] MEDS ORDERED: Albuterol HFA INHALER 8 gm MDI INH PRN (08:51)
[2022-06-14] MEDS: Cefepime 2 GM in Dextrose 2 GM/50 ML BAG IV SCH ×2 (10:13→21:25)
[2022-06-14] MEDS: Polyethylene Glycol 3350 17 GM PACKET PO SCH (10:57)
[2022-06-14] MEDS: Vancomycin 750 MG in NS 0.9% 250 ML IVPB SCH ×2 (12:27→23:13)
[2022-06-14] MEDS: Enoxaparin 40 MG/0.4 ML SYR SUBCUT SCH (19:46)
[2022-06-15] MEDS: Lactated Ringers 1000 ml BAG 1,000 ML IV SCH ×2 (00:37→10:57)
[2022-06-15 07:02] LABS: Hematocrit 22 % (35-47); Hemoglobin 7.5 g/dL (12.0-16.0); Mean Corpuscular HGB Conc 34 g/dL (31-36); Mean Corpuscular Hemoglobin 32 pg (27-31); Mean Corpuscular Volume 95 fL (80-97); Mean Platelet Volume 8.6 fL (7.4-10.4); Platelet Count 46 10^3/uL (150-450); Red Blood Count 2.35 10^6 /uL (3.70-4.87); Red Cell Distribution Width 21 % (10-15); White Blood Count 1.3 10^3/uL (3.5-10.8)
[2022-06-15 07:25] LABS: ABS Lymphocytes 0.7 10^3/ul (1.0-4.8); ABS Neutrophils 0.6 10^3/ul (1.5-7.7); Lymphocyte % 48.7 %; Nucleated Red Blood Cells % 0.4
[2022-06-15 07:36] LABS: Calcium 7.8 mg/dL (8.6-10.3); Potassium 3.7 mmol/L (3.5-5.0); eGFR CKD-EPI 91.3 (>60)
[2022-06-15] MEDS ORDERED: Calcium Gluconate 2 GM in NS 0.9% 100 ml BAG 100 ML IV ONE (08:31)
[2022-06-15] MEDS: Cefepime 2 GM in Dextrose 2 GM/50 ML BAG IV SCH (09:14)
[2022-06-15] MEDS ORDERED: Vancomycin Trough Check NOTE FOLLOW UP ONE (10:30)
[2022-06-15 11:58] LABS: Vancomycin Trough 10.9 mcg/mL; eGFR CKD-EPI 90.7 (>60)
[2022-06-15] MEDS: Vancomycin 750 MG in NS 0.9% 250 ML IVPB SCH (12:05)
[2022-06-15] MEDS: cefTRIAXone 2 gm/50 mL D5W 2 GM/50 ML BAG IV SCH (14:24)
[2022-06-15] MEDS: Enoxaparin 40 MG/0.4 ML SYR SUBCUT SCH (19:51)
[2022-06-15] MEDS ORDERED: Gadoteridol (CONTRAST) 279.3 MG/ML 10 ML IV ONE (21:13)
[2022-06-15] MEDS ORDERED: Vancomycin 1000 MG in NS 0.9% 250 ML IVPB SCH (22:00)
[2022-06-16] MEDS: HYDROmorphone 0.5 MG/0.5 ML SYRINGE IV PRN ×4 (01:37→21:16)
[2022-06-16 06:40] LABS: ABS Lymphocytes 1.3 10^3/ul (1.0-4.8); ABS Monocytes 0.3 10^3/ul (0-0.8); ABS Neutrophils 6.5 10^3/ul (1.5-7.7); Hematocrit 22 % (35-47); Hemoglobin 7.4 g/dL (12.0-16.0); Lymphocyte % 16.3 %; Mean Corpuscular HGB Conc 34 g/dL (31-36); Mean Corpuscular Hemoglobin 32 pg (27-31); Mean Corpuscular Volume 96 fL (80-97); Mean Platelet Volume 9.1 fL (7.4-10.4); Platelet Count 39 10^3/uL (150-450); Red Blood Count 2.29 10^6 /uL (3.70-4.87); Red Cell Distribution Width 20 % (10-15); White Blood Count 8.1 10^3/uL (3.5-10.8)
[2022-06-16] MEDS ORDERED: Potassium Chlor 20 meq TAB.ER PO ONE ×2 (07:50→13:00)
[2022-06-16] MEDS ORDERED: Calcium Gluconate 2 GM in NS 0.9% 100 ml BAG 100 ML IV ONE (08:00)
[2022-06-16 08:50] LABS: Calcium 8.2 mg/dL (8.6-10.3); Magnesium 1.6 mg/dL (1.9-2.7); Potassium 3.3 mmol/L (3.5-5.0)
[2022-06-16] MEDS ORDERED: Magnesium Sulfate 2 gm BAG 2 GM/50 ML BAG IVPB ONE (09:50)
[2022-06-16] MEDS: cefTRIAXone 2 gm/50 mL D5W 2 GM/50 ML BAG IV SCH (14:33)
[2022-06-16 16:26] LABS: Anaplasma phagocytophilum Negative (Negative); B. miyamotoi PCR, B Negative (Negative); Babesia divergens/MO-1 Negative (Negative); Babesia ducani Negative (Negative); Ehrlichia chaffeensis Negative (Negative); Ehrlichia ewingii/canis Negative (Negative); Ehrlichia muris eauclairensis Negative (Negative)
[2022-06-17 06:57] LABS: ABS Lymphocytes 1.5 10^3/ul (1.0-4.8); ABS Monocytes 0.5 10^3/ul (0-0.8); ABS Neutrophils 15.6 10^3/ul (1.5-7.7); Hematocrit 24 % (35-47); Hemoglobin 7.9 g/dL (12.0-16.0); Lymphocyte % 8.6 %; Mean Corpuscular HGB Conc 33 g/dL (31-36); Mean Corpuscular Hemoglobin 32 pg (27-31); Mean Corpuscular Volume 96 fL (80-97); Mean Platelet Volume 10.1 fL (7.4-10.4); Platelet Count 40 10^3/uL (150-450); Red Blood Count 2.47 10^6 /uL (3.70-4.87); Red Cell Distribution Width 20 % (10-15); White Blood Count 17.7 10^3/uL (3.5-10.8)
[2022-06-17 07:17] LABS: Calcium 8.6 mg/dL (8.6-10.3); Magnesium 1.8 mg/dL (1.9-2.7); Potassium 4.1 mmol/L (3.5-5.0); eGFR CKD-EPI 92.7 (>60)
[2022-06-17] MEDS ORDERED: Magnesium Sulfate 2 gm BAG 2 GM/50 ML BAG IVPB ONE (07:42)
[2022-06-17] MEDS ORDERED: Vancomycin Trough Check NOTE FOLLOW UP ONE (09:30)
[2022-06-17] MEDS ORDERED: fentaNYL 100 mcg/2 ml 50 MCG/ML VIAL ONE (11:00)
[2022-06-17] MEDS ORDERED: Midazolam 5 mg/5 ml VIAL 1 mg/ml 5 ml VIAL (5 mg) ONE (11:00)
[2022-06-17] MEDS ORDERED: Flumazenil 0.5 mg/5 ml 0.1 MG/ML 5 ml VIAL ONE (11:00)
[2022-06-17] MEDS ORDERED: Naloxone 0.4 mg VIAL 0.4 mg/ml 1 ml VIAL ONE (11:00)
[2022-06-17] MEDS ORDERED: HYDROmorphone 1 MG/1 ML SYRINGE ONE (13:19)
[2022-06-17] MEDS: HYDROmorphone 0.5 MG/0.5 ML SYRINGE IV PRN (13:21)
[2022-06-17] MEDS: cefTRIAXone 2 gm/50 mL D5W 2 GM/50 ML BAG IV SCH (14:15)
[2022-06-18 06:48] LABS: ABS Lymphocytes 1.5 10^3/ul (1.0-4.8); ABS Monocytes 0.9 10^3/ul (0-0.8); ABS Neutrophils 16.2 10^3/ul (1.5-7.7); Hematocrit 22 % (35-47); Hemoglobin 7.3 g/dL (12.0-16.0); Lymphocyte % 8.2 %; Mean Corpuscular HGB Conc 33 g/dL (31-36); Mean Corpuscular Hemoglobin 32 pg (27-31); Mean Corpuscular Volume 97 fL (80-97); Mean Platelet Volume 9.7 fL (7.4-10.4); Platelet Count 38 10^3/uL (150-450); Red Cell Distribution Width 20 % (10-15); White Blood Count 18.6 10^3/uL (3.5-10.8)
[2022-06-18 07:20] LABS: Calcium 8.4 mg/dL (8.6-10.3); Magnesium 1.8 mg/dL (1.9-2.7); Potassium 3.8 mmol/L (3.5-5.0); eGFR CKD-EPI 94.9 (>60)
[2022-06-18] MEDS ORDERED: Potassium Chlor 20 meq TAB.ER PO ONE (07:37)
[2022-06-18] MEDS ORDERED: Magnesium Sulfate 2 gm BAG 2 GM/50 ML BAG IVPB ONE (07:37)
[2022-06-18 12:38] LABS: Mean Platelet Volume 8.8 fL (7.4-10.4); Platelet Count 43 10^3/uL (150-450)
[2022-06-18] MEDS: cefTRIAXone 2 gm/50 mL D5W 2 GM/50 ML BAG IV SCH (12:48)
[2022-06-18] MEDS: HYDROmorphone 0.5 MG/0.5 ML SYRINGE IV PRN ×2 (16:17→23:21)
[2022-06-18 20:13] LABS: ABS Lymphocytes 1.6 10^3/ul (1.0-4.8); ABS Neutrophils 18.8 10^3/ul (1.5-7.7); Hematocrit 22 % (35-47); Hemoglobin 6.9 g/dL (12.0-16.0); Lymphocyte % 7.3 %; Mean Corpuscular HGB Conc 32 g/dL (31-36); Mean Corpuscular Hemoglobin 31 pg (27-31); Mean Corpuscular Volume 98 fL (80-97); Mean Platelet Volume 9.8 fL (7.4-10.4); Platelet Count 64 10^3/uL (150-450); Red Blood Count 2.23 10^6 /uL (3.70-4.87); Red Cell Distribution Width 20 % (10-15); White Blood Count 21.4 10^3/uL (3.5-10.8)
[2022-06-19 06:36] LABS: Hematocrit 22 % (35-47); Hemoglobin 7.3 g/dL (12.0-16.0); Mean Corpuscular HGB Conc 33 g/dL (31-36); Mean Corpuscular Hemoglobin 32 pg (27-31); Mean Corpuscular Volume 97 fL (80-97); Mean Platelet Volume 9.1 fL (7.4-10.4); Platelet Count 67 10^3/uL (150-450); Red Blood Count 2.31 10^6 /uL (3.70-4.87); Red Cell Distribution Width 19 % (10-15); White Blood Count 14.8 10^3/uL (3.5-10.8)
[2022-06-19 06:53] LABS: Calcium 9.1 mg/dL (8.6-10.3); Magnesium 1.8 mg/dL (1.9-2.7); Potassium 3.5 mmol/L (3.5-5.0); eGFR CKD-EPI 95.3 (>60)
[2022-06-19] MEDS ORDERED: Potassium Chloride LIQUID 20 MEQ/15 ML LIQUID PO ONE (07:36)
[2022-06-19 07:38] LABS: ABS Lymphocytes 1.3 10^3/ul (1.0-4.8); ABS Monocytes 1.1 10^3/ul (0-0.8); ABS Neutrophils 12.2 10^3/ul (1.5-7.7); Eosinophil % 0.2 %; Lymphocyte % 9.1 %
[2022-06-19] MEDS ORDERED: cefTRIAXone 2 gm/50 mL D5W 2 GM/50 ML BAG IV SCH (11:00)
[2022-06-19 12:27] VITALS: BP 141/71
== END 2022-06-19 15:25 | disposition home or self-care (01) | DRG 872 ==
LOC: ED 20:25 → EDHOLD 20:25 → SUATTDRO 22:28 → MEDTELE 06-13 05:15 → SUATTDRO 06-13 13:56
PROVIDERS: ADMIT Student in an Organized Health Care Education/Training Program; ATTEND Internal Medicine

== ENCOUNTER 2022-07-08 14:28 | Inpatient (IN) ==
[2022-07-08] MEDS ORDERED: Morphine 2 MG/ML SYRINGE IV ONE (15:20)
[2022-07-08] MEDS ORDERED: Lactated Ringers 1000 ml BAG 1,000 ML IV ONE (15:20)
[2022-07-08] MEDS ORDERED: Ondansetron 4 mg VIAL 2 MG/ML 2 ml VIAL IV ONE (15:20)
[2022-07-08] MEDS ORDERED: cefTRIAXone 2 GM ADDV.VIAL 2 GM in NS 0.9% 100 ml BAG 100 ML IV ONE (15:51)
[2022-07-08 16:33] LABS: ABS Lymphocytes 0.9 10^3/ul (1.0-4.8); ABS Monocytes 0.8 10^3/ul (0-0.8); ABS Neutrophils 2.4 10^3/ul (1.5-7.7); Eosinophil % 0.5 %; Hematocrit 28 % (35-47); Hemoglobin 9.3 g/dL (12.0-16.0); Lymphocyte % 21.9 %; Mean Corpuscular HGB Conc 33 g/dL (31-36); Mean Corpuscular Hemoglobin 32 pg (27-31); Mean Corpuscular Volume 97 fL (80-97); Mean Platelet Volume 7.4 fL (7.4-10.4); Nucleated Red Blood Cells % 0.2; Platelet Count 338 10^3/uL (150-450); Red Blood Count 2.94 10^6 /uL (3.70-4.87); Red Cell Distribution Width 18 % (10-15); White Blood Count 4.2 10^3/uL (3.5-10.8)
[2022-07-08 17:09] LABS: Albumin 3.5 g/dL (3.2-5.2); Albumin/Globulin Ratio 0.9 (1-3); C Reactive Protein 11.08 mg/L (<8.01); Globulin 3.8 g/dL (2-4); Potassium 3.3 mmol/L (3.5-5.0); Total Bilirubin 0.5 mg/dL (0.2-1.0); Total Protein 7.3 g/dL (6.4-8.9); eGFR CKD-EPI 63.7 (>60)
[2022-07-08 17:15] LABS: Calcium 13.6 mg/dL (8.6-10.3)
[2022-07-08] MEDS ORDERED: Furosemide 20 mg/2 ml IV VIAL IV SLOW PU ONE (17:21)
[2022-07-08 17:47] LABS: Erythrocyte Sed Rate 76 mm/Hr (0-29)
[2022-07-08] MEDS ORDERED: cefTRIAXone 2 gm/50 mL D5W 2 GM/50 ML BAG IV ONE (17:50)
[2022-07-08 21:56] LABS: Urine Appearance Clear; Urine Bilirubin Negative (Negative); Urine Blood Negative (Negative); Urine Color Straw; Urine Glucose Negative (Negative); Urine Ketones Negative (Negative); Urine Nitrite Negative (Negative); Urine Protein Negative (Negative); Urine Specific Gravity 1.005 (1.002-1.030); Urine Urobilinogen Negative (Negative)
[2022-07-08 21:59] LABS: Urine Bacteria 1+ (Absent); Urine Red Blood Cell Absent (Absent); Urine Squamous Epithelial Cell Present (Absent); Urine White Blood Cell Trace(0-5/hpf) (Absent)
[2022-07-09] MEDS ORDERED: NS 0.9% 1000 ml BAG 1,000 ML IV ONE ×3 (09:13→14:00)
[2022-07-09 09:44] LABS: Albumin 3.3 g/dL (3.2-5.2); Albumin/Globulin Ratio 0.9 (1-3); Globulin 3.7 g/dL (2-4); Potassium 3.2 mmol/L (3.5-5.0); Total Bilirubin 0.4 mg/dL (0.2-1.0); eGFR CKD-EPI 62.1 (>60)
[2022-07-09 10:04] LABS: Calcium 13.2 mg/dL (8.6-10.3)
[2022-07-09] MEDS: cefTRIAXone 2 gm/50 mL D5W 2 GM/50 ML BAG IV SCH (10:43)
[2022-07-09] MEDS ORDERED: Calcitonin (Salmon) INJ 200 UNITS/ML 2 ML VIAL (400 units) IM ONE ×2 (11:37)
[2022-07-09] MEDS ORDERED: Zoledronic Acid 4 MG in NS 0.9% 100 ml BAG 100 ML IVPB ONE (11:37)
[2022-07-09 12:00] LABS: Calcium (PTH Intact) 13.2 mg/dL (8.6-10.3)
[2022-07-09 12:09] LABS: Magnesium 1.5 mg/dL (1.9-2.7)
[2022-07-09] MEDS: Aspirin EC 81 mg TAB.EC (enteric coated) PO SCH (13:31)
[2022-07-09] MEDS ORDERED: Magnesium Sulf 4 GM/100 ML IV 4,000 MG/100 ML BAG IVPB ONE (13:36)
[2022-07-09] MEDS: KCL 10 MEQ/50 ML IVPREMIX 10 MEQ/50 ML BAG IV SCH ×2 (13:37→16:49)
[2022-07-09] MEDS: Lidocaine PATCH 5% PATCH TRANSDERM SCH (13:42)
[2022-07-09] MEDS: Enoxaparin 40 MG/0.4 ML SYR SUBCUT SCH (13:47)
[2022-07-09] MEDS: Albuterol HFA INHALER 8 gm MDI INH SCH ×2 (16:50→20:45)
[2022-07-09] MEDS ORDERED: NS 0.9% 1000 ml BAG 1,000 ML IV SCH (19:00)
[2022-07-10] MEDS ORDERED: NS 0.9% 1000 ml BAG 1,000 ML IV SCH ×2 (02:00)
[2022-07-10] MEDS ORDERED: Calcitonin (Salmon) INJ 200 UNITS/ML 2 ML VIAL (400 units) IM ONE (02:00)
[2022-07-10 05:52] LABS: ABS Eosinophils 0.1 10^3/ul (0-0.6); ABS Lymphocytes 0.5 10^3/ul (1.0-4.8); ABS Monocytes 0.3 10^3/ul (0-0.8); ABS Neutrophils 2.4 10^3/ul (1.5-7.7); Hematocrit 27 % (35-47); Hemoglobin 9.2 g/dL (12.0-16.0); Lymphocyte % 15.2 %; Mean Corpuscular HGB Conc 34 g/dL (31-36); Mean Corpuscular Hemoglobin 33 pg (27-31); Mean Corpuscular Volume 97 fL (80-97); Mean Platelet Volume 7.2 fL (7.4-10.4); Platelet Count 315 10^3/uL (150-450); Red Blood Count 2.78 10^6 /uL (3.70-4.87); Red Cell Distribution Width 18 % (10-15); White Blood Count 3.4 10^3/uL (3.5-10.8)
[2022-07-10 06:49] LABS: Calcium 10.7 mg/dL (8.6-10.3); Magnesium 1.8 mg/dL (1.9-2.7); Potassium 3.2 mmol/L (3.5-5.0); eGFR CKD-EPI 83.5 (>60)
[2022-07-10] MEDS: Aspirin EC 81 mg TAB.EC (enteric coated) PO SCH (10:22)
[2022-07-10] MEDS: Lidocaine PATCH 5% PATCH TRANSDERM SCH (10:23)
[2022-07-10] MEDS: Enoxaparin 40 MG/0.4 ML SYR SUBCUT SCH (10:23)
[2022-07-10] MEDS: cefTRIAXone 2 gm/50 mL D5W 2 GM/50 ML BAG IV SCH (10:24)
[2022-07-10] MEDS ORDERED: Furosemide 20 mg/2 ml IV VIAL IV ONE (14:01)
[2022-07-10] MEDS: oxyCODONE/Acetamin 5/325 mg TAB PO PRN ×2 (14:45→21:57)
[2022-07-10] MEDS ORDERED: Magnesium Sulfate IV 1GM/100ML 1 GM/100 ML BAG IV ONE (16:26)
[2022-07-10] MEDS ORDERED: KCL 20 MEQ/100 ML IVPREMIX 20 MEQ/100 ML BAG IV ONE (16:29)
[2022-07-10] MEDS ORDERED: Polyethylene Glycol 3350 17 GM PACKET PO PRN (19:38)
[2022-07-11 05:49] LABS: ABS Lymphocytes 0.8 10^3/ul (1.0-4.8); ABS Monocytes 0.7 10^3/ul (0-0.8); ABS Neutrophils 7.9 10^3/ul (1.5-7.7); Eosinophil % 0.3 %; Hematocrit 28 % (35-47); Hemoglobin 9.6 g/dL (12.0-16.0); Lymphocyte % 8.3 %; Mean Corpuscular HGB Conc 34 g/dL (31-36); Mean Corpuscular Hemoglobin 33 pg (27-31); Mean Corpuscular Volume 97 fL (80-97); Platelet Count 319 10^3/uL (150-450); Red Blood Count 2.89 10^6 /uL (3.70-4.87); Red Cell Distribution Width 18 % (10-15); White Blood Count 9.5 10^3/uL (3.5-10.8)
[2022-07-11 06:36] LABS: Albumin 3.2 g/dL (3.2-5.2); Albumin/Globulin Ratio 0.9 (1-3); Calcium 9.7 mg/dL (8.6-10.3); Globulin 3.7 g/dL (2-4); Magnesium 1.5 mg/dL (1.9-2.7); Potassium 2.9 mmol/L (3.5-5.0); Total Bilirubin 0.4 mg/dL (0.2-1.0); Total Protein 6.9 g/dL (6.4-8.9); eGFR CKD-EPI 86.2 (>60)
[2022-07-11] MEDS: cefTRIAXone 2 gm/50 mL D5W 2 GM/50 ML BAG IV SCH (10:05)
[2022-07-11] MEDS: oxyCODONE/Acetamin 5/325 mg TAB PO PRN ×2 (10:13→21:37)
[2022-07-11] MEDS: Potassium Chlor 20 meq TAB.ER PO SCH (10:15)
[2022-07-11] MEDS: Enoxaparin 40 MG/0.4 ML SYR SUBCUT SCH (10:15)
[2022-07-11] MEDS: Lidocaine PATCH 5% PATCH TRANSDERM SCH ×2 (10:15→10:26)
[2022-07-11] MEDS: Aspirin EC 81 mg TAB.EC (enteric coated) PO SCH (10:16)
[2022-07-11] MEDS: KCL 20 MEQ/100 ML IVPREMIX 20 MEQ/100 ML BAG IV SCH ×2 (10:41→13:37)
[2022-07-11] MEDS ORDERED: Magnesium Sulfate 2 gm BAG 2 GM/50 ML BAG IVPB ONE (12:15)
[2022-07-12 06:15] LABS: ABS Eosinophils 0.1 10^3/ul (0-0.6); ABS Lymphocytes 0.5 10^3/ul (1.0-4.8); ABS Monocytes 0.4 10^3/ul (0-0.8); Eosinophil % 1.4 %; Hematocrit 27 % (35-47); Hemoglobin 9.2 g/dL (12.0-16.0); Lymphocyte % 7.6 %; Mean Corpuscular HGB Conc 34 g/dL (31-36); Mean Corpuscular Hemoglobin 32 pg (27-31); Mean Corpuscular Volume 96 fL (80-97); Mean Platelet Volume 7.3 fL (7.4-10.4); Platelet Count 300 10^3/uL (150-450); Red Blood Count 2.85 10^6 /uL (3.70-4.87); Red Cell Distribution Width 18 % (10-15); White Blood Count 7.1 10^3/uL (3.5-10.8)
[2022-07-12 06:31] LABS: Albumin 2.9 g/dL (3.2-5.2); Albumin/Globulin Ratio 0.9 (1-3); Globulin 3.2 g/dL (2-4); Magnesium 1.5 mg/dL (1.9-2.7); Total Bilirubin 0.4 mg/dL (0.2-1.0); Total Protein 6.1 g/dL (6.4-8.9); eGFR CKD-EPI 95.3 (>60)
[2022-07-12] MEDS: KCL 20 MEQ/100 ML IVPREMIX 20 MEQ/100 ML BAG IV SCH ×2 (08:27→12:23)
[2022-07-12] MEDS: Aspirin EC 81 mg TAB.EC (enteric coated) PO SCH (08:30)
[2022-07-12] MEDS: Potassium Chlor 20 meq TAB.ER PO SCH (08:30)
[2022-07-12] MEDS: Enoxaparin 40 MG/0.4 ML SYR SUBCUT SCH (08:31)
[2022-07-12] MEDS: Lidocaine PATCH 5% PATCH TRANSDERM SCH (08:31)
[2022-07-12] MEDS: oxyCODONE/Acetamin 5/325 mg TAB PO PRN ×2 (09:48→20:19)
[2022-07-12] MEDS: cefTRIAXone 2 gm/50 mL D5W 2 GM/50 ML BAG IV SCH (10:30)
[2022-07-12] MEDS: Magnesium Sulfate 2 gm BAG 2 GM/50 ML BAG IVPB SCH ×2 (11:17→14:34)
[2022-07-13] MEDS: oxyCODONE/Acetamin 5/325 mg TAB PO PRN ×3 (04:58→20:23)
[2022-07-13 06:31] LABS: Magnesium 1.7 mg/dL (1.9-2.7); Potassium 3.3 mmol/L (3.5-5.0); eGFR CKD-EPI 94.9 (>60)
[2022-07-13] MEDS ORDERED: Magnesium Sulfate 2 gm BAG 2 GM/50 ML BAG IVPB ONE (07:39)
[2022-07-13] MEDS: cefTRIAXone 2 gm/50 mL D5W 2 GM/50 ML BAG IV SCH (09:12)
[2022-07-13] MEDS: Aspirin EC 81 mg TAB.EC (enteric coated) PO SCH (09:15)
[2022-07-13] MEDS: Potassium Chlor 20 meq TAB.ER PO SCH (09:15)
[2022-07-13] MEDS: Enoxaparin 40 MG/0.4 ML SYR SUBCUT SCH (09:16)
[2022-07-13] MEDS: KCL 20 MEQ/100 ML IVPREMIX 20 MEQ/100 ML BAG IV SCH ×2 (10:05→12:14)
[2022-07-13] MEDS: Lidocaine PATCH 5% PATCH TRANSDERM SCH (10:06)
[2022-07-13 13:31] LABS: C Reactive Protein 92.51 mg/L (<8.01)
[2022-07-14] MEDS: oxyCODONE/Acetamin 5/325 mg TAB PO PRN ×4 (03:38→21:50)
[2022-07-14 06:48] LABS: Calcium 7.5 mg/dL (8.6-10.3); Magnesium 1.7 mg/dL (1.9-2.7); Potassium 3.9 mmol/L (3.5-5.0)
[2022-07-14 06:53] LABS: eGFR CKD-EPI 95.7 (>60)
[2022-07-14] MEDS: Lidocaine PATCH 5% PATCH TRANSDERM SCH (08:53)
[2022-07-14] MEDS: Enoxaparin 40 MG/0.4 ML SYR SUBCUT SCH (08:53)
[2022-07-14] MEDS: Aspirin EC 81 mg TAB.EC (enteric coated) PO SCH (08:54)
[2022-07-14] MEDS: cefTRIAXone 2 gm/50 mL D5W 2 GM/50 ML BAG IV SCH (08:54)
[2022-07-14] MEDS ORDERED: Magnesium Sulfate IV 1GM/100ML 1 GM/100 ML BAG IV ONE (10:00)
[2022-07-14] MEDS ORDERED: Dexamethasone IV 4 MG/ML VIAL 1 ml VIAL IV SLOW PU SCH (12:00)
[2022-07-14] MEDS: Dexamethasone IV 40 MG in NS 0.9% 50 ML 50 ML IVPB SCH (13:42)
[2022-07-15] MEDS: oxyCODONE/Acetamin 5/325 mg TAB PO PRN (03:42)
[2022-07-15 06:31] LABS: Hematocrit 27 % (35-47); Hemoglobin 9.2 g/dL (12.0-16.0); Mean Corpuscular HGB Conc 34 g/dL (31-36); Mean Corpuscular Hemoglobin 32 pg (27-31); Mean Corpuscular Volume 95 fL (80-97); Mean Platelet Volume 7.4 fL (7.4-10.4); Platelet Count 334 10^3/uL (150-450); Red Blood Count 2.85 10^6 /uL (3.70-4.87); Red Cell Distribution Width 17 % (10-15); White Blood Count 6.9 10^3/uL (3.5-10.8)
[2022-07-15 07:00] LABS: Albumin 2.9 g/dL (3.2-5.2); Calcium 7.7 mg/dL (8.6-10.3); Magnesium 1.6 mg/dL (1.9-2.7); Total Bilirubin 0.2 mg/dL (0.2-1.0)
[2022-07-15 07:07] LABS: Albumin/Globulin Ratio 0.8 (1-3); Globulin 3.5 g/dL (2-4); Total Protein 6.4 g/dL (6.4-8.9); eGFR CKD-EPI 96.6 (>60)
[2022-07-15] MEDS ORDERED: Magnesium Sulfate 2 gm BAG 2 GM/50 ML BAG IVPB ONE (08:06)
[2022-07-15] MEDS: Aspirin EC 81 mg TAB.EC (enteric coated) PO SCH (08:15)
[2022-07-15] MEDS: Lidocaine PATCH 5% PATCH TRANSDERM SCH (08:15)
[2022-07-15] MEDS: Enoxaparin 40 MG/0.4 ML SYR SUBCUT SCH (08:16)
[2022-07-15 08:52] LABS: ABS Lymphocytes 1.1 10^3/ul (1.0-4.8); ABS Monocytes 0.4 10^3/ul (0-0.8); ABS Neutrophils 5.4 10^3/ul (1.5-7.7); Eosinophil % 0.2 %; Lymphocyte % 15.6 %
[2022-07-15] MEDS: cefTRIAXone 2 gm/50 mL D5W 2 GM/50 ML BAG IV SCH (10:21)
[2022-07-15] MEDS: Dexamethasone IV 40 MG in NS 0.9% 50 ML 50 ML IVPB SCH (11:53)
[2022-07-15 18:53] LABS: Kappa Free Light Chain 90.7 mg/dL
[2022-07-16] MEDS: Enoxaparin 40 MG/0.4 ML SYR SUBCUT SCH (09:39)
[2022-07-16] MEDS: Aspirin EC 81 mg TAB.EC (enteric coated) PO SCH (09:42)
[2022-07-16] MEDS: cefTRIAXone 2 gm/50 mL D5W 2 GM/50 ML BAG IV SCH (09:45)
[2022-07-16] MEDS: Lidocaine PATCH 5% PATCH TRANSDERM SCH (09:45)
[2022-07-16 10:13] LABS: ABS Lymphocytes 0.7 10^3/ul (1.0-4.8); ABS Monocytes 0.6 10^3/ul (0-0.8); ABS Neutrophils 6.3 10^3/ul (1.5-7.7); Hematocrit 29 % (35-47); Hemoglobin 9.3 g/dL (12.0-16.0); Lymphocyte % 8.9 %; Mean Corpuscular HGB Conc 33 g/dL (31-36); Mean Corpuscular Hemoglobin 31 pg (27-31); Mean Corpuscular Volume 96 fL (80-97); Mean Platelet Volume 7.1 fL (7.4-10.4); Platelet Count 401 10^3/uL (150-450); Red Blood Count 2.97 10^6 /uL (3.70-4.87); Red Cell Distribution Width 18 % (10-15); White Blood Count 7.6 10^3/uL (3.5-10.8)
[2022-07-16 10:42] LABS: Albumin 3.3 g/dL (3.2-5.2); Calcium 7.5 mg/dL (8.6-10.3); Globulin 3.4 g/dL (2-4); Magnesium 1.8 mg/dL (1.9-2.7); Potassium 3.9 mmol/L (3.5-5.0); Total Bilirubin 0.2 mg/dL (0.2-1.0); Total Protein 6.7 g/dL (6.4-8.9); eGFR CKD-EPI 90.7 (>60)
[2022-07-16] MEDS: Dexamethasone IV 40 MG in NS 0.9% 50 ML 50 ML IVPB SCH (11:28)
[2022-07-16 11:32] VITALS: BP 155/84
[2022-07-16 12:15] LABS: Immunoglobulin A 14 mg/dL (61 - 356); Immunoglobulin G 1710 mg/dL (767 - 1590); Immunoglobulin M <5 mg/dL (37 - 286)
[2022-07-16] MEDS: oxyCODONE/Acetamin 5/325 mg TAB PO PRN (13:53)
[2022-07-17 01:02] LABS: Albumin 2.5 g/dL (3.4-4.7); Albumin/Globulin Ratio 0.66; Gamma Globulin 1.6 g/dL (0.6-1.6); Total Protein(PEP) 6.2 g/dL (6.3 - 7.9)
== END 2022-07-16 16:30 | disposition home or self-care (01) | DRG 640 ==
LOC: EDHOLD 14:28 → ED 14:28 → SUATTDRO 07-09 08:26 → EDHOLD 07-09 14:15 → MED 07-09 15:00 → SUATTDRO 07-10 10:37
PROVIDERS: ADMIT Hospitalist; ATTEND Internal Medicine

== ENCOUNTER 2022-09-23 16:20 | Inpatient (IN) ==
[2022-09-23] MEDS ORDERED: Lactated Ringers 1000 ml BAG 1,000 ML IV ONE ×2 (16:34→21:01)
[2022-09-23 17:30] LABS: Urine Appearance Cloudy; Urine Bilirubin Negative (Negative); Urine Blood Negative (Negative); Urine Color Yellow; Urine Glucose Negative (Negative); Urine Ketones Negative (Negative); Urine Nitrite Negative (Negative); Urine Protein 2+(100 mg/dL) (Negative); Urine Specific Gravity 1.019 (1.002-1.030); Urine Urobilinogen Negative (Negative)
[2022-09-23 17:32] LABS: Activated Partial Thrombo Time 34.5 seconds (26.0-38.0); INR 1.18 (0.88-1.18)
[2022-09-23 17:34] LABS: Urine Bacteria Absent (Absent); Urine Red Blood Cell Trace(0-2/hpf) (Absent); Urine Squamous Epithelial Cell Present (Absent); Urine White Blood Cell Trace(0-5/hpf) (Absent)
[2022-09-23 17:56] LABS: Albumin 3.4 g/dL (3.2-5.2); C Reactive Protein 19.64 mg/L (<8.01); Calcium 8.8 mg/dL (8.6-10.3); Creatinine, Serum 0.82 mg/dL (0.51-0.95); Globulin 3.5 g/dL (2-4); Potassium 4.2 mmol/L (3.5-5.0); Total Bilirubin 0.7 mg/dL (0.2-1.0); Total Protein 6.9 g/dL (6.4-8.9)
[2022-09-23 18:14] LABS: Hematocrit 21 % (35-47); Hemoglobin 7.2 g/dL (12.0-16.0); Mean Corpuscular HGB Conc 34 g/dL (31-36); Mean Corpuscular Hemoglobin 31 pg (27-31); Mean Corpuscular Volume 93 fL (80-97); Mean Platelet Volume 9.7 fL (7.4-10.4); Platelet Count 75 10^3/uL (150-450); Red Cell Distribution Width 18 % (10-15); White Blood Count 1.5 10^3/uL (3.5-10.8)
[2022-09-23 18:46] LABS: ABS Lymphocytes 0.4 10^3/ul (1.0-4.8); ABS Monocytes 0.1 10^3/ul (0-0.8); Eosinophil % 0.8 %; Lymphocyte % 25.9 %; Nucleated Red Blood Cells % 2.3
[2022-09-23] MEDS ORDERED: Iohexol 350 (CONTRAST) 500 ML MDV IV ONE (18:54)
[2022-09-23 18:55] LABS: RBC Morphology Normal (Normal)
[2022-09-23 19:20] LABS: High Sensitivity Troponin 1 Hr 7 pg/mL (<15)
[2022-09-23] MEDS ORDERED: Ondansetron 4 mg VIAL 2 MG/ML 2 ml VIAL IV PRN (23:02)
[2022-09-23] MEDS ORDERED: Enoxaparin 40 MG/0.4 ML SYR SUBCUT SCH (23:45)
[2022-09-23] MEDS ORDERED: Cefepime 1 GM in Dextrose 1 GM/50 ML BAG IV ONE (23:56)
[2022-09-24 06:59] LABS: ABS Neutrophils 0.5 10^3/ul (1.5-7.7); Hematocrit 18 % (35-47); Hemoglobin 5.8 g/dL (12.0-16.0); Mean Corpuscular HGB Conc 33 g/dL (31-36); Mean Corpuscular Hemoglobin 30 pg (27-31); Mean Corpuscular Volume 91 fL (80-97); Red Blood Count 1.92 10^6 /uL (3.70-4.87); Red Cell Distribution Width 19 % (10-15); White Blood Count 0.9 10^3/uL (3.5-10.8)
[2022-09-24 07:01] LABS: Creatinine, Serum 0.74 mg/dL (0.51-0.95); Potassium 3.8 mmol/L (3.5-5.0); eGFR CKD-EPI 84.8 (>60)
[2022-09-24 08:10] LABS: Mean Platelet Volume 9.1 fL (7.4-10.4); Platelet Count 57 10^3/uL (150-450)
[2022-09-24 08:20] LABS: Magnesium 1.5 mg/dL (1.9-2.7)
[2022-09-24 08:51] LABS: ABS Lymphocytes 0.3 10^3/ul (1.0-4.8); ABS Monocytes 0.1 10^3/ul (0-0.8); Eosinophil % 0.3 %; Lymphocyte % 31.7 %; Nucleated Red Blood Cells % 0.3
[2022-09-24] MEDS ORDERED: Magnesium Sulfate IV 3 GM in NS 0.9% 100 ml BAG 100 ML IVPB ONE (10:00)
[2022-09-24] MEDS ORDERED: Cefepime 1 GM in Dextrose 1 GM/50 ML BAG IV SCH (12:00)
[2022-09-24] MEDS: Lactated Ringers 1000 ml BAG 1,000 ML IV SCH ×2 (14:01→23:31)
[2022-09-24] MEDS: Albuterol HFA INHALER 8 gm MDI INH SCH ×3 (14:09→19:40)
[2022-09-24 16:14] LABS: Hematocrit 27 % (35-47); Hemoglobin 8.9 g/dL (12.0-16.0)
[2022-09-24 23:34] LABS: Hematocrit 26 % (35-47); Hemoglobin 8.6 g/dL (12.0-16.0)
[2022-09-25] MEDS: Cefepime 1 GM in Dextrose 1 GM/50 ML BAG IV SCH ×2 (03:14→15:20)
[2022-09-25 06:46] LABS: ABS Lymphocytes 0.6 10^3/ul (1.0-4.8); ABS Monocytes 0.2 10^3/ul (0-0.8); Eosinophil % 0.1 %; Hematocrit 25 % (35-47); Hemoglobin 8.4 g/dL (12.0-16.0); Lymphocyte % 13.3 %; Mean Corpuscular HGB Conc 34 g/dL (31-36); Mean Corpuscular Hemoglobin 31 pg (27-31); Mean Corpuscular Volume 94 fL (80-97); Nucleated Red Blood Cells % 0.1; Platelet Count 47 10^3/uL (150-450); Red Blood Count 2.67 10^6 /uL (3.70-4.87); Red Cell Distribution Width 18 % (10-15); White Blood Count 4.9 10^3/uL (3.5-10.8)
[2022-09-25 07:29] LABS: Calcium 7.4 mg/dL (8.6-10.3); Creatinine, Serum 0.58 mg/dL (0.51-0.95); Magnesium 1.9 mg/dL (1.9-2.7); Potassium 3.4 mmol/L (3.5-5.0); eGFR CKD-EPI 94.9 (>60)
[2022-09-25] MEDS: Albuterol HFA INHALER 8 gm MDI INH SCH ×4 (08:44→19:54)
[2022-09-25] MEDS: Senna TAB 8.6 mg TAB PO SCH (09:41)
[2022-09-25 15:21] LABS: Ferritin 1026.6 ng/mL (11-307)
[2022-09-25] MEDS: Lidocaine PATCH 5% PATCH TRANSDERM PRN (16:24)
[2022-09-25] MEDS ORDERED: Enoxaparin 40 MG/0.4 ML SYR SUBCUT SCH (21:00)
[2022-09-26] MEDS: Cefepime 1 GM in Dextrose 1 GM/50 ML BAG IV SCH (03:19)
[2022-09-26] MEDS: Albuterol HFA INHALER 8 gm MDI INH SCH ×2 (07:14→12:16)
[2022-09-26] MEDS: Lidocaine PATCH 5% PATCH TRANSDERM PRN (08:29)
[2022-09-26] MEDS: Senna TAB 8.6 mg TAB PO SCH (08:31)
[2022-09-26 10:46] VITALS: BP 125/77
== END 2022-09-26 12:22 | disposition home or self-care (01) | DRG 809 ==
LOC: EDHOLD 16:20 → ED 16:20 → SUATTDRO 23:02 → EDHOLD 09-24 15:05 → MEDTELE 09-24 15:18 → MED 09-25 18:42
PROVIDERS: ADMIT Student in an Organized Health Care Education/Training Program; ATTEND Internal Medicine

== ENCOUNTER 2023-04-09 18:43 | Inpatient (IN) ==
[2023-04-09] MEDS ORDERED: Cefepime 2 GM in Dextrose 2 GM/50 ML BAG IV ONE (18:57)
[2023-04-09] MEDS ORDERED: Lactated Ringers SEPSIS* BAG 1,640 ML IV ONE (18:57)
[2023-04-09] MEDS ORDERED: Vancomycin 1,000 MG in NS 0.9% 250 ml 250 ML IVPB SCH (19:00)
[2023-04-09 19:22] LABS: Venous Bicarbonate HCO3 21.8 mmol/L (24-28)
[2023-04-09 19:22] LABS: Activated Partial Thrombo Time 41.2 seconds (26.0-38.0); INR 3.04 (0.83-1.13)
[2023-04-09 19:28] LABS: Albumin 3.2 g/dL (3.2-5.2); Hematocrit 16.7 % (35-45); Mean Corpuscular Hemoglobin 36.4 pg (27-33); Mean Corpuscular Hgb Conc 36.2 g/dL (31-36); Mean Corpuscular Volume 100.4 fL (80-97); Potassium 3.9 mmol/L (3.5-5.0); Red Blood Count 1.66 10^6/uL (3.63-4.92); Red Cell Distribution Width 17.1 % (12-17); Total Bilirubin 0.6 mg/dL (0.2-1.0); White Blood Count 5.4 10^3/uL (3.8-11.8)
[2023-04-09 19:34] LABS: Albumin/Globulin Ratio 0.5 (1-3); C Reactive Protein 18.14 mg/L (<8.01); Creatinine, Serum 1.15 mg/dL (0.51-0.95); Globulin 6.1 g/dL (2-4); Total Protein 9.3 g/dL (6.4-8.9); eGFR CKD-EPI 49.7 (>60)
[2023-04-09 20:10] LABS: Anisocytosis 1+; Macrocytosis 1+
[2023-04-09 20:11] LABS: ABS Lymphocytes 2.6 10^3/ul (1.0-4.8); ABS Monocytes 0.2 10^3/ul (0-0.8); ABS Neutrophils 2.6 10^3/ul (1.5-7.7)
[2023-04-09 20:12] LABS: ABS Nucleated RBC 0.07 10^3/ul; Eosinophil % 0.4 %; Lymphocyte % 46.8 %; Mean Platelet Volume 8.2 fL (7.5-11.2); Nucleated Red Blood Cells % 1.3 /100 WBC (0.0-0.4); Platelet Count 66 10^3/uL (150-450)
[2023-04-09 21:02] LABS: High Sensitivity Troponin 1 Hr 28 pg/mL (<15)
[2023-04-09] MEDS ORDERED: Iodixanol (CONTRAST) 320 MG/ML 100 ML SDV IV ONE (21:03)
[2023-04-09] MEDS ORDERED: Vancomycin 1,000 MG - ED ONCE IVPB ONE (22:00)
[2023-04-09] MEDS: Acetaminophen IV 1 GM/100ML 1,000 MG/100 ML BAG IV PRN (23:36)
[2023-04-10 00:12] LABS: ABS Basophils 0.1 10^3/uL (0.0-0.1); ABS Lymphocytes 2.1 10^3/uL (1.0-4.8); ABS Monocytes 0.7 10^3/uL (0.0-0.9); ABS Neutrophils 1.6 10^3/uL (1.5-7.6); ABS Nucleated RBC 0.08 10^3/ul; Eosinophil % 0.4 %; Hematocrit 14.1 % (35-45); Hemoglobin 4.9 g/dL (11.5-14.3); Lymphocyte % 47.1 %; Mean Corpuscular Hemoglobin 35.4 pg (27-33); Mean Corpuscular Volume 101.1 fL (80-97); Mean Platelet Volume 8.3 fL (7.5-11.2); Nucleated Red Blood Cells % 1.7 /100 WBC (0.0-0.4); Platelet Count 53 10^3/uL (150-450); Red Blood Count 1.39 10^6/uL (3.63-4.92); Red Cell Distribution Width 17.5 % (12-17); White Blood Count 4.4 10^3/uL (3.8-11.8)
[2023-04-10] MEDS ORDERED: Ondansetron 4 mg VIAL 2 MG/ML 2 ml VIAL ONE (01:01)
[2023-04-10 01:10] LABS: Hematocrit 13.6 % (35-45); Hemoglobin 4.8 g/dL (11.5-14.3)
[2023-04-10 04:49] LABS: Urine Appearance Clear; Urine Bilirubin Negative (Negative); Urine Blood Negative (Negative); Urine Color Yellow; Urine Glucose Negative (Negative); Urine Ketones Negative (Negative); Urine Nitrite Negative (Negative); Urine Protein 3+(>=500 mg/dL) (Negative); Urine Specific Gravity 1.055 (1.002-1.030); Urine Urobilinogen Negative (Negative)
[2023-04-10 04:53] LABS: Urine Bacteria Absent (Absent); Urine Red Blood Cell 1+(3-5/hpf) (Absent); Urine White Blood Cell Trace(0-5/hpf) (Absent)
[2023-04-10 05:38] LABS: Calcium 7.4 mg/dL (8.6-10.3); Creatinine, Serum 1.04 mg/dL (0.51-0.95); Magnesium 1.9 mg/dL (1.9-2.7); Potassium 3.7 mmol/L (3.5-5.0)
[2023-04-10 06:06] LABS: ABS Basophils 0.1 10^3/uL (0.0-0.1); ABS Lymphocytes 1.9 10^3/uL (1.0-4.8); ABS Monocytes 0.5 10^3/uL (0.0-0.9); ABS Nucleated RBC 0.06 10^3/ul; Eosinophil % 0.3 %; Hematocrit 20.1 % (35-45); Hemoglobin 7.2 g/dL (11.5-14.3); Lymphocyte % 42.8 %; Mean Corpuscular Hemoglobin 34.2 pg (27-33); Mean Corpuscular Hgb Conc 35.9 g/dL (31-36); Mean Corpuscular Volume 95.3 fL (80-97); Mean Platelet Volume 8.1 fL (7.5-11.2); Nucleated Red Blood Cells % 1.4 /100 WBC (0.0-0.4); Platelet Count 48 10^3/uL (150-450); Red Blood Count 2.11 10^6/uL (3.63-4.92); Red Cell Distribution Width 17.8 % (12-17); White Blood Count 4.5 10^3/uL (3.8-11.8)
[2023-04-10] MEDS: Acetaminophen IV 1 GM/100ML 1,000 MG/100 ML BAG IV PRN (07:26)
[2023-04-10] MEDS ORDERED: Morphine 2 MG/ML SYRINGE IV PRN (13:05)
[2023-04-10] MEDS: LORazepam 2 mg VIAL 1 ml IV PUSH PRN (13:40)
[2023-04-10 14:08] VITALS: BP 120/68
[2023-04-10] MEDS: Morphine ORAL CONCENTRATE 5 MG/0.25 ML ORAL.SYRIN PO PRN ×3 (14:09→21:00)
[2023-04-11] MEDS: Morphine ORAL CONCENTRATE 5 MG/0.25 ML ORAL.SYRIN PO PRN ×5 (06:06→22:08)
[2023-04-11] MEDS: LORazepam 2 mg VIAL 1 ml IV PUSH PRN (16:54)
[2023-04-11] MEDS: Acetaminophen IV 1 GM/100ML 1,000 MG/100 ML BAG IV PRN (20:49)
[2023-04-12] MEDS: Morphine ORAL CONCENTRATE 5 MG/0.25 ML ORAL.SYRIN PO PRN ×4 (04:50→18:23)
[2023-04-12] MEDS ORDERED: LORazepam 2 mg VIAL 1 ml IV PUSH PRN (12:53)
[2023-04-12] MEDS ORDERED: Lorazepam PYXIS KEY PRN (13:03)
[2023-04-12] MEDS: Morphine ORAL CONCENTRATE 5 MG/0.25 ML ORAL.SYRIN PO SCH ×2 (20:13→23:59)
[2023-04-12] MEDS ORDERED: Scopolamine 1 mg/72hr PATCH TRANSDERM SCH (23:45)
[2023-04-13] MEDS: Morphine ORAL CONCENTRATE 5 MG/0.25 ML ORAL.SYRIN PO PRN ×4 (02:21→10:09)
[2023-04-13] MEDS: Morphine ORAL CONCENTRATE 5 MG/0.25 ML ORAL.SYRIN PO SCH ×2 (04:20→07:57)
[2023-04-13] MEDS ORDERED: Atropine 1% (ORAL/SL) 15 ML BTL SL PRN (08:59)
== END 2023-04-13 10:20 | disposition expired | DRG 841 ==
LOC: ED 18:43 → SUATTDRO 20:20 → EDHOLD 20:20 → MED 20:20
PROVIDERS: ADMIT Internal Medicine; ATTEND Internal Medicine